=== PATIENT | female | born 1985 | race Caucasian/White ===

== ENCOUNTER 2023-06-23 21:59 | Outpatient (REF) | payer OTHER, SELFPAY ==
[2023-06-29 12:13] LABS: Age Gdln ACOG Testing Note (.); HPV Aptima Negative (Negative); IGP, Aptima HPV, rfx 16/18,45 Note (.)
== END 2023-06-23 22:00 | disposition home or self-care (01) ==
LOC: LAB 21:59
PROVIDERS: Visit Provider Physician Assistant
DX: Z01.419 Encounter for gynecological examination (general) (routine) without abnormal findings (principal)
CPT/HCPCS: 87624; G0145

== ENCOUNTER 2023-06-26 12:49 | Outpatient (OUT) | payer OTHER, SELFPAY ==
--- NOTE | 2023-06-26 12:55 | US_ITS ---
The [address] [address] Patient Name: BENNY PIERSON MRN: [id number] date: 1985 Sex: F Assigned Patient Location: Current Patient Location: Accession/Order Number: [id number] Exam Date: 06/26/2023 12:57 Report Date: 06/28/2023 08:47 At the request of: ARCELIA RIVERS Procedure: US pelvis transvaginal Ultrasound pelvis, non-obstetric CLINICAL: IUD placement Z97.5 TECHNIQUE: Transabdominal and transvaginal pelvic ultrasound was performed. FINDINGS: Comparison: None. The uterus is anteverted in position. It measures 7.5 x 5.2 x 3.4 cm. There is no discrete myometrial mass. The endometrial complex measures 5 mm in thickness. There is a linear echogenic shadowing structure in the uterine cavity compatible with intrauterine device. The stem is oriented longitudinally in the lower uterine segment and the origins of the IUD are at the fundus. The right ovary measures 3.1 x 1.9 x 1.8 cm. The left ovary measures 3.9 x 2.5 x 3.0 cm. There is normal vascular flow to both ovaries with resistive index of 0.6 on right and 0.6 on the left. Small physiologic sized follicles are identified in both ovaries. There is a dominant cyst in the left ovary measuring 2.5 x 2.2 x 2.1 cm with a small peripheral daughter cyst. There is no free pelvic fluid or mass seen on either side. US/US pelvis transvaginal IMPRESSION: 1. Intrauterine device in expected positioning. The arms of the IUD are at the fundus and stem oriented longitudinally into the lower uterine segment. 2. Normal ovaries bilaterally, with dominant 2.5 cm cyst in left ovary. Electronically authenticated by: SHERIE RODARTE Date: 06/28/2023 08:47
== END 2023-06-26 12:50 | disposition home or self-care (01) ==
LOC: US 12:50
PROVIDERS: Visit Provider Obstetrics & Gynecology
DX: N83.202 Unspecified ovarian cyst, left side (principal); Z97.5 Presence of (intrauterine) contraceptive device
CPT/HCPCS: 76830

== ENCOUNTER 2024-08-23 19:46 | Outpatient (REF) | payer OTHER, SELFPAY ==
--- OUTSIDE RECORDS SUMMARY | 2024-08-23 19:52 | XMS_ITS | CCD ---
Author Organization [facility] CliniSyal Care Team Providers Care Turnaround Planner Name Role Phone Unavailable Primary Care Provider UnavailNikky Stoner Unavailable Unavailable Primary Care Provider Unavailabl e FAWWALg, FRAGA H Admitting Unavailable FAWWALg, FRAGA H Attending Unavailable FAWWAD, FRAGA H Primary Care Unavailable ZhaoSamira mederos Consulting Unavailable FAAngélicaWALg FRAGA H Consulting Unavailable DR EMMANUEL TURNER Admitting Unavailable SILVESTRE, DR PANIAGUA Attending Unavailable FAWWALg, FRAGA H Primary Care Unavailable DR EMMANUEL TURNER Consulting Unavailable Michelle Ferrari Attending Unavailable Michelle Ferrari Admitting Unavailable NO FAMILY, PHYSICIAN Primary Care Unavailable Unavailable Primary Care Provider UnavailHALEY Rosales Referring Unavailjose De Paz APRN, Tara A Primary Care Provider Tara De Paz APRN A Primary Care Provider GILBERTO ARMAS, SACHI Referring Unavailable GERMAN MORALES Attending Unavailable ERNESTOPFER, TARA A Primary Care Unavailable GERMAN MORALES Attending Unavailable ERNESTOPFER, TARA A Primary Care Unavailable GILBERTO ARMAS, SACHI Referring Unavailable ERNESTOPFER, TARA Attending Unavailable MARILEE FISHER Attending Unavailable ERNESTOPFER, TARA Referring Unavailable ERNESTOPFER, TARA Attending Unavailable Kary Duran MD Primary Care Provider Tara De Paz NP Unavailable Effie Gutierrez DO Unavailable MARANDA RETANA Attending Unavailable KAMPFER, TARA A Primary Care Unavailable IRMA TA Attending Unavailable ERNESTOPREMI, TARA A Primary Care Unavailable IRMA TA Attending Unavailable KAMPFER, TARA A Primary Care Unavailable EL PAWEL, SACHI Referring Unavailable KAMPFER, TARA A Primary Care Unavailable EL PAWEL, SACHI Referring Unavailable KAMPFER, TARA A Primary Care [facility] Primary Care Unavailable EL PAWEL, SACHI Attending Unavailable KAMPFER, TARA A Primary Care Unavailable KAMPFER, TARA A Primary Care Unavailable EL PAWEL, SACHI Referring Unavailable KAMPFER, TARA A Primary Care Unavailable EL PAWEL, SACHI Attending Unavailable ROSA MARIA PURVIS Attending Unavailable KAMFER, TARA A Primary Care Unavailable EL PAWEL, SACHI Referring Unavailable KAMPFER, TARA A Primary Care Unavailable EL PAWEL, SACHI Referring Unavailable KAMPFER, TARA A Primary Care Unavailable ALEXANDRA CADET Attending Unavailable Dasha Weber Referring [facility], TARA A Primary Care Unavailable EL PAWEL, SACHI Referring Unavailable SUSY MONTEZ Attending Unavailable [facility], [place] A Primary Care Unavailable Allergies Allergy Classification Reported Allergen(s) Allergy Type Date of Onset Reaction(s) Facility (20 sources) Seasonal allergy; Translations: [SEASONAL ALLERGIES] Propensity to adverse reactions 2 Other: See Comments [facility] (2 sources) cefdinir Drug Allergy 3 [facility] Work Phone: (2 sources) Other Propensity to adverse reactions 2 [facility] Healthcare Medications Current Medications Medication Drug Class(es) Dates Sig (Normalized) Sig (Original) [id number] 200 actuat albuterol 0.09 mg/actuat metered dose inhaler (2 sources) beta2-Adrenergic Agonist Start: 05-24-2024 End: 05-24-2025 take 2 puff(s) by inhalation every four hours for wheezing albuterol HFA 90 mcg/act inhaler Indications: Mild intermittent asthma without complication (CMS/HCC) Inhale 2 puffs every 4 (four) hours if needed for wheezing 18 g 05/24/2024 05/24/2025 Active atorvastatin 20 mg oral tablet (20 sources) HMG-CoA Reductase Inhibitor Start: 05-31-2023 take 1 tablet by mouth in the morning atorvastatin (Lipitor) 20 MG tablet Indications: Dyslipidemia (CMS/HCC) Take 1 tablet (20 mg) by mouth in the morning. 90 tablet 1 05/31/2023 Active Start: 12-02-2021 take 0.5 tablet by m outh once daily atorvastatin (LIPITOR) 20 mg tablet Take 0.5 tablets by mouth once daily. 12/02/2021 Active Start: 08-12-2021 End: 12-02-2021 atorvastatin (LIPITOR) 20 mg tablet Comment on above: Take 0.5 tablets by mouth once daily. 24 hr buPROPion hydrochloride 300 mg extended release oral tablet (20 sources) Aminoketone Start: End: take 1 tablet by mouth once daily buPROPion XL (WELLBUTRIN XL) 300 mg 24 hr tablet Indications: Obesity, Class I, BMI 30-34.9 , PCOS (polycystic ovarian syndrome) , Insulin resistance Take 1 tablet by mouth once daily 90 tablet 1 06/30/2024 Active Start: 04-16-2021 buPROPion XL ( WELLBUTRIN XL) 150 mg 24 hr tablet bupropion HCl XL 150 mg 24 hr tablet, extended release 0 04/16/2021 Active take 1 tablet by car th every twenty-four hours in the morning buPROPion XL (Wellbutrin XL) 300 MG 24 hr tablet Take 300 mg by mouth in the morning. Do not crush, chew, or split.. Active Wellbutrin Activ e Comment on above: bupropion HCl XL 150 mg 24 hr tablet, extended release Take 1 tablet by car th once daily. busPIRone hydrochloride 15 mg oral tablet (20 sources) Start: take 1 tablet by mouth twice daily at bedtime busPIRone (Buspar) 15 MG tablet Indications: Depression with anxiety TAKE 1 TABLET BY MOUTH TWICE DAILY (MORNING AND BEFORE BEDTIME) 180 tablet 06/14/2024 Active Start: 11-09-2023 take 1 tablet by car th in the morning busPIRone (Buspar) 15 MG tablet Indications: Depression with anxiety Take 1 tablet (15 mg) by mouth in the morning and 1 tablet (15 mg) before bedtime. 180 tablet 1 11/09/2023 Active Start: 08-25-2021 take 1 tablet by car th three times daily busPIRone (BUSPAR) 15 mg tablet Take 15 mg by mouth three times daily. 08/25/2021 Active BuSpar Active Comment on above: Take 15 mg by mouth three times daily. cetirizine hydrochloride 10 mg oral tablet (20 sources) Histamine-1 Receptor Antagonist Start: take 1 tablet by mouth in the morning cetirizine (ZyrTEC) 10 MG tablet Indications: Seasonal allergies TAKE 1 TABLET BY MOUTH IN THE MORNING 90 tablet 05/26/2024 Active Start: 11-09-2023 take 1 tablet by car th in the morning cetirizine (EQ Allergy Relief, Cetirizine,) 10 MG tablet Indications: Seasonal allergies Take 1 tablet (10 mg) by mouth in the morning. 90 tablet 1 11/09/2023 Active Comment on above: Take 10 mg by mouth once daily. cholecalciferol 0.025 mg ora l capsule (20 sources) Vitamin D Cholecalciferol, Vitamin D3, 25 mcg (1,000 unit) cap Active take 1 tablet by mouth in the mo rning cholecalciferol (Vitamin D3) 25 MCG (1000 UT) tablet Take 1 tablet by mouth in the morning. Active Cholecalciferol, Vitamin D3, (VITAMIN D) 25 mcg (1,000 unit) cap DAILY MULTI-VITAMIN ORAL (20 sources) DAILY MULTI-IMER MIN ORAL Active DAILY MULTI-IMER MIN ORAL diphenhydrAMINE hydrochloride 25 mg oral capsule (20 sources) Histamine-1 Receptor Antagonist take 1 capsule by mouth every six hours as needed diphenhydrAMINE (BENADRYL) 25 mg capsule Take 25 mg by mouth every 6 hours as needed. Active Comment on above: Take 25 mg by mouth every 6 hours as needed. doxycycline hyclate 100 mg oral capsule (10 sources) Tetracycline-class Drug Start: End: doxycycline (Vibramycin) 100 MG capsule Take 100 mg by mouth if needed 12/17/2022 Active Comment on above: Take 100 mg by mouth . fexofenadine hydrochloride 180 mg oral tablet (20 sources) Histamine-1 Receptor Antagonist Start: End: take 1 tablet by mouth once daily fexofenadine (JOYA) 180 mg tablet Take 180 mg by mouth once daily. 0 07/24/2021 06/24/2023 Discontinued Comment on above: Take 180 mg by mouth once daily. fluconazole 150 mg oral tablet (2 sources) Azole Antifungal Start: 024 take 1 tablet by mouth once, then take 1 tablet by mouth every week fluconazole (Diflucan) 150 MG tablet TAKE 1 TABLET BY MOUTH ONCE THEN REPEAT ADDITIONAL 1 TAB ONE WEEK LATER ON SAME DAY OF THE WEEK 12/22/2023 Active Start: 09-03-2020 take 1 tablet by car th every twenty-four hours Diflucan 150 MG 1 tablet Orally Once a day for 1 days Aug, Not-Taking FLUoxetine 20 mg oral capsule (20 sources) Serotonin Reuptake Inhibitor Start: 05-24-2024 take 1 capsule by mouth once daily FLUoxetine (PROzac) 20 MG capsule Indications: Anxiety , Moderate episode of recurrent major depressive disorder (CMS/HCC) Take 1 capsule (20 mg) by mouth Daily 90 capsule 05/24/2024 Active Comment on above: Take 20 mg by mouth once daily. fluticasone propionate 0.05 mg/actuat metered dose nasal spray (20 sources) Corticosteroid Start: 02-19-2023 take 1 spray(s) nasal route in the morning fluticasone (Flonase) 50 MCG/ACT nasal spray Indications: Seasonal allergies Administer 1 spray into each nostril in the morning. 16 g 5 02/19/2023 Active fluticasone (FAUSTO NASE) 50 mcg/actuation nasal spray fluticasone propionate 50 mcg/actuation nasal spray,suspension Active fluticasone (FAUSTO NASE) 50 mcg/actuation nasal spray fluticasone propionate 50 mcg/actuation nasal spray,suspension 0 Active Comment on above: fluticasone propiona te 50 mcg/actuation nasal spray,suspension hydrOXYzine hydrochloride 25 mg oral tablet (2 sources) Antihistamine Start: 023 take 1 tablet by mouth three times daily as needed for anxiety hydrOXYzine HCl (Atarax) 25 MG tablet Take 25 mg by mouth 3 (three) times a day as needed for anxiety. 01/12/2023 Active ibuprofen 800 mg oral tablet (20 sources) Nonsteroidal Anti-inflammatory Drug Start: 017 ibuprofen (MOTRIN) 800 mg tablet ibuprofen 800 mg tablet 07/22/2017 Active Comment on above: ibuprofen 800 mg tab let ketoconazole 20 mg/ml medicated shampoo (20 sources) Azole Antifungal ketoconazole (NIZORAL) 2 % shampoo ketoconazole 2 % shampoo Active Comment on above: ketoconazole 2 % sha mpoo 24 hr metFORMIN hydrochloride 500 mg extended release oral tablet (20 sources) Biguanide Start: 024 take 1 tablet by mouth twice daily before mealtime metFORMIN ER (GLUCOPHAGE XR) 500 mg 24 hr tablet Indications: PCOS (polycystic ovarian syndrome) Take 1 tablet by mouth two times a day before meals. 180 tablet 3 06/22/2024 Active Start: 07-22-2017 End: 06-24-2023 take 1 tablet by mouth twice daily at mealtime metFORMIN (GLUCOPHAGE) 500 mg tablet Take 1 tablet by mouth twice daily with meals. 180 tablet 3 12/31/2021 06/24/2023 Discontinued metFORMIN HCl Ac tive Comment on above: Take 1 tablet by car th twice daily with meals. metformin 500 mg tab let Multiple Vitamin (MULTIVITAMIN ADULT PO) (2 sources) take 1 tablet by mouth in the morning Multiple Vitamin (MULTIVITAMIN ADULT PO) Take 1 tablet by mouth in the morning. Active omeprazole 40 mg delayed release oral capsule (20 sources) Proton Pump Inhibitor Start: 4 End: 4 take 1 capsule by mouth twice daily omeprazole (PRILOSEC) 40 mg capsule Indications: Gastroesophageal reflux disease without esophagitis Take 1 capsule by mouth two times a day. 180 capsule 05/24/2024 08/22/2024 Active Start: 06-14-2023 End: 09-28-2023 take 1 capsule by mouth twice daily omeprazole (PRILOSEC) 40 mg capsule TAKE 1 CAPSULE BY MOUTH TWICE DAILY 60 capsule 2 08/09/2023 Active Start: 10-25-2015 take 1 capsule by [facility] every twenty-four hours Omeprazole 20 mg 1 capsule Orally Once a day for 30 days Oct, Active Comment on above: omeprazole 40 mg cap brandon,delayed release Take 1 capsule by mo [facility] two times a day. TAKE 1 CAPSULE BY [facility] TWICE DAILY phentermine hydrochloride 37.5 mg oral tablet (20 sources) Sympathomimetic Amine Anorectic Start: 08-08-20 24 End: 11-07-19 25 take 0.5 tablet by mouth once daily Phentermine HCl 37.5 mg tablet Indications: Obesity, Class III, BMI 40-49.9 (morbid obesity) ([facility]) Take 0.5 tablets by mouth once daily for 90 days. BMI 41.91 15 tablet 2 08/08/2024 11/06/2024 Active Start: 05-21-2023 End: 08-19-2023 take 1 tablet by mouth once daily Phentermine HCl 37.5 mg tablet Indications: Class 1 obesity due to excess calories without serious comorbidity with body mass index (BMI) of 31.0 to 31.9 in adult , PCOS (polycystic ovarian syndrome) Take 1 tablet by mouth once daily for 90 days. BMI 31.78 30 tablet 2 05/21/2023 08/19/2023 Active Start: 12-15-2021 End: 03-05-2022 take 1 tablet by mouth once daily Phentermine HCl 37.5 mg tablet Indications: Obesity, Class III, BMI 40-49.9 (morbid obesity) (HCC) , PCOS (polycystic ovarian syndrome) , Dyslipidemia Take 1 tablet by mouth once daily for 28 days. BMI 46.37 28 tablet 0 01/13/2022 02/05/2022 Discontinued Comment on above: Take 1 tablet by car th once daily for 28 days. BMI 49.55 Take 1 tablet by car th once daily for 28 days. BMI 46.37 Take 1 tablet by car th once daily for 28 days. BMI 44.57 Take 1 tablet by car th once daily for 90 days. BMI 31.78 spironolactone 50 mg oral tablet (20 sources) Aldosterone Antagonist Start: 12-03-19 End: 12-03-19 take 1 tablet by mouth twice daily spironolactone (ALDACTONE) 50 mg tablet Take 1 tablet by mouth twice daily. 12/02/2021 Active Spironolactone A ctive Comment on above: Take 1 tablet by car th twice daily. spironolactone 50 mg tablet tirzepatide (MOUNJARO) 7.5 mg/0.5 mL pen injector (12 sources) Start: 023 End: 023 inject 7.5 mg by subcutaneous injection every week tirzepatide (MOUNJARO) 7.5 mg/0.5 mL pen injector Inject 7.5 mg subcutaneously one time a week. 6 mL 3 01/20/2023 06/24/2023 Discontinued Start: 01-20-2023 inject 7.5 mg by sub cutaneous injection every week tirzepatide (MOUNJARO) 7.5 mg/0.5 mL pen injector Inject 7.5 mg subcutaneously one time a week. 6 mL 3 01/20/2023 Active Start: 09-24-2022 inject 7.5 mg by sub cutaneous injection every week tirzepatide (MOUNJARO) 7.5 mg/0.5 mL pen injector Inject 7.5 mg subcutaneously one time a week. 6 mL 3 09/24/2022 Active Comment on above: Inject 7.5 mg subcut aneously one time a week. topiramate 25 mg oral tablet (20 sources) Start: take 1 tablet by mouth once daily at bedtime topiramate (TOPAMAX) 25 mg tablet Indications: Obesity, Class III, BMI 40-49.9 (morbid obesity) (HCC) Take 1 tablet by mouth daily at bedtime. 30 tablet 5 08/08/2024 Active Start: 06-24-2023 End: 06-24-2023 take 0.5 tablet by mouth once daily topiramate (TOPAMAX) 50 mg tablet Indications: PCOS (polycystic ovarian syndrome) , Dyslipidemia , Obesity, Class III, BMI 40-49.9 (morbid obesity) (HCC) Take 0.5 tablets by mouth once daily. 90 tablet 1 06/24/2023 Active Start: 12-15-2021 End: 06-24-2023 topiramate (TOPAMAX) 50 mg t ablet Indications: PCOS (polycystic ovarian syndrome) , Dyslipidemia , Obesity, Class III, BMI 40-49.9 (morbid obesity) (HCC) 25 mg daily for one week 90 tablet 3 06/24/2023 06/24/2023 Discontinued Comment on above: 25 mg daily for one week, then increase to 50 mg daily 25 mg daily for one week Take 0.5 tablets by mouth once daily. 25 mg daily for one week Take 0.5 tablets by mouth once daily. Completed/Discontinued Medications Medication Drug Class(es) Dates Sig (Normalized) Sig (Original) dexamethasone 1 mg oral tablet (1 source) Corticosteroid Start: 09-24-2021 End: 12-02-2021 dexAMETHasone (DECADRON) 1 mg tablet Indications: Abnormal weight gain Take one pill between 23:00 and 00:00 1 tablet 0 09/24/2021 12/02/2021 Discontinued Comment on above: Take one pill cayla n 23:00 and 00:00 Mupirocin (1 source) RNA Synthetase Inhibitor Antibacterial Start: 09-03-2020 Bactroban 2 % 1 application to affected area Externally Three times a day for 14 days Aug, Not-Taking naltrexone hydrochloride 50 mg oral tablet (6 sources) Opioid Antagonist Start: 11-24-2023 End: 12-07-2023 take 0.5 tablet by mouth twice daily naltrexone 50 mg tablet Indications: Obesity, Class I, BMI 30-34.9 , PCOS (polycystic ovarian syndrome) , Insulin resistance Take 0.5 tablets by mouth two times a day. 60 tablet 0 11/24/2023 12/07/2023 Discontinued (Course of therapy completed) Start: 09-07-2023 End: 11-23-2023 naltrexone (Depade) 50 MG ta blet Take 1/4 tablet every night for 7 days, then increase to 1/2 tablet every night for 3 weeks, then increase to 1/2 tablet twice daily. 09/07/2023 Active Comment on above: Take 0.5 tablets by mouth two times a day. Take 1/4 tablet ever y night for 7 days, then increase to 1/2 tablet every night for 3 weeks, then increase to 1/2 tablet twice daily. pantoprazole 40 mg delayed release oral tablet (12 sources) Proton Pump Inhibitor Start: 02-14-20 24 End: 04-26-20 24 take 1 tablet by mouth once daily pantoprazole DR (PROTONIX) 40 mg tablet Take 1 tablet by mouth once daily. 30 tablet 5 02/14/2024 04/26/2024 Discontinued 0.25 mg, 0.5 mg dose 1.5 ml semaglutide 1.34 mg/ml pen injector (2 sources) Start: 03-10-20 semaglutide (OZEMPIC) 0.25 mg or 0.5 mg(2 mg/1.5 mL) pen injector Indications: Obesity, Class III, BMI 40-49.9 (morbid obesity) (HCC) , PCOS (polycystic ovarian syndrome) , Dyslipidemia , Hydradenitis , Malaise and fatigue , Insulin resistance 0.25 mg weekly for the first two weeks and the increase to 0.5 mg weekly 3 Each 3 03/10/2022 Active Comment on above: 0.25 mg weekly for t he first two weeks and the increase to 0.5 mg weekly semaglutide, weight loss, (WEGOVY) 0.25 mg/0.5 mL pen injector (2 sources) Start: 12-03-19 End: 12-16-19 inject 0.5 mL by subcutaneous injection every week semaglutide, weight loss, (WEGOVY) 0.25 mg/0.5 mL pen injector Indications: Obesity, Class III, BMI 40-49.9 (morbid obesity) (HCC) , PCOS (polycystic ovarian syndrome) , Dyslipidemia , Insulin resistance Inject 0.5 mL subcutaneously one time a week. BMI 49.55 4 Each 0 12/02/2021 12/15/2021 Discontinued Start: 12-02-2021 inject 0.5 mL by sub cutaneous injection every week semaglutide, weight loss, (WEGOVY) 0.25 mg/0.5 mL pen injector Indications: Obesity, Class III, BMI 40-49.9 (morbid obesity) (HCC) , PCOS (polycystic ovarian syndrome) , Dyslipidemia , Insulin resistance Inject 0.5 mL subcutaneously one time a week. BMI 49.55 4 Each 0 12/02/2021 Active Comment on above: Inject 0.5 mL subcut aneously one time a week. BMI 49.55 sulfamethoxazole 800 mg / trimethoprim 160 mg oral tablet (1 source) Dihydrofolate Reductase Inhibitor Antibacterial, Sulfonamide Antimicrobial Start: 020 take 1 tablet by mouth every twelve hours Bactrim DS 800-160 MG 1 tablet Orally Twice a day for 10 day(s) Aug, Not-Taking tirzepatide (MOUNJARO) 2.5 mg/0.5 mL pen injector (6 sources) Start: 022 End: tirzepatide (MOUNJARO) 2.5 mg/0.5 mL pen injector Indications: Obesity, Class III, BMI 40-49.9 (morbid obesity) (HCC) , PCOS (polycystic ovarian syndrome) , Dyslipidemia 2.5 mg weekly for one month, then increase to 5 mg weekly 4 Each 0 04/15/2022 07/20/2022 Discontinued Start: 04-15-2022 tirzepatide (M OUNJARO) 2.5 mg/0.5 mL pen injector Indications: Obesity, Class III, BMI 40-49.9 (morbid obesity) (HCC) , PCOS (polycystic ovarian syndrome) , Dyslipidemia 2.5 mg weekly for one month, then increase to 5 mg weekly 4 Each 0 04/15/2022 Active Start: 04-10-2022 End: 04-15-2022 tirzepatide (MOUNJARO) 2.5 m g/0.5 mL pen injector Indications: Obesity, Class III, BMI 40-49.9 (morbid obesity) (HCC) , PCOS (polycystic ovarian syndrome) , Dyslipidemia 2.5 mg weekly for one month, then increase to 0.5 mg weekly 4 Each 0 04/10/2022 04/15/2022 Discontinued Comment on above: 2.5 mg weekly for on e month, then increase to 5 mg weekly 2.5 mg weekly for on e month, then increase to 0.5 mg weekly tirzepatide (MOUNJARO) 5 mg/0.5 mL pen injector (11 sources) Start: 07-20-20 End: 09-24-19 23 inject 5 mg by subcutaneous injection every week tirzepatide (MOUNJARO) 5 mg/0.5 mL pen injector Indications: Obesity, Class III, BMI 40-49.9 (morbid obesity) (HCC) , PCOS (polycystic ovarian syndrome) , Dyslipidemia , Insulin resistance Inject 5 mg subcutaneously one time a week. 4 Each 3 07/20/2022 09/24/2022 Discontinued Start: 07-20-2022 inject 5 mg by subcu taneous injection every week tirzepatide (MOUNJARO) 5 mg/0.5 mL pen injector Indications: Obesity, Class III, BMI 40-49.9 (morbid obesity) (HCC) , PCOS (polycystic ovarian syndrome) , Dyslipidemia , Insulin resistance Inject 5 mg subcutaneously one time a week. 4 Each 3 07/20/2022 Active Start: 04-15-2022 End: 07-18-2022 tirzepatide (MOUNJARO) 5 mg/ 0.5 mL pen injector Indications: Obesity, Class III, BMI 40-49.9 (morbid obesity) (HCC) , PCOS (polycystic ovarian syndrome) , Dyslipidemia 2.5 mg weekly for one month, then increase to 5 mg weekly 12 Each 0 04/15/2022 07/18/2022 Discontinued Start: 04-15-2022 tirzepatide (M OUNJARO) 5 mg/0.5 mL pen injector Indications: Obesity, Class III, BMI 40-49.9 (morbid obesity) (HCC) , PCOS (polycystic ovarian syndrome) , Dyslipidemia 2.5 mg weekly for one month, then increase to 5 mg weekly 12 Each 0 04/15/2022 Active Start: 04-10-2022 End: 04-15-2022 tirzepatide (MOUNJARO) 5 mg/ 0.5 mL pen injector Indications: Obesity, Class III, BMI 40-49.9 (morbid obesity) (HCC) , PCOS (polycystic ovarian syndrome) , Dyslipidemia 2.5 mg weekly for one month, then increase to 0.5 mg weekly 12 Each 0 04/10/2022 04/15/2022 Discontinued Comment on above: 2.5 mg weekly for on e month, then increase to 5 mg weekly 2.5 mg weekly for on e month, then increase to 0.5 mg weekly Inject 5 mg subcutan eously one time a week. tirzepatide (MOUNJARO) 5 mg/0.5 mL pen injector (4 sources) Start: 023 inject 5 mg by subcutaneous injection every week tirzepatide (MOUNJARO) 5 mg/0.5 mL pen injector Indications: Obesity, Class III, BMI 40-49.9 (morbid obesity) (HCC) , PCOS (polycystic ovarian syndrome) , Dyslipidemia , Insulin resistance Inject 5 mg subcutaneously one time a week. 2 mL 0 09/24/2022 Active Comment on above: Inject 5 mg subcutan eously one time a week. venlafaxine (1 source) Serotonin and Norepinephrine Reuptake Inhibitor Effexor Not-Taking Problems Active Problems Problem Classification Problem Date Documented Date Episodic/Chronic Anxiety disorders (2 sources) Mixed anxiety and depressive disorder; Translations: [Other specified anxiety disorders] Onset: 02-13-2023 02-13-2023 Chronic Asthma (1 source) Mild intermittent asthma; Translations: [Mild intermittent asthma, uncomplicated] 05-24-2024 Chronic Disorders of lipid metabolism (16 sources) Dyslipidemia; Translations: [Hyperlipidemia, unspecified] Onset: 02-13-2023 Chronic Esophageal disorders (10 sources) Gastroesophageal reflux disease; Translations: [Gastro-esophageal reflux disease without esophagitis] Chronic Gastroduodenal ulcer (except hemorrhage) (3 sources) Gastric ulcer without hemorrhage AND without perforation; Translations: [Gastric ulcer, unspecified as acute or chronic, without hemorrhage or perforation] Onset: 08-27-2023 07-06-2023 Chronic Malaise and fatigue (1 source) Malaise and fatigue; Translations: [Other malaise] Episodic Nutritional deficiencies (1 source) Vitamin D deficiency; Translations: [Vitamin D deficiency, unspecified] 01-27-2024 Chronic Other endocrine disorders (20 sources) Polycystic ovary syndrome; Translations: [Polycystic ovarian syndrome] Onset: 02-13-2023 Chronic Other endocrine disorders (4 sources) Reactive hypoglycemia; Translations: [Other hypoglycemia] 03-07-2024 Chronic Other endocrine disorders (2 sources) Other hypoglycemia; Translations: [Reactive hypoglycemia] Onset: 03-07-2024 Chronic Other endocrine disorders (1 source) Polycystic ovarian syndrome; Translations: [PCOS (polycystic ovarian syndrome)] Onset: 08-08-2024 Chronic Other inflammatory condition of skin (1 source) Arthropathic psoriasis, unspecified; Translations: [Psoriatic arthropathy] 08-08-2024 Chronic Other liver diseases (5 sources) Large liver; Translations: [Hepatomegaly, not elsewhere classified] Episodic Other liver diseases (1 source) Hepatomegaly, not elsewhere classified; Translations: [Hepatomegaly] Onset: 02-17-2023 Episodic Other nutritional; endocrine; and metabolic disorders (20 sources) Body mass index 40+ - severely obese; Translations: [Morbid (severe) obesity due to excess calories] Onset: 09-24-2021 Chronic Other nutritional; endocrine; and metabolic disorders (15 sources) Insulin resistance; Translations: [Metabolic syndrome] Chronic Other nutritional; endocrine; and metabolic disorders (1 source) Obesity caused by energy imbalance; Translations: [Other obesity due to excess calories] 05-21-2023 Chronic Other nutritional; endocrine; and metabolic disorders (1 source) Obesity; Translations: [Obesity, unspecified] 06-24-2023 Chronic Other nutritional; endocrine; and metabolic disorders (5 sources) Obese class I; Translations: [Obesity, unspecified] Onset: 02-13-2023 4 Chronic Other nutritional; endocrine; and metabolic disorders (5 sources) Obese class II; Translations: [Obesity, unspecified] 12-06-2023 Chronic Other nutritional; endocrine; and metabolic disorders (3 sources) Hypercalcemia; Translations: [Hypercalcemia] 01-27-2024 Chronic Other nutritional; endocrine; and metabolic disorders (1 source) Morbid (severe) obesity due to excess calories; Translations: [Obesity, Class III, BMI 40-49.9 (morbid obesity) (HCC)] Onset: 09-24-2021 Chronic Other nutritional; endocrine; and metabolic disorders (1 source) Obesity, unspecified; Translations: [Obesity, Class II, BMI 35-39.9] Onset: 05-31-2024 Chronic Other skin disorders (3 sources) Hidradenitis; Translations: [Hidradenitis suppurativa] Episodic Spondylosis; intervertebral disc disorders; other back problems (4 sources) Pain in thoracic spine; Translations: [PAIN IN THORACIC SPINE] Onset: 06-23-2022 Episodic Substance-related disorders (2 sources) Tobacco dependence caused by cigarettes; Translations: [Nicotine dependence, cigarettes, uncomplicated] Onset: 02-13-2023 02-13-2023 Chronic Thyroid disorders (10 sources) Graves' disease; Translations: [Thyrotoxicosis with diffuse goiter without thyrotoxic crisis or storm] Onset: 08-08-2024 Chronic Unclassified (2 sources) Insulin resistance; Translations: [Insulin resistance] Onset: 03-07-2024 Unclassified (2 sources) Patient on antidepressant monitoring plan Onset: 02-19-2023 02-19-2023 Past or Other Problems Problem Classification Problem Date Documented Date Episodic/Chronic Administrative/social admission (11 sources) Patient encounter status; Translations: [Dietary counseling and surveillance] Onset: 12-07-2023 06-24-2023 Episodic Immunizations and screening for infectious disease (1 source) Encounter for screening for human papillomavirus (HPV); Translations: [ENC SCREENING HUMAN PAPILLOMAVIRUS] Onset: 01-29-2022 Episodic Mood disorders (2 sources) Mood disorders Onset: 09-22-2023 Resolved: 06-05-2024 06-05-2024 Other aftercare (1 source) 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; Translations: [Medication management] Onset: 12-07-2023 Episodic Other screening for suspected conditions (not mental disorders or infectious disease) (4 sources) Encounter for screening for malignant neoplasm of cervix; Translations: [ENC SCREENING MALIG NEOPLASM CERV] Onset: 01-26-2022 Episodic Other skin disorders (4 sources) Hidradenitis suppurativa; Translations: [Hidradenitis suppurativa] Onset: 11-18-2021 02-15-2024 Episodic Unclassified (1 source) Contact with and (suspected) exposure to covid-19 Z20.822 Onset: 03-16-2022 Resolved: 03-16-2022 Results Test Name Value Interpretation Reference Range Facility 25(OH)D3 [facility] 2023 25-hydroxyvitamin D3 [Mass/Vol] 36.9 ng/mL Normal 31.0-80.0 [facility] Comment on above: Order Comment: Speci men Type: BLOOD SPECIMEN Ordering Facility: External Submitter Address: , , Result Comment: Clas sification of 25 OH Vitamin D status: Deficiency/Insufficiency: < or = 30 ng/ml. Sufficiency/Optimal Levels: 31-80 ng/mL Toxicity: > 100 ng/mL. Test performed by chemiluminescent immunoassay. Performed By: #### 2 4331-1 #### [facility] CLIA [id number] [address] [place] [address] [place] [facility] CLIA [id number] [address] [place] [address] #### 2986-8, 3024-7, 3016-3 #### [facility] CLIA [id number] [address] [place] [address] [place] [facility] COMP METAB 2000 PNL SERP Shahid 06-21-2024 Albumin [Mass/Vol] 4.4 g/dL 3.9 - 4.9 g/dL [facility] ALP [Catalytic activity/Vol] 57 U/L 34 - 123 U/L [facility] ALT [Catalytic activity/Vol] 12 U/L 7 - 38 U/L [facility] Anion gap [Moles/Vol] 11 mmol/L 8 - 15 mmol/L [facility] Calcium [Mass/Vol] 9.7 mg/dL 8.5 - 10.2 mg/dL [facility] AST SERPL-CCNC 13 U/L 13 - 35 U/L [facility] BILIRUB SERPL-MCNC 0.4 mg/dL 0.2 - 1.3 mg/dL [facility] PROT SERPL-MCNC 6.6 g/dL 6.3 - 8.0 g/dL [facility] Chloride [Moles/Vol] 102 mmol/L 98 - 107 mmol/L [facility] CO2 [Moles/Vol] 26 mmol/L 22 - 30 mmol/L [facility] Creatinine [Mass/Vol] 0.85 mg/dL 0.58 - 0.96 mg/dL [facility] GFR/1.73 sq M.predicted CKD-EPI (S/P/Bld) [Vol rate/Area] 91 - PINF [facility] Comment on above: Estimated Glomerular Filtration Rate (eGFR) is calculated using the 2020 CKD-EPI creatinine equation. This equation utilizes serum creatinine, sex, and age as parameters. The creatinine assay has traceable calibration to isotope dilution-mass spectrometry. Refer to KDIGO guidelines for clinical interpretation. In patients with unstable renal function, e.g. those with acute kidney injury, the eGFR may not accurately reflect actual GFR. Glucose [Mass/Vol] 97 mg/dL 74 - 99 mg/dL [facility] Comment on above: The [place] Diabete s Association (ADA) provides guidance for cutoff values for fasting glucose and random glucose. The ADA defines fasting as no caloric intake for at least 8 hours. Fasting plasma glucose results between 100 to 125 mg/dL indicate increased risk for diabetes (prediabetes). Fasting plasma glucose results greater than or equal to 126 mg/dL meet the criteria for diagnosis of diabetes. In the absence of unequivocal hyperglycemia, results should be confirmed by repeat testing. In a patient with classic symptoms of hyperglycemia or hyperglycemic crisis, random plasma glucose results greater than or equal to 200 mg/dL meet the criteria for diagnosis of diabetes. Reference: Standards of Medical Care in Diabetes 2016, [place] Diabetes Association. Diabetes Care. 2016.39(Suppl 1). Potassium [Moles/Vol] 4.2 mmol/L 3.7 - 5.1 mmol/L [facility] Sodium [Moles/Vol] 139 mmol/L 136 - 144 mmol/L [facility] Urea nitrogen [Mass/Vol] 14 mg/dL 7 - 21 mg/dL [facility] Specimen Type: BLOOD SPECIMEN Ordering Facility: External Submitter Address: , , Original Ordering Provider[facility] Calcium.ionized [Moles/Vol]o n 06-21-2024 Calcium.ionized (Bld) [Mass/Vol] 1.29 mmol/L Normal 1.08-1.30 [facility] Comment on above: Order Comment: Speci men Type: BLOOD SPECIMEN Ordering Facility: External Submitter Address: , , Performed By: #### 2 4331-1 #### [facility] CLIA [id number] [address] [place] [address] LAB CLIA [id number] [address] [place] [address] #### 2986-8, 3024-7, 3016-3 #### [facility] CLIA [id number] [address] [place] [address] Calcium.ionized adjusted to pH 7.4 (Bld) [Moles/Vol] 1.28 mmol/L Normal 1.08-1.30 [facility] Comment on above: Order Comment: Speci men Type: BLOOD SPECIMEN Ordering Facility: External Submitter Address: , , Performed By: #### 2 4331-1 #### [facility] CLIA [id number] [address] [place] [address] OF [facility] CLIA [id number] [address] [place] [address] #### 2986-8, 3024-7, 3016-3 #### [facility] CLIA [id number] [address] [place] [address] [place] Comprehensive metabolic 2000 panelon 06-21-2024 Albumin [Mass/Vol] 4.4 g/dL Normal 3.9-4.9 [facility] Comment on above: Order Comment: Speci men Type: BLOOD SPECIMEN Ordering Facility: External Submitter Address: , , Performed By: #### 2 4331-1 #### [facility] CLIA [id number] [address] [place] [address] OF [facility] CLIA [id number] [address] [place], [place] [address] #### 2986-8, 3024-7, 3016-3 #### [facility] CLIA [id number] [address] [place], [place] [address] [place] ALP [Catalytic activity/Vol] 57 U/L Normal 34-123 [facility] Comment on above: Order Comment: Speci men Type: BLOOD SPECIMEN Ordering Facility: External Submitter Address: , , Performed By: #### 2 4331-1 #### [facility] CLIA [id number] [address] [place] [address] [place] [facility] CLIA [id number] [address] [place], [place] [address] #### 2986-8, 3024-7, 3016-3 #### [facility] CLIA [id number] [address] [place] [address] [place] ALT [Catalytic activity/Vol] 12 U/L Normal 7-38 [facility] Comment on above: Order Comment: Speci men Type: BLOOD SPECIMEN Ordering Facility: External Submitter Address: , , Performed By: #### 2 4331-1 #### [facility] CLIA [id number] [address] [place], [place] [address] [facility] [place] [facility] CLIA [id number] [address] [place], [place] [address] #### 2986-8, 3024-7, 3016-3 #### [facility] CLIA [id number] [address] [place], [place] [address] [place] Anion gap [Moles/Vol] 11 mmol/L Normal 8-15 [facility] Comment on above: Order Comment: Speci men Type: BLOOD SPECIMEN Ordering Facility: External Submitter Address: , , Performed By: #### 2 4331-1 #### [facility] CLIA [id number] [address] [place] [address] [place] [facility] CLIA [id number] [address] [place] [address] #### 2986-8, 3024-7, 3016-3 #### [facility] CLIA [id number] [address] [place] [address] [place] AST [Catalytic activity/Vol] 13 U/L Normal 13-35 [facility] Comment on above: Order Comment: Speci men Type: BLOOD SPECIMEN Ordering Facility: External Submitter Address: , , Performed By: #### 2 4331-1 #### [facility] CLIA [id number] [address] [place] [address] [place] [facility] CLIA [id number] [address] [place] [address] #### 2986-8, 3024-7, 3016-3 #### [facility] CLIA [id number] [address] [place] [address] [place] Bilirubin [Mass/Vol] 0.4 mg/dL Normal 0.2-1.3 [facility] Comment on above: Order Comment: Speci men Type: BLOOD SPECIMEN Ordering Facility: External Submitter Address: , , Performed By: #### 2 4331-1 #### [facility] CLIA [id number] [address] [place] [address] [place] [facility] CLIA [id number] [address] [place] [address] #### 2986-8, 3024-7, 3016-3 #### [facility] CLIA [id number] [address] [place] [address] [place] Calcium [Mass/Vol] 9.7 mg/dL Normal 8.5-10.2 [facility] Comment on above: Order Comment: Speci men Type: BLOOD SPECIMEN Ordering Facility: External Submitter Address: , , Performed By: #### 2 4331-1 #### [facility] CLIA [id number] [address] [place] [id number] [facility] [place] [facility] CLIA [id number] [address] [place] [address] #### 2986-8, 3024-7, 3016-3 #### [facility] CLIA [id number] [address] [place] [address] [place] Chloride [Moles/Vol] 102 mmol/L Normal 98-107 [facility] Comment on above: Order Comment: Speci men Type: BLOOD SPECIMEN Ordering Facility: External Submitter Address: , , Performed By: #### 2 4331-1 #### [facility] CLIA [id number] [address] [place] [address] [place] [facility] CLIA [id number] [address] [place] [address] #### 2986-8, 3024-7, 3016-3 #### [facility] CLIA [id number] [address] [place] [id number] [place] CO2 [Moles/Vol] 26 mmol/L Normal 22-30 [facility] Comment on above: Order Comment: Speci men Type: BLOOD SPECIMEN Ordering Facility: External Submitter Address: , , Performed By: #### 2 4331-1 #### [facility] CLIA [id number] [address] [place], [place] [address] [place] [facility] CLIA [id number] [address] [place], [place] [address] #### 2986-8, 3024-7, 3016-3 #### [facility] CLIA [id number] [address] [place], [place] [address] [place] Creatinine [Mass/Vol] 0.85 mg/dL Normal 0.58-0.96 [facility] Comment on above: Order Comment: Speci men Type: BLOOD SPECIMEN Ordering Facility: External Submitter Address: , , Performed By: #### 2 4331-1 #### [facility] CLIA [id number] [address] [place] [address] LAB CLIA [id number] [address] [place] [address] #### 2986-8, 3024-7, 3016-3 #### [facility] CLIA [id number] [address] [place] [address] [place] Creatinine and Glomerular filtration rate.predicted panel (S/P/Bld) 91 mL/min/1.73m??? Normal >=60 [facility] Comment on above: Order Comment: Speci men Type: BLOOD SPECIMEN Ordering Facility: External Submitter Address: , , Result Comment: Batsheva mated Glomerular Filtration Rate (eGFR) is calculated using the 2020 CKD-EPI creatinine equation. This equation utilizes serum creatinine, sex, and age as parameters. The creatinine assay has traceable calibration to isotope dilution-mass spectrometry. Refer to KDIGO guidelines for clinical interpretation. In patients with unstable renal function, e.g. those with acute kidney injury, the eGFR may not accurately reflect actual GFR. Performed By: #### 2 4331-1 #### [facility] CLIA [id number] [address] [place], [place] [address] [facility] CLIA [id number] [address] [place], [place] [address] #### 2986-8, 3024-7, 3016-3 #### [facility] CLIA [id number] [address] [address] [place] Glucose [Mass/Vol] 97 mg/dL Normal 74-99 [facility] Comment on above: Order Comment: Italo garcia Type: BLOOD SPECIMEN Ordering Facility: External Submitter Address: , , Result Comment: The [place] Diabetes Association (ADA) provides guidance for cutoff values for fasting glucose and random glucose. The ADA defines fasting as no caloric intake for at least 8 hours. Fasting plasma glucose results between 100 to 125 mg/dL indicate increased risk for diabetes (prediabetes). Fasting plasma glucose results greater than or equal to 126 mg/dL meet the criteria for diagnosis of diabetes. In the absence of unequivocal hyperglycemia, results should be confirmed by repeat testing. In a patient with classic symptoms of hyperglycemia or hyperglycemic crisis, random plasma glucose results greater than or equal to 200 mg/dL meet the criteria for diagnosis of diabetes. Reference: Standards of Medical Care in Diabetes 2016, [place] Diabetes Association. Diabetes Care. 2016.39(Suppl 1). Performed By: #### 2 4331-1 #### [facility] CLIA [id number] [address] [place] [facility] CLIA [id number] [address] [place] [address] #### 2986-8, 3024-7, 3016-3 #### [facility] CLIA [id number] [address] [place] [id number] [place] Potassium [Moles/Vol] 4.2 mmol/L Normal 3.7-5.1 [facility] Comment on above: Order Comment: Italo garcia Type: BLOOD SPECIMEN Ordering Facility: External Submitter Address: , , Performed By: #### 2 4331-1 #### [facility] CLIA [id number] [address] [place] [id number] [place] [facility] CLIA [id number] [address] [place] [address] #### 2986-8, 3024-7, 3016-3 #### [facility] CLIA [id number] [address] [place] [address] [place] Protein [Mass/Vol] 6.6 g/dL Normal 6.3-8.0 [facility] Comment on above: Order Comment: Speci men Type: BLOOD SPECIMEN Ordering Facility: External Submitter Address: , , Performed By: #### 2 4331-1 #### [facility] CLIA [id number] [address] [place] [address] [place] [facility] CLIA [id number] [address] [place] [address] #### 2986-8, 3024-7, 3016-3 #### [facility] CLIA [id number] [address] [place] [address] [place] Sodium [Moles/Vol] 139 mmol/L Normal 136-144 [facility] Comment on above: Order Comment: Speci men Type: BLOOD SPECIMEN Ordering Facility: External Submitter Address: , , Performed By: #### 2 4331-1 #### [facility] CLIA [id number] [address] [place] [address] [place] [facility] CLIA [id number] [address] [place] [address] #### 2986-8, 3024-7, 3016-3 #### [facility] CLIA [id number] [address] [place], [place] [address] [place] Urea nitrogen [Mass/Vol] 14 mg/dL Normal 7-21 [facility] Comment on above: Order Comment: Speci men Type: BLOOD SPECIMEN Ordering Facility: External Submitter Address: , , Performed By: #### 2 4331-1 #### [facility] CLIA [id number] [address] [place] [id number] [place] [facility] CLIA [id number] [address] [place] [address] #### 2986-8, 3024-7, 3016-3 #### [facility] CLIA [id number] [address] [place], [place] [address] [place] DHEA-S BLDon 06-21-2024 DHEA-S [Mass/Vol] 75.6 ug/dL Normal 60.9-337.0 [facility] Comment on above: Order Comment: Speci men Type: BLOOD SPECIMEN Ordering Facility: External Submitter Address: , , Result Comment: Refe rence ranges are age and gender specific. For additional information, reference range tables can be found in the laboratory test directory. The normal values are based on the following source: Dehydroepiandrosterone sulfate (DHEA S) [package insert V 17.0 Turkmen]. [facility], [place], [place]: April 2013. Performed By: #### D YOLI, 2731-8 #### [facility] CLIA [id number] [address] [place] [address] [place] HbA1c (Bld)on 06-21-2024 Average glucose Estimated from glycated hemoglobin (Bld) [Mass/Vol] 85 mg/dL Normal [facility] Comment on above: Order Comment: Speci men Type: BLOOD SPECIMEN Ordering Facility: External Submitter Address: , , Result Comment: eAG: (Estimated average glucose) is a calculated value from HgbA1c and is sales representative business courses of the average blood glucose level in the last 2-3 month period. Performed By: #### 2 4331-1 #### [facility] CLIA [id number] [address] [place], [place] [address] [place] [facility] CLIA [id number] [address] [place] [address] #### 2986-8, 3024-7, 3016-3 #### [facility] CLIA [id number] [address] [place] [address] [place] HbA1c (Bld) [Mass fraction] 4.6 % Normal 4.3-5.6 [facility] Comment on above: Order Comment: Italo garcia Type: BLOOD SPECIMEN Ordering Facility: External Submitter Address: , , Result Comment: Amer [place] Diabetes Association guidelines indicate that patients with HgbA1c in the range 5.7-6.4% are at increased risk for development of diabetes, and intervention by lifestyle modification may be beneficial. HgbA1c greater or equal to 6.5% is considered diagnostic of diabetes. Performed By: #### 2 4331-1 #### [facility] CLIA [id number] [address] [place] [address] OF [facility] CLIA [id number] [address] [place] [address] #### 2986-8, 3024-7, 3016-3 #### [facility] CLIA [id number] [address] [place] [address] [place] Lipid 1996 panelon 4 Cholesterol [Mass/Vol] 190 mg/dL Normal <200 [facility] Comment on above: Order Comment: Italo garcia Type: BLOOD SPECIMEN Ordering Facility: External Submitter Address: , , Result Comment: <200 mg/dL, Desirable 200-239 mg/dL, Borderline high >239 mg/dL, High Performed By: #### 2 4331-1 #### [facility] CLIA [id number] [address] [place] [address] OF [facility] CLIA [id number] [address] [place], [place] [address] #### 2986-8, 3024-7, 3016-3 #### [facility] CLIA [id number] [address] [place] [address] [place] Cholesterol in HDL [Mass/Vol] 51 mg/dL Normal >39 [facility] Comment on above: Order Comment: Italo garcia Type: BLOOD SPECIMEN Ordering Facility: External Submitter Address: , , Result Comment: 40-5 9 mg/dL, Acceptable >59 mg/dL, High: Negative risk factor for coronary heart disease <40 mg/dL, Low: Positive risk factor for coronary heart disease Performed By: #### 2 4331-1 #### [facility] CLIA [id number] [address] [place] [address] OF [facility] CLIA [id number] [address] [place] [address] #### 2986-8, 3024-7, 3016-3 #### [facility] CLIA [id number] [address] [place] [address] [place] Cholesterol in LDL [Mass/Vol] 108 mg/dL High <100 [facility] Comment on above: Order Comment: Italo garcia Type: BLOOD SPECIMEN Ordering Facility: External Submitter Address: , , Result Comment: <100 mg/dL, Optimal 100-129 mg/dL, Near optimal/above optimal 130-159 mg/dL, Borderline high 160-189 mg/dL, High >189 mg/dL, Very high Secondary prevention optimal LDL Cholesterol levels are recommended to be < 70 mg/dL Performed By: #### 2 4331-1 #### [facility] CLIA [id number] [address] [place] [address] OF [facility] CLIA [id number] [address] [place] [address] #### 2986-8, 3024-7, 3016-3 #### [facility] CLIA [id number] [address] [place] [address] [place] Cholesterol in LDL/Cholesterol in HDL [Mass ratio] 2.12 {ratio} Normal <2.54 [facility] Comment on above: Order Comment: Italo garcia Type: BLOOD SPECIMEN Ordering Facility: External Submitter Address: , , Result Comment: Refromulo dyson: 1. National Cholesterol Education Program ATP III Guideline At-A-Glance Quick Desk Reference: National Heart, Lung, and Blood [place]. National Institutes of Health. 2001: NIH Publication No. 01-3305. 2. An International Atherosclerosis Society position paper: global recommendations for the management of dyslipidemia: executive summary, Atherosclerosis. 2014: 232(2):410-413. Performed By: #### 2 4331-1 #### [facility] CLIA [id number] [address] [place] [address] LAB CLIA [id number] [address] [place] [address] #### 2986-8, 3024-7, 3016-3 #### [facility] CLIA [id number] [address] [place] [address] [place] Cholesterol in VLDL [Mass/Vol] 31 mg/dL High <30 [facility] Comment on above: Order Comment: Italo garcia Type: BLOOD SPECIMEN Ordering Facility: External Submitter Address: , , Performed By: #### 2 4331-1 #### [facility] CLIA [id number] [address] [place] [address] LAB CLIA [id number] [address] [place] [address] #### 2986-8, 3024-7, 3016-3 #### [facility] CLIA [id number] [address] [place] [address] [place] Cholesterol non HDL [Mass/Vol] 139 mg/dL High <130 [facility] Comment on above: Order Comment: Italo garcia Type: BLOOD SPECIMEN Ordering Facility: External Submitter Address: , , Result Comment: <130 mg/dL, Optimal 130-159 mg/dL, Near optimal/above optimal 160-189 mg/dL, Borderline high 190-219 mg/dL, High >219 mg/dL, Very high Secondary prevention optimal non HDL Cholesterol levels are recommended to be <100 mg/dL Performed By: #### 2 4331-1 #### [facility] CLIA [id number] [address] OF [place] [facility] CLIA [id number] [address] [place], [place] [address] #### 2986-8, 3024-7, 3016-3 #### [facility] CLIA [id number] [address] [place] [address] [place] Cholesterol.total /Cholesterol in HDL [Mass ratio] 3.73 {ratio} Normal <5.10 [facility] Comment on above: Order Comment: Speci men Type: BLOOD SPECIMEN Ordering Facility: External Submitter Address: , , Performed By: #### 2 4331-1 #### [facility] CLIA [id number] [address] [place] [address] [place] [facility] CLIA [id number] [address] [place], [place] [address] #### 2986-8, 3024-7, 3016-3 #### [facility] CLIA [id number] [address] [place] [id number] [place] FASTING TIME 12 hrs Normal [facility] Comment on above: Order Comment: Speci men Type: BLOOD SPECIMEN Ordering Facility: External Submitter Address: , , Performed By: #### 2 4331-1 #### [facility] CLIA [id number] [address] [place] [id number] [place] [facility] CLIA [id number] [address] [place], [place] [address] #### 2986-8, 3024-7, 3016-3 #### [facility] CLIA [id number] [address] [place] [id number] [place] Triglyceride [Mass/Vol] 156 mg/dL High <150 [facility] Comment on above: Order Comment: Speci men Type: BLOOD SPECIMEN Ordering Facility: External Submitter Address: , , Result Comment: <150 mg/dL, Normal 150-199 mg/dL, Borderline high 200-499 mg/dL, High >499 mg/dL, Very high Performed By: #### 2 4331-1 #### [facility] CLIA [id number] [address] [place] [address] [place] [facility] CLIA [id number] [address] [place] [address] #### 2986-8, 3024-7, 3016-3 #### [facility] CLIA [id number] [address] [place] [address] [place] PTH-Intact SerPl-mCncon 10-1 Parathyrin.intact [Mass/Vol] 32 pg/mL Normal 15-65 [facility] Comment on above: Order Comment: Speci men Type: BLOOD SPECIMEN Ordering Facility: External Submitter Address: , , Performed By: #### D YOLI, 2731-8 #### [facility] CLIA [id number] [address] [place] [address] [place] T4 Free SerPl-mCncon -16-2 024 Free T4 [Mass/Vol] 1.1 ng/dL Normal 0.9-1.7 [facility] Comment on above: Order Comment: Speci men Type: BLOOD SPECIMEN Ordering Facility: External Submitter Address: , , Performed By: #### 2 4331-1 #### [facility] CLIA [id number] [address] [place] [address] [place] [facility] CLIA [id number] [address] [place], [place] [address] #### 2986-8, 3024-7, 3016-3 #### [facility] CLIA [id number] [address] [place] [address] [place] TSH SerPl-aCncon 06-21-2024 TSH Qn 2.020 m[IU]/L Normal 0.270-4.200 [facility] Comment on above: Order Comment: Italo garcia Type: BLOOD SPECIMEN Ordering Facility: External Submitter Address: , , Result Comment: If t he patient is , TSH reference range varies by gestational period: First Trimester (weeks 9-12): 0.180-2.990 mIU/L Second Trimester: 0.110-3.980 mIU/L Third Trimester: 0.480-4.710 mIU/L Neri Jasmine et al. A Practical Approach for the Verifications and Determination of Site- and Trimester-Specific Reference Intervals for Thyroid Function tests in . Thyroid, 2019:29:3:412-420. Lavon Logan, et al. 2017 Guidelines of the [place] Thyroid Association for the Diagnosis and Management of Thyroid Disease during and the . Thyroid, 2017:27:3:315-389. Performed By: #### 2 4331-1 #### [facility] CLIA [id number] [address] [place] [address] OF [facility] CLIA [id number] [address] [place] [address] #### 2986-8, 3024-7, 3016-3 #### [facility] CLIA [id number] [address] [place] [address] [place] Testost SerPl-mCncon 024 Testosterone [Mass/Vol] ng/dL Normal <40 [facility] Comment on above: Order Comment: Hardiki men Type: BLOOD SPECIMEN Ordering Facility: External Submitter Address: , , Performed By: #### 2 4331-1 #### [facility] CLIA [id number] [address] [place] [address] [place] [facility] CLIA [id number] [address] [place] [address] #### 2986-8, 3024-7, 3016-3 #### [facility] CLIA [id number] [address] [place] [address] [place] CNCOon 05-26-2024 CNCO Letter Text Normal [facility] Calcium SerPl-mCncon 024 Calcium [Mass/Vol] 10.1 mg/dL Normal 8.5-10.2 [facility] Comment on above: Order Comment: Speci men Type: BLOOD SPECIMEN Ordering Facility: External Submitter Address: , , Performed By: #### 2 4331-1 #### [facility] CLIA [id number] [address] [place] [address] [place] [facility] CLIA [id number] [address] [place] [address] #### 2986-8, 3024-7, 3016-3 #### [facility] CLIA [id number] [address] [place] [address] [place] Calcium.ionized [Moles/Vol]o n 04-14-2024 Calcium.ionized (Bld) [Mass/Vol] 1.29 mmol/L Normal 1.08-1.30 [facility] Comment on above: Order Comment: Speci men Type: BLOOD SPECIMEN Ordering Facility: External Submitter Address: , , Performed By: ###Rosa KENT 2730-8 #### [facility] CLIA [id number] [address] [place] [address] [place] Calcium.ionized adjusted to pH 7.4 (Bld) [Moles/Vol] 1.29 mmol/L Normal 1.08-1.30 [facility] Comment on above: Order Comment: Speci men Type: BLOOD SPECIMEN Ordering Facility: External Submitter Address: , , Performed By: ###Rosa KENT, 2730-8 #### [facility] CLIA [id number] [address] [place] [address] [place] PTH-Intact SerPl-mCncon 08-0 Parathyrin.intact [Mass/Vol] 33 pg/mL Normal 15-65 [facility] Comment on above: Order Comment: Speci men Type: BLOOD SPECIMEN Ordering Facility: External Submitter Address: , , Performed By: #### 2 4331-1 #### [facility] CLIA [id number] [address] OF [facility] CLIA [id number] [address] [place] [address] #### 2986-8, 3024-7, 3016-3 #### [facility] CLIA [id number] [address] [place] [address] [place] US THYROID/PARATHYROIDon US THYROID/PARATHYRO ID * * *Final Report* * * DATE OF EXAM: Apr 14 2024 1:08PM [facility] 1048 - US THYROID/PARATHYROID / PROCEDURE REASON: multiple diagnoses * * * * Physician Interpretation * * * * EXAMINATION: THYROID ULTRASOUND CLINICAL HISTORY: Reactive hypoglycemia Insulin resistance Hypothyroidism, unspecified type TECHNIQUE: Sonography and Doppler imaging of the thyroid was performed. Images were obtained and stored in a permanent archive. MQ: UST_1 COMPARISON: None. RESULT: Right Lobe: 4.4 x 1.9 x 1.9 cm; homogeneous echogenicity, expected vascular flow. Left Lobe: 3.9 x 1.7 x 1.4 cm; homogeneous echogenicity, expected vascular flow. Isthmus: 0.3 cm The most suspicious thyroid nodule(s) (up to four) as below: No nodules requiring follow-up or biopsy by TI-RADS criteria. IMPRESSION: Unremarkable thyroid ultrasound. ACR recommendations are strictly based on the size and imaging appearance at the time of the exam and do not consider stability or previous biopsy results. Loan Interviewer Mortgage: MELODIE Transcribe Date/Time: Apr 15 2024 4:58P Dictated by : CORA GARCIA MD This examination was interpreted and the report reviewed and electronically signed by: CORA GARCIA MD on Apr 15 2024 5:00PM EST [id number] [facility] CNPN Telephone (DMEDEO) -- BENNY GUERRERO ([id number]) 1985 F Date Time Provider Department 03/07/24 GERMAN MORALES DMEDEO During your visit today, we recorded the following information about you: German Morales RD 03/07/2024 1:[address] Gilberto Armas, Patient is interested in a referral to weight management fitness. Thanks, German Morales RDN [facility] Sachi Pedro MD 03/07/2024 3:25 PM Signed Order placed Sachi Armas MD Allergies As of Date: 03/07/2024 Noted Allergy Reaction SEASONAL ALLERGIES 09/24/2021 14 - Other: See Comments Date Reviewed: 03/07/2024 Reviewed by: Sachi Pedro MD - Fully Assessed Reason for Visit: Medical Nutrition Therapy [1698] Cmt: PCOS and Weight Management Primary Visit Diagnosis:Obesity, Class II, BMI 35-39.9 [E66.9] Order(s):CONSULT WEIGHT MANAGEMENT FITNESS PROGRAM [[id number]] Order #: [id number]: 1 FUTURE Prescriptions as of 03/07/2024 - pantoprazole DR (PROTONIX) 40 mg tablet Take 1 tablet by mouth once daily. - omeprazole (PRILOSEC) 40 mg capsule Take 1 capsule by mouth twice daily - buPROPion XL (WELLBUTRIN XL) 300 mg 24 hr tablet Take 1 tablet by mouth once daily. - FLUoxetine (PROZAC) 20 mg capsule Take 20 mg by mouth once daily. - cetirizine (ZYRTEC) 10 mg tablet Take 10 mg by mouth once daily. - atorvastatin (LIPITOR) 20 mg tablet Take 0.5 tablets by mouth once daily. - spironolactone (ALDACTONE) 50 mg tablet Take 1 tablet by mouth twice daily. - busPIRone (BUSPAR) 15 mg tablet Take 15 mg by mouth three times daily. - Cholecalciferol, Vitamin D3, 25 mcg (1,000 unit) cap - diphenhydrAMINE (BENADRYL) 25 mg capsule Take 25 mg by mouth every 6 hours as needed. - fluticasone (FLONASE) 50 mcg/actuation nasal spray fluticasone propionate 50 mcg/actuation nasal spray,suspension - ibuprofen (MOTRIN) 800 mg tablet ibuprofen 800 mg tablet - ketoconazole (NIZORAL) 2 % shampoo ketoconazole 2 % shampoo - DAILY MULTI-VITAMIN ORAL Problem List As Of Date 03/07/2024 Noted Resolved Obesity, Class III, BMI 40-49.9 (morbid obesity*09/24/2021 Encounter Status:Closed by SACHI PEDRO on 03/07/24 Normal [facility] 1,25-dihydroxyvitamin D3 [Ma ss/Vol]on 03-06-2024 VIT D1,25 DIHYDROXY 53.8 pg/mL Normal 19.9-79.3 [facility] Comment on above: Order Comment: Speci men Type: BLOOD SPECIMEN Ordering Facility: External Submitter Address: , , Performed By: #### 2 4331-1 #### [facility] CLIA [id number] [address] [place] [address] [place] [facility] CLIA [id number] [address] [place] [address] #### 2986-8, 3024-7, 3016-3 #### [facility] CLIA [id number] [address] [place] [address] [place] 25(OH)D3 Betty 2023 25-hydroxyvitamin D3 [Mass/Vol] 43.8 ng/mL Normal 31.0-80.0 [facility] Comment on above: Order Comment: Speci radha Type: BLOOD SPECIMEN Ordering Facility: External Submitter Address: , , Result Comment: Clas sification of 25 [place] Vitamin D status: Deficiency/Insufficiency: < or = 30 ng/ml. Sufficiency/Optimal Levels: 31-80 ng/mL Toxicity: > 100 ng/mL. Test performed by chemiluminescent immunoassay. Performed By: #### 2 4331-1 #### [facility] CLIA [id number] [address] [place] [address] LAB CLIA [id number] [address] [place] [address] #### 2986-8, 3024-7, 3016-3 #### [facility] CLIA [id number] [address] [place] [address] [place] Albumin SerPl-mCncon --2 024 Albumin [Mass/Vol] 4.6 g/dL Normal 3.9-4.9 [facility] Comment on above: Order Comment: Speci men Type: BLOOD SPECIMEN Ordering Facility: External Submitter Address: , , Performed By: #### 2 4331-1 #### [facility] CLIA [id number] [address] [place] [address] LAB CLIA [id number] [address] [place] [address] #### 2986-8, 3024-7, 3016-3 #### [facility] CLIA [id number] [address] [place] [address] [place] Calcium SerPl-mCncon 03-06-2 024 Calcium [Mass/Vol] 10.2 mg/dL Normal 8.5-10.2 [facility] Comment on above: Order Comment: Speci men Type: BLOOD SPECIMEN Ordering Facility: External Submitter Address: , , Performed By: #### 2 4331-1 #### [facility] CLIA [id number] [address] [place] [address] LAB CLIA [id number] [address] [place] [address] #### 2986-8, 3024-7, 3016-3 #### [facility] CLIA [id number] [address] [place] [address] [place] Calcium.ionized [Moles/Vol]o n 03-06-2024 Calcium.ionized (Bld) [Mass/Vol] 1.31 mmol/L High 1.08-1.30 [facility] Comment on above: Order Comment: Speci men Type: BLOOD SPECIMEN Ordering Facility: External Submitter Address: , , Performed By: #### 2 4331-1 #### [facility] CLIA [id number] [address] [place] [address] LAB CLIA [id number] [address] [place] [address] #### 2986-8, 3024-7, 3015-3 #### [facility] CLIA [id number] [address] [place] [address] [place] Calcium.ionized adjusted to pH 7.4 (Bld) [Moles/Vol] 1.29 mmol/L Normal 1.08-1.30 [facility] Comment on above: Order Comment: Speci men Type: BLOOD SPECIMEN Ordering Facility: External Submitter Address: , , Performed By: #### 2 4331-1 #### [facility] CLIA [id number] [address] [place] [address] OF [facility] CLIA [id number] [address] [place] [address] #### 2986-8, 3024-7, 3016-3 #### [facility] CLIA [id number] [address] [place] [address] [place] [facility] Parathyrin.intact [Mass/Vol] 32 pg/mL Normal 15-65 [facility] Comment on above: Order Comment: Speci men Type: BLOOD SPECIMEN Ordering Facility: External Submitter Address: , , Performed By: #### 2 4331-1 #### [facility] CLIA [id number] [address] [place] [address] [place] [facility] CLIA [id number] [address] [place], [place] [address] #### 2986-8, 3024-7, 3016-3 #### [facility] CLIA [id number] [address] [place] [address] [place] 25(OH)D3 [facility] 2023 25-hydroxyvitamin D3 [Mass/Vol] 43.3 ng/mL Normal 31.0-80.0 [facility] Comment on above: Order Comment: Speci men Type: BLOOD SPECIMEN Ordering Facility: External Submitter Address: , , Result Comment: Clas sification of 25 OH Vitamin D status: Deficiency/Insufficiency: < or = 30 ng/ml. Sufficiency/Optimal Levels: 31-80 ng/mL Toxicity: > 100 ng/mL. Test performed by chemiluminescent immunoassay. Performed By: #### 2 4331-1 #### [facility] CLIA [id number] [address] [place] [address] [place] [facility] CLIA [id number] [address] [place], [place] [address] #### 2986-8, 3024-7, 3016-3 #### [facility] CLIA [id number] [address] [place] [address] [place] Calcium.ionized [Moles/Vol]o n 02-01-2024 Calcium.ionized (Bld) [Mass/Vol] 1.32 mmol/L High 1.08-1.30 [facility] Comment on above: Order Comment: Speci men Type: BLOOD SPECIMEN Ordering Facility: External Submitter Address: , , Performed By: #### 2 4331-1 #### [facility] CLIA [id number] [address] [place] [address] [place] [facility] CLIA [id number] [address] [place], [place] [address] #### 2986-8, 3024-7, 3016-3 #### [facility] CLIA [id number] [address] [place] [address] [place] Calcium.ionized adjusted to pH 7.4 (Bld) [Moles/Vol] 1.31 mmol/L High 1.08-1.30 [facility] Comment on above: Order Comment: Speci men Type: BLOOD SPECIMEN Ordering Facility: External Submitter Address: , , Performed By: #### 2 4331-1 #### [facility] CLIA [id number] [address] [place] [address] [place] [facility] CLIA [id number] [address] [place] [address] #### 2986-8, 3024-7, 3016-3 #### [facility] CLIA [id number] [address] [place] [address] [place] PTH-Intact SerPl-ncon - Parathyrin.intact [Mass/Vol] 29 pg/mL Normal 15-65 [facility] Comment on above: Order Comment: Speci men Type: BLOOD SPECIMEN Ordering Facility: External Submitter Address: , , Performed By: #### Lg KENT, 2731-8 #### [facility] CLIA [id number] [address] [place] [address] [place] Basic metabolic 2000 panelon 01-26-2024 Anion gap [Moles/Vol] 13 mmol/L Normal 9-18 [facility] Comment on above: Order Comment: Speci men Type: BLOOD SPECIMEN Ordering Facility: External Submitter Address: , , Performed By: #### 2 4331-1 #### [facility] CLIA [id number] [address] [place] [address] [place] [facility] CLIA [id number] [address] [place] [address] #### 2986-8, 3024-7, 3016-3 #### [facility] CLIA [id number] [address] [place] [address] [place] Calcium [Mass/Vol] 10.6 mg/dL High 8.5-10.2 [facility] Comment on above: Order Comment: Speci men Type: BLOOD SPECIMEN Ordering Facility: External Submitter Address: , , Performed By: #### 2 4331-1 #### [facility] CLIA [id number] [address] [place] [address] [place] [facility] CLIA [id number] [address] [place] [address] #### 2986-8, 3024-7, 3016-3 #### [facility] CLIA [id number] [address] [place] [address] [place] Chloride [Moles/Vol] 97 mmol/L Normal 97-105 [facility] Comment on above: Order Comment: Speci men Type: BLOOD SPECIMEN Ordering Facility: External Submitter Address: , , Performed By: #### 2 4331-1 #### [facility] CLIA [id number] [address] [place], [place] [address] [place] [facility] CLIA [id number] [address] [place] [address] #### 2986-8, 3024-7, 3016-3 #### [facility] CLIA [id number] [address] [place], [place] [address] [place] CO2 [Moles/Vol] 28 mmol/L Normal 22-30 [facility] Comment on above: Order Comment: Speci men Type: BLOOD SPECIMEN Ordering Facility: External Submitter Address: , , Performed By: #### 2 4331-1 #### [facility] CLIA [id number] [address] [place] [address] OF [facility] CLIA [id number] [address] [place] [address] #### 2986-8, 3024-7, 3016-3 #### [facility] CLIA [id number] [address] [place] [address] [place] Creatinine [Mass/Vol] 0.92 mg/dL Normal 0.58-0.96 [facility] Comment on above: Order Comment: Speci men Type: BLOOD SPECIMEN Ordering Facility: External Submitter Address: , , Performed By: #### 2 4331-1 #### [facility] CLIA [id number] [address] [place] [address] OF [facility] CLIA [id number] [address] [place] [address] #### 2986-8, 3024-7, 3016-3 #### [facility] CLIA [id number] [address] [place] [address] [place] Creatinine and Glomerular filtration rate.predicted panel (S/P/Bld) 82 mL/min/1.73m??? Normal >=60 [facility] Comment on above: Order Comment: Speci radha Type: BLOOD SPECIMEN Ordering Facility: External Submitter Address: , , Result Comment: Batsheva mated Glomerular Filtration Rate (eGFR) is calculated using the 2020 CKD-EPI creatinine equation. This equation utilizes serum creatinine, sex, and age as parameters. The creatinine assay has traceable calibration to isotope dilution-mass spectrometry. Refer to KDIGO guidelines for clinical interpretation. In patients with unstable renal function, e.g. those with acute kidney injury, the eGFR may not accurately reflect actual GFR. Performed By: #### 2 4331-1 #### [facility] CLIA [id number] [address] [address] [place] [facility] CLIA [id number] [address] [place] [address] #### 2986-8, 3024-7, 3016-3 #### [facility] CLIA [id number] [address] [place], [place] [address] [place] Glucose [Mass/Vol] 69 mg/dL Low 74-99 [facility] Comment on above: Order Comment: Italo garcia Type: BLOOD SPECIMEN Ordering Facility: External Submitter Address: , , Result Comment: The [place] Diabetes Association (ADA) provides guidance for cutoff values for fasting glucose and random glucose. The ADA defines fasting as no caloric intake for at least 8 hours. Fasting plasma glucose results between 100 to 125 mg/dL indicate increased risk for diabetes (prediabetes). Fasting plasma glucose results greater than or equal to 126 mg/dL meet the criteria for diagnosis of diabetes. In the absence of unequivocal hyperglycemia, results should be confirmed by repeat testing. In a patient with classic symptoms of hyperglycemia or hyperglycemic crisis, random plasma glucose results greater than or equal to 200 mg/dL meet the criteria for diagnosis of diabetes. Reference: Standards of Medical Care in Diabetes 2016, [place] Diabetes Association. Diabetes Care. 2016.39(Suppl 1). Performed By: #### 2 4331-1 #### [facility] CLIA [id number] [address] [place], [place] [address] [place] [facility] CLIA [id number] [address] [place] [address] #### 2986-8, 3024-7, 3016-3 #### [facility] CLIA [id number] [address] [place], [place] [address] [place] Potassium [Moles/Vol] 4.7 mmol/L Normal 3.7-5.1 [facility] Comment on above: Order Comment: Italo garcia Type: BLOOD SPECIMEN Ordering Facility: External Submitter Address: , , Performed By: #### 2 4331-1 #### [facility] CLIA [id number] [address] OF [facility] CLIA [id number] [address] [place] [address] #### 2986-8, 3024-7, 3016-3 #### [facility] CLIA [id number] [address] [place] [address] [place] Sodium [Moles/Vol] 138 mmol/L Normal 136-144 [facility] Comment on above: Order Comment: Speci men Type: BLOOD SPECIMEN Ordering Facility: External Submitter Address: , , Performed By: #### 2 4331-1 #### [facility] CLIA [id number] [address] [place] [address] [place] [facility] CLIA [id number] [address] [place] [address] #### 2986-8, 3024-7, 3016-3 #### [facility] CLIA [id number] [address] [place] [address] [place] Urea nitrogen [Mass/Vol] 17 mg/dL Normal 7-21 [facility] Comment on above: Order Comment: Speci men Type: BLOOD SPECIMEN Ordering Facility: External Submitter Address: , , Performed By: #### 2 4331-1 #### [facility] CLIA [id number] [address] [place] [address] [place] [facility] CLIA [id number] [address] [place] [address] #### 2986-8, 3024-7, 3016-3 #### [facility] CLIA [id number] [address] [place], [place] [address] [place] HbA1c (Bld)on 01-26-2024 Average glucose Estimated from glycated hemoglobin (Bld) [Mass/Vol] 82 mg/dL Normal [facility] Comment on above: Order Comment: Italo garcia Type: BLOOD SPECIMEN Ordering Facility: External Submitter Address: , , Result Comment: eAG: (Estimated average glucose) is a calculated value from HgbA1c and is sales representative business courses of the average blood glucose level in the last 2-3 month period. Performed By: #### 2 4331-1 #### [facility] CLIA [id number] [address] [place] [address] STATES OF [facility] CLIA [id number] [address] [place], [place] [address] #### 2986-8, 3024-7, 3016-3 #### [facility] CLIA [id number] [address] [place] [address] [place] HbA1c (Bld) [Mass fraction] 4.5 % Normal 4.3-5.6 [facility] Comment on above: Order Comment: Italo garcia Type: BLOOD SPECIMEN Ordering Facility: External Submitter Address: , , Result Comment: [place] Diabetes Association guidelines indicate that patients with HgbA1c in the range 5.7-6.4% are at increased risk for development of diabetes, and intervention by lifestyle modification may be beneficial. HgbA1c greater or equal to 6.5% is considered diagnostic of diabetes. Performed By: #### 2 4331-1 #### [facility] CLIA [id number] [address] [place] [address] [place] [facility] CLIA [id number] [address] [place] [address] #### 2986-8, 3024-7, 3016-3 #### [facility] CLIA [id number] [address] [place], [place] [address] [place] Lipid 1996 panelon 4 Cholesterol [Mass/Vol] 169 mg/dL Normal <200 [facility] Comment on above: Order Comment: Speci men Type: BLOOD SPECIMEN Ordering Facility: External Submitter Address: , , Result Comment: <200 mg/dL, Desirable 200-239 mg/dL, Borderline high >239 mg/dL, High Performed By: #### 2 4331-1 #### [facility] CLIA [id number] [address] [place] [address] LAB CLIA [id number] [address] [place] [address] #### 2986-8, 3024-7, 3016-3 #### [facility] CLIA [id number] [address] [place] [address] [place] Cholesterol in HDL [Mass/Vol] 53 mg/dL Normal >39 [facility] Comment on above: Order Comment: Speci men Type: BLOOD SPECIMEN Ordering Facility: External Submitter Address: , , Result Comment: 40-5 9 mg/dL, Acceptable >59 mg/dL, High: Negative risk factor for coronary heart disease <40 mg/dL, Low: Positive risk factor for coronary heart disease Performed By: #### 2 4331-1 #### [facility] CLIA [id number] [address] [place] [address] OF [facility] CLIA [id number] [address] [place] [address] #### 2986-8, 3024-7, 3016-3 #### [facility] CLIA [id number] [address] [place], [place] [address] [place] Cholesterol in LDL [Mass/Vol] 97 mg/dL Normal <100 [facility] Comment on above: Order Comment: Speci men Type: BLOOD SPECIMEN Ordering Facility: External Submitter Address: , , Result Comment: <100 mg/dL, Optimal 100-129 mg/dL, Near optimal/above optimal 130-159 mg/dL, Borderline high 160-189 mg/dL, High >189 mg/dL, Very high Secondary prevention optimal LDL Cholesterol levels are recommended to be < 70 mg/dL Performed By: #### 2 4331-1 #### [facility] CLIA [id number] [address] OF [place] [facility] CLIA [id number] [address] [place], [place] [address] #### 2986-8, 3024-7, 3016-3 #### [facility] CLIA [id number] [address] [place] [address] [place] Cholesterol in LDL/Cholesterol in HDL [Mass ratio] 1.83 {ratio} Normal <2.54 [facility] Comment on above: Order Comment: Speci men Type: BLOOD SPECIMEN Ordering Facility: External Submitter Address: , , Result Comment: Refe rence: 1. National Cholesterol Education Program ATP III Guideline At-A-Glance Quick Desk Reference: National Heart, Lung, and Blood [place]. National Institutes of Health. 2001: NIH Publication No. 01-3305. 2. An International Atherosclerosis Society position paper: global recommendations for the management of dyslipidemia: executive summary, Atherosclerosis. 2014: 232(2):410-413. Performed By: #### 2 4331-1 #### [facility] CLIA [id number] [address] [place] [address] [place] OF [place] [facility] CLIA [id number] [address] [place], [place] [address] #### 2986-8, 3024-7, 3016-3 #### [facility] CLIA [id number] [address] [place], [place] [address] [place] Cholesterol in VLDL [Mass/Vol] 19 mg/dL Normal <30 [facility] Comment on above: Order Comment: Speci men Type: BLOOD SPECIMEN Ordering Facility: External Submitter Address: , , Performed By: #### 2 4331-1 #### [facility] CLIA [id number] [facility] [place] [id number] [place] [facility] CLIA [id number] [address] [place], [place] [address] #### 2986-8, 3024-7, 3016-3 #### [facility] CLIA [id number] [address] [place] [address] [place] Cholesterol non HDL [Mass/Vol] 116 mg/dL Normal <130 [facility] Comment on above: Order Comment: Speci men Type: BLOOD SPECIMEN Ordering Facility: External Submitter Address: , , Result Comment: <130 mg/dL, Optimal 130-159 mg/dL, Near optimal/above optimal 160-189 mg/dL, Borderline high 190-219 mg/dL, High >219 mg/dL, Very high Secondary prevention optimal non HDL Cholesterol levels are recommended to be <100 mg/dL Performed By: #### 2 4331-1 #### [facility] CLIA [id number] [address] [place] [address] OF [facility] CLIA [id number] [address] [place], [place] [address] #### 2986-8, 3024-7, 3016-3 #### [facility] CLIA [id number] [address] [place] [address] [place] Cholesterol.total /Cholesterol in HDL [Mass ratio] 3.19 {ratio} Normal <5.10 [facility] Comment on above: Order Comment: Speci men Type: BLOOD SPECIMEN Ordering Facility: External Submitter Address: , , Performed By: #### 2 4331-1 #### [facility] CLIA [id number] [address] [place] [address] OF [facility] CLIA [id number] [address] [place], [place] [address] #### 2986-8, 3024-7, 3016-3 #### [facility] CLIA [id number] [address] [place] [address] [place] FASTING TIME 12 hrs Normal [facility] Comment on above: Order Comment: Speci men Type: BLOOD SPECIMEN Ordering Facility: External Submitter Address: , , Performed By: #### 2 4331-1 #### [facility] CLIA [id number] [address] [place] [address] [place] [facility] CLIA [id number] [address] [place] [address] #### 2986-8, 3024-7, 3016-3 #### [facility] CLIA [id number] [address] [place] [address] [place] Triglyceride [Mass/Vol] 97 mg/dL Normal <150 [facility] Comment on above: Order Comment: Speci men Type: BLOOD SPECIMEN Ordering Facility: External Submitter Address: , , Result Comment: <150 mg/dL, Normal 150-199 mg/dL, Borderline high 200-499 mg/dL, High >499 mg/dL, Very high Performed By: #### 2 4331-1 #### [facility] CLIA [id number] [address] [place] [address] [place] [facility] CLIA [id number] [address] [place] [address] #### 2986-8, 3024-7, 3016-3 #### [facility] CLIA [id number] [address] [place] [address] [place] T4 Free SerPl-mCncon 01-25- 024 Free T4 [Mass/Vol] 1.2 ng/dL Normal 0.9-1.7 [facility] Comment on above: Order Comment: Speci men Type: BLOOD SPECIMEN Ordering Facility: External Submitter Address: , , Performed By: #### 2 4331-1 #### [facility] CLIA [id number] [address] [place] [address] [place] [facility] CLIA [id number] [address] [place], [place] [address] #### 2986-8, 3024-7, 3016-3 #### [facility] CLIA [id number] [address] [place] [address] [place] TSH SerPl-aCncon 01-26-2024 TSH Qn 2.670 m[IU]/L Normal 0.270-4.200 [facility] Comment on above: Order Comment: Speci men Type: BLOOD SPECIMEN Ordering Facility: External Submitter Address: , , Result Comment: If t he patient is , TSH reference range varies by gestational period: First Trimester (weeks 9-12): 0.180-2.990 mIU/L Second Trimester: 0.110-3.980 mIU/L Third Trimester: 0.480-4.710 mIU/L Neri Jasmine et al. A Practical Approach for the Verifications and Determination of Site- and Trimester-Specific Reference Intervals for Thyroid Function tests in . Thyroid, 2019:29:3:412-420. Lavon E, et al. 2017 Guidelines of the [place] Thyroid Association for the Diagnosis and Management of Thyroid Disease during and the . Thyroid, 2017:27:3:315-389. Performed By: #### 2 4331-1 #### [facility] CLIA [id number] [address] [place] [address] [place] [facility] CLIA [id number] [address] [place], [place] [address] #### 2986-8, 3024-7, 3016-3 #### [facility] CLIA [id number] [address] [place] [address] [place] CNOVon 11-09-2023 CNOV Office Visit ([facility] ) -- BENNY GUERRERO ([id number]) 1985 F Date Time Provider Department 11/09/23 11:20 AM SUSY MONTEZ During your visit today, we recorded the following information about you: Pulse Blood pressure Weight Height 92/minute 142/74 101.6 kg 1.638 m Susy Montez MD 11/09/2023 12:32 PM Signed Consultation requested by DIDIER Ta for an opinion regarding GERD. My final recommendations will be communicated back to the requesting physician by way of shared medical record or fax. REASON FOR VISIT: GERD HPI: Benny Guerrero is a 38 year old female who presents for GERD. She states for the past 10 months she has had feelings of heartburn and reflux. She underwent an EGD in June 2023 which revealed peptic ulcer disease. She was started on PPI twice daily. She underwent a repeat EGD in August which showed improvement was decreased to PPI once a day however she states her heartburn returned with a vengeance. She is now back on omeprazole twice a day with improvement. She still feels reflux and heartburn. She has significant anxiety and is undergoing a lot of stress in her life her boyfriend has an LVAD and is being worked up for heart transplant she is tearful discussing this. She has a lot of anxiety driving. She states overall her bowel movements are normal 1-2 bowel moods a daily of type II-IV stool. She denies any melena, hematochezia or rectal bleeding. She denies any family history of colon cancer. Past Clinical Work-Up: Last office visit 02/17/2023 w/ Dr. Charlene Dang: hepatomegaly EGD 08/27/2023 w/ Dr. Cadet: - Normal esophagus. - Z-line regular. - Normal stomach. - Normal examined duodenum. - No specimens collected. EGD 06/30/2023 w/ Dr. Weber: - 2 cm hiatal hernia. - Ectopic gastric mucosa in the upper third of the esophagus. - Erythematous mucosa in the antrum. Biopsied. - Non-bleeding gastric ulcers. Biopsied. - Congestive gastropathy. - Erythematous duodenopathy. Biopsied. - Biopsies were taken with a cold forceps for histology on the greater curvature of the gastric body, on the lesser curvature of the gastric body, on the greater curvature of the gastric antrum and on the lesser curvature of the gastric antrum. Path: A. Duodenum, erythema, biopsy: -Duodenal mucosa with preserved villous architecture. -No increase in intraepithelial lymphocytes. B, C and D. Antrum, erythema and ulcer biopsy: Minimal chronic inactive gastritis, reactive gastropathy and focal erosion in antral mucosa. Oxyntic mucosa with no diagnostic abnormality. Negative for intestinal metaplasia or dysplasia. H. pylori immunostain will be reported as an addendum. E. Stomach, body, biopsy: -Minimal chronic inactive gastritis and reactive change in oxyntic mucosa. -Negative for intestinal metaplasia or dysplasia. -No H. pylori on routine stain. US gallbladder 01/27/2023: IMPRESSION: Normal examination. Fibroscan 03/01/2023: Impression The reading was adequate. FS =5.8 kPA. The CAP score is 198 and corresponds to steatosis grade of S0. The fibrosis interpretation threshold for hepatomegaly diagnosis in Fibroscan is not well-established and the reading may serve as a reference point for follow up. This reading corresponds: A 94% chance of stage 0-2 fibrosis A 6% chance of stage 3-4 fibrosis (advanced fibrosis) A <1% chance of stage 4 fibrosis (cirrhosis). ALLERGIES Allergen Reactions Seasonal Allergies Other: See Comments PAST MEDICAL HISTORY Diagnosis Date Acquired hypothyroidism Asthma Hidradenitis PCOS (polycystic ovarian syndrome) PAST SURGICAL HISTORY Procedure Laterality Date SECTION HX DANDC, DIAG AND/OR THERAPEUTIC FAMILY HISTORY Problem Relation Age of Onset Hypothyroidism Mother Hypothyroidism Sister Hypothyroidism Sister Graves Disease Maternal Grandmother Graves Disease Maternal Uncle Social History Tobacco Use Smoking status: Former Packs/day: .5 Types: Cigarettes Smokeless tobacco: Never Tobacco comments: ciggarrets Vaping Use Vaping Use: current everyday user Substances: Nicotine Devices: Disposable Substance Use Topics Alcohol use: Yes Comment: rarely Drug use: Never Current Outpatient Medications Medication Sig naltrexone 50 mg tablet Take 1/4 tablet every night for 7 days, then increase to 1/2 tablet every night for 3 weeks, then increase to 1/2 tablet twice daily. buPROPion XL (WELLBUTRIN XL) 300 mg 24 hr tablet Take 1 tablet by mouth once daily. omeprazole (PRILOSEC) 40 mg capsule TAKE 1 CAPSULE BY MOUTH TWICE DAILY FLUoxetine (PROZAC) 20 mg capsule Take 20 mg by mouth once daily. topiramate (TOPAMAX) 50 mg tablet Take 0.5 tablets by mouth once daily. cetirizine (ZYRTEC) 10 mg tablet Take 10 mg by mouth once daily. atorvastatin (LIPITOR) 20 mg tablet Take 0.5 tablets by (more content not included)... Normal [facility] HISTORY PHYSICALon HISTORY PHYSICAL HNO ID: [id number] Author: SUSY MONTEZ MD Service: ? Author Type: Physician Type: H&P Filed: 11/09/2023 12:32 Note Text: Consultation requested by DIDIER Ta for an opinion regarding GERD. My final recommendations will be communicated back to the requesting physician by way of shared medical record or fax. REASON FOR VISIT: GERD HPI: Benny Guerrero is a 38 year old female who presents for GERD. She states for the past 10 months she has had feelings of heartburn and reflux. She underwent an EGD in June 2023 which revealed peptic ulcer disease. She was started on PPI twice daily. She underwent a repeat EGD in August which showed improvement was decreased to PPI once a day however she states her heartburn returned with a vengeance. She is now back on omeprazole twice a day with improvement. She still feels reflux and heartburn. She has significant anxiety and is undergoing a lot of stress in her life her boyfriend has an LVAD and is being worked up for heart transplant she is tearful discussing this. She has a lot of anxiety driving. She states overall her bowel movements are normal 1-2 bowel moods a daily of type II-IV stool. She denies any melena, hematochezia or rectal bleeding. She denies any family history of colon cancer. Past Clinical Work-Up: Last office visit 02/17/2023 w/ Dr. Charlene Dang: hepatomegaly EGD 08/27/2023 w/ Dr. Cadet: - Normal esophagus. - Z-line regular. - Normal stomach. - Normal examined duodenum. - No specimens collected. EGD 06/30/2023 w/ Dr. Weber: - 2 cm hiatal hernia. - Ectopic gastric mucosa in the upper third of the esophagus. - Erythematous mucosa in the antrum. Biopsied. - Non-bleeding gastric ulcers. Biopsied. - Congestive gastropathy. - Erythematous duodenopathy. Biopsied. - Biopsies were taken with a cold forceps for histology on the greater curvature of the gastric body, on the lesser curvature of the gastric body, on the greater curvature of the gastric antrum and on the lesser curvature of the gastric antrum. Path: A. Duodenum, erythema, biopsy: -Duodenal mucosa with preserved villous architecture. -No increase in intraepithelial lymphocytes. B, C and D. Antrum, erythema and ulcer biopsy: Minimal chronic inactive gastritis, reactive gastropathy and focal erosion in antral mucosa. Oxyntic mucosa with no diagnostic abnormality. Negative for intestinal metaplasia or dysplasia. H. pylori immunostain will be reported as an addendum. E. Stomach, body, biopsy: -Minimal chronic inactive gastritis and reactive change in oxyntic mucosa. -Negative for intestinal metaplasia or dysplasia. -No H. pylori on routine stain. US gallbladder 01/27/2023: IMPRESSION: Normal examination. Fibroscan 03/01/2023: Impression The reading was adequate. FS =5.8 kPA. The CAP score is 198 and corresponds to steatosis grade of S0. The fibrosis interpretation threshold for hepatomegaly diagnosis in Fibroscan is not well-established and the reading may serve as a reference point for follow up. This reading corresponds: A 94% chance of stage 0-2 fibrosis A 6% chance of stage 3-4 fibrosis (advanced fibrosis) A <1% chance of stage 4 fibrosis (cirrhosis). ALLERGIES Allergen Reactions Seasonal Allergies Other: See Comments PAST MEDICAL HISTORY Diagnosis Date Acquired hypothyroidism Asthma Hidradenitis PCOS (polycystic ovarian syndrome) PAST SURGICAL HISTORY Procedure Laterality Date SECTION HX DANDC, DIAG AND/OR THERAPEUTIC FAMILY HISTORY Problem Relation Age of Onset Hypothyroidism Mother Hypothyroidism Sister Hypothyroidism Sister Graves Disease Maternal Grandmother Graves Disease Maternal Uncle Social History Tobacco Use Smoking status: Former Packs/day: .5 Types: Cigarettes Smokeless tobacco: Never Tobacco comments: ciggarrets Vaping Use Vaping Use: current everyday user Substances: Nicotine Devices: Disposable Substance Use Topics Alcohol use: Yes Comment: rarely Drug use: Never Current Outpatient Medications Medication Sig naltrexone 50 mg tablet Take 1/4 tablet every night for 7 days, then increase to 1/2 tablet every night for 3 weeks, then increase to 1/2 tablet twice daily. buPROPion XL (WELLBUTRIN XL) 300 mg 24 hr tablet Take 1 tablet by mouth once daily. omeprazole (PRILOSEC) 40 mg capsule TAKE 1 CAPSULE BY MOUTH TWICE DAILY FLUoxetine (PROZAC) 20 mg capsule Take 20 mg by mouth once daily. topiramate (TOPAMAX) 50 mg tablet Take 0.5 tablets by mouth once daily. cetirizine (ZYRTEC) 10 mg tablet Take 10 mg by mouth once daily. atorvastatin (LIPITOR) 20 mg tablet Take 0.5 tablets by mouth once daily. spironolactone (ALDACTONE) 50 mg tablet Take 1 tablet by mouth twice daily. busPIRone (BUSPAR) 15 mg tablet Take 15 mg by mouth three times daily. Cholecalciferol, Vitamin D3, 25 mcg (1,000 unit) cap diphenhydrAMINE (BENADRYL) 25 mg capsule Take 25 mg (more content not included)... Normal [facility] HISTORY PHYSICALon HISTORY PHYSICAL HNO ID: [id number] Author: Margaret Muir MD Service: Gastroenterology Author Type: Fellow Type: HANDP Filed: 08/27/2023 1:32 PM Note Text: HISTORY AND PHYSICAL Benny Guerrero, 37 year old female Current history and physical on file: No Is a new History and Physical required for today's visit? Yes Indication for procedure: Other gastric ulcers PROCEDURE(S) SCHEDULED FOR: EGD (Esophagogastroduodenoscop y) with or without biopsies, removal of polyps or lesions, dilation ( any means), treatment of bleeding ( any means), Barrx treatment of Maldonado's Esophagus, image tube placement or cryo therapy treatment based on clinical findings. BASELINE BEHAVIOR: Calm BASELINE ORIENTATION: A AND O x3 All medications and allergies reviewed: Yes Skin Assessment: Warm dry mucus membranes pink Airway/Respiratory Assessment: Airway: visualization of the uvula- Yes Mouth: opening greater than 2 fingerbreadths- Yes Neck: full range of motion- Yes No increased WOB. Cardiac Assessment: Regular rate and rhythm Abdominal Assessment: Abdomen soft, non-tender, no masses or organomegaly. Sedation Plan: Moderate Additional Comments: none Margaret Muir MD Normal [facility] NURSING PROGon 08-27-2023 NURSING PROG HNO ID: [id number] Author: Kathy Kaplan RN Service: ? Author Type: Registered Nurse Type: Nursing Progress Note Filed: 08/27/2023 1:49 PM Note Text: AMBULATORY PATIENT EDUCATION NOTE TOPIC: GI PROCEDURES: Esophagogastroduodenoscopy (EGD) with or without biopies based on clinical findings, removal of polyps or lesions READINESS TO LEARN INSTRUCTION PROVIDED TO: Patient, readness to learn accessed prior to procedure and Family member COGNITIVE ABILITY: Alert and oriented PTED MOTIVATION TO LEARN: Interested FAMILY SUPPORT: High - Very involved in pt care IPATIENT LEARNS BEST BY: Individual Instruction Written Instruction - Hand-outs Verbal Instruction FACTORS AFFECTING LEARNING: None PHYSICAL LIMITATIONS AFFECTING LEARNING: None LEARNING RESPONSE METHOD OF INSTRUCTION: Individual instruction PATIENT / FAMILY RESPONSE: Verbalizes understanding of: WORSENING CONDITION-Signs and symptoms of a worsening condition that warrant a call to the physician FOLLOW-UP PLAN: Complete - No need for follow-up SUPPLEMENTAL MATERIAL: Procedure Discharge Instructions REFERRAL (RECOMMENDATION): None Electronically Signed By: Kathy Kaplan RN [facility] NURSING PROG HNO ID: [id number] Author: Theresa Mi RN Service: ? Author Type: Registered Nurse Type: Nursing Progress Note Filed: 08/27/2023 1:25 PM Note Text: PRE OP LEARNING ASSESSMENT PROCEDURE/SURGERY: GI PROCEDURES: EGD READINESS TO LEARN COGNITIVE ABILITY: Alert and oriented MOTIVATION TO LEARN: Eager Interested FAMILY SUPPORT: Unable to assess - Family not present PATIENT LEARNS BEST BY: Individual Instruction Verbal Instruction FACTORS AFFECTING LEARNING: None PHYSICAL LIMITATIONS AFFECTING LEARNING: None Electronically Signed By: Theresa Mi RN In Department: GASTROENTEROLOGY Normal [facility] Upper GI endoscopy 023 Upper GI endoscopy A31 Gastrointestinal Endoscopy Patient Name: Benny Guerrero Procedure Date: 08/27/2023 1:27 PM Date of : 1985 Admit Type: Outpatient Age: 37 Room: A3 [facility] 6 Gender: Female Note Status: Finalized Attending MD: Alexandra Cadet MD, [id number] Procedure: Upper GI endoscopy Indications: gastric ulcers Providers: Alexandra Cadet MD, Margaret Muir MD (Fellow) Patient Profile: This is a 37 year old female. Refer to note in patient chart for documentation of history and physical. Referring Physician: Dasha Weber MD (Referring MD) Medicines: Fentanyl 100 micrograms IV, Midazolam 5 mg IV Complications: No immediate complications. Requesting Provider: Procedure: Pre-Anesthesia Assessment: - Prior to the procedure, a History and Physical was performed, and patient medications and allergies were reviewed. The patient is competent. The risks and benefits of the procedure and the sedation options and risks were discussed with the patient. All questions were answered and informed consent was obtained. Patient identification and proposed procedure were verified by the physician in the pre-procedure area. Mental Status Examination: alert and oriented. Airway Examination: normal oropharyngeal airway and neck mobility. Respiratory Examination: clear to auscultation. CV Examination: normal. Prophylactic Antibiotics: The patient does not require prophylactic antibiotics. Prior Anticoagulants: The patient has taken no anticoagulant or antiplatelet agents. ASA Grade Assessment: I - A normal, healthy patient. After reviewing the risks and benefits, the patient was deemed in satisfactory condition to undergo the procedure. The anesthesia plan was to use moderate sedation / analgesia (conscious sedation). Immediately prior to administration of medications, the patient was re-assessed for adequacy to receive sedatives. The heart rate, respiratory rate, oxygen saturations, blood pressure, adequacy of pulmonary ventilation, and response to care were monitored throughout the procedure. The physical status of the patient was re-assessed after the procedure. After obtaining informed consent, the endoscope was passed under direct vision. Throughout the procedure, the patient's blood pressure, pulse, and oxygen saturations were monitored continuously. The Endoscope was introduced through the mouth, and advanced to the second part of duodenum. The upper GI endoscopy was accomplished without difficulty. The patient tolerated the procedure well. Moderate Sedation: The administration of moderate sedation was initiated at 13:37 PM. Moderate (conscious) sedation was administered by the nurse and supervised by the endoscopist. The following parameters were monitored: oxygen saturation, heart rate, blood pressure, and response to care. Findings: The examined esophagus was normal. The Z-line was regular. The entire examined stomach was normal. The cardia and gastric fundus were normal on retroflexion. The examined duodenum was normal. Impression: - Normal esophagus. - Z-line regular. - Normal stomach. - Normal examined duodenum. - No specimens collected. Estimated Blood Loss: Estimated blood loss: none. Recommendation: - Patient has a contact number available for emergencies. The signs and symptoms of potential delayed complications were discussed with the patient. Return to normal activities tomorrow. Written discharge instructions were provided to the patient. - Resume previous diet. - Return to referring physician as previously scheduled. - Decrease PPI therapy from BID-AC to once daily Attending Participation: I was present and participated during the entire procedure, including non-mathews portions, and during the administration and monitoring of Moderate Sedation. Scope In: 1:41:15 PM Scope Out: 1:45:44 PM MD Alexandra Francois MD 08/27/2023 1:47:52 PM This report has been signed electronically by Alexandra Cadet MD Number of Addenda: 0 Note Initiated On: 08/27/2023 1:27 PM Normal [facility] CNPNon 08-11-2023 CNPN Telephone (GASTMN) -- BENNY GUERRERO ([id number]) 1985 F Date Time Provider Department 08/11/23 [facility] During your visit today, we recorded the following information about you: Ifeoma Rizzo RN 08/11/2023 12:22 PM Signed Completed prior authorization for increase in omeprazole 40mg capsules medication [facility] mathews: [id number] Submitted for 72 hr review. Notified patient as well. VALENTINA Carlson Carol, MD 08/11/2023 12:36 PM Signed Thank you Ifeoma. Please advise patient to reach out to her primary GI doctor with her concerns so they are aware. Ok for Prilosec 40mg once daily otherwise and if unable to get as prescription, she can get it OTC. Allergies As of Date: 08/11/2023 Noted Allergy Reaction SEASONAL ALLERGIES 09/24/2021 14 - Other: See Comments Date Reviewed: 06/30/2023 Reviewed by: Ivette Wang LPN - Fully Assessed Reason for Visit: Prior Auth [Other] Prescriptions as of 08/12/2023 - omeprazole (PRILOSEC) 40 mg capsule TAKE 1 CAPSULE BY MOUTH TWICE DAILY - FLUoxetine (PROZAC) 20 mg capsule Take 20 mg by mouth once daily. - topiramate (TOPAMAX) 50 mg tablet Take 0.5 tablets by mouth once daily. - Phentermine HCl 37.5 mg tablet Take 1 tablet by mouth once daily for 90 days. BMI 31.78 - cetirizine (ZYRTEC) 10 mg tablet Take 10 mg by mouth once daily. - atorvastatin (LIPITOR) 20 mg tablet Take 0.5 tablets by mouth once daily. - spironolactone (ALDACTONE) 50 mg tablet Take 1 tablet by mouth twice daily. - buPROPion XL (WELLBUTRIN XL) 150 mg 24 hr tablet bupropion HCl XL 150 mg 24 hr tablet, extended release - busPIRone (BUSPAR) 15 mg tablet Take 15 mg by mouth three times daily. - Cholecalciferol, Vitamin D3, 25 mcg (1,000 unit) cap - diphenhydrAMINE (BENADRYL) 25 mg capsule Take 25 mg by mouth every 6 hours as needed. - fluticasone (FLONASE) 50 mcg/actuation nasal spray fluticasone propionate 50 mcg/actuation nasal spray,suspension - ibuprofen (MOTRIN) 800 mg tablet ibuprofen 800 mg tablet - ketoconazole (NIZORAL) 2 % shampoo ketoconazole 2 % shampoo - DAILY MULTI-VITAMIN ORAL Problem List As Of Date 08/11/2023 Noted Resolved Obesity, Class III, BMI 40-49.9 (morbid obesity*09/24/2021 Encounter Status:Closed by IFEOMA RIZZO on 08/11/23 Normal [facility] EGD DIAGNOSTICon 06-30-2023 [facility] VIBRATION CONTROLLED TRANSIE NT ELASTOGRAPHY (POC)on 03-01-2023 [facility] HBV surface Ab Ql (S)on 02-04 HBV surface Ab Qn (S) Low >=12.00 mIU/mL [facility] HBV surface Ab Qn (S) <8.00 Low >=12.00 [facility] Comment on above: Order Comment: Speci men Type: BLOOD SPECIMEN Ordering Facility: [facility] Address: [address] [address] Performed By: #### 2 2322-2 #### [facility] [place] [id number] [address] [place] [address] OF JUNE HBV surface Ab Ser Qlon 02-04 HBV surface Ab Ql (S) Negative Abnormal Positive [facility] Comment on above: Order Comment: Speci men Type: BLOOD SPECIMEN Ordering Facility: [facility] Address: [address] [place] [address] Result Comment: No e vidence of antibodies to Hepatitis B surface antigen. Performed By: #### 2 2322-2 #### [facility] [place] [id number] [address] [place] [address] OF JUNE HEP B SURF ABon 02-17-2023 HBV surface Ab Ql (S) Negative Abnormal Positive [facility] INSULIN ASSAY BLOODon 2022 Insulin Qn 12.3 u[IU]/mL 3.0 - 25.0 mU/L [facility] Insulin SerPl-aCncon 023 Insulin Qn 12.3 u[IU]/mL [facility] 3[facility]0-25.0 [facility] Comment on above: Order Comment: Speci men Type: BLOOD SPECIMEN Ordering Facility: [facility] Address: [address] [place] [address] Performed By: #### 2 0448-7 #### [facility] [place] [id number] [address] [place] [address] [place] XR TSPINE 3 VIEWSon 06-24-20 22 XR TSPINE 3 VIEWS EXAM: XR T-SPINE 3 V IEWS 06/23/2022. FINDINGS: AP, lateral, and swimmer's type views for three views obtained. HISTORY: Pain in thoracic spine. COMPARISON: None. IMPRESSION: 1. There are 12 rib bearing thoracic type vertebral segments with satisfactory alignment and curvature. The pedicles are intact. 2. No paravertebral soft tissue abnormality is noted. The heart size is normal. Visualized portions of the lungs are clear. Visualized portions of the shoulder girdles and ribs are intact. 3. No acute thoracic spinal fracture or subluxation suspected. Electronically authenticated by: SAMIRA ABDALLA Date: 2022-06-24 12:48 Normal [facility] SARS-CoV-2 (COVID-19) RNA NA A+probe Ql (Resp)on 03-16-2022 SARS-CoV-2 (COVID-19) RNA IKER+probe Ql (Unsp spec) Negative [employer] Other PAP ACOG PANEL 2: 30 to 65on 01-29-2022 . . Normal [facility] Comment on above: Result Comment: Perf ormed at: BA Performed By: #### 4 [id number] #### [facility] [address] [place] [address] Dr. Bradley Rodriguez Age Gdln ACOG Testing 30-65 Normal [facility] Comment on above: Performed By: #### 4 [id number] #### [facility] [address] [address] [address] Bradley Rodriguez DIAGNOSIS: Comment Normal [facility] Comment on above: Result Comment: NEGA TIVE FOR INTRAEPITHELIAL LESION OR MALIGNANCY. Performed at: BA Performed By: #### 4 [id number] #### [facility] [address] [address] [address] Bradley Rodriguez HPV Aptima Negative Normal Negative [facility] Comment on above: Result Comment: This nucleic acid amplification test detects fourteen high-risk HPV types (16,18,31,33,35,39,45,51,52,56,58,59,66,68) without differentiation. Performed at: =G Performed By: #### 4 [id number] #### [facility] [address] [address] [address] Bradley Rodriguez Methodology: Comment Normal [facility] Comment on above: Result Comment: This liquid based ThinPrep(R) pap test was screened with the use of an image guided system. Performed at: WB Performed By: #### 4 [id number] #### [facility] [address] [place] [address] Dr. Bradley Rodriguez Note: Comment Normal [facility] Comment on above: Result Comment: The Pap smear is a screening test designed to aid in the detection of premalignant and malignant conditions of the uterine cervix. It is not a diagnostic procedure and should not be used as the sole means of detecting cervical cancer. Both false-positive and false-negative reports do occur. . Performed at: WB Performed By: #### 4 [id number] #### [facility] [address] [place] [address] Dr. Bradley Rodriguez Performed by: Comment Normal [facility] Comment on above: Result Comment: Trevon Esquivel, Obiee Consultant Performed at: BA Performed By: #### 4 [id number] #### [facility] [address] [place] [address] Dr. Bradley Rodriguez Specimen adequacy: Comment [facility] Comment on above: Result Comment: Sati sfactory for evaluation. Endocervical and/or squamous metaplastic cells (endocervical component) are present. Performed at: BA Performed By: #### 4 [id number] #### [facility] [address] [place] [address] Dr. Bradley Rodriguez Superficial Wound Cultureon 11-18-2021 Superficial Wound Culture ORGANISM: Proteus mirabilis (O:PROMIR) Quantity of Growth Moderate Growth Aerobic SARAH Charge (NUC86) SUSCEPTIBILITY ORGANISM: O:PROMIR ANTIBIOTIC INTERPRETATION SARAH Amikacin S <16 Ampicillin S <8 Ampicillin/Sulbactam S <8/4 Aztreonam S <4 Cefazolin S <2 Cefepime S <2 Ceftazidime S <1 Ceftazidime/Avibactam S <8 Ceftriaxone S <1 Ciprofloxacin S <1 Ertapenem S <0.5 Gentamicin S <4 Levofloxacin S <2 Meropenem S <1 Piperacillin/Tazobactam S <16 Tetracycline R >8 Tobramycin S <4 Trimethoprim/Sulfamethoxaz ole S <2/38 S = SUSCEPTIBLE I = INTERMEDIATE R = RESISTANT BLANK = DATA NOT AVAILABLE, OR DRUG NOT ADVISABLE OR TESTED R* = RESISTANCE DUE TO EXTENDED SPECTRUM BETA-LACTAMASES ESBL = EXTENDED SPECTRUM BETA-LACTAMASE TFG = THYMIDINE-DEPENDENT STRAIN LIZ = BETA-LACTAMASE POSITIVE IB = INDUCIBLE BETA-LACTAMASE. APPEARS IN PLACE OF 'S' WITH SPECIES KNOWN TO POSSESS INDUCIBLE BETA-LACTAMASES. POTENTIALLY THEY MAY BECOME RESISTANT TO ALL B-LACTAM DRUGS. PERFORMED BY: [place] [address] PATHOLOGIST SAMPLE TAKER OPERATOR MARU BERGER M.D. Normal Comment on above: Performed By: #### C US #### [address] CBC (INCLUDES DIFF/PLT)on Basophils (Bld) [#/Vol] 0.092 10*3/uL Normal 0-200 [facility] Comment on above: Performed By: #### 1 0231, 0, 6399 #### [facility] [address] [address] Sorter/Assay Tech: Bernabe Velasquez MD Basophils/100 WBC (Bld) 0.9 % Normal [facility] Comment on above: Performed By: #### 1 0231, 7599, 6399 #### [facility] [address] [place] [address] Sorter/Assay Tech: Bernabe Velasquez MD Eosinophils (Bld) [#/Vol] 0.367 10*3/uL Normal 15-500 [facility] Comment on above: Performed By: #### 1 0231, 7599, 6399 #### [facility] [address] [place] [address] Sorter/Assay Tech: Bernabe Velasquez MD Eosinophils/100 WBC (Bld) 3.6 % Normal [facility] Comment on above: Performed By: #### 1 0231, 760, 6399 #### [facility] [address] [place] [address] Sorter/Assay Tech: Bernabe Velasquez MD Erythrocyte distribution width (RBC) [Ratio] 12.3 % Normal 11.0-15.0 [facility] Comment on above: Performed By: #### 1 0231, 7599, 6399 #### [facility] of [address] [address] Sorter/Assay Tech: Bernabe Velasquez MD Hematocrit (Bld) [Volume fraction] 43.0 % Normal 35.0-45.0 [facility] Comment on above: Performed By: #### 1 0231, 0, 6399 #### [facility] of [address] [address] Sorter/Assay Tech: Bernabe Velasquez MD Hemoglobin (Bld) [Mass/Vol] 15.2 g/dL Normal 11.7-15.5 [facility] Comment on above: Performed By: #### 1 023, 7599, 6399 #### [facility] of [address] [place] [address] Sorter/Assay Tech: Bernabe Velasquez MD Lymphocytes (Bld) [#/Vol] 1.714 10*3/uL Normal 850-3900 [facility] Comment on above: Performed By: #### 1 023, 7599, 6399 #### [facility] of [address] [place] [address] Sorter/Assay Tech: Bernabe Velasquez MD Lymphocytes/100 WBC (Bld) 16.8 % Normal [facility] Comment on above: Performed By: #### 1 023, 7599, 6399 #### [facility] of [address] [place] [address] Sorter/Assay Tech: Bernabe Velasquez MD MCH (RBC) [Entitic mass] 31.0 pg Normal 27.0-33.0 [facility] Comment on above: Performed By: #### 1 023, 7599, 6399 #### [facility] of [address] [address] Sorter/Assay Tech: Bernabe Velasquez MD MCHC (RBC) [Mass/Vol] 35.3 g/dL Normal 32.0-36.0 [facility] Comment on above: Performed By: #### 1 0231, 7600, 6399 #### [facility] of [address], [address] [place], [place] [id number] Sorter/Assay Tech: Bernabe Velasquez MD MCV (RBC) [Entitic vol] 87.6 fL Normal 80.0-100.0 [facility] Comment on above: Performed By: #### 1 0231, 0, 6399 #### [facility] of [address], [address] [place] [address] Sorter/Assay Tech: Bernabe Velasquez MD Monocytes (Bld) [#/Vol] 0.53 10*3/uL Normal 200-950 [facility] Comment on above: Performed By: #### 1 0231, 0, 6399 #### [facility] of [address], [address] [place] [address] Sorter/Assay Tech: Bernabe Velasquez MD Monocytes/100 WBC (Bld) 5.2 % Normal [facility] Comment on above: Performed By: #### 1 0231, 7599, 6399 #### [facility] of [address], [address] [place] [address] Sorter/Assay Tech: Bernabe Velasquez MD Neutrophils (Bld) [#/Vol] 7.497 10*3/uL Normal 3549-9495 [facility] Comment on above: Performed By: #### 1 0231, 7599, 6399 #### [facility] of [address] [address] Sorter/Assay Tech: Bernabe Velasquez MD Neutrophils/100 WBC (Bld) 73.5 % Normal [facility] Comment on above: Performed By: #### 1 0231, 0, 6399 #### [facility] of [address] [address] Sorter/Assay Tech: Bernabe Velasquez MD Platelet mean volume (Bld) [Entitic vol] 11.3 fL Normal 7.5-12.5 [facility] Comment on above: Performed By: #### 1 0231, 0, 6399 #### [facility] of [address] [place] [address] Sorter/Assay Tech: Bernabe Velasquez MD Platelets (Bld) [#/Vol] 220 10*3/uL Normal 140-400 [facility] Comment on above: Performed By: #### 1 0231, 7600, 6399 #### [facility] of [address], [address] [place] [address] Sorter/Assay Tech: Bernabe Velasquez MD RBC (Bld) [#/Vol] 4.91 10*6/uL Normal 3.80-5.10 [facility] Comment on above: Performed By: #### 1 0231, 7600, 6399 #### [facility] of [address], [address] [place] [address] Sorter/Assay Tech: Bernabe Velasquez MD WBC (Bld) [#/Vol] 10.2 10*3/uL Normal 3.8-10.8 [facility] Comment on above: Performed By: #### 1 0231, 0, 6399 #### [facility] of [address], [address] [place] [address] Sorter/Assay Tech: Bernabe Velasquez MD RUST METABOLIC [facility] 08-05-2021 Albumin [Mass/Vol] 4.5 g/dL Normal 3.6-5.1 [facility] Comment on above: Performed By: #### 1 0231, 7600, 6399 #### [facility] of [address] [place] [address] Sorter/Assay Tech: Bernabe Velasquez MD Albumin/Globulin [Mass ratio] 1.7 {ratio} Normal 1.0-2.5 [facility] Comment on above: Performed By: #### 1 0231, 7600, 6399 #### [facility] of [address] [place] [address] Sorter/Assay Tech: Bernabe Velasquez MD ALP [Catalytic activity/Vol] 61 U/L Normal 31-125 [facility] Comment on above: Performed By: #### 1 0231, 7600, 6399 #### [facility] of [address], [address] [place] [address] Sorter/Assay Tech: Bernabe Velasquez MD ALT [Catalytic activity/Vol] 15 U/L Normal 6-29 [facility] Comment on above: Performed By: #### 1 0231, 7599, 6399 #### [facility] of [address], [address] [place] [address] Sorter/Assay Tech: Bernabe Velasquez MD AST [Catalytic activity/Vol] 13 U/L Normal 10-30 [facility] Comment on above: Performed By: #### 1 0231, 7599, 6399 #### [facility] of [address], [address] [place] [address] Sorter/Assay Tech: Bernabe Velasquez MD Bilirubin [Mass/Vol] 0.5 mg/dL Normal 0.2-1.2 [facility] Comment on above: Performed By: #### 1 023, 7599, 6399 #### [facility] of [address] [place] [address] Sorter/Assay Tech: Bernabe Velasquez MD BUN/CREATININE RATIO NOT APPLICABLE Normal 6-22 [facility] Comment on above: Performed By: #### 1 0231, 7599, 6399 #### [facility] of [address] [place] [address] Sorter/Assay Tech: Bernabe Velasquez MD Calcium [Mass/Vol] 9.8 mg/dL Normal 8.6-10.2 [facility] Comment on above: Performed By: #### 1 0231, 7599, 6399 #### [facility] of [address] [place] [address] Sorter/Assay Tech: Bernabe Velasquez MD Chloride [Moles/Vol] 103 mmol/L Normal 98-110 [facility] Comment on above: Performed By: #### 1 0231, 760, 6399 #### [facility] of [address] [place] [address] Sorter/Assay Tech: Bernabe Velasquez MD CO2 [Moles/Vol] 28 mmol/L Normal 20-32 [facility] Comment on above: Performed By: #### 1 023, 7599, 6399 #### [facility] [address] [place] [address] Sorter/Assay Tech: Bernabe Velasquez MD Creatinine [Mass/Vol] 0.78 mg/dL Normal 0.50-1.10 [facility] Comment on above: Performed By: #### 1 023, 7599, 6399 #### [facility] [address] [place] [address] Sorter/Assay Tech: Bernabe Velasquez MD eGFR NON-AFR. VENEZUELAN 99 mL/min/1.73m2 Normal > OR = 60 [facility] Comment on above: Performed By: #### 1 023, 7599, 6399 #### [facility] of [address] [place] [address] Sorter/Assay Tech: Bernabe Velasquez MD GFR/1.73 sq M.predicted among blacks MDRD (S/P/Bld) [Vol rate/Area] 115 mL/min/{1.73_m2} Normal > OR = 60 [facility] Comment on above: Performed By: #### 1 023, 7599, 6399 #### [facility] [address] [place] [address] Sorter/Assay Tech: Bernabe Velasquez MD Globulin (S) [Mass/Vol] 2.7 g/dL Normal 1.9-3.7 [facility] Comment on above: Performed By: #### 1 023, 7599, 6399 #### [facility] [address] [place] [address] Sorter/Assay Tech: Bernabe Velasquez MD Glucose [Mass/Vol] 92 mg/dL Normal 65-99 [facility] Comment on above: Result Comment: Fasting reference interval Performed By: #### 1 0231, 7599, 6399 #### [facility] of [address] [place] [address] Sorter/Assay Tech: Bernabe Velasquez MD Potassium [Moles/Vol] 4.4 mmol/L Normal 3.5-5.3 [facility] Comment on above: Performed By: #### 1 0231, 0, 6399 #### [facility] of [address] [place] [address] Sorter/Assay Tech: Bernabe Velasquez MD Protein [Mass/Vol] 7.2 g/dL Normal 6.1-8.1 [facility] Comment on above: Performed By: #### 1 0231, 0, 6399 #### [facility] of [address], [address] [place] [address] Sorter/Assay Tech: Bernabe Velasquez MD Sodium [Moles/Vol] 139 mmol/L Normal 135-146 [facility] Comment on above: Performed By: #### 1 0231, 7599, 6399 #### [facility] of [address] [place] [address] Sorter/Assay Tech: Bernabe Velasquez MD Urea nitrogen [Mass/Vol] 15 mg/dL Normal 7-25 [facility] Comment on above: Performed By: #### 1 0231, 7599, 6399 #### [facility] of [address] [place] [address] Sorter/Assay Tech: Bernabe Velasquez MD LIPID PANEL, [facility] 11-3 Cholesterol [Mass/Vol] 223 mg/dL High <200 [facility] Comment on above: Performed By: #### 1 0231, 7599, 6399 #### [facility] of [place] [address] Sorter/Assay Tech: Bernabe Velasquez MD Cholesterol in HDL [Mass/Vol] 40 mg/dL Low > OR = 50 [facility] Comment on above: Performed By: #### 1 0231, 7600, 6399 #### [facility] [place] [address] Sorter/Assay Tech: Bernabe Velasquez MD Cholesterol in LDL [Mass/Vol] 138 mg/dL High [facility] Comment on above: Result Comment: Refe rence range: <100 Desirable range <100 mg/dL for primary prevention; <70 mg/dL for patients with CHD or diabetic patients with > or = 2 CHD risk factors. LDL-C is now calculated using the Lynsey calculation, which is a validated novel method providing better accuracy than the Friedewald equation in the estimation of LDL-C. Korey PAVON et al. NEPTALI. 2013;310(19): 3904-7671 (http://education.Morphy/faq/OAN071) Performed By: #### 1 230, 050, 8799 #### [facility] [address], [address] [place] [address] Sorter/Assay Tech: Bernabe Velasquez MD Cholesterol.total /Cholesterol in HDL [Mass ratio] 5.6 {ratio} High <5.0 [facility] Comment on above: Performed By: #### 1 230, 594, 2836 #### [facility] [address], [address] [place] [address] Sorter/Assay Tech: Bernabe Velasquez MD NON HDL CHOLESTEROL 183 mg/dL (calc) High <130 [facility] Comment on above: Result Comment: For patients with diabetes plus 1 major ASCVD risk factor, treating to a non-HDL-C goal of <100 mg/dL (LDL-C of <70 mg/dL) is considered a therapeutic option. Performed By: #### 1 230, 717, 4928 #### [facility] [address], [address] [place] [address] Sorter/Assay Tech: Bernabe Velasquez MD Triglyceride [Mass/Vol] 316 mg/dL High <150 [facility] Comment on above: Result Comment: If a non-fasting specimen was collected, consider repeat triglyceride testing on a fasting specimen if clinically indicated. Milagros et al. J. of Clin. Lipidol. 2015;9:129-169. Performed By: #### 1 023, 796, 7925 #### [facility] [address], [address] [place] [address] Sorter/Assay Tech: Bernabe Velasquez MD Vital Signs Date Time Vital Sign Value Performing Clinician Facility 05-23-2024 08:53-0400 Body height 163.[address] Work Phone: [facility] 05-23-2024 08:53-0400 Body mass index (BMI) [Ratio] 41.91 kg/m2 German Morales RD Work Phone: [facility] 05-23-2024 08:53-0400 Body weight 112.[address] Work Phone: [facility] Comment on above: stated weight 02-15-2024 07:35-0400 Body mass index (BMI) [Ratio] 38.7 kg/m2 Irma Ta MANUFACTURING INTERN.NURSING OFFICER Work Phone: [facility] 02-15-2024 07:35-0400 Body weight 103.87 kg Irma Ta MANUFACTURING INTERN.NURSING OFFICER Work Phone: [facility] 12-07-2023 08:03-0400 Body weight 105.69 kg Rosa Maria Purvis MANUFACTURING INTERN.NURSING OFFICER Work Phone: [facility] 12-07-2023 08:03-0400 Heart rate 87 /min Rosa Maria Hyun MANUFACTURING INTERN.NURSING OFFICER Work Phone: [facility] 06-30-2023 10:30-0400 Diastolic blood pressure 68 mm[Hg] Dasha Weber MD Work Phone: [facility] 06-30-2023 10:30-0400 Heart rate 79 /min Dasha Weber MD Work Phone: [facility] 06-30-2023 10:30-0400 Respiratory rate 16 /min Dasha Weber MD Work Phone: [facility] 06-30-2023 10:30-0400 SaO2% (BldA) [Mass fraction] 100 % Dasha Weber MD Work Phone: [facility] 06-30-2023 10:30-0400 Systolic blood pressure 115 mm[Hg] Dasha Weber MD Work Phone: [facility] 06-30-2023 08:50-0400 Body height 165.1 cm Dasha Weber MD Work Phone: [facility] 06-30-2023 08:50-0400 Body temperature 97.9 [degF] Dasha Weber MD Work Phone: [facility] 06-30-2023 08:50-0400 Body weight 87.54 kg Dasha Weber MD Work Phone: [facility] 06-24-2023 08:19-0400 Body weight 87.54 kg Irma Ta MANUFACTURING INTERN.NURSING OFFICER Work Phone: [facility] 06-24-2023 08:19-0400 Diastolic blood pressure 74 mm[Hg] Irma Ta MANUFACTURING INTERN.NURSING OFFICER Work Phone: [facility] 06-24-2023 08:19-0400 Heart rate 97 /min Irma Ta MANUFACTURING INTERN.NURSING OFFICER Work Phone: [facility] 06-24-2023 08:19-0400 Systolic blood pressure 122 mm[Hg] Irma Ta MANUFACTURING INTERN.NURSING OFFICER Work Phone: [facility] 05-21-2023 11:51-0400 Body height 165.1 cm Sachi Armas MD Work Phone: [facility] 05-21-2023 11:51-0400 Body weight 86.64 kg Sachi Armas MD Work Phone: [facility] 03-19-2023 13:00-0400 Body height 165.[address] Work Phone: [facility] 03-19-2023 13:00-0400 Body weight 82.[address] Work Phone: [facility] 02-17-2023 09:17-0400 Body height 165.1 cm Haley Dang MD Work Phone: [facility] 02-17-2023 09:17-0400 Body weight 83.46 kg Haley Dang MD Work Phone: [facility] 09-24-2022 13:20-0500 Body height 163.6 cm Sachi Armas MD Work Phone: [facility] 09-24-2022 13:20-0500 Body weight 102.51 kg Sachi Armas MD Work Phone: [facility] 06-11-2022 11:15-0400 Body height 163.6 cm Sachi Armas MD Work Phone: [facility] 06-11-2022 11:15-0400 Body weight 101.61 kg Sachi Armas MD Work Phone: [facility] 03-10-2022 10:08-0400 Body weight 114.72 kg Sachi Armas MD Work Phone: [facility] 03-10-2022 10:08-0400 Diastolic blood pressure 93 mm[Hg] Sachi Armas MD Work Phone: [facility] 03-10-2022 10:08-0400 Heart rate 100 /min Sachi Armas MD Work Phone: [facility] 03-10-2022 10:08-0400 Systolic blood pressure 140 mm[Hg] Sachi Armas MD Work Phone: [facility] 02-05-2022 11:47-0400 Body height 163.6 cm Sachi Armas MD Work Phone: [facility] 02-05-2022 11:47-0400 Body weight 119.3 kg Sachi Armas MD Work Phone: [facility] 01-13-2022 15:33-0400 Body height 163.6 cm Sachi Armas MD Work Phone: [facility] 01-13-2022 15:33-0400 Body weight 124.1 kg Sachi Armas MD Work Phone: [facility] 12-02-2021 08:56-0400 Body height 163.6 cm Sachi Armas MD Work Phone: [facility] 12-02-2021 08:56-0400 Body weight 132.63 kg Sachi Armas MD Work Phone: [facility] 12-02-2021 08:56-0400 Diastolic blood pressure 79 mm[Hg] Sachi Armas MD Work Phone: [facility] 12-02-2021 08:56-0400 Heart rate 95 /min Sachi Armas MD Work Phone: [facility] 12-02-2021 08:56-0400 Systolic blood pressure 127 mm[Hg] Sachi Armas MD Work Phone: [facility] Encounters Encounter Date Encounter Type Care Provider Facility Start: 08-08-2024 End: 08-08-2024 ambulatory Maranda Retana APRN.NURSING OFFICER Work Phone: Endocrinology Comment on above: Obesity, Class III, BMI 40-49.9 (morbid obesity) (HCC) (Primary Dx); PCOS (polycystic ovarian syndrome); Dyslipidemia; Hypothyroidism, unspecified type; Psoriatic arthritis of multiple joints (HCC) Start: 08-08-2024 End: 08-08-2024 Telemedicine consultation with patient Maranda Retana APRN.NURSING OFFICER Work Phone: Endocrinology Start: 07-12-2024 End: 07-13-2024 ambulatory Sachi Armas MD Work Phone: Endocrinology Comment on above: Metformin Start: 06-30-2024 End: 06-30-2024 Refill Irma Ta APRN.NURSING OFFICER Work Phone: Endocrinology [facility] Comment on above: Refill Request Start: 06-29-2024 End: 06-29-2024 ambulatory Rupa Roper Enlisted Advisor Work Phone: Endocrinology Comment on above: PCOS (polycystic ova maryana syndrome) (Primary Dx) Start: 06-29-2024 End: 06-29-2024 Telemedicine consultation with patient Rupa Roper Enlisted Advisor Work Phone: Endocrinology Start: 06-26-2024 End: 06-27-2024 ambulatory Irma Ta APRN.NURSING OFFICER Work Phone: Endocrinology [facility] Comment on above: Phentermine Start: 06-22-2024 End: 06-22-2024 ambulatory Sachi Armas MD Work Phone: Endocrinology Comment on above: PCOS (polycystic ova maryana syndrome) (Primary Dx); Insulin resistance; Reactive hypoglycemia; Hypercalcemia; Dyslipidemia Start: 06-22-2024 End: 06-22-2024 Telemedicine consultation with patient Sachi Armas MD Work Phone: Endocrinology Start: 06-21-2024 End: 06-21-2024 Clinisync Result Encounter Generic External Data Provider [facility] External Department Unsolicited Start: 06-21-2024 End: 06-21-2024 Clinisync Result Encounter Generic External Data Provider [facility] External Department Unsolicited Start: 06-21-2024 End: 06-21-2024 ambulatory TARA DE PAZ Facility:[facility] Start: 06-05-2024 End: 06-05-2024 ambulatory TARA DE PAZ Not Available Start: 05-31-2024 End: 05-31-2024 ambulatory Rupa Ropre Enlisted Advisor Work Phone: Endocrinology Start: 05-24-2024 End: 05-24-2024 Orders Only Tara De Paz BUSINESS MANAGER Work Phone: [facility] Comment on above: Mild intermittent as thma without complication (CMS/HCC) (Primary Dx) Start: 05-23-2024 End: 05-23-2024 Telemedicine consultation with patient German Morales RD Work Phone: [facility] Start: 05-23-2024 End: 05-24-[address] Work Phone: [facility] Comment on above: Obesity, Class III, BMI 40-49.9 (morbid obesity) (HCC) (Primary Dx); PCOS (polycystic ovarian syndrome) Refill Request (Omep razole refill/) Start: 05-19-2024 End: 05-26-2024 ambulatory Sachi Armas MD Work Phone: Endocrinology Comment on above: Bloodwork Start: 05-10-2024 End: 05-10-2024 ambulatory MARILEE H TIMMIS Not Available Start: 04-25-2024 End: 04-26-2024 Refill Susy Montez MD Work Phone: Gastroenterology Comment on above: Refill Request (Omep razole 40 mg/) Start: 04-14-2024 End: 04-14-2024 ambulatory Lillian Echeverria RT(R) Radiology Comment on above: Radiology US Start: 04-14-2024 Patient encounter procedure Lillian Bernabeys RT(R) Radiology Start: 04-14-2024 End: 04-14-2024 Subsequent hospital visit by physician Us [facility] Comment on above: Reactive hypoglycemi a [E16.1] Start: 03-22-2024 Refill Susy Castanon Work Phone: Gastroenterology Comment on above: Refill Request (Omep razole 40 mg/) Start: 03-18-2024 Refill Susy Castanon Work Phone: Gastroenterology Comment on above: Refill Request Start: 03-17-2024 Refill Susy Castanon Work Phone: Gastroenterology Comment on above: Refill Request Start: 03-07-2024 Telephone encounter German blankenship RD Work Phone: Diabetes Education Comment on above: Medical Nutrition Th sandrita (PCOS and Weight Management) Start: 03-07-2024 End: 03-07-2024 ambulatory Sachi Armas MD Work Phone: Endocrinology Comment on above: Reactive hypoglycemi a (Primary Dx); Insulin resistance; Hypothyroidism, unspecified type; Hypercalcemia Obesity, Class II, B [place] 35-39.9 (Primary Dx); Reactive hypoglycemia; Insulin resistance; PCOS (polycystic ovarian syndrome) Start: 03-07-2024 End: 03-07-2024 Telemedicine consultation with patient Sachi Armas MD Work Phone: Endocrinology Start: 03-06-2024 End: 03-06-2024 ambulatory TARA DE PAZ Facility:[facility] Start: 02-15-2024 End: 02-15-2024 ambulatory Irma Ta APRN.CNP Work Phone: [facility] Comment on above: Insulin resistance ( Primary Dx); Obesity, Class II, BMI 35-39.9; PCOS (polycystic ovarian syndrome); Dyslipidemia; Hypothyroidism, unspecified type; Hidradenitis suppurativa; Medication management; Dietary counseling; Exercise counseling Start: 02-15-2024 End: 02-15-2024 Telemedicine consultation with patient Irma Ta APRN.NURSING OFFICER Work Phone: [facility] Start: 02-14-2024 ambulatory Sachi Armas MD Work Phone: Endocrinology Comment on above: Test Request Start: 02-10-2024 ambulatory Susy Castanon Work Phone: Gastroenterology Comment on above: Ongoing issues worse omar Start: 02-04-2024 Refill Susy Castanon Work Phone: Gastroenterology Comment on above: Refill Request (Omep razole 40 mg/) Start: 02-01-2024 End: 02-01-2024 ambulatory SACHI ARMAS Facility:[facility] Start: 01-27-2024 Orders Only Sachi Armas MD Work Phone: Endocrinology Comment on above: Hypercalcemia (Prima ry Dx); Vitamin D deficiency Test results Start: 01-26-2024 End: 01-26-2024 ambulatory SACHI ARMAS Facility:[facility] Start: 12-29-2023 Refill Irma ARRIAGANURSING OFFICER Work Phone: [facility] Comment on above: Refill Request Start: 12-07-2023 End: 12-07-2023 ambulatory Rosa Maria Purvis APRN.NURSING OFFICER Work Phone: [facility] Comment on above: Obesity, Class II, B [place] 35-39.9 (Primary Dx); PCOS (polycystic ovarian syndrome); Insulin resistance; Dyslipidemia; Hypothyroidism, unspecified type; Medication management; Dietary counseling; Exercise counseling Start: 12-07-2023 End: 12-07-2023 Telemedicine consultation with patient Rosa Maria Purvis APRN.CNP Work Phone: [facility] Start: 11-28-2023 ambulatory Irma Alegria PRN.NURSING OFFICER Work Phone: Endocrinology [facility] Comment on above: Question Start: 11-23-2023 Refill Irma Alegria PRN.NURSING OFFICER Work Phone: Endocrinology [facility] Comment on above: Refill Request Start: 11-09-2023 End: 11-09-2023 ambulatory SUSY MONTEZ Facility:[facility] Start: 09-22-2023 End: 09-22-2023 ambulatory TARA DE PAZ Not Available Start: 09-07-2023 End: 09-07-2023 ambulatory IRMA TA Facility:[facility] Start: 08-27-2023 End: 08-27-2023 ambulatory ALEXANDRA ALICIA Facility:[facility] Start: 08-11-2023 Telephone encounter Dasha riggs MD Work Phone: Gastroenterology Comment on above: Prior Auth Start: 08-06-2023 ambulatory Haley meléndez MD Work Phone: Gastroenterology Comment on above: Insurance Start: 08-04-2023 Telephone encounter David Farrell Gastroenterology Comment on above: Appointment Start: 07-12-2023 Orders Only Haley meléndez MD Work Phone: Gastroenterology Comment on above: Gastric ulcer withou t hemorrhage or perforation, unspecified chronicity (Primary Dx) Start: 07-06-2023 Orders Only Dasha Weber MD Work Phone: Gastroenterology Comment on above: Gastric ulcer withou t hemorrhage or perforation, unspecified chronicity (Primary Dx) Start: 06-30-2023 End: 06-30-2023 Orders Only Dasha Weber MD Work Phone: Gastroenterology Comment on above: Hepatomegaly [R16.0] Start: 06-24-2023 Telephone encounter Irma aviles APRN.NURSING OFFICER Work Phone: Neurology Comment on above: Medication Problem Start: 06-24-2023 End: 06-24-2023 ambulatory Irma Ta APRN.NURSING OFFICER Work Phone: Endocrinology [facility] Comment on above: Class 1 obesity with serious comorbidity and body mass index (BMI) of 31.0 to 31.9 in adult, unspecified obesity type (Primary Dx); PCOS (polycystic ovarian syndrome); Insulin resistance; Dyslipidemia; Hypothyroidism, unspecified type; Hydradenitis; Medication management; Dietary counseling; Exercise counseling; Obesity, Class III, BMI 40-49.9 (morbid obesity) (HCC) Start: 06-24-2023 End: 06-24-2023 Telemedicine consultation with patient Irma Ta APRN.NURSING OFFICER Work Phone: [facility] Start: 06-23-2023 Telephone encounter Jenn Farrell Gastroenterology Comment on above: Education Of Patient /family; Appointment (Appointment confirmed for 06/30/2023.) Start: 05-24-2023 Orders Only Haley meléndez MD Work Phone: Gastroenterology Comment on above: Hepatomegaly (Primar y Dx); Gastroesophageal reflux disease, unspecified whether esophagitis present Start: 05-21-2023 End: 05-21-2023 ambulatory Sachi Armas MD Work Phone: Endocrinology Comment on above: Class 1 obesity due to excess calories without serious comorbidity with body mass index (BMI) of 31.0 to 31.9 in adult (Primary Dx); PCOS (polycystic ovarian syndrome); Hypothyroidism, unspecified type Start: 05-21-2023 End: 05-21-2023 Telemedicine consultation with patient Sachi Armas MD Work Phone: [facility] Start: 03-24-2023 ambulatory Sachi Armas MD Work Phone: Endocrinology Comment on above: Mounjaro Start: 03-19-2023 End: 03-19-[address] Work Phone: Nutrition Therapy Comment on above: Hepatomegaly Start: 03-19-2023 End: 03-19-2023 Telemedicine consultation with patient Lizbeth More RD Work Phone: [facility] Start: 03-01-2023 End: 03-01-2023 ambulatory Hepatology [place] Work Phone: Gastroenterology Comment on above: Scans Start: 03-01-2023 End: 03-01-2023 Patient encounter procedure Hepatology Procedures [place] Work Phone: [facility] Start: 02-17-2023 End: 02-18-2023 ambulatory HALEY DANG Facility:[facility] Start: 02-17-2023 End: 02-17-2023 Patient encounter procedure Haley Dang MD Work Phone: Gastroenterology Comment on above: Hepatomegaly (Primar y Dx); Gastroesophageal reflux disease, unspecified whether esophagitis present Start: 01-10-2023 ambulatory Sachi Armas MD Work Phone: Endocrinology Comment on above: Blood work Start: 12-09-2022 ambulatory Sachi Armas MD Work Phone: [facility] Start: 12-09-2022 Patient encounter procedure Sachi Armas MD Work Phone: Endocrinology Comment on above: No available appoint ments Start: 10-21-2022 ambulatory Sachi Armas MD Work Phone: [facility] Start: 10-21-2022 Patient encounter procedure Sachi Armas MD Work Phone: Endocrinology Comment on above: Appointment Start: 09-24-2022 End: 09-24-2022 ambulatory Sachi Armas MD Work Phone: Endocrinology Comment on above: Obesity, Class III, BMI 40-49.9 (morbid obesity) (HCC); PCOS (polycystic ovarian syndrome); Dyslipidemia; Insulin resistance Start: 09-24-2022 End: 09-24-2022 Telemedicine consultation with patient Sachi Armas MD Work Phone: [facility] Start: 09-02-2022 ambulatory Sachi Armas MD Work Phone: Endocrinology Comment on above: Prior Authorization Rejected Start: 08-25-2022 Telephone encounter Sachi Skaggs Work Phone: Endocrinology Comment on above: Insurance Authorizat ion (Mounjaro 5mg/0.5ml) Start: 08-22-2022 ambulatory Sachi Armas MD Work Phone: Endocrinology Comment on above: Mounjaro Shortages Start: 07-18-2022 Refill Sachi Armas MD Work Phone: Endocrinology Comment on above: Refill Request Start: 06-23-2022 End: 06-24-2022 ambulatory SHAIKH Janet ELDER Facility: Start: 06-11-2022 End: 06-11-2022 ambulatory Sachi Armas MD Work Phone: Endocrinology Comment on above: Obesity, Class III, BMI 40-49.9 (morbid obesity) (HCC) (Primary Dx); PCOS (polycystic ovarian syndrome); Insulin resistance; Graves' disease Start: 06-11-2022 End: 06-11-2022 Telemedicine consultation with patient Sachi Armas MD Work Phone: [facility] Start: 06-05-2022 ambulatory Sachi Armas MD Work Phone: Endocrinology Comment on above: Gallbladder issues p ossibly? Start: 05-12-2022 ambulatory Sachi Armas MD Work Phone: Endocrinology Comment on above: Mounjaro questions Start: 04-14-2022 Telephone encounter Sachi Skaggs Work Phone: Endocrinology Comment on above: Medication Problem Start: 03-16-2022 End: 03-16-2022 ambulatory Nikky Narayan Other [employer] Other Start: 03-16-2022 Office outpatient visit 5 minutes Nikky Narayan [facility] Start: 03-13-2022 Telephone encounter Sachi Skaggs Work Phone: Endocrinology Comment on above: Insurance Authorizat ion (Ozempic) Start: 03-10-2022 End: 03-10-2022 Patient encounter procedure Sachi Armas MD Work Phone: Endocrinology Comment on above: Obesity, Class III, BMI 40-49.9 (morbid obesity) (HCC) (Primary Dx); PCOS (polycystic ovarian syndrome); Dyslipidemia; Hydradenitis; Malaise and fatigue; Insulin resistance Start: 02-05-2022 End: 02-05-2022 ambulatory Sachi Armas MD Work Phone: Endocrinology Comment on above: Obesity, Class III, BMI 40-49.9 (morbid obesity) (HCC); PCOS (polycystic ovarian syndrome); Dyslipidemia Start: 02-05-2022 End: 02-05-2022 Telemedicine consultation with patient Sachi Armas MD Work Phone: [facility] Start: 01-26-2022 End: 01-26-[address] EMMANUEL TURNER Facility: Start: 01-13-2022 End: 01-13-2022 ambulatory Sachi Armas MD Work Phone: Endocrinology Comment on above: Obesity, Class III, BMI 40-49.9 (morbid obesity) (HCC); PCOS (polycystic ovarian syndrome); Dyslipidemia Start: 01-13-2022 End: 01-13-2022 Telemedicine consultation with patient Sachi Armas MD Work Phone: [facility] Start: 12-30-2021 Refill Sachi Armas MD Work Phone: Endocrinology Comment on above: Refill Request Start: 12-29-2021 ambulatory Sachi Armas MD Work Phone: Endocrinology Comment on above: Medication Interacti on Start: 12-18-2021 ambulatory Sachi Armas MD Work Phone: Endocrinology Comment on above: Topamax Start: 12-15-2021 End: 12-15-2021 ambulatory Sachi Armas MD Work Phone: Endocrinology Comment on above: Obesity, Class III, BMI 40-49.9 (morbid obesity) (HCC) (Primary Dx); PCOS (polycystic ovarian syndrome); Dyslipidemia; Graves' disease Start: 12-15-2021 End: 12-15-2021 Telemedicine consultation with patient Sachi Armas MD Work Phone: [facility] Start: 12-02-2021 End: 12-02-2021 Patient encounter procedure Sachi Armas MD Work Phone: Endocrinology Comment on above: PCOS (polycystic ova maryana syndrome) (Primary Dx); Obesity, Class III, BMI 40-49.9 (morbid obesity) (HCC); Dyslipidemia; Insulin resistance; Hydradenitis Start: 11-18-2021 End: 11-18-2021 ambulatory Vega Facility: Procedures Date Procedure Procedure Detail Performing Clinician Start: 06-21-2024 [facility] COMP METAB 1999 PNL SERPL Generic Ex ternal Data Provider Start: 06-30-2023 Esophagogastroduodenoscopy transoral diagnostic Haley Dang MD Work Phone: Start: 03-01-2023 Liver elastography w/o imag w/i&r Swathi Dre asser PA-C Work Phone: Start: 03-01-2023 Liver elastography w/o imag w/i&r Haley Dang MD Work Phone: Plan of Treatment Date Care Activity Detail Author Start: 09-25-2026 Urine microalbumin profile DTaP,Tdap,Td Vaccine (7 - Td or Tdap) [facility] Start: 11-20-2024 End: 02-19-2025 25-hydroxyvitamin D3 [Mass/volume] in Serum or Plasma VITAMIN D 25 HYDROXY Lab Routine PCOS (polycystic ovarian syndrome) Insulin resistance Reactive hypoglycemia Hypercalcemia Dyslipidemia Expected: 11/20/2024, Expires: 02/19/2025 [facility] Comment on above: Expected: 11/20/2024, Expires: Start: 11-20-2024 End: 02-19-2025 Basic metabolic 2000 panel - Serum or Plasma BASIC METABOLIC PANEL Lab Routine PCOS (polycystic ovarian syndrome) Insulin resistance Reactive hypoglycemia Hypercalcemia Dyslipidemia Expected: 11/20/2024, Expires: 02/19/2025 [facility] Comment on above: Expected: 11/20/2024, Expires: Start: 11-20-2024 End: 02-19-2025 DHEA-S BLD DHEA-S BLD Lab Routine PCOS (polycystic ovarian syndrome) Insulin resistance Reactive hypoglycemia Hypercalcemia Dyslipidemia Expected: 11/20/2024, Expires: 02/19/2025 [facility] Work Phone: Comment on above: Expected: 11/20/2024, Expires: Start: 11-20-2024 End: 02-19-2025 Hemoglobin A1c in Blood HEMOGLOBIN A1C Lab Routine PCOS (polycystic ovarian syndrome) Insulin resistance Reactive hypoglycemia Hypercalcemia Dyslipidemia Expected: 11/20/2024, Expires: 02/19/2025 [facility] Comment on above: Expected: 11/20/2024, Expires: Start: 11-20-2024 End: 02-19-2025 Lipid 1996 panel - Serum or Plasma LIPID PANEL BASIC Lab Routine PCOS (polycystic ovarian syndrome) Insulin resistance Reactive hypoglycemia Hypercalcemia Dyslipidemia Expected: 11/20/2024, Expires: 02/19/2025 [facility] Comment on above: Expected: 11/20/2024, Expires: Start: 11-20-2024 End: 02-19-2025 Parathyrin.intact [Mass/volume] in Serum or Plasma PTH INTACT Lab Routine PCOS (polycystic ovarian syndrome) Insulin resistance Reactive hypoglycemia Hypercalcemia Dyslipidemia Expected: 11/20/2024, Expires: 02/19/2025 [facility] Comment on above: Expected: 11/20/2024, Expires: Start: 11-20-2024 End: 02-19-2025 Testosterone [Mass/volume] in Serum or Plasma TESTOSTERONE, TOTAL Lab Routine PCOS (polycystic ovarian syndrome) Insulin resistance Reactive hypoglycemia Hypercalcemia Dyslipidemia Expected: 11/20/2024, Expires: 02/19/2025 [facility] Comment on above: Expected: 11/20/2024, Expires: Start: 08-24-2024 End: 08-24-2024 Follow-up encounter 08/24/2024 7:40 AM [facility] Endocrinology [address] [place] [address] Rupa Roper, Enlisted Advisor [id number] [place] [id number] EX RX Follow-up 2 of 3 Endocrinology Comment on above: EX RX Follow-up 2 of 3 Start: 08-18-2024 End: 08-18-2024 Follow-up encounter 08/18/2024 8:00 AM EST [facility] [place] [facility] [address] [facility] [address] [place] [address] [place] [address] [place] [address] Follow up [facility] Comment on above: Follow up Start: 08-09-2024 End: 08-09-2024 Patient encounter procedure 08/09/2024 11:10 AM EST Office Visit [facility] [address] [facility] [address] [place] [id number] Marilee Fisher MD [address] [facility] [address] [place] [address] [facility] Start: 08-08-2024 End: 08-08-2024 Follow-up encounter 08/08/2024 8:15 AM EST [facility] Endocrinology [address] [place] [address] Maranda Retana, JOSE.NURSING OFFICER [address] [place], [place] [id number] [facility] follow up Endocrinology Comment on above: WM follow up Start: 07-31-2024 Influenza vaccination Influenza Vaccine (#1) [facility] Comment on above: Postponed from 05/07/2024 (Patient Refus ed) Start: 06-29-2024 End: 06-29-2024 ambulatory 06/29/2024 8:00 AM EDT [facility] Endocrinology [address] [place] [address] Rupa Roper, Enlisted Advisor [address] [place] [address] [facility] Endocrinology Comment on above: Virtual Exercise Prescription Start: 06-28-2024 End: 09-27-2024 Basic metabolic 2000 panel - Serum or Plasma BASIC METABOLIC PANEL Lab Routine Hypercalcemia Vitamin D deficiency Expected: 06/28/2024, Expires: 09/27/2024 [facility] Work Phone: Comment on above: Expected: 06/28/2024, Expires: Start: 06-28-2024 End: 06-28-2024 Patient encounter procedure 06/28/2024 11:00 AM EDT Office Visit [facility] [address] [place] [address] Emmanuel Turner DO [address] [facility] [address] [place] [address] [facility] Start: 05-31-2024 End: 05-31-2024 ambulatory 05/31/2024 9:00 AM EDT [facility] Patient Outreach Endocrinology [address] [place] [address] Rupa Roper, Enlisted Advisor [address] [place] [address] Weight loss Endocrinology Comment on above: Weight loss Start: 05-26-2024 End: 05-26-2024 Follow-up encounter 05/26/2024 10:00 AM EDT [facility] Endocrinology [address] [place] [address] Sachi Pedro MD [address] [place] [address] Followup Endocrinology Comment on above: Followup Start: 05-23-2024 End: 05-23-2024 Follow-up encounter 05/23/2024 8:00 AM EDT [facility] [place] [facility] [address] [facility] [address] [place] [address] [place] [address] [place] [address] Follow up [facility] [facility] Comment on above: Follow up Start: 05-08-2024 End: 08-07-2024 Calcium [Mass/volume] in Serum or Plasma CALCIUM, TOTAL Lab Routine Reactive hypoglycemia Insulin resistance Hypothyroidism, unspecified type Hypercalcemia Expected: 05/08/2024, Expires: 08/07/2024 [facility] Comment on above: Expected: 05/08/2024, Expires: 4 Start: 05-08-2024 End: 08-07-2024 Calcium.ionized [Moles/volume] in Blood CALCIUM, IONIZED Lab Routine Reactive hypoglycemia Insulin resistance Hypothyroidism, unspecified type Hypercalcemia Expected: 05/08/2024, Expires: 08/07/2024 [facility] Comment on above: Expected: 05/08/2024, Expires: 4 Start: 05-08-2024 End: 08-07-2024 Parathyrin.intact [Mass/volume] in Serum or Plasma PTH INTACT Lab Routine Reactive hypoglycemia Insulin resistance Hypothyroidism, unspecified type Hypercalcemia Expected: 05/08/2024, Expires: 08/07/2024 [facility] Comment on above: Expected: 05/08/2024, Expires: 4 Start: 05-07-2024 Covid-19 Vaccine ( season) Covid-19 Vaccine ( season) [facility] Start: 05-07-2024 Covid-19 Vaccine ( season) Covid-19 Vaccine ( season) [facility] Start: 05-07-2024 Influenza vaccination Influenza Vaccine (#1) [place] [facility] Start: 04-28-2024 End: 04-28-2024 ambulatory 04/28/2024 10:20 AM EDT [facility] [address] [place] [address] Sachi Pedro MD [address] [place] [address] Thyroid/bloodwork Endocrinology Comment on above: Thyroid/bloodwork Start: 04-14-2024 End: 04-14-2024 Patient encounter procedure 04/14/2024 1:00 PM EDT Appointment Radiology [address], [place] [id number] US THYROID/PARATHYROID [11220 (CPT )] Radiology Comment on above: US THYROID/PARATHYROID [15882 (CPT )] Start: 03-16-2024 End: 03-16-2024 ambulatory 03/16/2024 2:00 PM EDT [facility] [address] [place] [address] Sacih Pedro MD [address] [place] [address] Thyroid/bloodwork Endocrinology Comment on above: Thyroid/bloodwork Start: 02-15-2024 End: 02-15-2024 [facility] 02/15/2024 7:30 AM EDT [facility] [address] [place] [address] Irma Ta APRN.NURSING OFFICER [address] [place] [address] VV for refills Endocrinology [facility] Comment on above: VV for refills Start: 02-01-2024 End: 02-01-2024 ambulatory 02/01/2024 10:45 AM EDT Results Only [facility] [address] [address] [facility] Start: 01-27-2024 End: 04-27-2024 25-hydroxyvitamin D3 [Mass/volume] in Serum or Plasma VITAMIN D 25 HYDROXY Lab Routine Hypercalcemia Vitamin D deficiency Expected: 01/27/2024, Expires: 04/27/2024 [facility] Comment on above: Expected: 01/27/2024, Expires: Start: 01-27-2024 End: 04-27-2024 Calcium.ionized [Moles/volume] in Blood CALCIUM, IONIZED Lab Routine Hypercalcemia Vitamin D deficiency Expected: 01/27/2024, Expires: 04/27/2024 [facility] Comment on above: Expected: 01/27/2024, Expires: Start: 01-27-2024 End: 04-27-2024 Parathyrin.intact [Mass/volume] in Serum or Plasma PTH INTACT Lab Routine Hypercalcemia Vitamin D deficiency Expected: 01/27/2024, Expires: 04/27/2024 [facility] Comment on above: Expected: 01/27/2024, Expires: 4 Start: 01-05-2024 End: 03-06-2024 Basic metabolic 2000 panel - Serum or Plasma BASIC METABOLIC PNL Lab Routine Class 1 obesity due to excess calories without serious comorbidity with body mass index (BMI) of 31.0 to 31.9 in adult PCOS (polycystic ovarian syndrome) Expected: 01/05/2024, Expires: 03/06/2024 [facility] Work Phone: Comment on above: Expected: 01/05/2024, Expires: 4 Start: 01-05-2024 End: 03-06-2024 Hemoglobin A1c in Blood HGB A1C Lab Routine Class 1 obesity due to excess calories without serious comorbidity with body mass index (BMI) of 31.0 to 31.9 in adult PCOS (polycystic ovarian syndrome) Expected: 01/05/2024, Expires: 03/06/2024 [facility] Work Phone: Comment on above: Expected: 01/05/2024, Expires: Start: 01-05-2024 End: 03-06-2024 Lipid 1996 panel - Serum or Plasma LIPID PANEL BASIC Lab Routine Class 1 obesity due to excess calories without serious comorbidity with body mass index (BMI) of 31.0 to 31.9 in adult PCOS (polycystic ovarian syndrome) Expected: 01/05/2024, Expires: 03/06/2024 [facility] Work Phone: Comment on above: Expected: 01/05/2024, Expires: Start: 01-05-2024 End: 03-06-2024 Thyrotropin [Units/volume] in Serum or Plasma TSH BLD Lab Routine Class 1 obesity due to excess calories without serious comorbidity with body mass index (BMI) of 31.0 to 31.9 in adult PCOS (polycystic ovarian syndrome) Expected: 01/05/2024, Expires: 03/06/2024 [facility] Work Phone: Comment on above: Expected: 01/05/2024, Expires: Start: 01-05-2024 End: 03-06-2024 Thyroxine (T4) free [Mass/volume] in Serum or Plasma T4 FREE/FREE THYROX Lab Routine Class 1 obesity due to excess calories without serious comorbidity with body mass index (BMI) of 31.0 to 31.9 in adult PCOS (polycystic ovarian syndrome) Expected: 01/05/2024, Expires: 03/06/2024 [facility] Work Phone: Comment on above: Expected: 01/05/2024, Expires: 4 Start: 09-06-2023 Behavioral Health Screening Behavioral Health Screening [facility] Start: 09-06-2023 Depression Assessment Depression Assessment [facility] Start: 08-11-2023 End: 07-12-2024 EGD DIAGNOSTIC EGD DIAGNOSTIC Endoscopy Routine Gastric ulcer without hemorrhage or perforation, unspecified chronicity Expected: 08/11/2023, Expires: 07/12/2024 [facility] Work Phone: Comment on above: Expected: 08/11/2023, Expires: 4 Start: 05-07-2023 Covid-19 Vaccine ( season) Covid-19 Vaccine () [facility] Start: 05-07-2023 Influenza vaccination [facility] Start: 12-10-2022 End: 02-09-2023 Hemoglobin A1c in Blood HGB A1C Lab Routine Obesity, Class III, BMI 40-49.9 (morbid obesity) (HCC) PCOS (polycystic ovarian syndrome) Insulin resistance Graves' disease Expected: 12/10/2022, Expires: 02/09/2023 [facility] Work Phone: Comment on above: Expected: 12/10/2022, Expires: 3 Start: 12-10-2022 End: 02-09-2023 Thyrotropin [Units/volume] in Serum or Plasma TSH BLD Lab Routine Obesity, Class III, BMI 40-49.9 (morbid obesity) (HCC) PCOS (polycystic ovarian syndrome) Insulin resistance Graves' disease Expected: 12/10/2022, Expires: 02/09/2023 [facility] Work Phone: Comment on above: Expected: 12/10/2022, Expires: 3 Start: 12-10-2022 End: 02-09-2023 Thyroxine (T4) free [Mass/volume] in Serum or Plasma T4 FREE/FREE THYROX Lab Routine Obesity, Class III, BMI 40-49.9 (morbid obesity) (HCC) PCOS (polycystic ovarian syndrome) Insulin resistance Graves' disease Expected: 12/10/2022, Expires: 02/09/2023 [facility] Work Phone: Comment on above: Expected: 12/10/2022, Expires: 3 Start: 09-06-2022 DEPRESSION ASSESSMENT DEPRESSION ASSESSMENT [facility] Start: 08-11-2022 End: 10-11-2022 Basic metabolic 2000 panel - Serum or Plasma BASIC METABOLIC PNL Lab Routine Obesity, Class III, BMI 40-49.9 (morbid obesity) (HCC) PCOS (polycystic ovarian syndrome) Insulin resistance Graves' disease Expected: 08/11/2022, Expires: 10/11/2022 [facility] Work Phone: Comment on above: Expected: 08/11/2022, Expires: 3 Start: 08-11-2022 End: 10-11-2022 Hemoglobin A1c in Blood HGB A1C Lab Routine Obesity, Class III, BMI 40-49.9 (morbid obesity) (HCC) PCOS (polycystic ovarian syndrome) Insulin resistance Graves' disease Expected: 08/11/2022, Expires: 10/11/2022 [facility] Work Phone: Comment on above: Expected: 08/11/2022, Expires: 3 Start: 08-11-2022 End: 10-11-2022 Thyrotropin [Units/volume] in Serum or Plasma TSH BLD Lab Routine Obesity, Class III, BMI 40-49.9 (morbid obesity) (HCC) PCOS (polycystic ovarian syndrome) Insulin resistance Graves' disease Expected: 08/11/2022, Expires: 10/11/2022 [facility] Work Phone: Comment on above: Expected: 08/11/2022, Expires: 3 Start: 08-11-2022 End: 10-11-2022 Thyroxine (T4) free [Mass/volume] in Serum or Plasma T4 FREE/FREE THYROX Lab Routine Obesity, Class III, BMI 40-49.9 (morbid obesity) (HCC) PCOS (polycystic ovarian syndrome) Insulin resistance Graves' disease Expected: 08/11/2022, Expires: 10/11/2022 [facility] Work Phone: Comment on above: Expected: 08/11/2022, Expires: 3 Start: 05-17-2022 End: 07-17-2022 Basic metabolic 2000 panel - Serum or Plasma BASIC METABOLIC PNL Lab Routine Obesity, Class III, BMI 40-49.9 (morbid obesity) (HCC) PCOS (polycystic ovarian syndrome) Dyslipidemia Expected: 05/17/2022, Expires: 07/17/2022 [facility] Work Phone: Comment on above: Expected: 05/17/2022, Expires: 2 Start: 05-17-2022 End: 07-17-2022 LIPID PANEL BASIC LIPID PANEL BASIC Lab Routine Obesity, Class III, BMI 40-49.9 (morbid obesity) (HCC) PCOS (polycystic ovarian syndrome) Dyslipidemia Expected: 05/17/2022, Expires: 07/17/2022 [facility] Work Phone: Comment on above: Expected: 05/17/2022, Expires: 2 Start: 05-17-2022 End: 07-17-2022 T4 FREE/FREE THYROX T4 FREE/FREE THYROX Lab Routine Obesity, Class III, BMI 40-49.9 (morbid obesity) (HCC) PCOS (polycystic ovarian syndrome) Dyslipidemia Expected: 05/17/2022, Expires: 07/17/2022 [facility] Work Phone: Comment on above: Expected: 05/17/2022, Expires: 2 Start: 05-17-2022 End: 07-17-2022 Thyrotropin [Units/volume] in Serum or Plasma TSH BLD Lab Routine Obesity, Class III, BMI 40-49.9 (morbid obesity) (HCC) PCOS (polycystic ovarian syndrome) Dyslipidemia Expected: 05/17/2022, Expires: 07/17/2022 [facility] Work Phone: Comment on above: Expected: 05/17/2022, Expires: 2 Start: 05-07-2022 Influenza vaccination INFLUENZA (#1) [facility] Start: 04-07-2022 End: 06-07-2022 Hemoglobin A1c/Hemoglobin.total in Blood HGB A1C Lab Routine Obesity, Class III, BMI 40-49.9 (morbid obesity) (HCC) PCOS (polycystic ovarian syndrome) Dyslipidemia Expected: 04/07/2022, Expires: 06/07/2022 [facility] Work Phone: Comment on above: Expected: 04/07/2022, Expires: 2 Start: 02-05-2022 End: 04-07-2022 T4 FREE/FREE THYROX T4 FREE/FREE THYROX Lab Routine Obesity, Class III, BMI 40-49.9 (morbid obesity) (HCC) PCOS (polycystic ovarian syndrome) Dyslipidemia Expected: 02/05/2022, Expires: 04/07/2022 [facility] Work Phone: Comment on above: Expected: 02/05/2022, Expires: 2 Start: 02-05-2022 End: 04-07-2022 Thyrotropin [Units/volume] in Serum or Plasma TSH BLD Lab Routine Obesity, Class III, BMI 40-49.9 (morbid obesity) (HCC) PCOS (polycystic ovarian syndrome) Dyslipidemia Expected: 02/05/2022, Expires: 04/07/2022 [facility] Work Phone: Comment on above: Expected: 02/05/2022, Expires: 2 Start: 02-01-2022 End: 04-03-2022 Hemoglobin A1c/Hemoglobin.total in Blood HGB A1C Lab Routine Obesity, Class III, BMI 40-49.9 (morbid obesity) (HCC) PCOS (polycystic ovarian syndrome) Dyslipidemia Insulin resistance Expected: 02/01/2022, Expires: 04/03/2022 [facility] Work Phone: Comment on above: Expected: 02/01/2022, Expires: 2 Start: 12-02-2021 End: 02-01-2022 Androstenedione [Mass/volume] in Serum or Plasma [facility] Work Phone: Comment on above: Expected: 12/02/2021, Expires: 2 Start: 12-02-2021 End: 02-01-2022 BIOAVAIL TESTO/SHBG, FEM & CHILD [facility] Work Phone: Comment on above: Expected: 12/02/2021, Expires: 2 Start: 12-02-2021 End: 02-01-2022 Comprehensive metabolic 2000 panel - Serum or Plasma [facility] Work Phone: Comment on above: Expected: 12/02/2021, Expires: 2 Start: 12-02-2021 End: 02-01-2022 DHEA-S BLD [facility] Work Phone: Comment on above: Expected: 12/02/2021, Expires: 2 Start: 12-02-2021 End: 02-01-2022 LIPID PANEL BASIC [facility] Work Phone: Comment on above: Expected: 12/02/2021, Expires: 2 Start: 12-02-2021 End: 02-01-2022 Testosterone [Mass/volume] in Serum or Plasma [facility] Work Phone: Comment on above: Expected: 12/02/2021, Expires: 2 Start: 12-02-2021 End: 02-01-2022 TSH RECEPTOR AB [facility] Work Phone: Comment on above: Expected: 12/02/2021, Expires: 2 Start: 09-06-2021 DEPRESSION ASSESSMENT DEPRESSION ASSESSMENT [facility] Start: 09-02-2021 COVID-19 VACCINE (4 - Booster for Pfizer series) COVID-19 VACCINE (4 - Booster for Pfizer series) [facility] Start: 09-02-2021 COVID-19 VACCINE (4 - Pfizer series) COVID-19 VACCINE (4 - Pfizer series) [facility] Start: 2016 HPV TESTING HPV TESTING [facility] Start: 2016 Screening for malignant neoplasm of cervix [facility] Start: 2007 PAP TESTING PAP TESTING [facility] Start: 2007 Screening for malignant neoplasm of cervix [facility] Start: 2005 Urine microalbumin profile [facility] Start: 2004 Annual PCP Team Chronic Disease Visit Annual PCP Team Chronic Disease Visit [facility] Start: 2004 Anxiety Screening Anxiety Screening [facility] Start: 2004 Depression Screening Depression Screening [facility] Start: 2004 HEPATITIS C SCREENING HEPATITIS C SCREENING [facility] Start: 2004 Hepatitis C screening Hepatitis C Screening [facility] Start: 2004 HIV SCREENING HIV SCREENING [facility] Start: 2004 HIV screening HIV Screening [facility] Start: 05-06-1999 Hepatitis B Vaccine (2 of 3 - 3-dose series) Hepatitis B Vaccine (2 of 3 - 3-dose series) [facility] Start: 1998 Adult depression screening assessment DEPRESSION SCREENING [facility] Start: 1992 PNEUMOCOCCAL (1 - PCV) PNEUMOCOCCAL (1 - PCV) [facility] Start: 1992 Pneumococcal vaccination Pneumococcal Vaccine (1 - PCV) [facility] Start: 1986 HEPATITIS B (1 of 3 - 3-dose series) HEPATITIS B (1 of 3 - 3-dose series) [facility] Start: 1986 Hepatitis B Vaccine (1 of 3 - 3-dose series) Hepatitis B Vaccine (1 of 3 - 3-dose series) [facility] DDI VIBRATION CONTRO LLED TRANSIENT ELASTOGRAPHY (VCTE) DDI VIBRATION CONTROLLED TRANSIENT ELASTOGRAPHY (VCTE) Endoscopy Routine Hepatomegaly Ordered: 02/17/2023 [facility] Work Phone: Comment on above: Ordered: 02/17/2023 End: 02-18-2024 EGD DIAGNOSTIC EGD DIAGNOSTIC Endoscopy Routine Hepatomegaly Gastroesophageal reflux disease, unspecified whether esophagitis present 1 Occurrences starting 02/17/2023 until 02/18/2024 [facility] Work Phone: Comment on above: 1 Occurrences starting 02/17/2023 until 02/18/2024 End: 05-24-2024 EGD DIAGNOSTIC EGD DIAGNOSTIC Endoscopy Routine Hepatomegaly Gastroesophageal reflux disease, unspecified whether esophagitis present 1 Occurrences starting 05/24/2023 until 05/24/2024 [facility] Work Phone: Comment on above: 1 Occurrences starting 05/24/2023 until 05/24/2024 End: 07-06-2024 EGD DIAGNOSTIC EGD DIAGNOSTIC Endoscopy Routine Gastric ulcer without hemorrhage or perforation, unspecified chronicity 1 Occurrences starting 07/06/2023 until 07/06/2024 [facility] Work Phone: Comment on above: 1 Occurrences starting 07/06/2023 until 07/06/2024 Hemoglobin A1c/Hemoglobin.total in Blood HGB A1C Lab Routine Obesity, Class III, BMI 40-49.9 (morbid obesity) (HCC) PCOS (polycystic ovarian syndrome) Dyslipidemia Insulin resistance 12/02/2021 10:26 AM EDT [facility] Work Phone: SURGICAL PATHOLOGY [facility] Work Phone: Comment on above: Release Upon Ordering for 1 Occurrences starting 06/30/2023, 1 completed End: 04-06-2025 US Thyroid gland US THYROID/PARATHYROID Radiology Routine Reactive hypoglycemia Insulin resistance Hypothyroidism, unspecified type 1 Occurrences starting 03/07/2024 until 04/06/2025 [facility] Work Phone: Comment on above: 1 Occurrences starting 03/07/2024 until 04/06/2025 US Thyroid gland US THYROID/PARA THYROID Radiology Routine Reactive hypoglycemia Insulin resistance Hypothyroidism, unspecified type 04/14/2024 1:08 PM EDT [facility] Work Phone: [facility] Immunizations Immunization Date Immunization Notes Care Provider Fa [facility] 07-25-2023 influenza, injectabl e, quadrivalent, preservative free Tara De Paz NP Work Phone: [facility] 07-25-2023 influenza virus vacc ine, unspecified formulation Sachi Armas MD Work Phone: [facility] 07-01-2021 influenza, injectabl e, quadrivalent, contains preservative Tara Kampfer BUSINESS MANAGER Work Phone: [facility] 07-01-2021 influenza virus vacc ine, unspecified formulation Sachi Armas MD Work Phone: [facility] 07-09-2020 influenza, injectabl e, quadrivalent, preservative free Tara Kampfer BUSINESS MANAGER Work Phone: [facility] 07-20-2019 Influenza, injectabl e, Madin Von [place]rmy Canine Kidney, preservative free, quadrivalent Tara Kampfer BUSINESS MANAGER Work Phone: [facility] 07-06-2018 Influenza, injectabl e, Madin Lou Canine Kidney, preservative free, quadrivalent Tara Kampfer BUSINESS MANAGER Work Phone: [facility] 06-22-2017 influenza virus vacc ine, unspecified formulation Tara Kampfer BUSINESS MANAGER Work Phone: [facility] 09-25-2016 tetanus toxoid, redu ian diphtheria toxoid, and acellular pertussis vaccine, adsorbed Tara Kampfer BUSINESS MANAGER Work Phone: [facility] 09-07-2016 tetanus toxoid, redu ian diphtheria toxoid, and acellular pertussis vaccine, adsorbed Tara Kampfer BUSINESS MANAGER Work Phone: [facility] 06-25-2016 influenza virus vacc ine, unspecified formulation Tara Kampfer BUSINESS MANAGER Work Phone: [facility] 04-01-2011 tetanus and diphther ia toxoids, adsorbed, preservative free, for adult use (5 Lf of tetanus toxoid and 2 Lf of diphtheria toxoid) Tara Kampfer BUSINESS MANAGER Work Phone: [facility] 04-08-1999 hepatitis B vaccine, pediatric or pediatric/adolescent dosage Tara Ernestopfer BUSINESS MANAGER Work Phone: [facility] 04-08-1999 measles, mumps and rubella virus vaccine Tara De Paz BUSINESS MANAGER Work Phone: [facility] 04-08-1999 trivalent poliovirus vaccine, live, oral Tara De Paz BUSINESS MANAGER Work Phone: [facility] 05-22-1991 haemophilus influenz ae type b vaccine, conjugate unspecified formulation Tara De Paz BUSINESS MANAGER Work Phone: [facility] 08-25-1989 diphtheria, tetanus toxoids and pertussis vaccine Tara Escalantefer BUSINESS MANAGER Work Phone: [facility] 08-25-1989 trivalent poliovirus vaccine, live, oral Tara De Paz BUSINESS MANAGER Work Phone: [facility] 12-13-1987 measles, mumps and rubella virus vaccine Tara Orozcopfer BUSINESS MANAGER Work Phone: [facility] 06-04-1987 diphtheria, tetanus toxoids and pertussis vaccine Tara De Paz BUSINESS MANAGER Work Phone: [facility] 01-31-1987 diphtheria, tetanus toxoids and pertussis vaccine Tara De Paz BUSINESS MANAGER Work Phone: [facility] 01-31-1987 trivalent poliovirus vaccine, live, oral Tara De Paz BUSINESS MANAGER Work Phone: [facility] 1986 diphtheria, tetanus toxoids and pertussis vaccine Tara De Paz BUSINESS MANAGER Work Phone: [facility] 1986 trivalent poliovirus vaccine, live, oral Tara De Paz BUSINESS MANAGER Work Phone: [facility] Payers Date Payer Category Payer Self-pay 2021 Private Health Insurance [employer] [id number] 2021-Present [phone] [place] [id number] [place] [id number] Open Access [id number] 2017 Private Health Insurance [id number] 1986 Unknown [id number] 1986 Unknown [id number] 1986 Unknown [id number] 1986 Unknown [id number] 1986 Unknown [id number] 1959 Private Health Insurance [id number] Unknown [id number] Social History Date Type Detail Facility Start: 09-24-2021 End: 02-17-2023 Tobacco smoking status ILIS Smokes tobacco daily [facility] Start: 09-24-2021 End: 09-22-2023 Cigarettes smoked current (pack per day) - Reported 0.5 [facility] Start: 09-24-2021 End: 05-10-2024 Tobacco use and exposure Smokeless tobacco non-user [facility] Start: 09-24-2021 End: 02-17-2023 Tobacco Comment ciggarrets [facility] Start: 1985 Sex Assigned At Female [facility] Start: 11-22-2021 End: 03-10-2022 Exposure to SARS-CoV-2 (event) Not sure [facility] Start: 11-24-2021 End: 12-15-2021 Exposure to SARS-CoV-2 (event) Unable to assess [facility] Start: 02-17-2023 End: 09-22-2023 Sex Assigned At [facility] End: 01-04-2023 History of tobacco use Cigarette Smoker [facility] National Score (1-10 0), lower number is lower risk 92 [facility] Start: 09-21-2021 Gender identity Identifies as female gender (finding) [facility] Start: 09-21-2021 Sexual orientation Heterosexual (justin johnson) [facility] Start: 06-30-2023 [facility] intake Not [facility] Start: 06-30-2023 Alcohol [facility] Start: 08-27-2023 End: 05-10-2024 Tobacco smoking status NHIS Ex-smoker [facility] End: 01-04-2023 History of tobacco use Current smoker [facility] Start: 11-09-2023 End: 06-22-2024 Alcohol intake Current drinker of alcohol (finding) [facility] Within the last year , have you been afraid of your partner or ex-partner? No [facility] Do you belong to any clubs or organizations such as yarsanism groups, [employer], [employer] or athletic groups, or school groups? Yes [facility] Are you now , , , , never or living with a partner? Living with partner [facility] How often to you hav e a drink containing alcohol? Monthly or less [facility] How many standard dr inks containing alcohol do you have on a typical day? 1 or 2 [facility] How often do you hav e 6 or more drinks on 1 occasion? Never [facility] How hard is it for y ou to pay for the very basics like food, housing, medical care, and heating Hard [facility] Do you feel stress - tense, restless, nervous, or anxious, or unable to sleep at night because your mind is troubled all the time - these days [OSQ] Only a little [facility] (I/We) worried whefarzad er (my/our) food would run out before (I/we) got money to buy more. Never true [facility] Start: 06-05-2024 Tobacco Comment Vaping daily [facility] Start: 06-21-2023 Alcohol Comment Caffeine intak e: 2-3 cups per day coffee [facility] Start: 05-10-2024 Alcoholic beverage intake Ex-drinker (finding) [facility] Start: 02-19-2023 Tobacco Comment Vaping [facility] Goals Date Patient Goal Desired Activity /State Personal health goal Clinical Notes 12-02-2021 to 08-08-2024 Patient InstructionsMaranda Retana, JOSE.NURSING OFFICER - 08/08/2024 8:15 AM ESTTelephone Encounter - Irma Ta APRN.[facility] - 06/30/2024 8:02 AM EDTPatient InstructionsPatient Instructions Note Date & Type Note Facility 08-08-2024 Instructions Maranda Retana APRN.[facility] - 08/08/2024 8:51 AM EST - Plan to start topiramate. Will help reduce late night cravings, impulsive eating, binge eating, and increase sensation of fullness. Discussed possible side effects of drowsiness, paresthesias, brain fog, dizziness, nausea, suicidal ideation, mood changes, kidney stones, and dysgeusia. Advised to use barrier contraception as use of medication can reduce efficacy of hormonal control & can cause defects. Denies hx of kidney stones and glaucoma - INCREASE WATER INTAKE! Phentermine Protocol: - Body weight loss requirement of 5% for chronic use of phentermine and must maintain 5% weight loss to continue use chronically. - Patient must be seen once every 3 months for chronic use of phentermine. - Blood pressure and heart rate will have to be checked at home twice a week. Notify the office if it goes over 140/90 or if heart rate is over 100. - Blood pressure, heart rate, and recorded weight must be obtained prior to next appointment (if virtual). - If appointment is virtual and there is a failure to record blood pressure, heart rate, and weight the prescription for phentermine will not be renewed. Increase water intake throughout your day: start with - 1 bottle of water 1st thing in the morning, another bottle or 2 at work and 1 bottle after work or more focus on building lean mass- add resistance training 2/ week ( upper body and lower body ) + cardio - see ex physiology to get into a more structured ex routine, pt willing Target lean protein intake at 90-100 gm / day- divided into 30 gm with each meal/ snack - always paired with a fibre ( fruit or vegetable or whole grains) - the proteins should be lean- so egg white, white meat chicken or turkey , or vegan proteins like beans/ lentils/ legumes/ tofu / chick peas- Breakfast protein options: cottage cheese , citizen of [place] yogurt, eggs or egg whites , organic crunchy peanut butter( max of 2 tablespoons) - limit protein servings to 30 to 35 gms with each meal Lunch and Dinner protein options : 4 oz fish/ chicken/ turkey , vegan protein: hummus, beans, chick peas, tofu Protein Supplement: - Whey protein isolate (powder for mixing with milk, milk substitutes, or water) - best taken after exercise - Pre made ready to drink protein shakes: Examples: Evolve (plant based protein shake), OWYN (plant based protein shake), Orgain Clean Protein, [employer] Core Power Probiotic: - If taking probiotic, ensure probiotic strains are specifically listed and are guaranteed through end of shelf life. - Examples of probiotics include: Ora Seed --you want to keep them in a COOL DARK place to improve shelf life Recommend 10+ Billion CFU/Dose - can be taken upto 3x daily especially if you are symptomatic with meals (bloating, gassy, belly upset) Ingredients should have at least 3-5 different good bacteria listed Also recommend Digestive enzymes if you are having stomach upset, bloating, gas, constipation or diarrhea - daily to as needed with meals: Ex - (amylase, lipase, protease, pepsin, bromelain, papain, sumit root, fennel seed, fenugreek, dandelion root, parsley) LOVE - Bye Bye Bloat Naturelo - Raw Greens Mediterranean Diet: (more than a diet - a lifestyle) Has been shown to reduce arthrosclerotic cardiovascular disease risk and aid weight loss. A Mediterranean diet has been shown to improve glycemic control when compared with control diets (low fat, nonrestricted calorie, low carbohydrate, high carbohydrate, usual diet). Focus on: - olive oil as main source of fat - vegetables, fruits, legumes, whole grains, nuts, and seeds - moderate consumption of seafood, fermented dairy products (less sugar citizen of [place] yogurt and cheese), poultry, and eggs - moderate intake of red wine Limit / Avoid: - High amounts of red meat, meat products - Ultra processed carbohydrates - Saturated fats - butter, lard - Trans fats PRACTICAL SUGGESTIONS TO INCORPORATE MEDITERRANEAN DIET CATEGORY CONSUME AVOID Fruits and vegetables Wide variety of whole fruits and vegetables; try for at least 7-10 servings per day Vegetables prepared in butter or cream sauce High-fiber breads, cereals, and pasta Whole grain bread and cereal, bran, brown rice Sweets, white bread, biscuits, breadsticks, and other refined carbohydrates Protein that is low in saturated fat Lean cuts of meat (fat trimmed) or poultry (no skin); low-fat dairy foods (skim mild, yogurt) Ralph, sausage, other processed or high-fat meat, milk or cheese that is not low-fat, ice cream Fish or other source of omega-3 fatty acids, at least 1 or 2 times per week [place], trout, palomo, water-packed tuna, mackerel (or fish oil supplement); flaxseed, spinach, walnuts Fried fish ( except when martinez fried in olive oil) Healthy oils for cooking, salad dressing, and other uses Extra-virgin olive oil, canola oil, flaxseed oil ( high-oleic sunflower or safflower oil may also be an option) [place]-6 oils, (corn, sunflower, safflower, soybean, peanut) Peas, beans, legumes, and nuts Soybeans, lentils, or any kind of peas, beans, or legumes; tree nuts (eg. Almonds,pecans, walnuts, [place] nuts) Heavily salted or honey-roasted nuts; stale or rancid nuts Alcohol One 5-oz glass of wine, a 12-oz beer, or a 1.5oz drink containing distilled spirits with the evening meal Limit to no more than 1 drink daily for women, 2 drinks daily for men Fat Emphasize whole, natural foods as above; look for 'trans-fatty acid -free margarine and snack foods Fast food, fried food, margarine, chips, crackers, baked goods, doughnuts, any processed food made with partially hydrogenated oil Stressed need for increase in activity Discussed diet choices and trying new recommended foods at length Avoid processed/fast foods/frozen meals Try shopping after eating lunch and going to only outside of the grocery store Look up healthy options of foods you enjoy and make that version of the recipes Avoid white sugar and white flour Use honey , maple syrup and brown granulated sugar for sweetener Get rid of sugar alternatives - including Diet sodas, keto breads, etc 30 g of protein 3-4 times daily paired with fiber routinely during the day to maintain adequate nutrition and remain satiated Increase water to at least 48 oz daily - goal of 64 oz daily documented in this encounter [facility] 08-08-2024 History of Presen t illness Narrative Endocrinology Follow Up Benny Guerrero, virtual visit for follow up regarding: PCOS, Marianne's I have communicated my name and active licensure. The patient's identity and physical location were verified at the time of this visit. 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 Last visit: 06/22/2024 History of Present Illness Benny Guerrero is a 38 year old female with PMH of PCOS, Hydradenitis suppurative, DLP, Obesity and Hx of hypothyroidism, visit for follow up of weight management Gained weight Otherwise doing well Protein powder shakes in AM Also drinks flavored water Not on Mounjaro Having heart palpitations and syncope Apple watch would catch the palpitations Then developed anxiety - had trouble driving Gets light headed Started on Prozac but still has anxiety Issues with the muscles in her back and hand Has muscle issues Back and arms go numb Joint pain Wellbutrin 300 mg daily started 2 years ago Stopped motrin once she found out she had ulcers Was taking it as needed - around 2 times per week to a few time a month On omeprazole Spironolactone 150 mg daily Symptoms occur during the day Never occur overnight 1st meal :10 AM: yoghurt, mini muffins, granula bar Drinks drinks black coffee, regular water 12-12:30 PM: lunchable or sandwich, chips, drinks: sparkling seltzer Dinner: 6-6:30 PM: meat and vegetable Drinks unsweetened iced tea and monk fruit or seltzer Snack: mini ice cream cone Feels like there is something stuck in her throat Doing well Current weight 183 lbs On Mounjaro 7.5 mg weekly Prefers to stay on this dose Has not been able to get the refill but did start Mounjaro prior to the indication change in 06/2022 Current weight: 223-226 lbs (was down to 201 lbs) On topamax 25 mg daily Ran out of the [facility] around [place] time Was doing well with the mounjaro [place] ramey when she first came off the Mojaro Lost 15 lbs since starting the Mounajro Starting the 5 mg weekly soon Will be seeing her PCP for the back pain On Topamax 25 mg daily (cannot tolerate 50 mg dose) Not on metformin Taking spironolactone Prior weight 224 lbs On Topamax 25 mg daily, phentermine 37.5 mg EOD (since 03/07) Stopped the metformin - GI issues resolved (bloating) Was on regular metformin 1000 mg daily Has an IUD Was down to 248 lbs Lost 38 lbs since 09/2021 No hx of fractures or kidney stones No FHx of hip fracture MGM had osteoporosis Wegovy not covered Maternal aunt and PGM have Graves' disease TSI positive TSH and FT4 in 02/2022 and 09/2021 WNL Weight in teenage years around 160-180 lbs Has two children (1 still born and 1 living child) 2016 and 2017 Son almost 5 years old now Had pre-ecclampsia 1st son had polyhydramnios No GDM breastfed with no issues No FHx of DM Was on metfomrin during her for PCOS No issues getting Was on OCP - stopped it and got the next month Aldactone recently started for hydradenitis She has an IUD Hydradenitis more controlled when she was on OCP Started on OCP at age 15 No current plans for pregnancies Menarche at age 13 Cycles were regular in the past - started on OCP for heavy cycles Acne and mild hirsutism Spironolactone helped make the 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 card and finer Acne better controlled now Dx with PCOS by her OBGYN around 2014 Weight gain and acanthosis Maternal uncle had thyroidectomy for Graves' disease with ophthalmology Mother and 2 of her sister have hypothyroidism MGM had goiter and Graves' disease She was on LT4 therapy as a teenager Has tried Adipex in the past - did well with the first round (lost 40 lb) Second round not as well Was able to maintain her weight for 6 months after that Boyfriend waiting for a heart transplant Has also tried weight watchers at age 23 - 24 (lost 30-40 lbs) Tried it again and it did not work Breakfast: bagel with cream cheese (whatever she can grab and go). Drinks diet pop, black coffee, water with crystal light Lunch: leftover dinner or sandwich . Drinks water or diet pop Dinner: low sodium diet. Fresh meats and vegetables. Diet pop Snack: chocolate (2 times a week) Trying to exercise Recent HPI: New diagnosis of Psoriatic arthritis Hidrandenitis Hunger is not controlled Has seen nutrition and exercise in the past - getting back to it Seeing Dr Gilberto Armas for hypothyroid, PCOS and HS, hypercalcemia, reactive hypoglycemia Did really well on Mounjaro Helped with joints and inflammation in body Being off of medication - realizing how much it helped Interested in [employer] Tirzepatide if insurance will not cover GLP in the new year 2024 Would like to try to kick start with a medication Requesting a 3 mo course of phentermine and topamax Past History, Medications, Allergies PAST MEDICAL HISTORY Diagnosis Date Acquired hypothyroidism Asthma Hidradenitis PCOS (polycystic ovarian syndrome) PAST SURGICAL HISTORY Procedure Laterality Date SECTION HX D&C, DIAG AND/OR THERAPEUTIC EGD DIAGNOSTIC 08/27/2023 EGD DIAGNOSTIC 06/30/2023 EGD DIAGNOSTIC 2017 Current Outpatient Medications Medication Sig Dispense Refill buPROPion XL (WELLBUTRIN XL) 300 mg 24 hr tablet Take 1 tablet by mouth once daily 90 tablet 1 metFORMIN ER (GLUCOPHAGE XR) 500 mg 24 hr tablet Take 1 tablet by mouth two times a day before meals. 180 tablet 3 omeprazole (PRILOSEC) 40 mg capsule Take 1 capsule by mouth two times a day. 180 capsule 0 FLUoxetine (PROZAC) 20 mg capsule Take 20 mg by mouth once daily. cetirizine (ZYRTEC) 10 mg tablet Take 10 mg by mouth once daily. atorvastatin (LIPITOR) 20 mg tablet Take 0.5 tablets by mouth once daily. spironolactone (ALDACTONE) 50 mg tablet Take 1 tablet by mouth twice daily. busPIRone (BUSPAR) 15 mg tablet Take 15 mg by mouth three times daily. Cholecalciferol, Vitamin D3, 25 mcg (1,000 unit) cap diphenhydrAMINE (BENADRYL) 25 mg capsule Take 25 mg by mouth every 6 hours as needed. fluticasone (FLONASE) 50 mcg/actuation nasal spray fluticasone propionate 50 mcg/actuation nasal spray,suspension ibuprofen (MOTRIN) 800 mg tablet ibuprofen 800 mg tablet ketoconazole (NIZORAL) 2 % shampoo ketoconazole 2 % shampoo DAILY MULTI-VITAMIN ORAL No current facility-administered medications for this visit. ALLERGIES Allergen Reactions Seasonal Allergies Other: See Comments FAMILY HISTORY Problem Relation Age of Onset Hypothyroidism Mother Hypothyroidism Sister Hypothyroidism Sister Graves Disease Maternal Grandmother Graves Disease Maternal Uncle Colon Cancer No Family History Social History Tobacco Use Smoking status: Former Current packs/day: 0.50 Types: Cigarettes Smokeless tobacco: Never Tobacco comments: ciggarrets Vaping Use Vaping status: current everyday user Substances: Nicotine Devices: Disposable Substance Use Topics Alcohol use: Yes Comment: rarely Drug use: Never Review of Systems Answers submitted by the patient for this visit: Core Review of Systems (Submitted on 06/22/2024) Fever : No Night sweats: No Recent unintentional weight change: Yes Nasal Congestion: Yes Hearing Loss: No Vision Disturbance: No A cough: No Difficulty Breathing?: No Chest pain: No Irregular heartbeat: No Leg Swelling: No Nausea: No Diarrhea: No Black tarry stools: No Difficulty Urinating?: No Awaken at Night More Than Once to Urinate?: No Joint pain or stiffness: Yes Muscle aches: Yes Leg or Foot Discomfort at Night?: No A rash: No Dizziness: No Headaches: No Memory Loss: No Seizures: No Physical examination Physical Exam Constitutional: Appearance: Normal appearance. HENT: Nose: Nose normal. Eyes: Conjunctiva/sclera: Conjunctivae normal. Pulmonary: Effort: Pulmonary effort is normal. Musculoskeletal: Cervical back: Normal range of motion. Neurological: General: No focal deficit present. Mental Status: She is alert and oriented to person, place, and time. Previous Laboratory Results Component Latest Ref Rng & Units 01/11/2023 Hemoglobin A1C 4.3 - 5.6 % 4.5 TSH 0.270 - 4.200 mIU/L 2.790 Free T4 0.9 - 1.7 ng/dL 1.4 Free T3 2.3 - 4.1 pg/mL 3.0 Component Latest Ref Rng & Units 09/25/2021 12/02/2021 01/11/2023 02/17/2023 Protein, Total 6.3 - 8.0 g/dL 7.2 Albumin 3.9 - 4.9 g/dL 4.6 Calcium 8.5 - 10.2 mg/dL 10.1 Bilirubin, Total 0.2 - 1.3 mg/dL 0.3 Alkaline Phosphatase 34 - 123 U/L 65 AST 13 - 35 U/L 20 ALT 7 - 38 U/L 17 Glucose 74 - 99 mg/dL 88 BUN 7 - 21 mg/dL 12 Creatinine 0.58 - 0.96 mg/dL 0.89 Sodium 136 - 144 mmol/L 138 Potassium 3.7 - 5.1 mmol/L 4.7 Chloride 97 - 105 mmol/L 101 CO2 22 - 30 mmol/L 26 Anion Gap 9 - 18 mmol/L 11 eGFR >=60 mL/min/1.73m 87 Cholesterol, Total <200 mg/dL 168 Triglyceride <150 mg/dL 222 (H) HDL Cholesterol >39 mg/dL 34 (L) Non HDL Cholesterol <130 mg/dL 134 (H) Fasting Time hrs 12 VLDL Cholesterol <30 mg/dL 44 (H) TC:HDL Ratio <5.10 4.94 LDL Cholesterol <100 mg/dL 90 LDL:HDL Ratio <2.54 2.65 (H) Sex Hormone Bind GLB 25 - 122 nmol/L 18 (L) Testosterone Total 9 - 55 ng/dL 16 Testosterone Free 1.3 - 9.2 pg/mL 3.5 Testo Bioavailable 4.1 - 25.5 ng/dL 9.8 Hemoglobin A1C 4.3 - 5.6 % 5.2 4.5 Estimated Average Glucose mg/dL 103 82 TSH 0.270 - 4.200 mIU/L 1.220 2.790 Free T4 0.9 - 1.7 ng/dL 1.1 1.4 Cortisol,ON DEX,Post <1.8 ug/dL 0.7 ACTH 7.2 - 63.3 pg/mL 2.2 (L) Dexamethasone ng/dL 271.2 Microsomal Antibody <5.6 IU/mL <1.0 Testostrone <40 ng/dL 15 DHEA-S 60.9 - 337.0 ug/dL 96.0 Androstenedione 0.3 - 3.3 ng/mL 0.9 Free T3 2.3 - 4.1 pg/mL 3.0 Insulin 3.0 - 25.0 mU/L 12.3 Latest Ref Rng 12/02/2021 01/11/2023 02/17/2023 01/26/2024 02/01/2024 03/06/2024 Protein, Total 6.3 - 8.0 g/dL 7.2 Albumin 3.9 - 4.9 g/dL 4.6 4.6 Calcium 8.5 - 10.2 mg/dL 10.1 10.6 (H) 10.2 Bilirubin, Total 0.2 - 1.3 mg/dL 0.3 Alkaline Phosphatase 34 - 123 U/L 65 AST 13 - 35 U/L 20 ALT 7 - 38 U/L 17 Glucose 74 - 99 mg/dL 88 69 (L) BUN 7 - 21 mg/dL 12 17 Creatinine 0.58 - 0.96 mg/dL 0.89 0.92 Sodium 136 - 144 mmol/L 138 138 Potassium 3.7 - 5.1 mmol/L 4.7 4.7 Chloride 97 - 105 mmol/L 101 97 CO2 22 - 30 mmol/L 26 28 Anion Gap 9 - 18 mmol/L 11 13 eGFR >=60 mL/min/1.73m 87 82 Cholesterol, Total <200 mg/dL 169 Triglyceride <150 mg/dL 97 HDL Cholesterol >39 mg/dL 53 Non HDL Cholesterol <130 mg/dL 116 Fasting Time hrs 12 VLDL Cholesterol <30 mg/dL 19 TC:HDL Ratio <5.10 3.19 LDL Cholesterol <100 mg/dL 97 LDL:HDL Ratio <2.54 1.83 Hemoglobin A1C 4.3 - 5.6 % 4.5 4.5 Estimated Average Glucose mg/dL 82 82 Normalized Calcium 1.08 - 1.30 mmol/L 1.31 (H) 1.29 Ionized Calcium 1.08 - 1.30 mmol/L 1.32 (H) 1.31 (H) TSH 0.270 - 4.200 mIU/L 2.790 2.670 Free T4 0.9 - 1.7 ng/dL 1.4 1.2 Free T3 2.3 - 4.1 pg/mL 3.0 Insulin 3.0 - 25.0 mU/L 12.3 PTH, Intact 15 - 65 pg/mL 29 32 Vitamin D 25 Hydroxy 31.0 - 80.0 ng/mL 43.3 43.8 Vit D1,25 Dihydroxy 19.9 - 79.3 pg/mL 53.8 Latest Ref Rng 01/26/2024 02/01/2024 03/06/2024 04/14/2024 06/21/2024 Protein, Total 6.3 - 8.0 g/dL 6.6 Albumin 3.9 - 4.9 g/dL 4.6 4.4 Calcium 8.5 - 10.2 mg/dL 10.6 (H) 10.2 10.1 9.7 Bilirubin, Total 0.2 - 1.3 mg/dL 0.4 Alkaline Phosphatase 34 - 123 U/L 57 AST 13 - 35 U/L 13 ALT 7 - 38 U/L 12 Glucose 74 - 99 mg/dL 69 (L) 97 BUN 7 - 21 mg/dL 17 14 Creatinine 0.58 - 0.96 mg/dL 0.92 0.85 Sodium 136 - 144 mmol/L 138 139 Potassium 3.7 - 5.1 mmol/L 4.7 4.2 Chloride 98 - 107 mmol/L 97 102 CO2 22 - 30 mmol/L 28 26 Anion Gap 8 - 15 mmol/L 13 11 eGFR >=60 mL/min/1.73m 82 91 Cholesterol, Total <200 mg/dL 190 Triglyceride <150 mg/dL 156 (H) HDL Cholesterol >39 mg/dL 51 Non HDL Cholesterol <130 mg/dL 139 (H) Fasting Time hrs 12 VLDL Cholesterol <30 mg/dL 31 (H) TC:HDL Ratio <5.10 3.73 LDL Cholesterol <100 mg/dL 108 (H) LDL:HDL Ratio <2.54 2.12 Hemoglobin A1C 4.3 - 5.6 % 4.5 4.6 Estimated Average Glucose mg/dL 82 85 Normalized Calcium 1.08 - 1.30 mmol/L 1.31 (H) 1.29 1.29 1.28 Ionized Calcium 1.08 - 1.30 mmol/L 1.32 (H) 1.31 (H) 1.29 1.29 TSH 0.270 - 4.200 mIU/L 2.670 2.020 Free T4 0.9 - 1.7 ng/dL 1.2 1.1 PTH, Intact 15 - 65 pg/mL 29 32 33 32 Vitamin D 25 Hydroxy 31.0 - 80.0 ng/mL 43.3 43.8 36.9 Vit D1,25 Dihydroxy 19.9 - 79.3 pg/mL 53.8 Testosterone <40 ng/dL <12 DHEA-S 60.9 - 337.0 ug/dL 75.6 Impression/Recommendations Benny Guerrero is a 38 year old female with PMH of PCOS, Hydradenitis suppurative, DLP, Psoriatic Arthritis, Class 3 Obesity and Hx of hypothyroidism, visit for follow up of weight management Obesity BMI 41.91: --.restart phentermine 37.5 mg - 1/2 tab daily and topamax 25 mg at bedtime Phentermine Protocol: - Body weight loss requirement of 5% for chronic use of phentermine and must maintain 5% weight loss to continue use chronically. - Patient must be seen once every 3 months for chronic use of phentermine. - Blood pressure and heart rate will have to be checked at home twice a week. Notify the office if it goes over 140/90 or if heart rate is over 100. - Blood pressure, heart rate, and recorded weight must be obtained prior to next appointment (if virtual). - If appointment is virtual and there is a failure to record blood pressure, heart rate, and weight the prescription for phentermine will not be renewed. I spent a total of 40 minutes on the date of the service which included preparing to see the patient, [id number] patient care, completing clinical documentation, obtaining and/or reviewing separately obtained history, performing a medically appropriate examination, counseling and educating the patient/family/caregiver, and ordering medications, tests, or procedures. F/U in 3 months Maranda Retana, MSN, NURSING OFFICER [facility] Endocrinology Specialties Department [address], [place] [address] Answers submitted by the patient for this visit: Endocrine Review of Systems (Submitted on 08/08/2024) Fatigue: Yes Night sweats: No Recent unintentional weight change: Yes Skin Color Changes: No Post-Nasal Drip: Yes Thyroid Pain (lower neck): No Trouble Swallowing: No Vision Disturbance: No Chest pain: No Leg Swelling: No Blood Clots?: No Leg Pain while walking?: No Difficulty Breathing?: No Heartburn: No Nausea: No Vomiting: No Diarrhea: No Constipation: No Abdominal pain: No Bone Pain?: No Muscle aches: Yes Muscle weakness: Yes Joint pain or stiffness: Yes Headaches: No Dizziness: No Numbness?: No Urgency to Urinate?: No Increased Urination: No Slow or Small Urine Stream?: No Are your menstrual cycles regular?: Yes Are your menstrual cycles irregular?: Yes Have your menstrual cycles stopped?: Yes Flushing: No Hot Flashes?: Yes Increased Thirst: Yes Change in Body Hair?: No Cold Intolerance: No Heat Intolerance: No documented in this encounter [facility] 08-08-2024 Note HNO ID: [id number] Author: MARANDA RETANA APRN.PATRIC Service: ? Author Type: Nurse Practitioner Type: Progress Notes Filed: 08/08/2024 10:14 Note Text: Endocrinology Follow Up Benny Guerrero, virtual visit for follow up regarding: PCOS, Marianne's I have communicated my name and active licensure. The patient's identity and physical location were verified at the time of this visit. 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 Last visit: 06/22/2024 History of Present Illness Benny Guerrero is a 38 year old female with PMH of PCOS, Hydradenitis suppurative, DLP, Obesity and Hx of hypothyroidism, visit for follow up of weight management Gained weight Otherwise doing well Protein powder shakes in AM Also drinks flavored water Not on Mounjaro Having heart palpitations and syncope Apple watch would catch the palpitations Then developed anxiety - had trouble driving Gets light headed Started on Prozac but still has anxiety Issues with the muscles in her back and hand Has muscle issues Back and arms go numb Joint pain Wellbutrin 300 mg daily started 2 years ago Stopped motrin once she found out she had ulcers Was taking it as needed - around 2 times per week to a few time a month On omeprazole Spironolactone 150 mg daily Symptoms occur during the day Never occur overnight 1st meal :10 AM: yoghurt, mini muffins, granula bar Drinks drinks black coffee, regular water 12-12:30 PM: lunchable or sandwich, chips, drinks: sparkling seltzer Dinner: 6-6:30 PM: meat and vegetable Drinks unsweetened iced tea and monk fruit or seltzer Snack: mini ice cream cone Feels like there is something stuck in her throat Doing well Current weight 183 lbs On Mounjaro 7.5 mg weekly Prefers to stay on this dose Has not been able to get the refill but did start Mounjaro prior to the indication change in 06/2022 Current weight: 223-226 lbs (was down to 201 lbs) On topamax 25 mg daily Ran out of the Mounjaro around [place] time Was doing well with the mounjaro [place] ramey when she first came off the Mounjaro Lost 15 lbs since starting the Mounajro Starting the 5 mg weekly soon Will be seeing her PCP for the back pain On Topamax 25 mg daily (cannot tolerate 50 mg dose) Not on metformin Taking spironolactone Prior weight 224 lbs On Topamax 25 mg daily, phentermine 37.5 mg EOD (since 03/07) Stopped the metformin - GI issues resolved (bloating) Was on regular metformin 1000 mg daily Has an IUD Was down to 248 lbs Lost 38 lbs since 09/2021 No hx of fractures or kidney stones No FHx of hip fracture MGM had osteoporosis Wegovy not covered Maternal aunt and PGM have Graves' disease TSI positive TSH and FT4 in 02/2022 and 09/2021 WNL Weight in teenage years around 160-180 lbs Has two children (1 still born and 1 living child) 2016 and 2017 Son almost 5 years old now Had pre-ecclampsia 1st son had polyhydramnios No GDM breastfed with no issues No FHx of DM Was on metfomrin during her for PCOS No issues getting Was on OCP - stopped it and got the next month Aldactone recently started for hydradenitis She has an IUD Hydradenitis more controlled when she was on OCP Started on OCP at age 15 No current plans for pregnancies Menarche at age 13 Cycles were regular in the past - started on OCP for heavy cycles Acne and mild hirsutism Spironolactone helped make the 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 card and finer Acne better controlled now Dx with PCOS by her OBGYN around 2014 Weight gain and acanthosis Maternal uncle had thyroidectomy for Graves' disease with ophthalmology Mother and 2 of her sister have hypothyroidism MGM had goiter and Graves' disease She was on LT4 therapy as a teenager Has tried Adipex in the past - did well with the first round (lost 40 lb) Second round not as well Was able to maintain her weight for 6 months after that Boyfriend waiting for a heart transplant Has also tried weight watchers at age 23 - 24 (lost 30-40 lbs) Tried it again and it did not work Breakfast: bagel with cream cheese (whatever she can grab and go). Drinks diet pop, black coffee, water with crystal light Lunch: leftover dinner or sandwich . Drinks water or diet pop Dinner: low sodium diet. Fresh meats and vegetables. Diet pop Snack: chocolate (2 times a week) Trying to exercise Recent HPI: New diagnosis of Psoriatic arthritis Hidrandenitis Hunger is not controlled Has seen nutrition and exercise in the past - getting back to it Seeing Dr Gilberto Armas for hypothyroid, PCOS and HS, hypercalcemia, reactive hypoglycemia Did really well on Mounjaro Helped with joints and inflammation in body Being off of medication - realizing how much it helped (more content not included)... [facility] 06-30-2024 Telephone encounter Note The following approved medication requests have been transmitted electronically. Requested Prescriptions Signed Prescriptions Disp Refills buPROPion XL (WELLBUTRIN XL) 300 mg 24 hr tablet 90 tablet 1 Sig: Take 1 tablet by mouth once daily Authorizing Provider: IRMA TA APRN.CNP [facility] 06-30-2024 Miscellaneous Notes The following approved medication requests have been transmitted electronically. Requested Prescriptions Signed Prescriptions Disp Refills buPROPion XL (WELLBUTRIN XL) 300 mg 24 hr tablet 90 tablet 1 Sig: Take 1 tablet by mouth once daily Authorizing Provider: IRMA TA APRN.CNP Requester: Pharmacy Last Visit in Endocrinology: Provider name: Irma Ta CNP , Date Visit date not found LDH: 02/15/2024 Next Scheduled Appt in Endo: Visit date not found Last Refill: 12/30/23 Number of Refills given: 1 . Requested Prescriptions Pending Prescriptions Disp Refills buPROPion XL (WELLBUTRIN XL) 300 mg 24 hr tablet [Pharmacy Med Name: buPROPion HCl ER (XL) 300 MG Oral Tablet Extended Release 24 Hour] 90 tablet 0 Sig: Take 1 tablet by mouth once daily Please review and advise. MAVERICK Sierra documented in this encounter [facility] 06-30-2024 Telephone encounter Note Requester: Pharmacy Last Visit in Endocrinology: Provider name: Irma Ta CNP , Date Visit date not found LDH: 02/15/2024 Next Scheduled Appt in Endo: Visit date not found Last Refill: 12/30/23 Number of Refills given: 1 . Requested Prescriptions Pending Prescriptions Disp Refills buPROPion XL (WELLBUTRIN XL) 300 mg 24 hr tablet [Pharmacy Med Name: buPROPion HCl ER (XL) 300 MG Oral Tablet Extended Release 24 Hour] 90 tablet 0 Sig: Take 1 tablet by mouth once daily Please review and advise. MAVERICK Sierra [facility] 06-29-2024 Instructions Rupa Roper, Enlisted Advisor - 06/29/2024 1:37 PM EDT Initial Exercise Prescription: F - Frequency I - Intensity T - Time T - Type F - 3 days per week of planned exercise, any additional physical activity is a BONUS!!! I - Listen to your body and progress as tolerated. T - Varied by day and activity, strive for quality exercise minutes. T - Aqua class and cardio for warm-up/strength training at gym. Strength training tips: - Listen to your body. - Start out with a manager card weight to help reduce injury. - Exhale through the exertion. - Be mindful of appropriate posture based on the activity. - Don't do on consecutive days (for our current plan, to let the muscles repair and rebuild). - Drink plenty of water. Combo Circuit: Can add in some core too. Lat Pull-down Bicep Curl - machine or free weights Chest Press Triceps Seated Row Leg Press Leg Extension Abduction/Adduction or other leg machine. (Just do them in the order that makes sense at your gym) 2 sets of 15, listen to your body!! Standing Core: [email or web address] Please do not hesitate to reach out to me with any questions. First follow-up appt. will be on 08/24/24 at 7:40 am. documented in this encounter [facility] 06-29-2024 Note HNO ID: [id number] Author: RUPA ROPER Enlisted Advisor Service: ? Author Type: Enlisted Advisor Type: Progress Notes Filed: 06/29/2024 13:43 Note Text: Virtual Visit (Audio/Visual) I have discussed the nature of this visit with the patient which will occur via [facility] (Phone, Virtual Visit) and she agrees to proceed with this interaction . Stay hydrated and motivated! Please do not hesitate to reach out to me with any questions. First follow-up appt. will be on 08/24/24 at 7:40 am. [facility] 06-29-2024 History of Presen t illness Narrative Virtual Visit (Audio/Visual) I have discussed the nature of this visit with the patient which will occur via [facility] [employer] (Phone, Virtual Visit) and she agrees to proceed with this interaction . Stay hydrated and motivated! Please do not hesitate to reach out to me with any questions. First follow-up appt. will be on 08/24/24 at 7:40 am. documented in this encounter [facility] 06-27-2024 Telephone encounter Note Last office visit was on 02/15/24 with Irma Ta CNP. Patient will need an appointment to discuss. Ml Allen LPN [facility] 06-27-2024 Miscellaneous Notes Last office visit was on 02/15/24 with Irma Ta CNP. Patient will need an appointment to discuss. Ml Allen LPN documented in this encounter [facility] 06-22-2024 Note HNO ID: [id number] Author: SACHI PEDRO MD Service: ? Author Type: Physician Type: Progress Notes Filed: 06/22/2024 15:43 Note Text: Endocrinology Follow Up Benny Guerrero, virtual visit for follow up regarding: PCOS, Marianne's I have communicated my name and active licensure. The patient's identity and physical location were verified at the time of this visit. 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 Last visit: 01/2023 History of Present Illness Benny Guerrero is a 38 year old female with PMH of PCOS, Hydradenitis suppurative, DLP, Obesity and Hx of hypothyroidism, visit for follow up of weight management Gained weight Otherwise doing well Protein powder shakes in AM Also drinks flavored water Not on Mounjaro Having heart palpitations and syncope Apple watch would catch the palpitations Then developed anxiety - had trouble driving Gets light headed Started on Prozac but still has anxiety Issues with the muscles in her back and hand Has muscle issues Back and arms go numb Joint pain Wellbutrin 300 mg daily started 2 years ago Stopped motrin once she found out she had ulcers Was taking it as needed - around 2 times per week to a few time a month On omeprazole Spironolactone 150 mg daily Symptoms occur during the day Never occur overnight 1st meal :10 AM: yoghurt, mini muffins, granula bar Drinks drinks black coffee, regular water 12-12:30 PM: lunchable or sandwich, chips, drinks: sparkling seltzer Dinner: 6-6:30 PM: meat and vegetable Drinks unsweetened iced tea and monk fruit or seltzer Snack: mini ice cream cone Feels like there is something stuck in her throat Doing well Current weight 183 lbs On Mounjaro 7.5 mg weekly Prefers to stay on this dose Has not been able to get the refill but did start Mounjaro prior to the indication change in 06/2022 Current weight: 223-226 lbs (was down to 201 lbs) On topamax 25 mg daily Ran out of the Mounjaro around [place] time Was doing well with the mounjaro [place] r[place]y when she first came off the Mounjaro Lost 15 lbs since starting the Mounajro Starting the 5 mg weekly soon Will be seeing her PCP for the back pain On Topamax 25 mg daily (cannot tolerate 50 mg dose) Not on metformin Taking spironolactone Prior weight 224 lbs On Topamax 25 mg daily, phentermine 37.5 mg EOD (since 03/07) Stopped the metformin - GI issues resolved (bloating) Was on regular metformin 1000 mg daily Has an IUD Was down to 248 lbs Lost 38 lbs since 09/2021 No hx of fractures or kidney stones No FHx of hip fracture MGM had osteoporosis Wegovy not covered Maternal aunt and PGM have Graves' disease TSI positive TSH and FT4 in 02/2022 and 09/2021 WNL Weight in teenage years around 160-180 lbs Has two children (1 still born and 1 living child) 2016 and 2017 Son almost 5 years old now Had pre-ecclampsia 1st son had polyhydramnios No GDM breastfed with no issues No FHx of DM Was on metfomrin during her for PCOS No issues getting Was on OCP - stopped it and got the next month Aldactone recently started for hydradenitis She has an IUD Hydradenitis more controlled when she was on OCP Started on OCP at age 15 No current plans for pregnancies Menarche at age 13 Cycles were regular in the past - started on OCP for heavy cycles Acne and mild hirsutism Spironolactone helped make the 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 card and finer Acne better controlled now Dx with PCOS by her OBGYN around 2014 Weight gain and acanthosis Maternal uncle had thyroidectomy for Graves' disease with ophthalmology Mother and 2 of her sister have hypothyroidism MGM had goiter and Graves' disease She was on LT4 therapy as a teenager Has tried Adipex in the past - did well with the first round (lost 40 lb) Second round not as well Was able to maintain her weight for 6 months after that Boyfriend waiting for a heart transplant Has also tried weight watchers at age 23 - 24 (lost 30-40 lbs) Tried it again and it did not work Breakfast: bagel with cream cheese (whatever she can grab and go). Drinks diet pop, black coffee, water with crystal light Lunch: leftover dinner or sandwich . Drinks water or diet pop Dinner: low sodium diet. Fresh meats and vegetables. Diet pop Snack: chocolate (2 times a week) Trying to exercise Past History, Medications, Allergies PAST MEDICAL HISTORY Diagnosis Date Acquired hypothyroidism Asthma Hidradenitis PCOS (polycystic ovarian syndrome) PAST SURGICAL HISTORY Procedure Laterality Date SECTION HX DANDC, DIAG AND/OR THERAPEUTIC EGD DIAGNOSTIC 08/27/2023 EGD DIAGNOSTIC 06/30/2023 EGD DIAGNOSTIC 2016 Current Outpatient Medications Medication Sig Dispens (more content not included)... [facility] 06-22-2024 History of Presen t illness Narrative Endocrinology Follow Up Benny Cesar, virtual visit for follow up regarding: PCOS, Marianne's I have communicated my name and active licensure. The patient's identity and physical location were verified at the time of this visit. 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 Last visit: 01/2023 History of Present Illness Benny Guerrero is a 38 year old female with PMH of PCOS, Hydradenitis suppurative, DLP, Obesity and Hx of hypothyroidism, visit for follow up of weight management Gained weight Otherwise doing well Protein powder shakes in AM Also drinks flavored water Not on Mounjaro Having heart palpitations and syncope Apple watch would catch the palpitations Then developed anxiety - had trouble driving Gets light headed Started on Prozac but still has anxiety Issues with the muscles in her back and hand Has muscle issues Back and arms go numb Joint pain Wellbutrin 300 mg daily started 2 years ago Stopped motrin once she found out she had ulcers Was taking it as needed - around 2 times per week to a few time a month On omeprazole Spironolactone 150 mg daily Symptoms occur during the day Never occur overnight 1st meal :10 AM: yoghurt, mini muffins, granula bar Drinks drinks black coffee, regular water 12-12:30 PM: lunchable or sandwich, chips, drinks: sparkling seltzer Dinner: 6-6:30 PM: meat and vegetable Drinks unsweetened iced tea and monk fruit or seltzer Snack: mini ice cream cone Feels like there is something stuck in her throat Doing well Current weight 183 lbs On Mounjaro 7.5 mg weekly Prefers to stay on this dose Has not been able to get the refill but did start Mounjaro prior to the indication change in 06/2022 Current weight: 223-226 lbs (was down to 201 lbs) On topamax 25 mg daily Ran out of the Mounjaro around [place] time Was doing well with the mounjaro [place] ramey when she first came off the Mounjaro Lost 15 lbs since starting the Mounajro Starting the 5 mg weekly soon Will be seeing her PCP for the back pain On Topamax 25 mg daily (cannot tolerate 50 mg dose) Not on metformin Taking spironolactone Prior weight 224 lbs On Topamax 25 mg daily, phentermine 37.5 mg EOD (since 03/07) Stopped the metformin - GI issues resolved (bloating) Was on regular metformin 1000 mg daily Has an IUD Was down to 248 lbs Lost 38 lbs since 09/2021 No hx of fractures or kidney stones No FHx of hip fracture MGM had osteoporosis Wegovy not covered Maternal aunt and PGM have Graves' disease TSI positive TSH and FT4 in 02/2022 and 09/2021 WNL Weight in teenage years around 160-180 lbs Has two children (1 still born and 1 living child) 2016 and 2017 Son almost 5 years old now Had pre-ecclampsia 1st son had polyhydramnios No GDM breastfed with no issues No FHx of DM Was on metfomrin during her for PCOS No issues getting Was on OCP - stopped it and got the next month Aldactone recently started for hydradenitis She has an IUD Hydradenitis more controlled when she was on OCP Started on OCP at age 15 No current plans for pregnancies Menarche at age 13 Cycles were regular in the past - started on OCP for heavy cycles Acne and mild hirsutism Spironolactone helped make the 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 card and finer Acne better controlled now Dx with PCOS by her OBGYN around 2015 Weight gain and acanthosis Maternal uncle had thyroidectomy for Graves' disease with ophthalmology Mother and 2 of her sister have hypothyroidism MGM had goiter and Graves' disease She was on LT4 therapy as a teenager Has tried Adipex in the past - did well with the first round (lost 40 lb) Second round not as well Was able to maintain her weight for 6 months after that Boyfriend waiting for a heart transplant Has also tried weight watchers at age 23 - 24 (lost 30-40 lbs) Tried it again and it did not work Breakfast: bagel with cream cheese (whatever she can grab and go). Drinks diet pop, black coffee, water with crystal light Lunch: leftover dinner or sandwich . Drinks water or diet pop Dinner: low sodium diet. Fresh meats and vegetables. Diet pop Snack: chocolate (2 times a week) Trying to exercise Past History, Medications, Allergies PAST MEDICAL HISTORY Diagnosis Date Acquired hypothyroidism Asthma Hidradenitis PCOS (polycystic ovarian syndrome) PAST SURGICAL HISTORY Procedure Laterality Date SECTION HX D&C, DIAG AND/OR THERAPEUTIC EGD DIAGNOSTIC 08/27/2023 EGD DIAGNOSTIC 06/30/2023 EGD DIAGNOSTIC 2017 Current Outpatient Medications Medication Sig Dispense Refill omeprazole (PRILOSEC) 40 mg capsule Take 1 capsule by mouth two times a day. 180 capsule 0 buPROPion XL (WELLBUTRIN XL) 300 mg 24 hr tablet Take 1 tablet by mouth once daily. 90 tablet 1 FLUoxetine (PROZAC) 20 mg capsule Take 20 mg by mouth once daily. cetirizine (ZYRTEC) 10 mg tablet Take 10 mg by mouth once daily. atorvastatin (LIPITOR) 20 mg tablet Take 0.5 tablets by mouth once daily. spironolactone (ALDACTONE) 50 mg tablet Take 1 tablet by mouth twice daily. busPIRone (BUSPAR) 15 mg tablet Take 15 mg by mouth three times daily. Cholecalciferol, Vitamin D3, 25 mcg (1,000 unit) cap diphenhydrAMINE (BENADRYL) 25 mg capsule Take 25 mg by mouth every 6 hours as needed. fluticasone (FLONASE) 50 mcg/actuation nasal spray fluticasone propionate 50 mcg/actuation nasal spray,suspension ibuprofen (MOTRIN) 800 mg tablet ibuprofen 800 mg tablet ketoconazole (NIZORAL) 2 % shampoo ketoconazole 2 % shampoo DAILY MULTI-VITAMIN ORAL No current facility-administered medications for this visit. ALLERGIES Allergen Reactions Seasonal Allergies Other: See Comments FAMILY HISTORY Problem Relation Age of Onset Hypothyroidism Mother Hypothyroidism Sister Hypothyroidism Sister Graves Disease Maternal Grandmother Graves Disease Maternal Uncle Colon Cancer No Family History Social History Tobacco Use Smoking status: Former Current packs/day: 0.50 Types: Cigarettes Smokeless tobacco: Never Tobacco comments: ciggarrets Vaping Use Vaping status: current everyday user Substances: Nicotine Devices: Disposable Substance Use Topics Alcohol use: Yes Comment: rarely Drug use: Never Review of Systems Answers submitted by the patient for this visit: Core Review of Systems (Submitted on 06/22/2024) Fever : No Night sweats: No Recent unintentional weight change: Yes Nasal Congestion: Yes Hearing Loss: No Vision Disturbance: No A cough: No Difficulty Breathing?: No Chest pain: No Irregular heartbeat: No Leg Swelling: No Nausea: No Diarrhea: No Black tarry stools: No Difficulty Urinating?: No Awaken at Night More Than Once to Urinate?: No Joint pain or stiffness: Yes Muscle aches: Yes Leg or Foot Discomfort at Night?: No A rash: No Dizziness: No Headaches: No Memory Loss: No Seizures: No Physical examination GENERAL: Well nourished, well hydrated, in no distress and oriented x 3 COMMUNICATION: Hearing: normal; VOICE: normal EYES: no thyroid eye signs, Fundi normal, cornea normal and EOMI NECK: no visible nodules or goiter LUNGS: no audible wheezing or respiratory distress NEURO: normal strength and no tremor SKIN: No rash or visible wound. ENDOCRINE: No cushingoid or acromegalic features Previous Laboratory Results Component Latest Ref Rng & Units 09/25/2021 TSH 0.270 - 4.200 uU/mL 1.220 Free T4 0.9 - 1.7 ng/dL 1.1 Cortisol,ON DEX,Post <1.8 ug/dL 0.7 ACTH 7.2 - 63.3 pg/mL 2.2 (L) Dexamethasone ng/dL 271.2 Microsomal Antibody <5.6 IU/mL <1.0 Component Latest Ref Rng & Units 12/02/2021 Protein, Total 6.3 - 8.0 g/dL 7.2 Albumin 3.9 - 4.9 g/dL 4.6 Calcium 8.5 - 10.2 mg/dL 10.1 Bilirubin, Total 0.2 - 1.3 mg/dL 0.3 Alkaline Phosphatase 34 - 123 U/L 65 AST 13 - 35 U/L 20 ALT 7 - 38 U/L 17 Glucose 74 - 99 mg/dL 88 BUN 7 - 21 mg/dL 12 Creatinine 0.58 - 0.96 mg/dL 0.89 Sodium 136 - 144 mmol/L 138 Potassium 3.7 - 5.1 mmol/L 4.7 Chloride 97 - 105 mmol/L 101 CO2 22 - 30 mmol/L 26 Anion Gap 9 - 18 mmol/L 11 eGFR >=60 mL/min/1.73m 87 Cholesterol, Total <200 mg/dL 168 Triglyceride <150 mg/dL 222 (H) HDL Cholesterol >39 mg/dL 34 (L) Non HDL Cholesterol <130 mg/dL 134 (H) Fasting Time hrs 12 LDL Cholesterol <100 mg/dL 90 Sex Hormone Bind GLB 25 - 122 nmol/L 18 (L) Testosterone Total 9 - 55 ng/dL 16 Testosterone Free 1.3 - 9.2 pg/mL 3.5 Testo Bioavailable 4.1 - 25.5 ng/dL 9.8 TSI Qualitative Negative Negative TSI <0.55 IU/L 0.26 TSH Receptor AutoAntibody, Qualitative Negative Positive (A) TBI <=1.00 IU/L 1.59 (H) Hemoglobin A1C 4.3 - 5.6 % 5.2 Testosterone <40 ng/dL 15 DHEA-S 60.9 - 337.0 ug/dL 96.0 Androstenedione 0.3 - 3.3 ng/mL 0.9 07/2021: H.2 HCT: 43 % CMP WNL Chol: 223 LDL: 138 HDL: 40 T Non-HDL: 183 04/2021: HbA1c: 5.5 % Chol: 230 LDL: 143 HDL: 35 T TSH: 1.9 02/2022: TSH: 1.85 FT4: 0.98 Component Latest Ref Rng & Units 01/11/2023 Hemoglobin A1C 4.3 - 5.6 % 4.5 TSH 0.270 - 4.200 mIU/L 2.790 Free T4 0.9 - 1.7 ng/dL 1.4 Free T3 2.3 - 4.1 pg/mL 3.0 Component Latest Ref Rng & Units 09/25/2021 12/02/2021 01/11/2023 02/17/2023 Protein, Total 6.3 - 8.0 g/dL 7.2 Albumin 3.9 - 4.9 g/dL 4.6 Calcium 8.5 - 10.2 mg/dL 10.1 Bilirubin, Total 0.2 - 1.3 mg/dL 0.3 Alkaline Phosphatase 34 - 123 U/L 65 AST 13 - 35 U/L 20 ALT 7 - 38 U/L 17 Glucose 74 - 99 mg/dL 88 BUN 7 - 21 mg/dL 12 Creatinine 0.58 - 0.96 mg/dL 0.89 Sodium 136 - 144 mmol/L 138 Potassium 3.7 - 5.1 mmol/L 4.7 Chloride 97 - 105 mmol/L 101 CO2 22 - 30 mmol/L 26 Anion Gap 9 - 18 mmol/L 11 eGFR >=60 mL/min/1.73m 87 Cholesterol, Total <200 mg/dL 168 Triglyceride <150 mg/dL 222 (H) HDL Cholesterol >39 mg/dL 34 (L) Non HDL Cholesterol <130 mg/dL 134 (H) Fasting Time hrs 12 VLDL Cholesterol <30 mg/dL 44 (H) TC:HDL Ratio <5.10 4.94 LDL Cholesterol <100 mg/dL 90 LDL:HDL Ratio <2.54 2.65 (H) Sex Hormone Bind GLB 25 - 122 nmol/L 18 (L) Testosterone Total 9 - 55 ng/dL 16 Testosterone Free 1.3 - 9.2 pg/mL 3.5 Testo Bioavailable 4.1 - 25.5 ng/dL 9.8 Hemoglobin A1C 4.3 - 5.6 % 5.2 4.5 Estimated Average Glucose mg/dL 103 82 TSH 0.270 - 4.200 mIU/L 1.220 2.790 Free T4 0.9 - 1.7 ng/dL 1.1 1.4 Cortisol,ON DEX,Post <1.8 ug/dL 0.7 ACTH 7.2 - 63.3 pg/mL 2.2 (L) Dexamethasone ng/dL 271.2 Microsomal Antibody <5.6 IU/mL <1.0 Testosterone <40 ng/dL 15 DHEA-S 60.9 - 337.0 ug/dL 96.0 Androstenedione 0.3 - 3.3 ng/mL 0.9 Free T3 2.3 - 4.1 pg/mL 3.0 Insulin 3.0 - 25.0 mU/L 12.3 Latest Ref Rng 12/02/2021 01/11/2023 02/17/2023 01/26/2024 02/01/2024 03/06/2024 Protein, Total 6.3 - 8.0 g/dL 7.2 Albumin 3.9 - 4.9 g/dL 4.6 4.6 Calcium 8.5 - 10.2 mg/dL 10.1 10.6 (H) 10.2 Bilirubin, Total 0.2 - 1.3 mg/dL 0.3 Alkaline Phosphatase 34 - 123 U/L 65 AST 13 - 35 U/L 20 ALT 7 - 38 U/L 17 Glucose 74 - 99 mg/dL 88 69 (L) BUN 7 - 21 mg/dL 12 17 Creatinine 0.58 - 0.96 mg/dL 0.89 0.92 Sodium 136 - 144 mmol/L 138 138 Potassium 3.7 - 5.1 mmol/L 4.7 4.7 Chloride 97 - 105 mmol/L 101 97 CO2 22 - 30 mmol/L 26 28 Anion Gap 9 - 18 mmol/L 11 13 eGFR >=60 mL/min/1.73m 87 82 Cholesterol, Total <200 mg/dL 169 Triglyceride <150 mg/dL 97 HDL Cholesterol >39 mg/dL 53 Non HDL Cholesterol <130 mg/dL 116 Fasting Time hrs 12 VLDL Cholesterol <30 mg/dL 19 TC:HDL Ratio <5.10 3.19 LDL Cholesterol <100 mg/dL 97 LDL:HDL Ratio <2.54 1.83 Hemoglobin A1C 4.3 - 5.6 % 4.5 4.5 Estimated Average Glucose mg/dL 82 82 Normalized Calcium 1.08 - 1.30 mmol/L 1.31 (H) 1.29 Ionized Calcium 1.08 - 1.30 mmol/L 1.32 (H) 1.31 (H) TSH 0.270 - 4.200 mIU/L 2.790 2.670 Free T4 0.9 - 1.7 ng/dL 1.4 1.2 Free T3 2.3 - 4.1 pg/mL 3.0 Insulin 3.0 - 25.0 mU/L 12.3 PTH, Intact 15 - 65 pg/mL 29 32 Vitamin D 25 Hydroxy 31.0 - 80.0 ng/mL 43.3 43.8 Vit D1,25 Dihydroxy 19.9 - 79.3 pg/mL 53.8 Latest Ref Rng 01/26/2024 02/01/2024 03/06/2024 04/14/2024 06/21/2024 Protein, Total 6.3 - 8.0 g/dL 6.6 Albumin 3.9 - 4.9 g/dL 4.6 4.4 Calcium 8.5 - 10.2 mg/dL 10.6 (H) 10.2 10.1 9.7 Bilirubin, Total 0.2 - 1.3 mg/dL 0.4 Alkaline Phosphatase 34 - 123 U/L 57 AST 13 - 35 U/L 13 ALT 7 - 38 U/L 12 Glucose 74 - 99 mg/dL 69 (L) 97 BUN 7 - 21 mg/dL 17 14 Creatinine 0.58 - 0.96 mg/dL 0.92 0.85 Sodium 136 - 144 mmol/L 138 139 Potassium 3.7 - 5.1 mmol/L 4.7 4.2 Chloride 98 - 107 mmol/L 97 102 CO2 22 - 30 mmol/L 28 26 Anion Gap 8 - 15 mmol/L 13 11 eGFR >=60 mL/min/1.73m 82 91 Cholesterol, Total <200 mg/dL 190 Triglyceride <150 mg/dL 156 (H) HDL Cholesterol >39 mg/dL 51 Non HDL Cholesterol <130 mg/dL 139 (H) Fasting Time hrs 12 VLDL Cholesterol <30 mg/dL 31 (H) TC:HDL Ratio <5.10 3.73 LDL Cholesterol <100 mg/dL 108 (H) LDL:HDL Ratio <2.54 2.12 Hemoglobin A1C 4.3 - 5.6 % 4.5 4.6 Estimated Average Glucose mg/dL 82 85 Normalized Calcium 1.08 - 1.30 mmol/L 1.31 (H) 1.29 1.29 1.28 Ionized Calcium 1.08 - 1.30 mmol/L 1.32 (H) 1.31 (H) 1.29 1.29 TSH 0.270 - 4.200 mIU/L 2.670 2.020 Free T4 0.9 - 1.7 ng/dL 1.2 1.1 PTH, Intact 15 - 65 pg/mL 29 32 33 32 Vitamin D 25 Hydroxy 31.0 - 80.0 ng/mL 43.3 43.8 36.9 Vit D1,25 Dihydroxy 19.9 - 79.3 pg/mL 53.8 Testosterone <40 ng/dL <12 DHEA-S 60.9 - 337.0 ug/dL 75.6 Impression/Recommendations Benny Guerrero is a 38 year old female with PMH of PCOS, Hydradenitis suppurative, DLP, Obesity and Hx of hypothyroidism, visit for follow up of weight management Obesity BMI 34.91: -- Following at weight management clinic Reactive hypoglycemia: -- Dietary changes reviewed -- Referral to the guide winder Dyslipidemia: -- Started in Lipitor 20 mg daily in 07/2021 -- Has muscle aches and pain despite decrease to 10 mg dose -- Advised to try OTC co-enzyme Q10 supplements -- Dietary changes reviewed Hypercalcemia: -- Repeat WNL -- Resolved -- Will monitor with blood work PCOS and HS: -- She is on spironolactone therapy (150 mg daily) -- Off metfomrin since 02/2022 due to bloating (was on regular metformin 500 mg BID) -- Has the Mirena IUD -- Acne and hirstusim improved with spironolactone -- HS not as well controlled as when she was on OCP -- She may consider OCP in the future if weight loss does not help -- she is open to try Metformin XR Hx of Hypothyroidism: -- Was on LT4 therapy in her teenage years -- Off LT4 for several years now -- Last TSH and FT4 in 02/2022, 10/2021 and 04/2021 WNL -- TPO negative -- FHx of Graves' disease in her PGM and maternal aunt -- Mother and 2 sisters have hypothyroidism -- TSI mildly elevated -- Discussed Graves' disease and indications for therapy -- Repeat levels in 01/2024, 01/2023, 01/2022 and 08/2022 WNL -- TSH and FT4 in 06/2024 WNL -- Thyroid US in 04/2024 WNL The patient will follow up in 6 months Sachi Armas MD documented in this encounter [facility] 05-31-2024 Note HNO ID: [id number] Author: RUPA ROPER Enlisted Advisor Service: ? Author Type: Enlisted Advisor Type: Progress Notes Filed: 05/31/2024 10:10 Note Text: Virtual Visit (Audio/Visual) I have discussed the nature of this visit with the patient which will occur via [facility] (Phone, Virtual Visit) and she agrees to proceed with this interaction . 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 Her knees bother her at times. Does not like cardio. We will meet for a Virtual EX RX on 06/29/24 at 8:00 am. Based on the ACSM's Guidelines for Exercise Testing AND Prescription, the patient will not require a stress test prior to receiving an exercise prescription. [facility] 05-31-2024 History of Presen t illness Narrative Virtual Visit (Audio/Visual) I have discussed the nature of this visit with the patient which will occur via [facility] (Phone, Virtual Visit) and she agrees to proceed with this interaction . 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 Her knees bother her at times. Does not like cardio. We will meet for a Virtual EX RX on 06/29/24 at 8:00 am. Based on the ACSM's Guidelines for Exercise Testing & Prescription, the patient will not require a stress test prior to receiving an exercise prescription. documented in this encounter [facility] 05-26-2024 Telephone encounter Note Pt has appt today with Dr. Gilberto Armas. [facility] 05-26-2024 Miscellaneous Notes Pt has appt today with Dr. Gilberto Armas. Dr. Gilberto Armas, is it time for pt to have labs drawn? If yes, I will send to her. documented in this encounter [facility] 05-24-[address] Montez please sign if you agree to refill Last OV 11/09/2023 Next OV- N/A Requested Prescriptions Pending Prescriptions Disp Refills omeprazole (PRILOSEC) 40 mg capsule 180 capsule 0 Sig: Take 1 capsule by mouth two times a day. [facility] 05-24-[address] Montez please sign if you agree to refill Last OV 11/09/2023 Next OV- N/A Requested Prescriptions Pending Prescriptions Disp Refills omeprazole (PRILOSEC) 40 mg capsule 180 capsule 0 Sig: Take 1 capsule by mouth two times a day. documented in this encounter [facility] 05-23-2024 History of Presen t illness Narrative [facility] Nutritional Assessment Individual I have communicated my name and active licensure. The patient's identity and physical location were verified at the time of this visit. 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 Patient states reason for visit: PCOS and Weight Management:Follow Up Lab Results Component Value Date HBA1C 4.5 01/26/2024 HBA1C 4.5 01/11/2023 HBA1C 5.2 12/02/2021 DEMOGRAPHICS: NUTRITION THERAPY Co-Morbidities: PAST MEDICAL HISTORY Diagnosis Date Acquired hypothyroidism Asthma Hidradenitis PCOS (polycystic ovarian syndrome) Current Weight Management Program: recommended mediterranean style of eating Activity: Do you do a regular exercise? Joined the [facility], however has not been going to the gym as she has had a cold for 2 weeks. Diet History: Food log/recall reviewed today Breakfast: Egg X2 or Cottage cheese and fruit or citizen of [place] yogurt, coffee Lunch:soup, protein Snack: string cheese Dinner: egg roll bowl Snack: dessert Fluids/Drinks: seltzer, coffee and water Medications: Current Outpatient Medications Medication Sig omeprazole (PRILOSEC) 40 mg capsule Take 1 capsule by mouth two times a day. buPROPion XL (WELLBUTRIN XL) 300 mg 24 hr tablet Take 1 tablet by mouth once daily. FLUoxetine (PROZAC) 20 mg capsule Take 20 mg by mouth once daily. cetirizine (ZYRTEC) 10 mg tablet Take 10 mg by mouth once daily. atorvastatin (LIPITOR) 20 mg tablet Take 0.5 tablets by mouth once daily. spironolactone (ALDACTONE) 50 mg tablet Take 1 tablet by mouth twice daily. busPIRone (BUSPAR) 15 mg tablet Take 15 mg by mouth three times daily. Cholecalciferol, Vitamin D3, 25 mcg (1,000 unit) cap diphenhydrAMINE (BENADRYL) 25 mg capsule Take 25 mg by mouth every 6 hours as needed. fluticasone (FLONASE) 50 mcg/actuation nasal spray fluticasone propionate 50 mcg/actuation nasal spray,suspension ibuprofen (MOTRIN) 800 mg tablet ibuprofen 800 mg tablet ketoconazole (NIZORAL) 2 % shampoo ketoconazole 2 % shampoo DAILY MULTI-VITAMIN ORAL No current facility-administered medications for this visit. ANTHROPOMETRICS Height: Last 1 Encounter Ht Readings: Date: Ht: 11/09/2023 163.8 cm (5' 4.5 ) Current weight: Last 1 Encounter Wt Readings: Date: Wt 05/23/2024 stated weight 112.7 kg (248 lbs) 02/15/2024 103.9 kg (229 lb) 12/07/2023 105.7 kg (233 lb) 11/09/2023 101.6 kg (224 lb) 5% -10% Weight loss: Last Wt 02/15/24 : 103.9 kg (229 lb) 5% weight loss = 218 lbs, 10% weight loss = 206 lbs NUTRITION ASSESSMENT: Nutrition Diagnosis: Has not changed since previous diagnosis Nutrition Prescription: Calories Needed for Current Weight: Resting Metabolic Rate: 1718 Nutrition Intervention: -grocery options, vegetables, quality carbs, healthy fats and proteins -benefits of exercise and barriers to exercise -tracking meals for one week may be helpful -discuss food noise with provider -consider making a few small changes, she will see a change as she works on making consistent changes Nutrition Monitoring & Evaluation: Dietitian Goals: Weight Reduction of 5-10% within 6 months Criteria: Weight Patient Centered Goals: Patient Stated Goals at last Visit (Met/Not Met/Partially Met): -increase protein intake/partially met -plan some lunches/partially met Patient Stated Goals at today's visit: -eat more vegetables -try to get back to the [facility] Comments: -reports weight regain since she stopped Mounjaro, reports food noise has returned -frustrated with weight regain -she has tracked her breakfast and lunch meals, she finds it difficult to track dinner and she did not mention tracking snacks -she has not looked at the mediterranean book which was e-mailed to her, plan to send a hard copy Need for Follow up: 3 months Consult Billing Type: Re-assess/15 minutes, 2 increment(s), 30 minutes My final report will be communicated back to the requesting physician by way of shared medical record. Signed by: German Morales RD documented in this encounter [facility] 05-23-2024 Note HNO ID: [id number] Author: GERMAN MORALES RD Service: ? Author Type: Registered Dietitian Type: Progress Notes Filed: 05/23/2024 08:59 Note Text: [facility] Nutritional Assessment Individual I have communicated my name and active licensure. The patient's identity and physical location were verified at the time of this visit. 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 Patient states reason for visit: PCOS and Weight Management:Follow Up Lab Results Component Value Date HBA1C 4.5 01/26/2024 HBA1C 4.5 01/11/2023 HBA1C 5.2 12/02/2021 DEMOGRAPHICS: NUTRITION THERAPY Co-Morbidities: PAST MEDICAL HISTORY Diagnosis Date Acquired hypothyroidism Asthma Hidradenitis PCOS (polycystic ovarian syndrome) Current Weight Management Program: recommended mediterranean style of eating Activity: Do you do a regular exercise? Joined the [employer] [facility] [employer], however has not been going to the gym as she has had a cold for 2 weeks. Diet History: Food log/recall reviewed today Breakfast: Egg X2 or Cottage cheese and fruit or citizen of [place] yogurt, coffee Lunch:soup, protein Snack: string cheese Dinner: egg roll bowl Snack: dessert Fluids/Drinks: seltzer, coffee and water Medications: Current Outpatient Medications Medication Sig omeprazole (PRILOSEC) 40 mg capsule Take 1 capsule by mouth two times a day. buPROPion XL (WELLBUTRIN XL) 300 mg 24 hr tablet Take 1 tablet by mouth once daily. FLUoxetine (PROZAC) 20 mg capsule Take 20 mg by mouth once daily. cetirizine (ZYRTEC) 10 mg tablet Take 10 mg by mouth once daily. atorvastatin (LIPITOR) 20 mg tablet Take 0.5 tablets by mouth once daily. spironolactone (ALDACTONE) 50 mg tablet Take 1 tablet by mouth twice daily. busPIRone (BUSPAR) 15 mg tablet Take 15 mg by mouth three times daily. Cholecalciferol, Vitamin D3, 25 mcg (1,000 unit) cap diphenhydrAMINE (BENADRYL) 25 mg capsule Take 25 mg by mouth every 6 hours as needed. fluticasone (FLONASE) 50 mcg/actuation nasal spray fluticasone propionate 50 mcg/actuation nasal spray,suspension ibuprofen (MOTRIN) 800 mg tablet ibuprofen 800 mg tablet ketoconazole (NIZORAL) 2 % shampoo ketoconazole 2 % shampoo DAILY MULTI-VITAMIN ORAL No current facility-administered medications for this visit. ANTHROPOMETRICS Height: Last 1 Encounter Ht Readings: Date: Ht: 11/09/2023 163.8 cm (5' 4.5 ) Current weight: Last 1 Encounter Wt Readings: Date: Wt 05/23/2024 stated weight 112.7 kg (248 lbs) 02/15/2024 103.9 kg (229 lb) 12/07/2023 105.7 kg (233 lb) 11/09/2023 101.6 kg (224 lb) 5% -10% Weight loss: Last Wt 02/15/24 : 103.9 kg (229 lb) 5% weight loss = 218 lbs, 10% weight loss = 206 lbs NUTRITION ASSESSMENT: Nutrition Diagnosis: Has not changed since previous diagnosis Nutrition Prescription: Calories Needed for Current Weight: Resting Metabolic Rate: 1718 Nutrition Intervention: -grocery options, vegetables, quality carbs, healthy fats and proteins -benefits of exercise and barriers to exercise -tracking meals for one week may be helpful -discuss food noise with provider -consider making a few small changes, she will see a change as she works on making consistent changes Nutrition Monitoring AND Evaluation: Dietitian Goals: Weight Reduction of 5-10% within 6 months Criteria: Weight Patient Centered Goals: Patient Stated Goals at last Visit (Met/Not Met/Partially Met): -increase protein intake/partially met -plan some lunches/partially met Patient Stated Goals at today's visit: -eat more vegetables -try to get back to the [employer] Comments: -reports weight regain since she stopped Mounjaro, reports food noise has returned -frustrated with weight regain -she has tracked her breakfast and lunch meals, she finds it difficult to track dinner and she did not mention tracking snacks -she has not looked at the mediterranean book which was e-mailed to her, plan to send a hard copy Need for Follow up: 3 months Consult Billing Type: Re-assess/15 minutes, 2 increment(s), 30 minutes My final report will be communicated back to the requesting physician by way of shared medical record. Signed by: German Morales RD [facility] 05-22-[address] Gilberto Armas, is it time for pt to have labs drawn? If yes, I will send to her. [facility] 04-26-2024 Telephone encounter Note Pharmacy calls in requesting the following refill(s): Requested Prescriptions Pending Prescriptions Disp Refills omeprazole (PRILOSEC) 40 mg capsule 60 capsule 0 Sig: Take 1 capsule by mouth two times a day. [facility] 04-26-2024 Miscellaneous Notes Pharmacy calls in requesting the following refill(s): Requested Prescriptions Pending Prescriptions Disp Refills omeprazole (PRILOSEC) 40 mg capsule 60 capsule 0 Sig: Take 1 capsule by mouth two times a day. documented in this encounter [facility] 04-14-2024 Note HNO ID: [id number] Author: LILLIAN ECHEVERRIA RT(R) Service: ? Author Type: Technologist Type: Progress Notes Filed: 04/14/2024 13:02 Note Text: Radiology Service Progress Note PATIENT NAME: Benny Guerrero DATE OF SERVICE: April 14, 2024 TIME: 1:01 PM PATIENT IDENTITY VERIFICATION COMPLETED USING TWO (2) IDENTIFIERS: Name and Date of confirmed by patient verbally. FALL SCREENING: Has the patient had 2 falls in the last year or 1 fall with injury or currently using an Ambulatory Assistive Device (Walker, Cane, Wheelchair, Crutches, etc.)? No PATIENT GENDER DATA: Female. status: : No status: NO. PATIENT RELEVANT IMPLANT DATA REVIEWED: Not Applicable PATIENT PRESENTS WITH AN IMPLANTABLE OR ATTACHED COMMUNITY DIETITIAN: No RADIOLOGY DEPARTMENT: Ultrasound PERIPHERAL IV DATA: Not applicable SIGNED BY: Lillian Echeverria, AMANUEL, RVT April 14, 2024 1:01 PM [facility] 04-14-2024 History of Presen t illness Narrative Radiology Service Progress Note PATIENT NAME: Benny Guerrero DATE OF SERVICE: April 14, 2024 TIME: 1:01 PM PATIENT IDENTITY VERIFICATION COMPLETED USING TWO (2) IDENTIFIERS: Name and Date of confirmed by patient verbally. FALL SCREENING: Has the patient had 2 falls in the last year or 1 fall with injury or currently using an Ambulatory Assistive Device (Walker, Cane, Wheelchair, Crutches, etc.)? No PATIENT GENDER DATA: Female. status: : No status: NO. PATIENT RELEVANT IMPLANT DATA REVIEWED: Not Applicable PATIENT PRESENTS WITH AN IMPLANTABLE OR ATTACHED COMMUNITY DIETITIAN: No RADIOLOGY DEPARTMENT: Ultrasound PERIPHERAL IV DATA: Not applicable SIGNED BY: Lillian Echeverria RDMS, KAYLI April 14, 2024 1:01 PM documented in this encounter [facility] 03-22-2024 Telephone encounter Note Patient phones requesting refills as follows: Requested Prescriptions Pending Prescriptions Disp Refills omeprazole (PRILOSEC) 40 mg capsule 60 capsule 0 Sig: Take 1 capsule by mouth two times a day. Please review and advise. Ada Gutierrez MA Patient comment: The other medicine prescribed did not work. Made it worse. Waiting on more testing for high calcium levels before I do any futher gastro testing. [facility] 03-22-2024 Miscellaneous Notes Patient phones requesting refills as follows: Requested Prescriptions Pending Prescriptions Disp Refills omeprazole (PRILOSEC) 40 mg capsule 60 capsule 0 Sig: Take 1 capsule by mouth two times a day. Please review and advise. Ada Gutierrez MA Patient comment: The other medicine prescribed did not work. Made it worse. Waiting on more testing for high calcium levels before I do any futher gastro testing. documented in this encounter [facility] 03-18-2024 Telephone encounter Note Patient has been identified by name and date of : Yes Last office visit in this department: 11/09/2023 Patient phones requesting refills as follows: Requested Prescriptions Pending Prescriptions Disp Refills omeprazole (PRILOSEC) 40 mg capsule [Pharmacy Med Name: Omeprazole 40 MG Oral Capsule Delayed Release] 60 capsule 0 Sig: Take 1 capsule by mouth twice daily Please review and advise. Nikky Naidu MA [facility] 03-18-2024 Miscellaneous Notes Patient has been identified by name and date of : Yes Last office visit in this department: 11/09/2023 Patient phones requesting refills as follows: Requested Prescriptions Pending Prescriptions Disp Refills omeprazole (PRILOSEC) 40 mg capsule [Pharmacy Med Name: Omeprazole 40 MG Oral Capsule Delayed Release] 60 capsule 0 Sig: Take 1 capsule by mouth twice daily Please review and advise. Nikky Naidu MA documented in this encounter [facility] 03-07-2024 Telephone encounter Note Order placed Sachi Armas MD [facility] 03-07-2024 Miscellaneous Notes Order placed Sachi Armas MD Dr. Gilberto Armas, Patient is interested in a referral to weight management fitness. Thanks, German VEGA documented in this encounter [facility] 03-07-[address] Gilberto Armas, Patient is interested in a referral to weight management fitness. Thanks, German VEGA [facility] Work Phone: 03-07-2024 History of Presen t illness Narrative [facility] Medical Nutrition Therapy Visit Type: I have communicated my name and active licensure. The patient's identity and physical location were verified at the time of this visit. 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 Patient states reason for visit: PCOS and Weight Management Initial DEMOGRAPHICS: Co-Morbidities: PAST MEDICAL HISTORY Diagnosis Date Acquired hypothyroidism Asthma Hidradenitis PCOS (polycystic ovarian syndrome) Activity: Do you do a regular exercise? No, reports she does not feel well most of the time, no energy Symptoms: Patient's symptoms are as follows: Weight Concerns: failure to lose weight How many hours of sleep on average? Did not report Diet History: Breakfast: fruit or oikos triple zero yogurt (may or may not be citizen of [place]) or granola bar Lunch: lunchables or leftovers Dinner: protein, starch, vegetable Snack: oreos or chocolate or ice cream cone Fluids coffee, diet pop ETOH social but not often Dining/eating out? Once a week Patient / Provider Comments: -reports she lost weight with mounjaro, could no longer afford, regained about 40 lbs, tried compounded semaglutide and it was not helpful so she stopped a couple of months ago -reports she had to use Miralax for constipation while on mounjaro and compounded semaglutide, continues to use as needed Medications: Current Outpatient Medications Medication Sig pantoprazole DR (PROTONIX) 40 mg tablet Take 1 tablet by mouth once daily. omeprazole (PRILOSEC) 40 mg capsule Take 1 capsule by mouth twice daily buPROPion XL (WELLBUTRIN XL) 300 mg 24 hr tablet Take 1 tablet by mouth once daily. FLUoxetine (PROZAC) 20 mg capsule Take 20 mg by mouth once daily. cetirizine (ZYRTEC) 10 mg tablet Take 10 mg by mouth once daily. atorvastatin (LIPITOR) 20 mg tablet Take 0.5 tablets by mouth once daily. spironolactone (ALDACTONE) 50 mg tablet Take 1 tablet by mouth twice daily. busPIRone (BUSPAR) 15 mg tablet Take 15 mg by mouth three times daily. Cholecalciferol, Vitamin D3, 25 mcg (1,000 unit) cap diphenhydrAMINE (BENADRYL) 25 mg capsule Take 25 mg by mouth every 6 hours as needed. fluticasone (FLONASE) 50 mcg/actuation nasal spray fluticasone propionate 50 mcg/actuation nasal spray,suspension ibuprofen (MOTRIN) 800 mg tablet ibuprofen 800 mg tablet ketoconazole (NIZORAL) 2 % shampoo ketoconazole 2 % shampoo DAILY MULTI-VITAMIN ORAL No current facility-administered medications for this visit. Labs: Glucose (mg/dL) Date Value 01/26/2024 69 Potassium (mmol/L) Date Value 01/26/2024 4.7 Sodium (mmol/L) Date Value 01/26/2024 138 Chloride (mmol/L) Date Value 01/26/2024 97 CO2 (mmol/L) Date Value 01/26/2024 28 Creatinine (mg/dL) Date Value 01/26/2024 0.92 BUN (mg/dL) Date Value 01/26/2024 17 Anion Gap (mmol/L) Date Value 01/26/2024 13 Calcium, Total (mg/dL) Date Value 03/06/2024 10.2 Lab Results Component Value Date HBA1C 4.5 01/26/2024 HBA1C 4.5 01/11/2023 HBA1C 5.2 12/02/2021 Cholesterol, Total Date Value Ref Range Status 01/26/2024 169 <200 mg/dL Final Comment: <200 mg/dL, Desirable 200-239 mg/dL, Borderline high >239 mg/dL, High HDL Cholesterol Date Value Ref Range Status 01/26/2024 53 >39 mg/dL Final Comment: 40-59 mg/dL, Acceptable >59 mg/dL, High: Negative risk factor for coronary heart disease <40 mg/dL, Low: Positive risk factor for coronary heart disease LDL Cholesterol Date Value Ref Range Status 01/26/2024 97 <100 mg/dL Final Comment: <100 mg/dL, Optimal 100-129 mg/dL, Near optimal/above optimal 130-159 mg/dL, Borderline high 160-189 mg/dL, High >189 mg/dL, Very high Secondary prevention optimal LDL Cholesterol levels are recommended to be < 70 mg/dL Triglyceride Date Value Ref Range Status 01/26/2024 97 <150 mg/dL Final Comment: <150 mg/dL, Normal 150-199 mg/dL, Borderline high 200-499 mg/dL, High >499 mg/dL, Very high ANTHROPOMETRICS Height: Last 1 Encounter Ht Readings: Date: Ht: 11/09/2023 163.8 cm (5' 4.5 ) Current weight: Last 3 Encounter Wt Readings: Date: Wt: 02/15/2024 103.9 kg (229 lb) 12/07/2023 105.7 kg (233 lb) 11/09/2023 101.6 kg (224 lb) BMI: 38.70 kg/m2 5% -10% Weight loss: Last Wt 02/15/24 : 103.9 kg (229 lb) 5% weight loss = 218 lbs, 10% weight loss = 206 lbs READINESS TO LEARN Cognitive ability: Alert and oriented Motivation to learn: Interested Family support: Unable to assess - Family not present Instruction provided to: Patient Patient learns best by: Multiple Methods Factors affecting learning: None Physical limitations affecting learning: None Stage of Change: Preparation Nutrition Diagnosis: Food and nutrition related knowledge deficit, related to; lack of prior exposure to information , as evidenced by client has no prior knowledge of need for food and nutrition - related information Calories Needed for Current Weight: Resting Metabolic Rate: 1718 Calories for Weight Loss: 1600, 40% carbs, 25% protein, 35% fat Nutrition Intervention: --emphasized choosing plant foods often (vegetables, nuts/seeds, olives/extra virgin olive oil, fruit, whole/ancient grains) --including adequate amounts of protein at each meal (fish or lean meats, beans/lentils/nuts/seeds/citizen of [place] yogurt) --what constitutes a complete protein --choose fried food/ultra processed food less often --how to read a food label --plate method for portioning meals/food groups without tracking calories/fat/carbs/pro --using meal replacements or pre-made balanced snacks as needed to avoid skipping meals --how to put together balanced quick meals without cooking if needed --food journaling or tracking for accountability as an option Food Acceptance Skills/Food Variety: --Encouraged patient to try new foods as able --Offered recipes for increasing food variety, minimizing meal plan boredom --Endorsed pts' own food traditions and preferences --Helped identify the nutritional value of pts' preferred food Awareness of Internal Regulation of Hunger: --Stressed capabilities with internal regulation of food intake to support energy balance --Eating regular meals/snacks every 3-5 hours for internal regulation and avoiding the dieting 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 behavior change --Discussed tactics for getting enough to eat --Reviewed hunger/fullness scale Exercise: --strength training all major muscle groups at least 2 days a week in addition to cardiovascular exercises --exercise is a necessary part of the treatment plan for weight loss Dietitian Goals: Weight Reduction of 5-10% within 6 months Criteria: Weight Patient Stated Goals at today's visit: -increase protein intake -plan some lunches Adherence Potential to Goals: Good Need for Follow up: 8-12 weeks Referred by: Sachi Pedro MD Carolyn Garvey, RD Consult Billing Type/Increments: Initial Assessment/15 minutes, 3 increment(s), 45 minutes Start time: 13:00 End time: 13:45 My final report will be communicated back to the requesting physician by way of shared medical record. Signed by: German Morales RD documented in this encounter [facility] 03-07-2024 Note HNO ID: [id number] Author: GERMAN MORALES RD Service: ? Author Type: Registered Dietitian Type: Progress Notes Filed: 03/07/2024 13:56 Note Text: [facility] Medical Nutrition Therapy Visit Type: I have communicated my name and active licensure. The patient's identity and physical location were verified at the time of this visit. 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 Patient states reason for visit: PCOS and Weight Management Initial DEMOGRAPHICS: Co-Morbidities: PAST MEDICAL HISTORY Diagnosis Date Acquired hypothyroidism Asthma Hidradenitis PCOS (polycystic ovarian syndrome) Activity: Do you do a regular exercise? No, reports she does not feel well most of the time, no energy Symptoms: Patient's symptoms are as follows: Weight Concerns: failure to lose weight How many hours of sleep on average? Did not report Diet History: Breakfast: fruit or oikos triple zero yogurt (may or may not be citizen of [place]) or granola bar Lunch: lunchables or leftovers Dinner: protein, starch, vegetable Snack: oreos or chocolate or ice cream cone Fluids coffee, diet pop ETOH social but not often Dining/eating out? Once a week Patient / Provider Comments: -reports she lost weight with mounjaro, could no longer afford, regained about 40 lbs, tried compounded semaglutide and it was not helpful so she stopped a couple of months ago -reports she had to use Miralax for constipation while on mounjaro and compounded semaglutide, continues to use as needed Medications: Current Outpatient Medications Medication Sig pantoprazole DR (PROTONIX) 40 mg tablet Take 1 tablet by mouth once daily. omeprazole (PRILOSEC) 40 mg capsule Take 1 capsule by mouth twice daily buPROPion XL (WELLBUTRIN XL) 300 mg 24 hr tablet Take 1 tablet by mouth once daily. FLUoxetine (PROZAC) 20 mg capsule Take 20 mg by mouth once daily. cetirizine (ZYRTEC) 10 mg tablet Take 10 mg by mouth once daily. atorvastatin (LIPITOR) 20 mg tablet Take 0.5 tablets by mouth once daily. spironolactone (ALDACTONE) 50 mg tablet Take 1 tablet by mouth twice daily. busPIRone (BUSPAR) 15 mg tablet Take 15 mg by mouth three times daily. Cholecalciferol, Vitamin D3, 25 mcg (1,000 unit) cap diphenhydrAMINE (BENADRYL) 25 mg capsule Take 25 mg by mouth every 6 hours as needed. fluticasone (FLONASE) 50 mcg/actuation nasal spray fluticasone propionate 50 mcg/actuation nasal spray,suspension ibuprofen (MOTRIN) 800 mg tablet ibuprofen 800 mg tablet ketoconazole (NIZORAL) 2 % shampoo ketoconazole 2 % shampoo DAILY MULTI-VITAMIN ORAL No current facility-administered medications for this visit. Labs: Glucose (mg/dL) Date Value 01/26/2024 69 Potassium (mmol/L) Date Value 01/26/2024 4.7 Sodium (mmol/L) Date Value 01/26/2024 138 Chloride (mmol/L) Date Value 01/26/2024 97 CO2 (mmol/L) Date Value 01/26/2024 28 Creatinine (mg/dL) Date Value 01/26/2024 0.92 BUN (mg/dL) Date Value 01/26/2024 17 Anion Gap (mmol/L) Date Value 01/26/2024 13 Calcium, Total (mg/dL) Date Value 03/06/2024 10.2 Lab Results Component Value Date HBA1C 4.5 01/26/2024 HBA1C 4.5 01/11/2023 HBA1C 5.2 12/02/2021 Cholesterol, Total Date Value Ref Range Status 01/26/2024 169 <200 mg/dL Final Comment: <200 mg/dL, Desirable 200-239 mg/dL, Borderline high >239 mg/dL, High HDL Cholesterol Date Value Ref Range Status 01/26/2024 53 >39 mg/dL Final Comment: 40-59 mg/dL, Acceptable >59 mg/dL, High: Negative risk factor for coronary heart disease <40 mg/dL, Low: Positive risk factor for coronary heart disease LDL Cholesterol Date Value Ref Range Status 01/26/2024 97 <100 mg/dL Final Comment: <100 mg/dL, Optimal 100-129 mg/dL, Near optimal/above optimal 130-159 mg/dL, Borderline high 160-189 mg/dL, High >189 mg/dL, Very high Secondary prevention optimal LDL Cholesterol levels are recommended to be < 70 mg/dL Triglyceride Date Value Ref Range Status 01/26/2024 97 <150 mg/dL Final Comment: <150 mg/dL, Normal 150-199 mg/dL, Borderline high 200-499 mg/dL, High >499 mg/dL, Very high ANTHROPOMETRICS Height: Last 1 Encounter Ht Readings: Date: Ht: 11/09/2023 163.8 cm (5' 4.5 ) Current weight: Last 3 Encounter Wt Readings: Date: Wt: 02/15/2024 103.9 kg (229 lb) 12/07/2023 105.7 kg (233 lb) 11/09/2023 101.6 kg (224 lb) BMI: 38.70 kg/m2 5% -10% Weight loss: Last Wt 02/15/24 : 103.9 kg (229 lb) 5% weight loss = 218 lbs, 10% weight loss = 206 lbs READINESS TO LEARN Cognitive ability: Alert and oriented Motivation to learn: Interested Family support: Unable to assess - Family not present Instruction provided to: Patient Patient learns best by: Multiple Methods Factors affecting (more content not included)... [facility] 03-07-2024 Note HNO ID: [id number] Author: SACHI PEDRO MD Service: ? Author Type: Physician Type: Progress Notes Filed: 03/07/2024 10:21 Note Text: Endocrinology Follow Up Benny Guerrero, virtual visit for follow up regarding: PCOS, Marianne's I have communicated my name and active licensure. The patient's identity and physical location were verified at the time of this visit. 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 Last visit: 01/2023 History of Present Illness Benny Guerrero is a 38 year old female with PMH of PCOS, Hydradenitis suppurative, DLP, Obesity and Hx of hypothyroidism, visit for follow up of weight management Not on Mounjaro Having heart palpitations and syncope Apple watch would catch the palpitations Then developed anxiety - had trouble driving Gets light headed Started on Prozac but still has anxiety Issues with the muscles in her back and hand Has muscle issues Back and arms go numb Joint pain Wellbutrin 300 mg daily started 2 years ago Stopped motrin once she found out she had ulcers Was taking it as needed - around 2 times per week to a few time a month On omeprazole Spironolactone 150 mg daily Symptoms occur during the day Never occur overnight 1st meal :10 AM: yoghurt, mini muffins, granula bar Drinks drinks black coffee, regular water 12-12:30 PM: lunchable or sandwich, chips, drinks: sparkling seltzer Dinner: 6-6:30 PM: meat and vegetable Drinks unsweetened iced tea and monk fruit or seltzer Snack: mini ice cream cone Feels like there is something stuck in her throat Doing well Current weight 183 lbs On Mounjaro 7.5 mg weekly Prefers to stay on this dose Has not been able to get the refill but did start Mounjaro prior to the indication change in 06/2022 Current weight: 223-226 lbs (was down to 201 lbs) On topamax 25 mg daily [facility] [place] time Was doing well with the mounjaro [place] when she first came off the Mounro Lost 15 lbs since starting the Mounajro Starting the 5 mg weekly soon Will be seeing her PCP for the back pain On Topamax 25 mg daily (cannot tolerate 50 mg dose) Not on metformin Taking spironolactone Prior weight 224 lbs On Topamax 25 mg daily, phentermine 37.5 mg EOD (since 03/07) Stopped the metformin - GI issues resolved (bloating) Was on regular metformin 1000 mg daily Has an IUD Was down to 248 lbs Lost 38 lbs since 09/2021 No hx of fractures or kidney stones No FHx of hip fracture MGM had osteoporosis Wegovy not covered Maternal aunt and PGM have Graves' disease TSI positive TSH and FT4 in 02/2022 and 09/2021 WNL Weight in teenage years around 160-180 lbs Has two children (1 still born and 1 living child) 2016 and 2017 Son almost 5 years old now Had pre-ecclampsia 1st son had polyhydramnios No GDM breastfed with no issues No FHx of DM Was on metfomrin during her for PCOS No issues getting Was on OCP - stopped it and got the next month Aldactone recently started for hydradenitis She has an IUD Hydradenitis more controlled when she was on OCP Started on OCP at age 15 No current plans for pregnancies Menarche at age 13 Cycles were regular in the past - started on OCP for heavy cycles Acne and mild hirsutism Spironolactone helped make the 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 card and finer Acne better controlled now Dx with PCOS by her OBGYN around 2014 Weight gain and acanthosis Maternal uncle had thyroidectomy for Graves' disease with ophthalmology Mother and 2 of her sister have hypothyroidism MGM had goiter and Graves' disease She was on LT4 therapy as a teenager Has tried Adipex in the past - did well with the first round (lost 40 lb) Second round not as well Was able to maintain her weight for 6 months after that Boyfriend waiting for a heart transplant Has also tried weight watchers at age 23 - 24 (lost 30-40 lbs) Tried it again and it did not work Breakfast: bagel with cream cheese (whatever she can grab and go). Drinks diet pop, black coffee, water with crystal light Lunch: leftover dinner or sandwich . Drinks water or diet pop Dinner: low sodium diet. Fresh meats and vegetables. Diet pop Snack: chocolate (2 times a week) Trying to exercise Past History, Medications, Allergies PAST MEDICAL HISTORY Diagnosis Date Acquired hypothyroidism Asthma Hidradenitis PCOS (polycystic ovarian syndrome) PAST SURGICAL HISTORY Procedure Laterality Date SECTION HX DANDC, DIAG AND/OR THERAPEUTIC EGD DIAGNOSTIC 08/27/2023 EGD DIAGNOSTIC 06/30/2023 EGD DIAGNOSTIC 2016 Current Outpatient Medications Medication Sig Dispense Refill pantoprazole DR (PROTONIX) 40 mg tablet Take 1 tablet by mouth once daily. 30 tablet (more content not included)... [facility] 03-07-2024 History of Presen t illness Narrative Endocrinology Follow Up Benny Guerrero, virtual visit for follow up regarding: PCOS, Marianne's I have communicated my name and active licensure. The patient's identity and physical location were verified at the time of this visit. 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 Last visit: 01/2023 History of Present Illness Benny Guerrero is a 38 year old female with PMH of PCOS, Hydradenitis suppurative, DLP, Obesity and Hx of hypothyroidism, visit for follow up of weight management Not on Mounjaro Having heart palpitations and syncope Apple watch would catch the palpitations Then developed anxiety - had trouble driving Gets light headed Started on Prozac but still has anxiety Issues with the muscles in her back and hand Has muscle issues Back and arms go numb Joint pain Wellbutrin 300 mg daily started 2 years ago Stopped motrin once she found out she had ulcers Was taking it as needed - around 2 times per week to a few time a month On omeprazole Spironolactone 150 mg daily Symptoms occur during the day Never occur overnight 1st meal :10 AM: yoghurt, mini muffins, granula bar Drinks drinks black coffee, regular water 12-12:30 PM: lunchable or sandwich, chips, drinks: sparkling seltzer Dinner: 6-6:30 PM: meat and vegetable Drinks unsweetened iced tea and monk fruit or seltzer Snack: mini ice cream cone Feels like there is something stuck in her throat Doing well Current weight 183 lbs On Mounjaro 7.5 mg weekly Prefers to stay on this dose Has not been able to get the refill but did start Mounjaro prior to the indication change in 06/2022 Current weight: 223-226 lbs (was down to 201 lbs) On topamax 25 mg daily Ran out of the Mounjaro around [place] time Was doing well with the mounjaro [place] when she first came off the Mounjaro Lost 15 lbs since starting the Mounajro Starting the 5 mg weekly soon Will be seeing her PCP for the back pain On Topamax 25 mg daily (cannot tolerate 50 mg dose) Not on metformin Taking spironolactone Prior weight 224 lbs On Topamax 25 mg daily, phentermine 37.5 mg EOD (since 03/07) Stopped the metformin - GI issues resolved (bloating) Was on regular metformin 1000 mg daily Has an IUD Was down to 248 lbs Lost 38 lbs since 09/2021 No hx of fractures or kidney stones No FHx of hip fracture MGM had osteoporosis Wegovy not covered Maternal aunt and PGM have Graves' disease TSI positive TSH and FT4 in 02/2022 and 09/2021 WNL Weight in teenage years around 160-180 lbs Has two children (1 still born and 1 living child) 2016 and 2017 Son almost 5 years old now Had pre-ecclampsia 1st son had polyhydramnios No GDM breastfed with no issues No FHx of DM Was on metfomrin during her for PCOS No issues getting Was on OCP - stopped it and got the next month Aldactone recently started for hydradenitis She has an IUD Hydradenitis more controlled when she was on OCP Started on OCP at age 15 No current plans for pregnancies Menarche at age 13 Cycles were regular in the past - started on OCP for heavy cycles Acne and mild hirsutism Spironolactone helped make the 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 card and finer Acne better controlled now Dx with PCOS by her OBGYN around 2014 Weight gain and acanthosis Maternal uncle had thyroidectomy for Graves' disease with ophthalmology Mother and 2 of her sister have hypothyroidism MGM had goiter and Graves' disease She was on LT4 therapy as a teenager Has tried Adipex in the past - did well with the first round (lost 40 lb) Second round not as well Was able to maintain her weight for 6 months after that Boyfriend waiting for a heart transplant Has also tried weight watchers at age 23 - 24 (lost 30-40 lbs) Tried it again and it did not work Breakfast: bagel with cream cheese (whatever she can grab and go). Drinks diet pop, black coffee, water with crystal light Lunch: leftover dinner or sandwich . Drinks water or diet pop Dinner: low sodium diet. Fresh meats and vegetables. Diet pop Snack: chocolate (2 times a week) Trying to exercise Past History, Medications, Allergies PAST MEDICAL HISTORY Diagnosis Date Acquired hypothyroidism Asthma Hidradenitis PCOS (polycystic ovarian syndrome) PAST SURGICAL HISTORY Procedure Laterality Date SECTION HX D&C, DIAG AND/OR THERAPEUTIC EGD DIAGNOSTIC 08/27/2023 EGD DIAGNOSTIC 06/30/2023 EGD DIAGNOSTIC 2016 Current Outpatient Medications Medication Sig Dispense Refill pantoprazole DR (PROTONIX) 40 mg tablet Take 1 tablet by mouth once daily. 30 tablet 5 omeprazole (PRILOSEC) 40 mg capsule Take 1 capsule by mouth twice daily 60 capsule 0 buPROPion XL (WELLBUTRIN XL) 300 mg 24 hr tablet Take 1 tablet by mouth once daily. 90 tablet 1 FLUoxetine (PROZAC) 20 mg capsule Take 20 mg by mouth once daily. cetirizine (ZYRTEC) 10 mg tablet Take 10 mg by mouth once daily. atorvastatin (LIPITOR) 20 mg tablet Take 0.5 tablets by mouth once daily. spironolactone (ALDACTONE) 50 mg tablet Take 1 tablet by mouth twice daily. busPIRone (BUSPAR) 15 mg tablet Take 15 mg by mouth three times daily. Cholecalciferol, Vitamin D3, 25 mcg (1,000 unit) cap diphenhydrAMINE (BENADRYL) 25 mg capsule Take 25 mg by mouth every 6 hours as needed. fluticasone (FLONASE) 50 mcg/actuation nasal spray fluticasone propionate 50 mcg/actuation nasal spray,suspension ibuprofen (MOTRIN) 800 mg tablet ibuprofen 800 mg tablet ketoconazole (NIZORAL) 2 % shampoo ketoconazole 2 % shampoo DAILY MULTI-VITAMIN ORAL No current facility-administered medications for this visit. ALLERGIES Allergen Reactions Seasonal Allergies Other: See Comments FAMILY HISTORY Problem Relation Age of Onset Hypothyroidism Mother Hypothyroidism Sister Hypothyroidism Sister Graves Disease Maternal Grandmother Graves Disease Maternal Uncle Colon Cancer No Family History Social History Tobacco Use Smoking status: Former Packs/day: .5 Types: Cigarettes Smokeless tobacco: Never Tobacco comments: ciggarrets Vaping Use Vaping Use: current everyday user Substances: Nicotine Devices: Disposable Substance Use Topics Alcohol use: Yes Comment: rarely Drug use: Never Review of Systems Answers submitted by the patient for this visit: Core Review of Systems (Submitted on 03/03/2024) Fever : No Night sweats: No Recent unintentional weight change: No Nasal Congestion: No Hearing Loss: No Vision Disturbance: No A cough: No Difficulty Breathing?: No Chest pain: No Irregular heartbeat: No Leg Swelling: No Nausea: No Diarrhea: No Black tarry stools: No Difficulty Urinating?: No Awaken at Night More Than Once to Urinate?: No Joint pain or stiffness: Yes Muscle aches: Yes A rash: No Dizziness: No Headaches: Yes Memory Loss: Yes Seizures: No Physical examination GENERAL: Well nourished, well hydrated, in no distress and oriented x 3 COMMUNICATION: Hearing: normal; VOICE: normal EYES: no thyroid eye signs, Fundi normal, cornea normal and EOMI NECK: no visible nodules or goiter LUNGS: no audible wheezing or respiratory distress NEURO: normal strength and no tremor SKIN: No rash or visible wound. ENDOCRINE: No cushingoid or acromegalic features Previous Laboratory Results Component Latest Ref Rng & Units 09/25/2021 TSH 0.270 - 4.200 uU/mL 1.220 Free T4 0.9 - 1.7 ng/dL 1.1 Cortisol,ON DEX,Post <1.8 ug/dL 0.7 ACTH 7.2 - 63.3 pg/mL 2.2 (L) Dexamethasone ng/dL 271.2 Microsomal Antibody <5.6 IU/mL <1.0 Component Latest Ref Rng & Units 12/02/2021 Protein, Total 6.3 - 8.0 g/dL 7.2 Albumin 3.9 - 4.9 g/dL 4.6 Calcium 8.5 - 10.2 mg/dL 10.1 Bilirubin, Total 0.2 - 1.3 mg/dL 0.3 Alkaline Phosphatase 34 - 123 U/L 65 AST 13 - 35 U/L 20 ALT 7 - 38 U/L 17 Glucose 74 - 99 mg/dL 88 BUN 7 - 21 mg/dL 12 Creatinine 0.58 - 0.96 mg/dL 0.89 Sodium 136 - 144 mmol/L 138 Potassium 3.7 - 5.1 mmol/L 4.7 Chloride 97 - 105 mmol/L 101 CO2 22 - 30 mmol/L 26 Anion Gap 9 - 18 mmol/L 11 eGFR >=60 mL/min/1.73m 87 Cholesterol, Total <200 mg/dL 168 Triglyceride <150 mg/dL 222 (H) HDL Cholesterol >39 mg/dL 34 (L) Non HDL Cholesterol <130 mg/dL 134 (H) Fasting Time hrs 12 LDL Cholesterol <100 mg/dL 90 Sex Hormone Bind GLB 25 - 122 nmol/L 18 (L) Testosterone Total 9 - 55 ng/dL 16 Testosterone Free 1.3 - 9.2 pg/mL 3.5 Testo Bioavailable 4.1 - 25.5 ng/dL 9.8 TSI Qualitative Negative Negative TSI <0.55 IU/L 0.26 TSH Receptor AutoAntibody, Qualitative Negative Positive (A) TBI <=1.00 IU/L 1.59 (H) Hemoglobin A1C 4.3 - 5.6 % 5.2 Testosterone <40 ng/dL 15 DHEA-S 60.9 - 337.0 ug/dL 96.0 Androstenedione 0.3 - 3.3 ng/mL 0.9 07/2021: H.2 HCT: 43 % CMP WNL Chol: 223 LDL: 138 HDL: 40 T Non-HDL: 183 04/2021: HbA1c: 5.5 % Chol: 230 LDL: 143 HDL: 35 T TSH: 1.9 02/2022: TSH: 1.85 FT4: 0.98 Component Latest Ref Rng & Units 01/11/2023 Hemoglobin A1C 4.3 - 5.6 % 4.5 TSH 0.270 - 4.200 mIU/L 2.790 Free T4 0.9 - 1.7 ng/dL 1.4 Free T3 2.3 - 4.1 pg/mL 3.0 Component Latest Ref Rng & Units 09/25/2021 12/02/2021 01/11/2023 02/17/2023 Protein, Total 6.3 - 8.0 g/dL 7.2 Albumin 3.9 - 4.9 g/dL 4.6 Calcium 8.5 - 10.2 mg/dL 10.1 Bilirubin, Total 0.2 - 1.3 mg/dL 0.3 Alkaline Phosphatase 34 - 123 U/L 65 AST 13 - 35 U/L 20 ALT 7 - 38 U/L 17 Glucose 74 - 99 mg/dL 88 BUN 7 - 21 mg/dL 12 Creatinine 0.58 - 0.96 mg/dL 0.89 Sodium 136 - 144 mmol/L 138 Potassium 3.7 - 5.1 mmol/L 4.7 Chloride 97 - 105 mmol/L 101 CO2 22 - 30 mmol/L 26 Anion Gap 9 - 18 mmol/L 11 eGFR >=60 mL/min/1.73m 87 Cholesterol, Total <200 mg/dL 168 Triglyceride <150 mg/dL 222 (H) HDL Cholesterol >39 mg/dL 34 (L) Non HDL Cholesterol <130 mg/dL 134 (H) Fasting Time hrs 12 VLDL Cholesterol <30 mg/dL 44 (H) TC:HDL Ratio <5.10 4.94 LDL Cholesterol <100 mg/dL 90 LDL:HDL Ratio <2.54 2.65 (H) Sex Hormone Bind GLB 25 - 122 nmol/L 18 (L) Testosterone Total 9 - 55 ng/dL 16 Testosterone Free 1.3 - 9.2 pg/mL 3.5 Testo Bioavailable 4.1 - 25.5 ng/dL 9.8 Hemoglobin A1C 4.3 - 5.6 % 5.2 4.5 Estimated Average Glucose mg/dL 103 82 TSH 0.270 - 4.200 mIU/L 1.220 2.790 Free T4 0.9 - 1.7 ng/dL 1.1 1.4 Cortisol,ON DEX,Post <1.8 ug/dL 0.7 ACTH 7.2 - 63.3 pg/mL 2.2 (L) Dexamethasone ng/dL 271.2 Microsomal Antibody <5.6 IU/mL <1.0 Testosterone <40 ng/dL 15 DHEA-S 60.9 - 337.0 ug/dL 96.0 Androstenedione 0.3 - 3.3 ng/mL 0.9 Free T3 2.3 - 4.1 pg/mL 3.0 Insulin 3.0 - 25.0 mU/L 12.3 Latest Ref Rng 12/02/2021 01/11/2023 02/17/2023 01/26/2024 02/01/2024 03/06/2024 Protein, Total 6.3 - 8.0 g/dL 7.2 Albumin 3.9 - 4.9 g/dL 4.6 4.6 Calcium 8.5 - 10.2 mg/dL 10.1 10.6 (H) 10.2 Bilirubin, Total 0.2 - 1.3 mg/dL 0.3 Alkaline Phosphatase 34 - 123 U/L 65 AST 13 - 35 U/L 20 ALT 7 - 38 U/L 17 Glucose 74 - 99 mg/dL 88 69 (L) BUN 7 - 21 mg/dL 12 17 Creatinine 0.58 - 0.96 mg/dL 0.89 0.92 Sodium 136 - 144 mmol/L 138 138 Potassium 3.7 - 5.1 mmol/L 4.7 4.7 Chloride 97 - 105 mmol/L 101 97 CO2 22 - 30 mmol/L 26 28 Anion Gap 9 - 18 mmol/L 11 13 eGFR >=60 mL/min/1.73m 87 82 Cholesterol, Total <200 mg/dL 169 Triglyceride <150 mg/dL 97 HDL Cholesterol >39 mg/dL 53 Non HDL Cholesterol <130 mg/dL 116 Fasting Time hrs 12 VLDL Cholesterol <30 mg/dL 19 TC:HDL Ratio <5.10 3.19 LDL Cholesterol <100 mg/dL 97 LDL:HDL Ratio <2.54 1.83 Hemoglobin A1C 4.3 - 5.6 % 4.5 4.5 Estimated Average Glucose mg/dL 82 82 Normalized Calcium 1.08 - 1.30 mmol/L 1.31 (H) 1.29 Ionized Calcium 1.08 - 1.30 mmol/L 1.32 (H) 1.31 (H) TSH 0.270 - 4.200 mIU/L 2.790 2.670 Free T4 0.9 - 1.7 ng/dL 1.4 1.2 Free T3 2.3 - 4.1 pg/mL 3.0 Insulin 3.0 - 25.0 mU/L 12.3 PTH, Intact 15 - 65 pg/mL 29 32 Vitamin D 25 Hydroxy 31.0 - 80.0 ng/mL 43.3 43.8 Vit D1,25 Dihydroxy 19.9 - 79.3 pg/mL 53.8 Impression/Recommendations Benny Guerrero is a 38 year old female with PMH of PCOS, Hydradenitis suppurative, DLP, Obesity and Hx of hypothyroidism, visit for follow up of weight management Obesity BMI 31.12: -- Following at weight management clinic Reactive hypoglycemia: -- Dietary changes reviewed -- Referral to the guide winder Dyslipidemia: -- Started in Lipitor 20 mg daily in 07/2021 -- Has muscle aches and pain despite decrease to 10 mg dose -- Advised to try OTC co-enzyme Q10 supplements -- Last lipid panel in 11/2021 improved -- Repeat in 01/2023 Hypercalcemia: -- Repeat WNL -- Hold biotin for 3 days prior and repeat in 3 months PCOS and HS: -- She is on spironolactone therapy (150 mg daily) -- Off metfomrin since 02/2022 due to bloating (was on regular metformin 500 mg BID) -- Has the Mirena IUD -- Acne and hirstusim improved with spironolactone -- HS not as well controlled as when she was on OCP -- She may consider OCP in the future if weight loss does not help Hx of Hypothyroidism: -- Was on LT4 therapy in her teenage years -- Off LT4 for several years now -- Last TSH and FT4 in 02/2022, 10/2021 and 04/2021 WNL -- TPO negative -- FHx of Graves' disease in her PGM and maternal aunt -- Mother and 2 sisters have hypothyroidism -- TSI mildly elevated -- Discussed Graves' disease and indications for therapy -- Repeat levels in 01/2024, 01/2023, 01/2022 and 08/2022 WNL -- Repeat in 01/2025 -- Thyroid US The patient will follow up in 3 months Sachi Armas MD documented in this encounter [facility] 02-15-[address] Gilberto Armas, please see My Chart [facility] [facility] 02-15-[address] Gilberto Armas, please see My Chart documented in this encounter [facility] 02-15-2024 Instructions Irma Ta APRN.PATRIC - 02/15/2024 7:48 AM EDT Continue bupropion XL 300 mg daily. - This will help with appetite suppression and weight loss. - Possible side effects include headache, insomnia, dry mouth, GI upset, irritability, elevated heart rate, and elevated blood pressure. - I advise you to monitor blood pressure and heart rate at home. - If you follow-up virtually, you will need to have an updated weight, blood pressure, and pulse. General recommendations: - Weight loss medications are more effective if combined with healthy diets and routine exercise - Recommend a daily probiotic (such as Culturelle or Align, or similar) for healthy gut biome - Weigh yourself at least once per week - Recommend diet/nutrition trackers (food log, MyFitnessPal) and activity trackers (smart watch, etc) - Adequate, good quality sleep is an important part of weight management. We recommend 7-8 hours of sleep nightly and routine sleep schedules when possible. - For females of child-bearing age: it is not recommended to become while taking medications for weight loss. Please contact our office if you become . Follow-up in 3 months documented in this encounter [facility] 02-15-2024 History of Presen t illness Narrative Images from the original note were not included. [facility] VIRTUAL [facility]--FOLLOW-UP This is a virtual visit using [employer] acquired by [employer] Video Visit. It required patient-provider interaction for the medical decision making as documented below. I have communicated my name and active licensure. The patient's identity and physical location were verified at the time of this visit. 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 HISTORY OF PRESENT ILLNESS: Benny Guerrero is a 37 year old female with a history of obesity class 2, insulin resistance, PCOS, HLD, hypothyroidism, hidradenitis suppurativa who presents today for follow-up on weight management. Last saw Endocrinology Call PATRIC Purvis on 12/07/23. Stopped naltrexone, continued bupropion. Today reports appetite reduced but weight loss slowed. Taking compounded semaglutide, which she started about 2 months ago. Current weight loss medication: bupropion XL 300 mg daily Side effects of treatment: none Weight trend: increasing Goal weight: 160 lbs Weight History: 05/21/2023: 191 lbs (phentermine start) 06/24/2023: 193 lbs 09/07/2023: 208 lbs (phentermine stop) 12/07/2023: 233 lbs 02/14/2024: 229 lbs Weight graph: Diet: IF 24-hour recall: B: none L at 1145: part of grilled chicken on high-fiber wrap, baked Cheetos D: 2 hamburger patties with cheese, tater tots Sn at 1500: Uncrustable sandwich Beverages: seltzer Appetite: reduced Portion control: improved Binge eating: none, previously struggled Emotional eating: no, but craves sweets Late night eating: no Exercise/activity level: No structured exercise Active lifestyle, works 10 hr days Walks a lot at work Sleep: Averages 6-7 hours per night Denies difficulty falling or staying asleep Never feels rested upon waking Denies snoring Mood, stress: Always stressed Previous experience with weight loss medications: Bupropion: taking XL 300 mg daily for mood Naltrexone: took 09/2023-12/2023 (ineffective) Topiramate: started 12/2021, taking 25 mg, did not tolerate 50 mg (has Mirena IUD) Phentermine: took 12/2021-02/2022, took 05/2023-09/2023 (ineffective) GLP-1: took Eliseo 05/2022-03/2023 (coupon discontinued), taking compounded semaglutide Metformin: took previously (bloating) Review Of Systems See HPI and/or patient questionnaire. MEDICAL, FAMILY, and SOCIAL history reviewed and updated in chart ACTIVE PROBLEM LIST Obesity, Class Iii, Bmi 40-49.9 (Morbid Obesity) (Hcc) Current Outpatient Medications on File Prior to Visit Medication Sig atorvastatin (LIPITOR) 20 mg tablet Take 0.5 tablets by mouth once daily. buPROPion XL (WELLBUTRIN XL) 150 mg 24 hr tablet bupropion HCl XL 150 mg 24 hr tablet, extended release busPIRone (BUSPAR) 15 mg tablet Take 15 mg by mouth three times daily. cetirizine (ZYRTEC) 10 mg tablet Take 10 mg by mouth once daily. Cholecalciferol, Vitamin D3, 25 mcg (1,000 unit) cap DAILY MULTI-VITAMIN ORAL diphenhydrAMINE (BENADRYL) 25 mg capsule Take 25 mg by mouth every 6 hours as needed. doxycycline hyclate (VIBRAMYCIN) 100 mg capsule Take 100 mg by mouth. fexofenadine (JOYA) 180 mg tablet Take 180 mg by mouth once daily. (Patient not taking: Reported on 02/17/2023) fluticasone (FLONASE) 50 mcg/actuation nasal spray fluticasone propionate 50 mcg/actuation nasal spray,suspension ibuprofen (MOTRIN) 800 mg tablet ibuprofen 800 mg tablet ketoconazole (NIZORAL) 2 % shampoo ketoconazole 2 % shampoo metFORMIN (GLUCOPHAGE) 500 mg tablet Take 1 tablet by mouth twice daily with meals. omeprazole (PRILOSEC) 40 mg capsule omeprazole 40 mg capsule,delayed release Phentermine HCl 37.5 mg tablet Take 1 tablet by mouth once daily for 90 days. BMI 31.78 spironolactone (ALDACTONE) 50 mg tablet Take 1 tablet by mouth twice daily. tirzepatide (MOUNJARO) 7.5 mg/0.5 mL pen injector Inject 7.5 mg subcutaneously one time a week. topiramate (TOPAMAX) 50 mg tablet 25 mg daily for one week, then increase to 50 mg daily (Patient taking differently: 25 mg daily for one week) No current facility-administered medications on file prior to visit. VIDEO EXAM: (if completed, performed via video enabled technology) GENERAL: alert and appropriate, in no distress, well-hydrated, well nourished, and happy, smiling, interactive PERTINENT LABORATORY AND IMAGING: All pertinent laboratory / test results were reviewed. ASSESSMENT/PLAN: (E88.819) Insulin resistance (primary encounter diagnosis) (E66.9) Obesity, Class II, BMI 35-39.9 (E28.2) PCOS (polycystic ovarian syndrome) (E78.5) Dyslipidemia (E03.9) Hypothyroidism, unspecified type (L73.2) Hidradenitis suppurativa (Z79.899) Medication management (Z71.3) Dietary counseling (Z71.82) Exercise counseling Patient comes today for weight management, obesity and its comorbidities treatment. Weight gradually decreasing, down 4 lbs over past 2 months. Main risk factors for overweight/obesity include: Appetite reduced but weight loss slowed. Taking compounded semaglutide, which she started about 2 months ago. Diet low in fiber. No structured exercise. Has tried other classes of AOM without effect. Will continue bupropion, advised balanced diet, increased activity. - Classification: Obesity Class 2 - Current Weight Loss: (294 lbs on 09/24/21) 65 lbs or 22.1% - Medication recommendations: Continue bupropion XL 300 mg daily - Dietary recommendations: IF, low-carb Mediterranean - Exercise recommendations: Aim for at least 8K steps per day - Recommend 7-8 hours sleep nightly, regular sleep pattern Orders placed: No orders of the defined types were placed in this encounter. Follow-up in 3 months Seeing primary care provider and other specialists regarding issues that are not explained by the condition(s) for which I am seeing the patient. I spent a total of 30 minutes on the date of the service which included preparing to see the patient, [id number] patient care, completing clinical documentation, obtaining and/or reviewing separately obtained history, performing a medically appropriate examination, counseling and educating the patient/family/caregiver, and ordering medications, tests, or procedures. Irma Ta APRN.PATRIC Obesity Medicine Endocrinology and Metabolism [place] [facility] documented in this encounter [facility] 02-15-2024 Note HNO ID: [id number] Author: IRMA TA APRN.CNP Service: ? Author Type: Nurse Practitioner Type: Progress Notes Filed: 02/15/2024 07:48 Note Text: [facility] VIRTUAL VIS[facility]--FOLLOW-UP This is a virtual visit using [email or web address] Video Visit. It required patient-provider interaction for the medical decision making as documented below. I have communicated my name and active licensure. The patient's identity and physical location were verified at the time of this visit. 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 HISTORY OF PRESENT ILLNESS: Benny Guerrero is a 37 year old female with a history of obesity class 2, insulin resistance, PCOS, HLD, hypothyroidism, hidradenitis suppurativa who presents today for follow-up on weight management. Last saw Endocrinology Call PATRIC Purvis on 12/07/23. Stopped naltrexone, continued bupropion. Today reports appetite reduced but weight loss slowed. Taking compounded semaglutide, which she started about 2 months ago. Current weight loss medication: bupropion XL 300 mg daily Side effects of treatment: none Weight trend: increasing Goal weight: 160 lbs Weight History: 05/21/2023: 191 lbs (phentermine start) 06/24/2023: 193 lbs 09/07/2023: 208 lbs (phentermine stop) 12/07/2023: 233 lbs 02/14/2024: 229 lbs Weight graph: Diet: IF 24-hour recall: B: none L at 1145: part of grilled chicken on high-fiber wrap, baked Cheetos D: 2 hamburger patties with cheese, tater tots Sn at 1500: Uncrustable sandwich Beverages: seltzer Appetite: reduced Portion control: improved Binge eating: none, previously struggled Emotional eating: no, but craves sweets Late night eating: no Exercise/activity level: No structured exercise Active lifestyle, works 10 hr days Walks a lot at work Sleep: Averages 6-7 hours per night Denies difficulty falling or staying asleep Never feels rested upon waking Denies snoring Mood, stress: Always stressed Previous experience with weight loss medications: Bupropion: taking XL 300 mg daily for mood Naltrexone: took 09/2023-12/2023 (ineffective) Topiramate: started 12/2021, taking 25 mg, did not tolerate 50 mg (has Mirena IUD) Phentermine: took 12/2021-02/2022, took 05/2023-09/2023 (ineffective) GLP-1: took Mounjaro 05/2022-03/2023 (coupon discontinued), taking compounded semaglutide Metformin: took previously (bloating) Review Of Systems See HPI and/or patient questionnaire. MEDICAL, FAMILY, and SOCIAL history reviewed and updated in chart ACTIVE PROBLEM LIST Obesity, Class Iii, Bmi 40-49.9 (Morbid Obesity) (Hcc) Current Outpatient Medications on File Prior to Visit Medication Sig atorvastatin (LIPITOR) 20 mg tablet Take 0.5 tablets by mouth once daily. buPROPion XL (WELLBUTRIN XL) 150 mg 24 hr tablet bupropion HCl XL 150 mg 24 hr tablet, extended release busPIRone (BUSPAR) 15 mg tablet Take 15 mg by mouth three times daily. cetirizine (ZYRTEC) 10 mg tablet Take 10 mg by mouth once daily. Cholecalciferol, Vitamin D3, 25 mcg (1,000 unit) cap DAILY MULTI-VITAMIN ORAL diphenhydrAMINE (BENADRYL) 25 mg capsule Take 25 mg by mouth every 6 hours as needed. doxycycline hyclate (VIBRAMYCIN) 100 mg capsule Take 100 mg by mouth. fexofenadine (JOYA) 180 mg tablet Take 180 mg by mouth once daily. (Patient not taking: Reported on 02/17/2023) fluticasone (FLONASE) 50 mcg/actuation nasal spray fluticasone propionate 50 mcg/actuation nasal spray,suspension ibuprofen (MOTRIN) 800 mg tablet ibuprofen 800 mg tablet ketoconazole (NIZORAL) 2 % shampoo ketoconazole 2 % shampoo metFORMIN (GLUCOPHAGE) 500 mg tablet Take 1 tablet by mouth twice daily with meals. omeprazole (PRILOSEC) 40 mg capsule omeprazole 40 mg capsule,delayed release Phentermine HCl 37.5 mg tablet Take 1 tablet by mouth once daily for 90 days. BMI 31.78 spironolactone (ALDACTONE) 50 mg tablet Take 1 tablet by mouth twice daily. tirzepatide (MOUNJARO) 7.5 mg/0.5 mL pen injector Inject 7.5 mg subcutaneously one time a week. topiramate (TOPAMAX) 50 mg tablet 25 mg daily for one week, then increase to 50 mg daily (Patient taking differently: 25 mg daily for one week) No current facility-administered medications on file prior to visit. VIDEO EXAM: (if completed, performed via video enabled technology) GENERAL: alert and appropriate, in no distress, well-hydrated, well nourished, and happy, smiling, interactive PERTINENT LABORATORY AND IMAGING: All pertinent laboratory / test results were reviewed. ASSESSMENT/PLAN: (E88.819) Insulin resistance (primary encounter diagnosis) (E66.9) Obesity, Class II, BMI 35-39.9 (E28.2) PCOS (polycystic ovarian syndrome) (E78.5) Dyslipidemia (E03.9) Hypothyroidism, unspecified type (L7 (more content not included)... [facility] 02-11-2024 Telephone encounter Note Images from the original note were not included. Lavelle Sutton MD You19 hours ago (2:47 PM) Patient has order in for PH impedance and manometry which I recommend she complete as soon as possible. We can switch her in the mean time to protonix 40 mg daily and make sure she has the PH impedance done while she is taking the protonix. Also patient will need to see endocrine for hypercalcemia work up . Thank you. MD Dr. Lesley Angulo, please review the order and sign Thank earnest, Konstantin Brennan RN [facility] 02-11-2024 Miscellaneous Notes Images from the original note were not included. Lavelle Sutton MD You19 hours ago (2:47 PM) Patient has order in for PH impedance and manometry which I recommend she complete as soon as possible. We can switch her in the mean time to protonix 40 mg daily and make sure she has the PH impedance done while she is taking the protonix. Also patient will need to see endocrine for hypercalcemia work up . Thank you. MD Dr. Lesley Angulo, please review the order and sign Thank you, Konstantin Brennan, [place] Dr. Sutton, please review the pts updates and advise. Thank you, Konstantin Brennan RN documented in this encounter [facility] 02-10-[address] Sutton, please review the pts updates and advise. Thank you, Konstantin Brennan RN [facility] 02-04-2024 Telephone encounter Note Pharmacy calls in requesting the following refill(s): Requested Prescriptions Pending Prescriptions Disp Refills omeprazole (PRILOSEC) 40 mg capsule [Pharmacy Med Name: Omeprazole 40 MG Oral Capsule Delayed Release] 60 capsule 0 Sig: Take 1 capsule by mouth twice daily [facility] 02-04-2024 Miscellaneous Notes Pharmacy calls in requesting the following refill(s): Requested Prescriptions Pending Prescriptions Disp Refills omeprazole (PRILOSEC) 40 mg capsule [Pharmacy Med Name: Omeprazole 40 MG Oral Capsule Delayed Release] 60 capsule 0 Sig: Take 1 capsule by mouth twice daily documented in this encounter [facility] 01-27-2024 Telephone encounter Note Patient seen by alternative provider and asking how soon to follow up and obtain labs with you. Last OV states 3 months from [employer] [facility] 01-27-2024 Miscellaneous Notes Patient seen by alternative provider and asking how soon to follow up and obtain labs with you. Last OV states 3 months from [employer] documented in this encounter [facility] 12-30-2023 Telephone encounter Note The following approved medication requests have been transmitted electronically. Requested Prescriptions Signed Prescriptions Disp Refills buPROPion XL (WELLBUTRIN XL) 300 mg 24 hr tablet 90 tablet 1 Sig: Take 1 tablet by mouth once daily. Authorizing Provider: IRMA TA APRN.CNP [facility] 12-30-2023 Miscellaneous Notes The following approved medication requests have been transmitted electronically. Requested Prescriptions Signed Prescriptions Disp Refills buPROPion XL (WELLBUTRIN XL) 300 mg 24 hr tablet 90 tablet 1 Sig: Take 1 tablet by mouth once daily. Authorizing Provider: IRMA TA APRN.CNP Requester: Pharmacy Last Visit in Endocrinology: Provider name: Imra Ta CNP , Date Visit date not found [facility]: 12/07/2023 Next Scheduled Appt in Endo: 02/15/2024 Last Refill: 11/24/23 Number of Refills given: 0 Requested Prescriptions Pending Prescriptions Disp Refills buPROPion XL (WELLBUTRIN XL) 300 mg 24 hr tablet [Pharmacy Med Name: buPROPion HCl ER (XL) 300 MG Oral Tablet Extended Release 24 Hour] 30 tablet 0 Sig: Take 1 tablet by mouth once daily Please review and advise. Jodi Carr MA documented in this encounter [facility] 12-30-2023 Telephone encounter Note Requester: Pharmacy Last Visit in Endocrinology: Provider name: Irma Ta CNP , Date Visit date not found [facility]: 12/07/2023 Next Scheduled Appt in Endo: 02/15/2024 Last Refill: 11/24/23 Number of Refills given: 0 Requested Prescriptions Pending Prescriptions Disp Refills buPROPion XL (WELLBUTRIN XL) 300 mg 24 hr tablet [Pharmacy Med Name: buPROPion HCl ER (XL) 300 MG Oral Tablet Extended Release 24 Hour] 30 tablet 0 Sig: Take 1 tablet by mouth once daily Please review and advise. Jodi Carr MA [facility] 12-07-2023 Instructions Rosa Maria Purvis APRN.CNP - 12/07/2023 7:46 AM EDT Decrease naltrexone to 1/2 tablet once daily this week, then 1/4 tablet once daily next week, then discontinue. Continue bupropion XL 300mg daily - This will help with appetite suppression and weight loss. - Possible side effects include headache, insomnia, dry mouth, GI upset, irritability, elevated heart rate, and elevated blood pressure. - I advise you to monitor blood pressure and heart rate at home. - If you follow-up virtually, you will need to have an updated weight, blood pressure, and pulse. -- Please send me your blood pressure reading today after you are able to check it at home, thank you! Follow up in 3 months Increase lean protein and fiber intake Increase resistance training to promote muscle building and improve metabolism General recommendations: - Healthy diet, routine exercise, good sleep hygiene and stress management are all important for weight loss, in addition to any medications that may be prescribed. - Recommend a daily probiotic (such as Culturelle or Align, or similar) for healthy gut biome - Weigh yourself at least once per week to keep track of progress - Recommend diet/nutrition trackers (food log, MyFitnessPal) and activity trackers (smart watch, etc) - Adequate, good quality sleep is an important part of weight management. We recommend 7-8 hours of sleep nightly and routine sleep schedules when possible. - For females of child-bearing age: it is not recommended to become while taking medications for weight loss. Please contact our office if you become . *If you are scheduled for a virtual appointment, please have current weight, blood pressure and heart rate available. Blood pressure cuffs can typically be obtained over the counter at any retail pharmacy ([facility], [facility] [employer] [facility], etc.). documented in this encounter [facility] 12-07-2023 History of Presen t illness Narrative Images from the original note were not included. [facility] VIRTUAL VISIT--FOLLOW-UP This is a virtual visit using [employer] Video Visit. It required patient-provider interaction for the medical decision making as documented below. I have communicated my name and active licensure. The patient's identity and physical location were verified at the time of this visit. 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 HISTORY OF PRESENT ILLNESS: Benny Guerrero is a 38 year old female with a history of obesity, PCOS, insulin resistance, HLD, hypothyroidism, and hidradenitis suppurativa who presents today for follow-up on weight management. Last saw Endocrinology on 09/07/23 with Irma Ta. At that time, patient had not met usp crieria to continued on phentermine so phentermine and topamax were discontinued. Increased bupropion XL (taking for mood) and added naltrexone. Appetite and portion sizes poorly controlled, and cravings increased. Patient started compounded semaglutide on Wednesday and is interested in continuing with this medication instead. Current weight loss medication: bupropion XL 300mg daily, naltrexone 25mg BID, and first dose of compounded semaglutide taken on Wednesday Side effects of treatment: none Weight trend: increasing Goal weight: 160 lbs Weight Readings: 05/21/2023: 191 lbs (phentermine start) 06/24/2023: 193 lbs 09/07/2023: 208 lbs (phentermine/topamax discontinued, wellbutrin increased, naltrexone started) 12/07/2023: 233 lbs Weight graph: Diet: 24-hour recall: (Wednesday) B: [place] [employer] L: can of soup, cheese and crackers D: stir melvin - beef, frozen vegetables, white rice Beverages: water, coffee Appetite: constant hunger prior to taking compounded semaglutide Portion control: uncontrolled, but started improving yesterday Binge eating: occasional episodes Emotional eating: yes d/t stress, occurring a few times a week Late night eating: yes, a few times a week before bed Exercise/activity level: Active lifestyle Walks a lot at work Sleep: Averages 6-7 hours per night Denies difficulty falling or staying asleep Never feels rested upon waking Denies snoring Mood, stress: Always stressed but manageable On Prozac and Wellbutrin XL Previous experience with weight loss medications: Bupropion: taking XL 150 mg daily for mood, increased XL to 300mg on 09/07/23 Naltrexone: yes, started 09/07/23 Topiramate: started 12/2021, taking 25 mg, did not tolerate 50 mg (has Mirena IUD); discontinued 09/07/23 Phentermine: started 03/2022, restarted 05/21/23, discontinued 09/07/23 after not meeting 5% weight loss goal GLP-1: started Mounjaro 05/2022, stopped 03/2023 due to coupon discontinued Metformin: took previously (bloating) Review Of Systems See HPI and/or patient questionnaire. Answers submitted by the patient for this visit: Core Review of Systems (Submitted on 12/06/2023) Fever : No Night sweats: No Recent unintentional weight change: No Nasal Congestion: No Hearing Loss: No Vision Disturbance: No A cough: No Difficulty Breathing?: No Chest pain: No Irregular heartbeat: No Leg Swelling: No Nausea: No Diarrhea: No Black tarry stools: No Difficulty Urinating?: No Awaken at Night More Than Once to Urinate?: No Joint pain or stiffness: No Muscle aches: No A rash: No Dizziness: No Headaches: No Memory Loss: No Seizures: No MEDICAL, FAMILY, and SOCIAL history reviewed and updated in chart ACTIVE PROBLEM LIST Obesity, Class Iii, Bmi 40-49.9 (Morbid Obesity) (Hcc) Current Outpatient Medications on File Prior to Visit Medication Sig atorvastatin (LIPITOR) 20 mg tablet Take 0.5 tablets by mouth once daily. buPROPion XL (WELLBUTRIN XL) 150 mg 24 hr tablet bupropion HCl XL 150 mg 24 hr tablet, extended release busPIRone (BUSPAR) 15 mg tablet Take 15 mg by mouth three times daily. cetirizine (ZYRTEC) 10 mg tablet Take 10 mg by mouth once daily. Cholecalciferol, Vitamin D3, 25 mcg (1,000 unit) cap DAILY MULTI-VITAMIN ORAL diphenhydrAMINE (BENADRYL) 25 mg capsule Take 25 mg by mouth every 6 hours as needed. doxycycline hyclate (VIBRAMYCIN) 100 mg capsule Take 100 mg by mouth. fexofenadine (JOYA) 180 mg tablet Take 180 mg by mouth once daily. (Patient not taking: Reported on 02/17/2023) fluticasone (FLONASE) 50 mcg/actuation nasal spray fluticasone propionate 50 mcg/actuation nasal spray,suspension ibuprofen (MOTRIN) 800 mg tablet ibuprofen 800 mg tablet ketoconazole (NIZORAL) 2 % shampoo ketoconazole 2 % shampoo metFORMIN (GLUCOPHAGE) 500 mg tablet Take 1 tablet by mouth twice daily with meals. omeprazole (PRILOSEC) 40 mg capsule omeprazole 40 mg capsule,delayed release Phentermine HCl 37.5 mg tablet Take 1 tablet by mouth once daily for 90 days. BMI 31.78 spironolactone (ALDACTONE) 50 mg tablet Take 1 tablet by mouth twice daily. tirzepatide (MOUNJARO) 7.5 mg/0.5 mL pen injector Inject 7.5 mg subcutaneously one time a week. topiramate (TOPAMAX) 50 mg tablet 25 mg daily for one week, then increase to 50 mg daily (Patient taking differently: 25 mg daily for one week) No current facility-administered medications on file prior to visit. VIDEO EXAM: (if completed, performed via video enabled technology) GENERAL: alert and appropriate, in no distress, well-hydrated, well nourished, and happy, smiling, interactive PERTINENT LABORATORY AND IMAGING: All pertinent laboratory / test results were reviewed. Component Latest Ref Rng & Units 09/25/2021 12/02/2021 01/11/2023 02/17/2023 Protein, Total 6.3 - 8.0 g/dL 7.2 Albumin 3.9 - 4.9 g/dL 4.6 Calcium 8.5 - 10.2 mg/dL 10.1 Bilirubin, Total 0.2 - 1.3 mg/dL 0.3 Alkaline Phosphatase 34 - 123 U/L 65 AST 13 - 35 U/L 20 ALT 7 - 38 U/L 17 Glucose 74 - 99 mg/dL 88 BUN 7 - 21 mg/dL 12 Creatinine 0.58 - 0.96 mg/dL 0.89 Sodium 136 - 144 mmol/L 138 Potassium 3.7 - 5.1 mmol/L 4.7 Chloride 97 - 105 mmol/L 101 CO2 22 - 30 mmol/L 26 Anion Gap 9 - 18 mmol/L 11 eGFR >=60 mL/min/1.73m 87 Cholesterol, Total <200 mg/dL 168 Triglyceride <150 mg/dL 222 (H) HDL Cholesterol >39 mg/dL 34 (L) Non HDL Cholesterol <130 mg/dL 134 (H) Fasting Time hrs 12 VLDL Cholesterol <30 mg/dL 44 (H) TC:HDL Ratio <5.10 4.94 LDL Cholesterol <100 mg/dL 90 LDL:HDL Ratio <2.54 2.65 (H) Hemoglobin A1C 4.3 - 5.6 % 4.5 Estimated Average Glucose mg/dL 82 TSH 0.270 - 4.200 mIU/L 1.220 2.790 Free T4 0.9 - 1.7 ng/dL 1.1 1.4 Cortisol,ON DEX,Post <1.8 ug/dL 0.7 Free T3 2.3 - 4.1 pg/mL 3.0 Insulin 3.0 - 25.0 mU/L 12.3 ASSESSMENT/PLAN: (E66.9) Obesity, Class II, BMI 35-39.9 (primary encounter diagnosis) (E28.2) PCOS (polycystic ovarian syndrome) (E88.819) Insulin resistance (E78.5) Dyslipidemia (E03.9) Hypothyroidism, unspecified type (Z79.899) Medication management (Z71.3) Dietary counseling (Z71.82) Exercise counseling Patient comes today for weight management, obesity and its comorbidities treatment. Overall, weight increased 25 lbs since previous visit. Appetite and portion sizes remained uncontrolled with increase of Wellbutrin and initiation of naltrexone. Patient is interested in pursuing compounded semaglutide at this time. Discussed that we do not recommend obtaining semaglutide compounded, since the salt forms of this medication are not FDA-approved or regulated, so there is no way to ensure safety or effectiveness. However, the patient is still interested in pursuing this route and plans to follow with non-[facility] pharmacy for medication management. Recommend continuing on Wellbutrin XL for mood and weaning off of naltrexone; patient agreeable. Patient prefers to continue on current dose of Wellbutrin XL for improved mood control. Main risk factors for overweight/obesity include: appetite and portion sizes not controlled, struggles with cravings, emotional eating, and late night eating at times. Discussed expectations, risks, benefits, and common side effects of the prescribed medications. - Classification: Obesity Class II - Current Weight Loss: none, +25 lbs (294 lbs on 09/24/21) - Recommend decreasing Naltrexone dose to 1/2 tablet in the evening for one week, then 1/4 tablet in the evening for one week, and then discontinue. - Continue Wellbutrin XL 300mg daily for mood and weight loss benefits. - Dietary recommendations: IF, low-carb Mediterranean. Increase lean protein + fiber intake. - Exercise recommendations: Aim for at least 8K steps per day. Recommend gradual increase in exercise. Goal is 150 minutes moderate-intensity exercise per week + strength training/resistance exercise 2 days per week. - Recommend 7-8 hours sleep nightly and regular sleep pattern Orders placed: No orders of the defined types were placed in this encounter. Follow-up in 3 months Seeing primary care provider and other specialists regarding issues that are not explained by the condition(s) for which I am seeing the patient. Medical Decision Making: Problems: Moderate: 1+ chronic illnesses with change Data: Unique source(s) for external note(s) reviewed: 3+ Unique test result(s) reviewed: 3+ Risk: Moderate: Drug management Medical Decision Making Level: 4 - Moderate Rosa Maria Purvis APRN.CNP Obesity Medicine Endocrinology and Metabolism [place] [facility] documented in this encounter [facility] 12-07-2023 Note HNO ID: [id number] Author: ROSA MARIA PURVIS APRN.PATRIC Service: ? Author Type: Nurse Practitioner Type: Progress Notes Filed: 12/07/2023 09:18 Note Text: [facility] VIRTUAL VIS[facility]--FOLLOW-UP This is a virtual visit using [employer] acquired by [employer] Video Visit. It required patient-provider interaction for the medical decision making as documented below. I have communicated my name and active licensure. The patient's identity and physical location were verified at the time of this visit. 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 HISTORY OF PRESENT ILLNESS: Benny Guerrero is a 38 year old female with a history of obesity, PCOS, insulin resistance, HLD, hypothyroidism, and hidradenitis suppurativa who presents today for follow-up on weight management. Last saw Endocrinology on 09/07/23 with Irma Ta. At that time, patient had not met exterminator helper termite crieria to continued on phentermine so phentermine and topamax were discontinued. Increased bupropion XL (taking for mood) and added naltrexone. Appetite and portion sizes poorly controlled, and cravings increased. Patient started compounded semaglutide on Wednesday and is interested in continuing with this medication instead. Current weight loss medication: bupropion XL 300mg daily, naltrexone 25mg BID, and first dose of compounded semaglutide taken on Wednesday Side effects of treatment: none Weight trend: increasing Goal weight: 160 lbs Weight Readings: 05/21/2023: 191 lbs (phentermine start) 06/24/2023: 193 lbs 09/07/2023: 208 lbs (phentermine/topamax discontinued, wellbutrin increased, naltrexone started) 12/07/2023: 233 lbs Weight graph: Diet: 24-hour recall: (Wednesday) B: [facility] L: can of soup, cheese and crackers D: stir melvin - beef, frozen vegetables, white rice Beverages: water, coffee Appetite: constant hunger prior to taking compounded semaglutide Portion control: uncontrolled, but started improving yesterday Binge eating: occasional episodes Emotional eating: yes d/t stress, occurring a few times a week Late night eating: yes, a few times a week before bed Exercise/activity level: Active lifestyle Walks a lot at work Sleep: Averages 6-7 hours per night Denies difficulty falling or staying asleep Never feels rested upon waking Denies snoring Mood, stress: Always stressed but manageable On Prozac and Wellbutrin XL Previous experience with weight loss medications: Bupropion: taking XL 150 mg daily for mood, increased XL to 300mg on 09/07/23 Naltrexone: yes, started 09/07/23 Topiramate: started 12/2021, taking 25 mg, did not tolerate 50 mg (has Mirena IUD); discontinued 09/07/23 Phentermine: started 03/2022, restarted 05/21/23, discontinued 09/07/23 after not meeting 5% weight loss goal GLP-1: started Mounjaro 05/2022, stopped 03/2023 due to coupon discontinued Metformin: took previously (bloating) Review Of Systems See HPI and/or patient questionnaire. Answers submitted by the patient for this visit: Core Review of Systems (Submitted on 12/06/2023) Fever : No Night sweats: No Recent unintentional weight change: No Nasal Congestion: No Hearing Loss: No Vision Disturbance: No A cough: No Difficulty Breathing?: No Chest pain: No Irregular heartbeat: No Leg Swelling: No Nausea: No Diarrhea: No Black tarry stools: No Difficulty Urinating?: No Awaken at Night More Than Once to Urinate?: No Joint pain or stiffness: No Muscle aches: No A rash: No Dizziness: No Headaches: No Memory Loss: No Seizures: No MEDICAL, FAMILY, and SOCIAL history reviewed and updated in chart ACTIVE PROBLEM LIST Obesity, Class Iii, Bmi 40-49.9 (Morbid Obesity) (Hcc) Current Outpatient Medications on File Prior to Visit Medication Sig atorvastatin (LIPITOR) 20 mg tablet Take 0.5 tablets by mouth once daily. buPROPion XL (WELLBUTRIN XL) 150 mg 24 hr tablet bupropion HCl XL 150 mg 24 hr tablet, extended release busPIRone (BUSPAR) 15 mg tablet Take 15 mg by mouth three times daily. cetirizine (ZYRTEC) 10 mg tablet Take 10 mg by mouth once daily. Cholecalciferol, Vitamin D3, 25 mcg (1,000 unit) cap DAILY MULTI-VITAMIN ORAL diphenhydrAMINE (BENADRYL) 25 mg capsule Take 25 mg by mouth every 6 hours as needed. doxycycline hyclate (VIBRAMYCIN) 100 mg capsule Take 100 mg by mouth. fexofenadine (JOYA) 180 mg tablet Take 180 mg by mouth once daily. (Patient not taking: Reported on 02/17/2023) fluticasone (FLONASE) 50 mcg/actuation nasal spray fluticasone propionate 50 mcg/actuation nasal spray,suspension ibuprofen (MOTRIN) 800 mg tablet ibuprofen 800 mg tablet ketoconazole (NIZORAL) 2 % shampoo ketoconazole 2 % shampoo metFORMIN (GLUCOPHAGE) 500 mg tablet Take 1 tablet by mouth twice daily (more content not included)... [facility] 11-29-2023 Miscellaneous Notes Patient is due for a follow-up appointment. mimoOn message sent to patient with available appointment times. documented in this encounter [facility] 11-24-2023 Miscellaneous Notes Scheduled VV and added patient to wait list Refilled for 30 days. Due for follow-up. Needs appt for continued refills. The following approved medication requests have been transmitted electronically. Requested Prescriptions Signed Prescriptions Disp Refills naltrexone 50 mg tablet 60 tablet 0 Sig: Take 0.5 tablets by mouth two times a day. Authorizing Provider: IRMA TA buPROPion XL (WELLBUTRIN XL) 300 mg 24 hr tablet 30 tablet 0 Sig: Take 1 tablet by mouth once daily. Authorizing Provider: IRMA TA APRN.PATRIC Requester: Patient Last Visit in Endocrinology: Provider name: Irma Ta CNP , Date Visit date not found [facility]: 09/07/2023 Next Scheduled Appt in Endo: Visit date not found Last Refill: 09/07/23 Number of Refills given: 2 PSS NOTE: Patient needs scheduled appointment is currently due for a follow up with Irma Ta CNP. Please assist in scheduling. Thank you! Requested Prescriptions Pending Prescriptions Disp Refills naltrexone 50 mg tablet 30 tablet 2 Sig: Take 1/4 tablet every night for 7 days, then increase to 1/2 tablet every night for 3 weeks, then increase to 1/2 tablet twice daily. buPROPion XL (WELLBUTRIN XL) 300 mg 24 hr tablet 30 tablet 2 Sig: Take 1 tablet by mouth once daily. Please review and advise. Jodi Carr MA documented in this encounter [facility] 09-07-2023 Note HNO ID: [id number] Author: Irma Ta APRN.NURSING OFFICER Service: ? Author Type: Nurse Practitioner Type: Progress Notes Filed: 09/07/2023 11:29 AM Note Text: [facility] VIRTUAL VISIT--FOLLOW-UP This is a virtual visit using [email or web address] Video Visit. It required patient-provider interaction for the medical decision making as documented below. I have communicated my name and active licensure. The patient's identity and physical location were verified at the time of this visit. 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 HISTORY OF PRESENT ILLNESS: Benny Guerrero is a 37 year old female with a history of obesity class 1, PCOS, insulin resistance, HLD, hypothyroidism, hidradenitis suppurativa who presents today for follow-up on weight management. Last saw Endocrinology me 06/24/23. Continued phentermine, topiramate. Reports appetite not controlled. Following with GI for GERD, reports constant hunger. Would like referral to establish with new GI. Current weight loss medication: phentermine 37.5 mg daily, topiramate 25 mg daily Side effects of treatment: none Weight trend: increasing Goal weight: 160 lbs Weight History: 05/21/2023: 191 lbs (phentermine start) 06/24/2023: 193 lbs 09/07/2023: 208 lbs Weight graph: Diet: IF 24-hour recall: B: none L at 1200: chicken quesadilla, Sun Chips, seltzer water D at 1800: white rice, shaved beef, peppers, onions, cheese Beverages: water, coffee Appetite: constant hunger Portion control: improved Binge eating: none, previously struggled Emotional eating: no, but craves sweets Late night eating: no Exercise/activity level: Active lifestyle Walks a lot at work Sleep: Averages 6-7 hours per night Denies difficulty falling or staying asleep Never feels rested upon waking Denies snoring Mood, stress: Always stressed Previous experience with weight loss medications: Bupropion: taking XL 150 mg daily for mood Naltrexone: no Topiramate: started 12/2021, taking 25 mg, did not tolerate 50 mg (has Mirena IUD) Phentermine: started 03/2022, restarted 05/21/23 GLP-1: started Mounjaro 05/2022, stopped 03/2023 due to coupon discontinued Metformin: took previously (bloating) Review Of Systems See HPI and/or patient questionnaire. Answers submitted by the patient for this visit: Core Review of Systems (Submitted on 09/06/2023) Fever : No Night sweats: No Recent unintentional weight change: No Nasal Congestion: No Hearing Loss: No Vision Disturbance: No A cough: No Chest pain: No Irregular heartbeat: No Leg Swelling: No Nausea: No Diarrhea: No Black tarry stools: No Difficulty Urinating?: No Awaken at Night More Than Once to Urinate?: No Joint pain or stiffness: No Muscle aches: No Leg or Foot Discomfort at Night?: No A rash: No Dizziness: No Headaches: No Memory Loss: No Seizures: No MEDICAL, FAMILY, and SOCIAL history reviewed and updated in chart ACTIVE PROBLEM LIST Obesity, Class Iii, Bmi 40-49.9 (Morbid Obesity) (Hcc) Current Outpatient Medications on File Prior to Visit Medication Sig atorvastatin (LIPITOR) 20 mg tablet Take 0.5 tablets by mouth once daily. buPROPion XL (WELLBUTRIN XL) 150 mg 24 hr tablet bupropion HCl XL 150 mg 24 hr tablet, extended release busPIRone (BUSPAR) 15 mg tablet Take 15 mg by mouth three times daily. cetirizine (ZYRTEC) 10 mg tablet Take 10 mg by mouth once daily. Cholecalciferol, Vitamin D3, 25 mcg (1,000 unit) cap DAILY MULTI-VITAMIN ORAL diphenhydrAMINE (BENADRYL) 25 mg capsule Take 25 mg by mouth every 6 hours as needed. doxycycline hyclate (VIBRAMYCIN) 100 mg capsule Take 100 mg by mouth. fexofenadine (JOYA) 180 mg tablet Take 180 mg by mouth once daily. (Patient not taking: Reported on 02/17/2023) fluticasone (FLONASE) 50 mcg/actuation nasal spray fluticasone propionate 50 mcg/actuation nasal spray,suspension ibuprofen (MOTRIN) 800 mg tablet ibuprofen 800 mg tablet ketoconazole (NIZORAL) 2 % shampoo ketoconazole 2 % shampoo metFORMIN (GLUCOPHAGE) 500 mg tablet Take 1 tablet by mouth twice daily with meals. omeprazole (PRILOSEC) 40 mg capsule omeprazole 40 mg capsule,delayed release Phentermine HCl 37.5 mg tablet Take 1 tablet by mouth once daily for 90 days. BMI 31.78 spironolactone (ALDACTONE) 50 mg tablet Take 1 tablet by mouth twice daily. tirzepatide (MOUNJARO) 7.5 mg/0.5 mL pen injector Inject 7.5 mg subcutaneously one time a week. topiramate (TOPAMAX) 50 mg tablet 25 mg daily for one week, then increase to 50 mg daily (Patient taking differently: 25 mg daily for one week) No current facility-administered medications on file prior to visit. VIDEO EXAM: (if completed, performed via video enabled technology) GENER (more content not included)... [facility] 08-27-2023 Note HNO ID: [id number] Author: Shanae Velasquez RN Service: ? Author Type: Registered Nurse Type: Nursing Progress Note Filed: 08/27/2023 2:14 PM Note Text: Dr. Cadet at bedside talking w/ patient and salesperson driver post procedure. [facility] 08-11-2023 Miscellaneous Notes Thank you Ifeoma. Please advise patient to reach out to her primary GI doctor with her concerns so they are aware. Ok for Prilosec 40mg once daily otherwise and if unable to get as prescription, she can get it OTC. Completed prior authorization for increase in omeprazole 40mg capsules medication CMM mathews: [id number] Submitted for 72 hr review. Notified patient as well. Ifeoma Rizzo RN documented in this encounter [facility] 08-04-2023 Miscellaneous Notes GI Pre-Procedure Spoke with patient: Yes Confirmed date scheduled and patient report time: Yes Procedure Planned:Esophagogastroduodenosco py(EGD) with or without biopies based on clinical findings, removal of polyps or lesions Is the patient on blood thinners?no Procedure Instructions given to patient: Yes, and they verbalized their understanding of instructions given Patient instructed to take prescribed preparation prior to procedure:Yes, and they verbalized their understanding of instructions given Patient instructed to have family/friend present for procedure transport home: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 and They verbalized their understanding and agree to have a responsible adult accompany the patient to their procedure and remain in the endoscopy area. Pt expressed salesperson driver should be in the building during procedure, went over salesperson driver policy with pt and pt expressed understanding. Any barriers to Patient learning: Patient/Patient Associate Manager Affiliate Marketing responded appropriately on phone. Type of instruction given: Verbal by telephone contact. David Maldonado RN documented in this encounter [facility] 06-30-2023 Nurse Note AMBULATORY PATIENT EDUCATION NOTE TOPIC: GI PROCEDURES: Esophagogastroduodenoscopy(EGD) with or without biopies based on clinical findings, removal of polyps or lesions READINESS TO LEARN INSTRUCTION PROVIDED TO: Patient and family member COGNITIVE ABILITY: Alert and oriented PTED MOTIVATION TO LEARN: Interested FAMILY SUPPORT: High - Very involved in pt care IPATIENT LEARNS BEST BY: Individual Instruction Written Instruction - Hand-outs Verbal Instruction FACTORS AFFECTING LEARNING: None PHYSICAL LIMITATIONS AFFECTING LEARNING: None LEARNING RESPONSE METHOD OF INSTRUCTION: Individual instruction PATIENT / FAMILY RESPONSE: Verbalizes understanding of: WORSENING CONDITION-Signs and symptoms of a worsening condition that warrant a call to the physician FOLLOW-UP PLAN: Recommend - Recommend continued instruction and follow up as directed SUPPLEMENTAL MATERIAL: Procedure Discharge Instructions REFERRAL (RECOMMENDATION): None PRE OP LEARNING ASSESSMENT PROCEDURE/SURGERY: GI PROCEDURES: EGD READINESS TO LEARN COGNITIVE ABILITY: Alert and oriented MOTIVATION TO LEARN: Eager FAMILY SUPPORT: High - Very involved in pt care PATIENT LEARNS BEST BY: Written Instruction - Hand-outs Verbal Instruction FACTORS AFFECTING LEARNING: None PHYSICAL LIMITATIONS AFFECTING LEARNING: None Electronically Signed By: Ruben Obregon LPN In Department: GASTROENTEROLOGY documented in this encounter [facility] 06-24-2023 Miscellaneous Notes Spoke to patient and message was given, no further questions at this time. She should take topiramate 50 mg 1/2 tablet daily. Irma Cobos APRN.PATRIC Images from the original note were not included. wants to know if she should take half a tab for the whole 90 days or just the first week Medication topiramate (TOPAMAX) 50 mg tablet Order Information Date and Time Department Ordering/Authorizing 06/24/2023 8:37 AM [facility] Irma Ta APRN.CNP Order Providers Prescribing Provider Encounter Provider Irma Ta APRN.CNP Lee, Christen, APRN.CNP Outpatient Medication Detail Disp Refills Start End topiramate (TOPAMAX) 50 mg tablet 90 tablet 1 06/24/2023 -- Sig: Take 0.5 tablets by mouth once daily. Sent to pharmacy as: topiramate (TOPAMAX) 50 mg tablet Class: Normal Route: ORAL Order: [id number] E-Prescribing Status: Receipt confirmed by pharmacy (06/24/2023 8:37 AM EDT) Administration Details suggestion The administrations shown are only for this specific order and not for other orders for the same medication that may be in this encounter. No Administrations Recorded Order History Outpatient Date/Time Action Taken User Additional Information 06/24/23 0837 Sign Irma Ta APRN.CNP Reorder from Order:[id number] Associated Diagnoses PCOS (polycystic ovarian syndrome) [E28.2] Dyslipidemia [E78.5] Obesity, Class III, BMI 40-49.9 (morbid obesity) (HCC) [E66.01] Pharmacy [facility] [address] [place], [place] [id number] [place] [address] Order [place]it [place]: topiramate (TOPAMAX) 50 mg tablet [[id number]] Order [place]it [place]: topiramate (TOPAMAX) 50 mg tablet [[id number]] Original entry by Irma Ta APRN.CNP 06/24/2023 8:37 AM Revision History Medication Order name: topiramate (TOPAMAX) 50 mg tablet Medication: TOPIRAMATE 50 MG TABLET [[id number]] Dispense as Written: No Clinical Dose: 25 mg Route: ORAL Frequency: DAILY Duration: -- Sig: Take 0.5 tablets by mouth once daily. Dispense Quantity: 90 tablets Refills: 1 Associated Diagnoses: PCOS (polycystic ovarian syndrome) [E28.2]; Dyslipidemia [E78.5]; Obesity, Class III, BMI 40-49.9 (morbid obesity) (HCC) [E66.01] Pharmacy Associated Diagnoses: -- Dates Written Date: 06/24/2023 Expiration Date: 06/23/2024 Start Date: 06/24/2023 End Date: -- Authorizing Provider Name: Irma Ta APRN.NURSING OFFICER Pharmacy Note to Pharmacy: -- Owned by: [place] [id number] Pharmacy Comments: -- Dispense History Audit [place] Date Type Status Number of changes Pharmacy 06/24/23 Ordered [facility] [address] [place], [place] [id number] - [id number] [place] [address] Changes to the order display in the following color: Red Note that there may be changes made to the order that are not shown in this report, such as changes to details about ingredients. Reference Links 1: Drug Info - Adult 2: Drug Info - Peds 3: Hazardous Potential Reproductive Risk Drug PPE Encounter View Encounter documented in this encounter [facility] 06-24-2023 Instructions Irma Ta APRN.PATRIC - 06/24/2023 8:41 AM EDT Continue topiramate 25 mg nightly -For women of child-bearing age: you must be on a reliable for of contraception, as topiramate can cause defects. Topiramate can decrease effectiveness of oral contraceptives. -Possible side effects include fatigue, mental clouding, tingling in extremities, change in taste (especially with carbonated beverages), kidney stones. Continue phentermine 37.5 mg every morning to help suppress appetite. - Possible side effects of phentermine include dry mouth, insomnia, rapid heart rate, elevated blood pressure, headache, GI upset. Please monitor heart rate and blood pressure while starting this medication and notify the office if blood pressure is > 150/100 or resting heart rate is > 110. - You should not take other stimulant medications while taking phentermine unless discussed with your doctor. - Phentermine is a controlled substance and stimulant medication. You must follow-up as scheduled in order to continue being prescribed the medication. Please follow-up in 4 weeks AND 12 weeks from now. Following this, routine follow-up at least every 3 months is required for continued use as long as you have achieved and maintain a 5% weight loss. General recommendations: - Weight loss medications are more effective if combined with healthy diets and routine exercise - Recommend a daily probiotic (such as Culturelle or Align, or similar) for healthy gut biome - Weigh yourself at least once per week - Recommend diet/nutrition trackers (food log, MyFitnessPal) and activity trackers (smart watch, etc) - Adequate, good quality sleep is an important part of weight management. We recommend 7-8 hours of sleep nightly and routine sleep schedules when possible. - For females of child-bearing age: it is not recommended to become while taking medications for weight loss. Please contact our office if you become . Follow-up in 4 weeks documented in this encounter [facility] 06-24-2023 History of Presen t illness Narrative Images from the original note were not included. [facility] VIRTUAL VISIT--FOLLOW-UP This is a virtual visit using [employer] acquired by [employer] Video Visit. It required patient-provider interaction for the medical decision making as documented below. I have communicated my name and active licensure. The patient's identity and physical location were verified at the time of this visit. 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 HISTORY OF PRESENT ILLNESS: Benny Guerrero is a 37 year old female with a history of obesity class 1, PCOS, insulin resistance, HLD, hypothyroidism, hidradenitis suppurativa who presents today for follow-up on weight management. Last saw Endocrinology Dr. Gilberto Armas on 05/21/23. Had been taking Mounjaro, but coupon . Restarted phentermine (previously took in 2021, lost 38 lbs). Notes some appetite suppression. Stopped metformin due to bloating. Continues taking bupropion for mood. Current weight loss medication: phentermine 37.5 mg daily, topiramate 25 mg daily Side effects of treatment: mild constipation Weight trend: stable Goal weight: 160 lbs Weight History: 05/21/2023: 191 lbs (phentermine start) 06/24/2023: 193 lbs Weight graph: Diet: IF 24 hour recall B: none L at 1200: chicken and tuna pack with yogurt and fruit D at 1830: pasta with shrimp, garlic bread Sn at 1930: Little Shona dessert Beverages: selzer water, black coffee Appetite: a little reduced Portion control: improved Binge eating: none Emotional eating: no, but craves sweets Late night eating: no Exercise/activity level: Active lifestyle Walks a lot at work Sleep: Averages 6-7 hours per night Denies difficulty falling or staying asleep Never feels rested upon waking Denies snoring Mood, stress: Always stressed Previous experience with weight loss medications: Bupropion: taking long-term Naltrexone: no Topiramate: started 12/2021, taking 25 mg, did not tolerate 50 mg (has Mirena IUD) Phentermine: started 03/2022, restarted 05/21/23 GLP-1: started Mounjaro 05/2022, stopped 03/2023 due to coupon discontinued Metformin: took until 09/2022 (felt bloated) Review Of Systems See HPI and/or patient questionnaire. Answers submitted by the patient for this visit: Endocrine Review of Systems (Submitted on 06/23/2023) Fatigue: No Night sweats: No Recent unintentional weight change: No Skin Color Changes: No Post-Nasal Drip: Yes Thyroid Pain (lower neck): No Trouble Swallowing: No Vision Disturbance: No Chest pain: No Leg Swelling: No Blood Clots?: No Leg Pain while walking?: No Difficulty Breathing?: No Heartburn: Yes Nausea: No Vomiting: No Diarrhea: No Constipation: No Abdominal pain: No Bone Pain?: No Muscle aches: No Muscle weakness: No Joint pain or stiffness: No Headaches: No Dizziness: No Urgency to Urinate?: No Increased Urination?: No Slow or Small Urine Stream?: No Are your menstrual cycles regular?: No Are your menstrual cycles irregular?: Yes Have your menstrual cycles stopped?: No Flushing?: Yes Hot Flashes?: Yes Increased Thirst: Yes Change in Body Hair?: No Cold Intolerance: Yes Heat Intolerance?: Yes MEDICAL, FAMILY, and SOCIAL history reviewed and updated in chart ACTIVE PROBLEM LIST Obesity, Class Iii, Bmi 40-49.9 (Morbid Obesity) (Hcc) Current Outpatient Medications on File Prior to Visit Medication Sig atorvastatin (LIPITOR) 20 mg tablet Take 0.5 tablets by mouth once daily. buPROPion XL (WELLBUTRIN XL) 150 mg 24 hr tablet bupropion HCl XL 150 mg 24 hr tablet, extended release busPIRone (BUSPAR) 15 mg tablet Take 15 mg by mouth three times daily. cetirizine (ZYRTEC) 10 mg tablet Take 10 mg by mouth once daily. Cholecalciferol, Vitamin D3, 25 mcg (1,000 unit) cap DAILY MULTI-VITAMIN ORAL diphenhydrAMINE (BENADRYL) 25 mg capsule Take 25 mg by mouth every 6 hours as needed. doxycycline hyclate (VIBRAMYCIN) 100 mg capsule Take 100 mg by mouth. fexofenadine (JOYA) 180 mg tablet Take 180 mg by mouth once daily. (Patient not taking: Reported on 02/17/2023) fluticasone (FLONASE) 50 mcg/actuation nasal spray fluticasone propionate 50 mcg/actuation nasal spray,suspension ibuprofen (MOTRIN) 800 mg tablet ibuprofen 800 mg tablet ketoconazole (NIZORAL) 2 % shampoo ketoconazole 2 % shampoo metFORMIN (GLUCOPHAGE) 500 mg tablet Take 1 tablet by mouth twice daily with meals. omeprazole (PRILOSEC) 40 mg capsule omeprazole 40 mg capsule,delayed release Phentermine HCl 37.5 mg tablet Take 1 tablet by mouth once daily for 90 days. BMI 31.78 spironolactone (ALDACTONE) 50 mg tablet Take 1 tablet by mouth twice daily. tirzepatide (MOUNJARO) 7.5 mg/0.5 mL pen injector Inject 7.5 mg subcutaneously one time a week. topiramate (TOPAMAX) 50 mg tablet 25 mg daily for one week, then increase to 50 mg daily (Patient taking differently: 25 mg daily for one week) No current facility-administered medications on file prior to visit. VIDEO EXAM: (if completed, performed via video enabled technology) GENERAL: alert and appropriate, in no distress, well-hydrated, well nourished, and happy, smiling, interactive PERTINENT LABORATORY AND IMAGING: All pertinent laboratory / test results were reviewed. Component Latest Ref Rng & Units 09/25/2021 12/02/2021 01/11/2023 02/17/2023 Protein, Total 6.3 - 8.0 g/dL 7.2 Albumin 3.9 - 4.9 g/dL 4.6 Calcium 8.5 - 10.2 mg/dL 10.1 Bilirubin, Total 0.2 - 1.3 mg/dL 0.3 Alkaline Phosphatase 34 - 123 U/L 65 AST 13 - 35 U/L 20 ALT 7 - 38 U/L 17 Glucose 74 - 99 mg/dL 88 BUN 7 - 21 mg/dL 12 Creatinine 0.58 - 0.96 mg/dL 0.89 Sodium 136 - 144 mmol/L 138 Potassium 3.7 - 5.1 mmol/L 4.7 Chloride 97 - 105 mmol/L 101 CO2 22 - 30 mmol/L 26 Anion Gap 9 - 18 mmol/L 11 eGFR >=60 mL/min/1.73m 87 Cholesterol, Total <200 mg/dL 168 Triglyceride <150 mg/dL 222 (H) HDL Cholesterol >39 mg/dL 34 (L) Non HDL Cholesterol <130 mg/dL 134 (H) Fasting Time hrs 12 VLDL Cholesterol <30 mg/dL 44 (H) TC:HDL Ratio <5.10 4.94 LDL Cholesterol <100 mg/dL 90 LDL:HDL Ratio <2.54 2.65 (H) Hemoglobin A1C 4.3 - 5.6 % 4.5 Estimated Average Glucose mg/dL 82 TSH 0.270 - 4.200 mIU/L 1.220 2.790 Free T4 0.9 - 1.7 ng/dL 1.1 1.4 Cortisol,ON DEX,Post <1.8 ug/dL 0.7 Free T3 2.3 - 4.1 pg/mL 3.0 Insulin 3.0 - 25.0 mU/L 12.3 ASSESSMENT/PLAN: (E66.9, Z68.31) Class 1 obesity with serious comorbidity and body mass index (BMI) of 31.0 to 31.9 in adult, unspecified obesity type (primary encounter diagnosis) (E28.2) PCOS (polycystic ovarian syndrome) (E88.819) Insulin resistance (E78.5) Dyslipidemia (E03.9) Hypothyroidism, unspecified type (L73.2) Hydradenitis (Z79.899) Medication management (Z71.3) Dietary counseling (Z71.82) Exercise counseling (E66.01) Obesity, Class III, BMI 40-49.9 (morbid obesity) (HCC) Patient comes today for weight management, obesity and its comorbidities treatment. Overall weight stable. Main risk factors for overweight/obesity include: diet low in fiber, no exercise routine. Optimized on phentermine. Unable to tolerate higher doses of topiramate. Taking bupropion for mood. - Classification: Obesity Class 1 - Current Weight Loss: (294 lbs on 09/24/21) 101 lbs or 34% - Medication recommendations: Continue phentermine 37.5 mg daily. Continue topiramate 25 mg nightly. - Dietary recommendations: IF, low-carb Mediterranean - Exercise recommendations: Aim for at least 8K steps per day - Recommend 7-8 hours sleep nightly, regular sleep pattern Phentermine Protocol Has been using phentermine consistently for past 4 weeks Weight prior to starting phentermine: 183 lbs Calculated weight after 5% loss: 173 lbs Current weight: 193 lbs *Must achieve a 5% weight loss within first 3 months of use and maintain this weight loss for ongoing use of medication. Orders placed: Orders Placed This Encounter DISCONTD: topiramate (TOPAMAX) 50 mg tablet Si mg daily for one week Dispense: 90 tablet Refill: 3 DISCONTD: topiramate (TOPAMAX) 50 mg tablet Sig: Take 0.5 tablets by mouth once daily. 25 mg daily for one week Dispense: 90 tablet Refill: 1 topiramate (TOPAMAX) 50 mg tablet Sig: Take 0.5 tablets by mouth once daily. Dispense: 90 tablet Refill: 1 Follow-up in 4 weeks Seeing primary care provider and other specialists regarding issues that are not explained by the condition(s) for which I am seeing the patient. I spent a total of 35 minutes on the date of the service which included preparing to see the patient, [id number] patient care, completing clinical documentation, obtaining and/or reviewing separately obtained history, performing a medically appropriate examination, counseling and educating the patient/family/caregiver, and ordering medications, tests, or procedures. Irma Ta APRN.PATRIC Obesity Medicine Endocrinology and Metabolism [place] [facility] documented in this encounter [facility] 06-23-2023 Miscellaneous Notes GI Pre-Procedure Spoke with patient: Yes Confirmed date scheduled and patient report time: Yes Procedure Planned:Esophagogastroduodenosco py(EGD) with or without biopies based on clinical findings, removal of polyps or lesions Is the patient on blood thinners?no Procedure Instructions given to patient: Yes, and they verbalized their understanding of instructions given Patient instructed to take prescribed preparation prior to procedure:Yes, and they verbalized their understanding of instructions given Patient instructed to have family/friend present for procedure transport home: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 and They verbalized their understanding and agree to have a responsible adult accompany the patient to their procedure and remain in the endoscopy area. Any barriers to Patient learning: Patient/Patient Associate Manager Affiliate Marketing responded appropriately on phone. Type of instruction given: Verbal by telephone contact. Jenn Lisa MA documented in this encounter [facility] 05-21-2023 History of Presen t illness Narrative Endocrinology Follow Up Benny Guerrero, virtual visit for follow up regarding: Weight management I have communicated my name and active licensure. The patient's identity and physical location were verified at the time of this visit. 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 Last visit: 01/2023 History of Present Illness Benny Guerrero is a 37 year old female with PMH of PCOS, Hydradenitis suppurative, DLP, Obesity and Hx of hypothyroidism, visit for follow up of weight management Doing well Current weight 183 lbs On Mounjaro 7.5 mg weekly Prefers to stay on this dose Has not been able to get the refill but did start Mounjaro prior to the indication change in 06/2022 Current weight: 223-226 lbs (was down to 201 lbs) On topamax 25 mg daily Ran out of the Mounjaro around [place] time Was doing well with the mounjaro [place] ramey when she first came off the Mounjaro Lost 15 lbs since starting the Mounajro Starting the 5 mg weekly soon Will be seeing her PCP for the back pain On Topamax 25 mg daily (cannot tolerate 50 mg dose) Not on metformin Taking spironolactone Prior weight 224 lbs On Topamax 25 mg daily, phentermine 37.5 mg EOD (since 03/07) Stopped the metformin - GI issues resolved (bloating) Was on regular metformin 1000 mg daily Has an IUD Was down to 248 lbs Lost 38 lbs since 09/2021 No hx of fractures or kidney stones No FHx of hip fracture MGM had osteoporosis Wegovy not covered Maternal aunt and PGM have Graves' disease TSI positive TSH and FT4 in 02/2022 and 09/2021 WNL Weight in teenage years around 160-180 lbs Has two children (1 still born and 1 living child) 2016 and 2017 Son almost 5 years old now Had pre-ecclampsia 1st son had polyhydramnios No GDM breastfed with no issues No FHx of DM Was on metfomrin during her for PCOS No issues getting Was on OCP - stopped it and got the next month Aldactone recently started for hydradenitis She has an IUD Hydradenitis more controlled when she was on OCP Started on OCP at age 15 No current plans for pregnancies Menarche at age 13 Cycles were regular in the past - started on OCP for heavy cycles Acne and mild hirsutism Spironolacotne helped make the 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 card and finer Acne better controlled now Dx with PCOS by her OBGYN around 2014 Weight gain and acanthosis Maternal uncle had thyroidectomy for Graves' disease with ophthalmology Mother and 2 of her sister have hypothyroidism MGM had goiter and Graves' disease She was on LT4 therapy as a teenager Has tried Adipex in the past - did well with the first round (lost 40 lb) Second round not as well Was able to maintain her weight for 6 months after that Boyfriend waiting for a heart transplant Has also tried weight watchers at age 23 - 24 (lost 30-40 lbs) Tried it again and it did not work Breakfast: bagel with cream cheese (whatever she can grab and go). Drinks diet pop, black coffee, water with crystal light Lunch: leftover dinner or sandwich . Drinks water or diet pop Dinner: low sodium diet. Fresh meats and vegetables. Diet pop Snack: chocolate (2 times a week) Trying to exercise Past History, Medications, Allergies PAST MEDICAL HISTORY Diagnosis Date Acquired hypothyroidism Hidradenitis PCOS (polycystic ovarian syndrome) PAST SURGICAL HISTORY Procedure Laterality Date SECTION HX Current Outpatient Medications Medication Sig Dispense Refill doxycycline hyclate (VIBRAMYCIN) 100 mg capsule Take 100 mg by mouth. cetirizine (ZYRTEC) 10 mg tablet Take 10 mg by mouth once daily. tirzepatide (MOUNJARO) 7.5 mg/0.5 mL pen injector Inject 7.5 mg subcutaneously one time a week. 6 mL 3 metFORMIN (GLUCOPHAGE) 500 mg tablet Take 1 tablet by mouth twice daily with meals. 180 tablet 3 topiramate (TOPAMAX) 50 mg tablet 25 mg daily for one week, then increase to 50 mg daily (Patient taking differently: 25 mg daily for one week) 90 tablet 3 atorvastatin (LIPITOR) 20 mg tablet Take 0.5 tablets by mouth once daily. spironolactone (ALDACTONE) 50 mg tablet Take 1 tablet by mouth twice daily. buPROPion XL (WELLBUTRIN XL) 150 mg 24 hr tablet bupropion HCl XL 150 mg 24 hr tablet, extended release busPIRone (BUSPAR) 15 mg tablet Take 15 mg by mouth three times daily. Cholecalciferol, Vitamin D3, 25 mcg (1,000 unit) cap diphenhydrAMINE (BENADRYL) 25 mg capsule Take 25 mg by mouth every 6 hours as needed. fexofenadine (JOYA) 180 mg tablet Take 180 mg by mouth once daily. (Patient not taking: Reported on 02/17/2023) fluticasone (FLONASE) 50 mcg/actuation nasal spray fluticasone propionate 50 mcg/actuation nasal spray,suspension ibuprofen (MOTRIN) 800 mg tablet ibuprofen 800 mg tablet ketoconazole (NIZORAL) 2 % shampoo ketoconazole 2 % shampoo DAILY MULTI-VITAMIN ORAL omeprazole (PRILOSEC) 40 mg capsule omeprazole 40 mg capsule,delayed release No current facility-administered medications for this visit. ALLERGIES Allergen Reactions Seasonal Allergies Other: See Comments FAMILY HISTORY Problem Relation Age of Onset Hypothyroidism Mother Hypothyroidism Sister Hypothyroidism Sister Graves Disease Maternal Grandmother Graves Disease Maternal Uncle Social History Tobacco Use Smoking status: Every Day Packs/day: .5 Types: Cigarettes Smokeless tobacco: Never Tobacco comments: ConteXtream Review of Systems Answers submitted by the patient for this visit: Core Review of Systems (Submitted on 05/19/2023) Fever : No Night Sweats: No Recent Unintentional Weight Change: No Nasal Congestion: No Hearing Loss: No Vision Disturbance: No A Cough: No Difficulty Breathing?: No Chest Pain: No Irregular Heart Beat: No Leg Swelling: No Nausea: No Diarrhea: No Black Tarry Stools: No Difficulty Urinating?: No Awaken at Night More Than Once to Urinate?: No Joint Pain or Stiffness: No Muscle Aches: No Leg or Foot Discomfort at Night?: No A Rash: No Dizziness: No Headaches: No Memory Loss: No Seizures: No Physical examination GENERAL: Well nourished, well hydrated, in no distress and oriented x 3 COMMUNICATION: Hearing: normal; VOICE: normal EYES: no thyroid eye signs, Fundi normal, cornea normal and EOMI NECK: no visible nodules or goiter LUNGS: no audible wheezing or respiratory distress NEURO: normal strength and no tremor SKIN: No rash or visible wound. ENDOCRINE: No cushingoid or acromegalic features Previous Laboratory Results Component Latest Ref Rng & Units 09/25/2021 TSH 0.270 - 4.200 uU/mL 1.220 Free T4 0.9 - 1.7 ng/dL 1.1 Cortisol,ON DEX,Post <1.8 ug/dL 0.7 ACTH 7.2 - 63.3 pg/mL 2.2 (L) Dexamethasone ng/dL 271.2 Microsomal Antibody <5.6 IU/mL <1.0 Component Latest Ref Rng & Units 12/02/2021 Protein, Total 6.3 - 8.0 g/dL 7.2 Albumin 3.9 - 4.9 g/dL 4.6 Calcium 8.5 - 10.2 mg/dL 10.1 Bilirubin, Total 0.2 - 1.3 mg/dL 0.3 Alkaline Phosphatase 34 - 123 U/L 65 AST 13 - 35 U/L 20 ALT 7 - 38 U/L 17 Glucose 74 - 99 mg/dL 88 BUN 7 - 21 mg/dL 12 Creatinine 0.58 - 0.96 mg/dL 0.89 Sodium 136 - 144 mmol/L 138 Potassium 3.7 - 5.1 mmol/L 4.7 Chloride 97 - 105 mmol/L 101 CO2 22 - 30 mmol/L 26 Anion Gap 9 - 18 mmol/L 11 eGFR >=60 mL/min/1.73m 87 Cholesterol, Total <200 mg/dL 168 Triglyceride <150 mg/dL 222 (H) HDL Cholesterol >39 mg/dL 34 (L) Non HDL Cholesterol <130 mg/dL 134 (H) Fasting Time hrs 12 LDL Cholesterol <100 mg/dL 90 Sex Hormone Bind GLB 25 - 122 nmol/L 18 (L) Testosterone Total 9 - 55 ng/dL 16 Testosterone Free 1.3 - 9.2 pg/mL 3.5 Testo Bioavailable 4.1 - 25.5 ng/dL 9.8 TSI Qualitative Negative Negative TSI <0.55 IU/L 0.26 TSH Receptor AutoAntibody, Qualitative Negative Positive (A) TBI <=1.00 IU/L 1.59 (H) Hemoglobin A1C 4.3 - 5.6 % 5.2 Testosterone <40 ng/dL 15 DHEA-S 60.9 - 337.0 ug/dL 96.0 Androstenedione 0.3 - 3.3 ng/mL 0.9 07/2021: H.2 HCT: 43 % CMP WNL Chol: 223 LDL: 138 HDL: 40 T Non-HDL: 183 04/2021: HbA1c: 5.5 % Chol: 230 LDL: 143 HDL: 35 T TSH: 1.9 02/2022: TSH: 1.85 FT4: 0.98 Component Latest Ref Rng & Units 01/11/2023 Hemoglobin A1C 4.3 - 5.6 % 4.5 TSH 0.270 - 4.200 mIU/L 2.790 Free T4 0.9 - 1.7 ng/dL 1.4 Free T3 2.3 - 4.1 pg/mL 3.0 Component Latest Ref Rng & Units 09/25/2021 12/02/2021 01/11/2023 02/17/2023 Protein, Total 6.3 - 8.0 g/dL 7.2 Albumin 3.9 - 4.9 g/dL 4.6 Calcium 8.5 - 10.2 mg/dL 10.1 Bilirubin, Total 0.2 - 1.3 mg/dL 0.3 Alkaline Phosphatase 34 - 123 U/L 65 AST 13 - 35 U/L 20 ALT 7 - 38 U/L 17 Glucose 74 - 99 mg/dL 88 BUN 7 - 21 mg/dL 12 Creatinine 0.58 - 0.96 mg/dL 0.89 Sodium 136 - 144 mmol/L 138 Potassium 3.7 - 5.1 mmol/L 4.7 Chloride 97 - 105 mmol/L 101 CO2 22 - 30 mmol/L 26 Anion Gap 9 - 18 mmol/L 11 eGFR >=60 mL/min/1.73m 87 Cholesterol, Total <200 mg/dL 168 Triglyceride <150 mg/dL 222 (H) HDL Cholesterol >39 mg/dL 34 (L) Non HDL Cholesterol <130 mg/dL 134 (H) Fasting Time hrs 12 VLDL Cholesterol <30 mg/dL 44 (H) TC:HDL Ratio <5.10 4.94 LDL Cholesterol <100 mg/dL 90 LDL:HDL Ratio <2.54 2.65 (H) Sex Hormone Bind GLB 25 - 122 nmol/L 18 (L) Testosterone Total 9 - 55 ng/dL 16 Testosterone Free 1.3 - 9.2 pg/mL 3.5 Testo Bioavailable 4.1 - 25.5 ng/dL 9.8 Hemoglobin A1C 4.3 - 5.6 % 5.2 4.5 Estimated Average Glucose mg/dL 103 82 TSH 0.270 - 4.200 mIU/L 1.220 2.790 Free T4 0.9 - 1.7 ng/dL 1.1 1.4 Cortisol,ON DEX,Post <1.8 ug/dL 0.7 ACTH 7.2 - 63.3 pg/mL 2.2 (L) Dexamethasone ng/dL 271.2 Microsomal Antibody <5.6 IU/mL <1.0 Testosterone <40 ng/dL 15 DHEA-S 60.9 - 337.0 ug/dL 96.0 Androstenedione 0.3 - 3.3 ng/mL 0.9 Free T3 2.3 - 4.1 pg/mL 3.0 Insulin 3.0 - 25.0 mU/L 12.3 Impression/Recommendations Benny Guerrero is a 37 year old female with PMH of PCOS, Hydradenitis suppurative, DLP, Obesity and Hx of hypothyroidism, visit for follow up of weight management Obesity BMI 31.12: -- Dietary changes and exercise reviewed -- No evidence of thyroid or isabel disease -- Last TSH and FT4 WNL in 02/2022 and 10/2021, TPO negative, TSI mildly positive -- She has tried weight watcher and Adipex in the past with good success the first round (30-40 lb weight loss) -- Wegovy not covered -- She has a Mirena IIUD -- Started on Topamax therapy 25 daily and phentermine 37.5 mg 1/2 tab daily in 12/2021 -- Currently on Topamax therapy 25 daily and Wellbutrin 150 mg daily -- Last phentermine use 2021 - Lost 38 lbs since 09/2021 -- Could not tolerate Topamax 50 mg dose - taking 25 mg daily -- Had bloating with regular metformin 1000 mg daily - resolved once she stopped it -- Also doing intermittent fasting -- Referred to the guide winder for mediterranean diet -- Referred to weight management fitness program -- Started on Mounjaro in 05/2022 - lost 15 lbs since -- Was on Mounjaro 7.5 mg weekly - ran out one month ago -- Weight today: 183 lbs in 01/2023, blu weight 191 lbs -- Will restart phentermine 37.5 mg 1/2 daily -- Referral to weight management progrsd Dyslipidemia: -- Started in Lipitor 20 mg daily in 07/2021 -- Has muscle aches and pain despite decrease to 10 mg dose -- Advised to try OTC co-enzyme Q10 supplements -- Last lipid panel in 11/2021 improved -- Repeat in 01/2023 PCOS and HS: -- She is on spironolactone therapy (50 mg BID) -- Off metfomrin since 02/2022 due to bloating (was on regular metformin 500 mg BID) -- Has the Mirena IUD -- Acne and hirstusim improved with spironolactone -- HS not as well controlled as when she was on OCP -- She may consider OCP in the future if weight loss does not help Hx of Hypothyroidism: -- Was on LT4 therapy in her teenage years -- Off LT4 for several years now -- Last TSH and FT4 in 02/2022, 10/2021 and 04/2021 WNL -- TPO negative -- FHx of Graves' disease in her PGM and maternal aunt -- Mother and 2 sisters have hypothyroidism -- TSI mildly elevated -- Discussed Graves' disease and indications for therapy -- Repeat levels in 01/2023, 01/2022 and 08/2022 WNL -- Repeat in 01/2024 The patient will follow up in 01/2024 Sachi Armas MD documented in this encounter [facility] 03-19-[address] - 03/19/2023 2:37 PM EDT 03/18/2023: - Read over Lifestyle Guidelines for Treatment of GERD to determine if there may be a certain food aggravating your GERD. - Consider keeping a food diary and note when your discomfort occurs. Perhaps it can be linked to something you ate. - Recommend trying Metamucil daily as directed on the label- start slowly. - Aim to drink 64 oz of water daily. Minimize caffeine and carbonated beverages as these can aggravate GERD. documented in this encounter [facility] 03-19-2023 History of Presen t illness Narrative [facility] Nutrition Therapy: Virtual Consult - Initial Assessment I have communicated my name and active licensure. The patient s identity and physical location were verified at the time of this visit. 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 Nutrition Diagnosis: Overweight/obesity, related to, food/nutrition - related knowledge deficit, as evidenced by BMI above normative standard for age and gender. RECOMMENDED MALNUTRITION DIAGNOSIS: NO MALNUTRITION IDENTIFIED NUTRITION CARE PLAN Nutrition Intervention 03/18/2023: - Read over Lifestyle Guidelines for Treatment of GERD to determine if there may be a certain food aggravating your GERD. - Consider keeping a food diary and note when your discomfort occurs. Perhaps it can be linked to something you ate. - Recommend trying Metamucil daily as directed on the label- start slowly. - Aim to drink 64 oz of water daily. Minimize caffeine and carbonated beverages as these can aggravate GERD. Nutrition Monitoring & Evaluation: PO, weight status, activity, adherence to the above recommendations. Need for Follow up: prn Patient presents for nutrition counseling for GI symptoms. Recently diagnosed with hematolomegaly. 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 Her BMI is down to 30 from 50. Recently, pt has begun to have GI discomfort. She denies constipation. However she sometimes just goes every other day which is less for her. Diet recall reveal pt is following a lower car, high protein diet pattern. Diet may be lacking in fiber but she does consume fruits and vegetables. Diet recall kati not reveal any specific foods that may trigger GERD. Provided pt with GERD diet educational material. Suggest she try increasing her soluble fiber with Metamucil daily as directed. Patient's symptoms are: GI: gastric reflux Diet History: IF Breakfast - skips Snack - skips Lunch - leftovers, pack of tuna or chicken, protein shake (40g) Fairlife, apple or SF fruit cup, side salad Snack - skips- SF applesauce or protein bar; 6 oreos, string cheese Dinner - steak or chicken or air fried, steamed vegetables, watches sodium intake, rice with butter - eats chicken strips with coleslaw Snack - stops eating at 8:00- cookies or drumstick; chips and salsa; gummie worms Beverages - water with lemon, vitamin water zero, sparkling water, tea and lemonade Alcohol- rarely Vitamins/Supplements - MVI, Vt D - lost 150lbs on Moujaro - Miralax - 1x/day Activity: Activities of Daily 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 Resting Metabolic Rate: 1527 Malnutrition Screening Significant unintentional weight loss? No Eating less than 75% of usual intake for more than 2 weeks? No Potential Signs of Inflammation: no identifiable sources Education Materials Provided: Lifestyle Guidelines for the Treatment of GERD READINESS TO LEARN Cognitive ability: Alert and oriented Motivation to learn: Interested Family support: Unable to assess - Family not present Instruction provided to: Patient Patient learns best by: Multiple Methods Factors affecting learning: None Physical limitations affecting learning: None Referred by: Dr. Dang MNT Billing Type: Initial Assess/15 min 1 unit SIGNATURE: Lizbeth More RD PATIENT NAME: Benny Guerrero DATE: 03/18/2023 TIME: 3:24 PM PAGER: ; documented in this encounter [facility] 03-01-2023 History of Presen t illness Narrative Patient fasting for 3 hours:Yes Fibroscan was performed on March 01, 2023, by Luana Mar LPN and results are interpreted by Swathi Coburn Diagnosis: Hepatomegaly Please refer to get images report for individual readings Number of readings: 10 IQR %: 14% E (kpa): 5.8 CAP: 198 Impression The reading was adequate. FS =5.8 kPA. The CAP score is 198 and corresponds to steatosis grade of S0. The fibrosis interpretation threshold for hepatomegaly diagnosis in Fibroscan is not well-established and the reading may serve as a reference point for follow up. This reading corresponds: A 94% chance of stage 0-2 fibrosis A 6% chance of stage 3-4 fibrosis (advanced fibrosis) A <1% chance of stage 4 fibrosis (cirrhosis). Swathi Coburn PA-C Others/All Fibroscan Fibrosis Risk <7 kPA = F0-F2 94%, F3+F4 6%, F4 <1% <10 kPA = F0-F2 88%, F3+F4 12%, F4 1.8% 10-15 kPA = F0-F2 47%, F3+F4 53%, F4 19% >15 kPA = F0-F2 17%, F3+F4 83%, F4 61% Grade CAP value up to 237 dB/M corresponds to S0 (< 10 % Fat) CAP value between (238 - 258 dB/M) corresponds to S1 (>/= 11 % Fat) CAP value between (259 - 289 dB/M) corresponds to S2 (>/= 33 % Fat) CAP value > 290dB/M corresponds to S3 (>/= 67 % Fat) stage 0 ( S0:< 10 % steatosis) stage 1 (>/= S1: 11%-33% steatosis) stage 2 (>/= S2: 34%-66% steatosis) stage 3 (>/= S3: > 66% steatosis) Reference Raheel Y, Wong Q, Raheel T, Vanita J, Rahele H, Harinder T. Controlled attenuation parameter for assessment of hepatic steatosis grades: a diagnostic meta-analysis. Int J Clin Exp Med. 2015 Jun 15;8(10):61272-70. PMID: 33993335; PMCID: [id number]. Lorena Alegria, Augustus FILIPE, Ai M, Jeremiah F, Luis J, Zen O, Angie F, Katerin M, Pablo G, Jomar A, Mila E, Silverio L, Corbin G, Bernadine A, Sujata U, Taran S, Khushboo P, Nena V, Waterman V, Kenny Alegria, Rell YOUNG. Refining the Baveno elastography criteria for the definition of compensated advanced chronic liver disease. J Hepatol. 2020;74(5):6307-2461. doi: 10.1016/j.jhep.2020.11.050. Epub 2019Aug 14. PMID: 20631800. documented in this encounter [facility] 02-17-2023 History of Presen t illness Narrative Images from the original note were not included. [facility] Shelby Zhu MD, FACG, FAASLD Director, [facility] Consult Requested By: Swathi De Paz CNP referring provider defined for this encounter for evaluation of hepatomegaly.. Thank you I will share my finding via In Basket HPI: 37 yo was foiund to have hepatomegaly gerd for years Last egd 2017 had a BMI >45, now BMI >30, she has been on mounjaro since 05/2022 she lost over 150 pounds also takes topiramate was on phentermine she has insulin resistance and was on metformin for years, she has PCOS she has dyslipidemia she reports no dx of VI At [facility], inr was normal viral hepatitis negative no vaccine against hep A/B she reports anxiety and depression and is on therapy as seen below she fasts long periods of time, modified her lifestyle, walks at work a lot or ride the bike has not seen a nutrtionist GENERAL REVIEW OF SYSTEMS: GENERAL: No unexplained weight changes or fevers. HEENT: Negative for severe headaches, negative for changes in hearing or vision. NECK: Negative for lumps, masses or pain. RESPIRATORY: Negative for coughing, wheezing or significant dyspnea. CARDIOVASCULAR: Negative for chest pain or heart palpitations. GASTROINTESTINAL: Negative for rectal bleeding or black tarry stools. GENITOURINARY: Negative for dysuria or urinary incontinence. MUSCULOSKELETAL: Negative for unexplained joint pains, dislocations or fractures. NEUROLOGIC: Negative for unexplained weakness or vertigo. SKIN: Negative for new lesions or rashes. ENDOCRINE: Negative for cold or heat intolerance . Metabolic Syndrome Risk factors: 3/5 FAMILY HISTORY Problem Relation Age of Onset Hypothyroidism Mother Hypothyroidism Sister Hypothyroidism Sister Graves Disease Maternal Grandmother Graves Disease Maternal Uncle PAST MEDICAL HISTORY Diagnosis Date Acquired hypothyroidism Hidradenitis PCOS (polycystic ovarian syndrome) PAST SURGICAL HISTORY Procedure Laterality Date SECTION HX Social History Tobacco Use Smoking status: Every Day Packs/day: 0.50 Types: Cigarettes Smokeless tobacco: Never Tobacco comments: david Current Outpatient Medications on File Prior to Visit Medication Sig doxycycline hyclate (VIBRAMYCIN) 100 mg capsule Take 100 mg by mouth. cetirizine (ZYRTEC) 10 mg tablet Take 10 mg by mouth once daily. tirzepatide (MOUNJARO) 7.5 mg/0.5 mL pen injector Inject 7.5 mg subcutaneously one time a week. topiramate (TOPAMAX) 50 mg tablet 25 mg daily for one week, then increase to 50 mg daily (Patient taking differently: 25 mg daily for one week) atorvastatin (LIPITOR) 20 mg tablet Take 0.5 tablets by mouth once daily. spironolactone (ALDACTONE) 50 mg tablet Take 1 tablet by mouth twice daily. buPROPion XL (WELLBUTRIN XL) 150 mg 24 hr tablet bupropion HCl XL 150 mg 24 hr tablet, extended release busPIRone (BUSPAR) 15 mg tablet Take 15 mg by mouth three times daily. Cholecalciferol, Vitamin D3, 25 mcg (1,000 unit) cap diphenhydrAMINE (BENADRYL) 25 mg capsule Take 25 mg by mouth every 6 hours as needed. fluticasone (FLONASE) 50 mcg/actuation nasal spray fluticasone propionate 50 mcg/actuation nasal spray,suspension ibuprofen (MOTRIN) 800 mg tablet ibuprofen 800 mg tablet ketoconazole (NIZORAL) 2 % shampoo ketoconazole 2 % shampoo DAILY MULTI-VITAMIN ORAL omeprazole (PRILOSEC) 40 mg capsule omeprazole 40 mg capsule,delayed release metFORMIN (GLUCOPHAGE) 500 mg tablet Take 1 tablet by mouth twice daily with meals. fexofenadine (JOYA) 180 mg tablet Take 180 mg by mouth once daily. (Patient not taking: Reported on 02/17/2023) No current facility-administered medications on file prior to visit. doxycycline hyclate (VIBRAMYCIN) 100 mg capsule Take 100 mg by mouth. cetirizine (ZYRTEC) 10 mg tablet Take 10 mg by mouth once daily. tirzepatide (MOUNJARO) 7.5 mg/0.5 mL pen injector Inject 7.5 mg subcutaneously one time a week. topiramate (TOPAMAX) 50 mg tablet 25 mg daily for one week, then increase to 50 mg daily (Patient taking differently: 25 mg daily for one week) atorvastatin (LIPITOR) 20 mg tablet Take 0.5 tablets by mouth once daily. spironolactone (ALDACTONE) 50 mg tablet Take 1 tablet by mouth twice daily. buPROPion XL (WELLBUTRIN XL) 150 mg 24 hr tablet bupropion HCl XL 150 mg 24 hr tablet, extended release busPIRone (BUSPAR) 15 mg tablet Take 15 mg by mouth three times daily. Cholecalciferol, Vitamin D3, 25 mcg (1,000 unit) cap diphenhydrAMINE (BENADRYL) 25 mg capsule Take 25 mg by mouth every 6 hours as needed. fluticasone (FLONASE) 50 mcg/actuation nasal spray fluticasone propionate 50 mcg/actuation nasal spray,suspension ibuprofen (MOTRIN) 800 mg tablet ibuprofen 800 mg tablet ketoconazole (NIZORAL) 2 % shampoo ketoconazole 2 % shampoo DAILY MULTI-VITAMIN ORAL omeprazole (PRILOSEC) 40 mg capsule omeprazole 40 mg capsule,delayed release metFORMIN (GLUCOPHAGE) 500 mg tablet Take 1 tablet by mouth twice daily with meals. fexofenadine (JOYA) 180 mg tablet Take 180 mg by mouth once daily. (Patient not taking: Reported on 02/17/2023) PHYSICAL EXAMINATION: Ht 5' 5 (1.65m) Wt 184 lb (83.5kg) BMI 30.62 kg/(m^2). 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 , a+0 X3 No results found for this basename: inr:1,ptsec:1 Glucose (mg/dL) Date Value 12/02/2021 88 Potassium (mmol/L) Date Value 12/02/2021 4.7 Sodium (mmol/L) Date Value 12/02/2021 138 Chloride (mmol/L) Date Value 12/02/2021 101 CO2 (mmol/L) Date Value 12/02/2021 26 Creatinine (mg/dL) Date Value 12/02/2021 0.89 BUN (mg/dL) Date Value 12/02/2021 12 Anion Gap (mmol/L) Date Value 12/02/2021 11 Calcium, Total (mg/dL) Date Value 12/02/2021 10.1 Protein, Total (g/dL) Date Value 12/02/2021 7.2 Albumin (g/dL) Date Value 12/02/2021 4.6 Bilirubin, Total (mg/dL) Date Value 12/02/2021 0.3 Alkaline Phosphatase (U/L) Date Value 12/02/2021 65 AST (U/L) Date Value 12/02/2021 20 ALT (U/L) Date Value 12/02/2021 17 Glucose Date Value Ref Range Status 12/02/2021 88 74 - 99 mg/dL Final Comment: The [place] [employer] (ADA) provides guidance for cutoff values for fasting glucose and random glucose. The ADA defines fasting as no caloric intake for at least 8 hours. Fasting plasma glucose results between 100 to 125 mg/dL indicate increased risk for diabetes (prediabetes). Fasting plasma glucose results greater than or equal to 126 mg/dL meet the criteria for diagnosis of diabetes. In the absence of unequivocal hyperglycemia, results should be confirmed by repeat testing. In a patient with classic symptoms of hyperglycemia or hyperglycemic crisis, random plasma glucose results greater than or equal to 200 mg/dL meet the criteria for diagnosis of diabetes. Reference: Standards of Medical Care in Diabetes 2016, [place] [employer]. Diabetes Care. 2016.39(Suppl 1). Cholesterol, Total Date Value Ref Range Status 12/02/2021 168 <200 mg/dL Final Comment: <200 mg/dL, Desirable 200-239 mg/dL, Borderline high >239 mg/dL, High HDL Cholesterol Date Value Ref Range Status 12/02/2021 34 (L) >39 mg/dL Final Comment: 40-59 mg/dL, Acceptable >59 mg/dL, High: Negative risk factor for coronary heart disease <40 mg/dL, Low: Positive risk factor for coronary heart disease LDL Cholesterol Date Value Ref Range Status 12/02/2021 90 <100 mg/dL Final Comment: <100 mg/dL, Optimal 100-129 mg/dL, Near optimal/above optimal 130-159 mg/dL, Borderline high 160-189 mg/dL, High >189 mg/dL, Very high Secondary prevention optimal LDL Cholesterol levels are recommended to be < 70 mg/dL Triglyceride Date Value Ref Range Status 12/02/2021 222 (H) <150 mg/dL Final Comment: <150 mg/dL, Normal 150-199 mg/dL, Borderline high 200-499 mg/dL, High >499 mg/dL, Very high Hemoglobin A1C (%) Date Value 01/11/2023 4.5 12/02/2021 5.2 LFT in CE normal A/p: Dear Swathi thank you for referring Benny she has been found to have hepatomegaly on a recent US 01/2023 she had normal liver US in 2020 and normal LFT in 2021 she is asymptomatic now except for GERD she had a BMI> 45 now, on Mounjaro 7.5 mg weekly and topiramate 50 mg daily follows with [facility] of depression/anxiety on therapy dyslipidemia on atorvastatin PCOS plan: nutrtion referrral imrprove exercise 300 min a week, strenuous 3 x weekly fibroscan now GERD egd with me next avaiulable continue PPI and gerd measures, pamphlet given later may consider a liver biopsy Haley Zhu MD Thank you again for your kind referral. Please feel free to contact me if I can be of further assistance to you {I spent 40 minutes in the visit, with more than 50% of the total [id number] time of the visit in counseling / coordination of care. documented in this encounter [facility] 01-12-2023 Miscellaneous Notes Patient requesting interpretation of lab results. Please see patient's message and advise. NAVA: 09/24/2022 Next visit: 01/20/2023 Component Latest Ref Rng & Units 01/11/2023 Hemoglobin A1C 4.3 - 5.6 % 4.5 Estimated Average Glucose mg/dL 82 TSH 0.270 - 4.200 mIU/L 2.790 Free T4 0.9 - 1.7 ng/dL 1.4 Free T3 2.3 - 4.1 pg/mL 3.0 Thank you! Kenzie Delgadillo RN documented in this encounter [facility] 10-22-2022 Miscellaneous Notes Patient would like to confirm it is okay to cancel 10/28 visit as she will not be starting phentermine as was able to obtain Mounjaro. Please advise when you would like next visit. NAVA: 09/24/2021 Thank you! Kenzie Delgadillo RN documented in this encounter [facility] 09-24-2022 History of Presen t illness Narrative Endocrinology Follow Up Benny Cesar, virtual visit for follow up regarding: Weight management Patient consented to the Visit Name and confirmed Last visit: 06/2022 History of Present Illness Benny Guerrero is a 37 year old female with PMH of PCOS, Hydradenitis suppurative, DLP, Obesity and Hx of hypothyroidism, visit for follow up of weight management Has not been able to get the refill but did start Mounjaro prior to the indication change in 06/2022 Current weight: 223-226 lbs (was down to 201 lbs) On topamax 25 mg daily Ran out of the Mounjaro around [place] time Was doing well with the mounjaro [place] ramey when she first came off the Mounjaro Lost 15 lbs since starting the Mounajro Starting the 5 mg weekly soon Will be seeing her PCP for the back pain On Topamax 25 mg daily (cannot tolerate 50 mg dose) Not on metformin Taking spironolactone Prior weight 224 lbs On Topamax 25 mg daily, phentermine 37.5 mg EOD (since 03/07) Stopped the metformin - GI issues resolved (bloating) Was on regular metformin 1000 mg daily Has an IUD Was down to 248 lbs Lost 38 lbs since 09/2021 No hx of fractures or kidney stones No FHx of hip fracture MGM had osteoporosis Wegovy not covered Maternal aunt and PGM have Graves' disease TSI positive TSH and FT4 in 02/2022 and 09/2021 WNL Weight in teenage years around 160-180 lbs Has two children (1 still born and 1 living child) 2016 and 2017 Son almost 5 years old now Had pre-ecclampsia 1st son had polyhydramnios No GDM breastfed with no issues No FHx of DM Was on metfomrin during her for PCOS No issues getting Was on OCP - stopped it and got the next month Aldactone recently started for hydradenitis She has an IUD Hydradenitis more controlled when she was on OCP Started on OCP at age 15 No current plans for pregnancies Menarche at age 13 Cycles were regular in the past - started on OCP for heavy cycles Acne and mild hirsutism Spironolacotne helped make the 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 card and finer Acne better controlled now Dx with PCOS by her OBGYN around 2014 Weight gain and acanthosis Maternal uncle had thyroidectomy for Graves' disease with ophthalmology Mother and 2 of her sister have hypothyroidism MGM had goiter and Graves' disease She was on LT4 therapy as a teenager Has tried Adipex in the past - did well with the first round (lost 40 lb) Second round not as well Was able to maintain her weight for 6 months after that Boyfriend waiting for a heart transplant Has also tried weight watchers at age 23 - 24 (lost 30-40 lbs) Tried it again and it did not work Breakfast: bagel with cream cheese (whatever she can grab and go). Drinks diet pop, black coffee, water with crystal light Lunch: leftover dinner or sandwich . Drinks water or diet pop Dinner: low sodium diet. Fresh meats and vegetables. Diet pop Snack: chocolate (2 times a week) Trying to exercise Past History, Medications, Allergies PAST MEDICAL HISTORY Diagnosis Date Acquired hypothyroidism Hidradenitis PCOS (polycystic ovarian syndrome) PAST SURGICAL HISTORY Procedure Laterality Date SECTION HX Current Outpatient Medications Medication Sig Dispense Refill tirzepatide (MOUNJARO) 5 mg/0.5 mL pen injector Inject 5 mg subcutaneously one time a week. 4 Each 3 metFORMIN (GLUCOPHAGE) 500 mg tablet Take 1 tablet by mouth twice daily with meals. 180 tablet 3 topiramate (TOPAMAX) 50 mg tablet 25 mg daily for one week, then increase to 50 mg daily (Patient taking differently: 25 mg daily for one week ) 90 tablet 3 atorvastatin (LIPITOR) 20 mg tablet Take 0.5 tablets by mouth once daily. spironolactone (ALDACTONE) 50 mg tablet Take 1 tablet by mouth twice daily. buPROPion XL (WELLBUTRIN XL) 150 mg 24 hr tablet bupropion HCl XL 150 mg 24 hr tablet, extended release busPIRone (BUSPAR) 15 mg tablet Take 15 mg by mouth three times daily. Cholecalciferol, Vitamin D3, (VITAMIN D) 25 mcg (1,000 unit) cap diphenhydrAMINE (BENADRYL) 25 mg capsule Take 25 mg by mouth every 6 hours as needed. fexofenadine (JOYA) 180 mg tablet Take 180 mg by mouth once daily. fluticasone (FLONASE) 50 mcg/actuation nasal spray fluticasone propionate 50 mcg/actuation nasal spray,suspension ibuprofen (MOTRIN) 800 mg tablet ibuprofen 800 mg tablet ketoconazole (NIZORAL) 2 % shampoo ketoconazole 2 % shampoo DAILY MULTI-VITAMIN ORAL omeprazole (PRILOSEC) 40 mg capsule omeprazole 40 mg capsule,delayed release No current facility-administered medications for this visit. ALLERGIES Allergen Reactions Seasonal Allergies Other: See Comments FAMILY HISTORY Problem Relation Age of Onset Hypothyroidism Mother Hypothyroidism Sister Hypothyroidism Sister Graves Disease Maternal Grandmother Graves Disease Maternal Uncle Social History Tobacco Use Smoking status: Every Day Packs/day: 0.50 Types: Cigarettes Smokeless tobacco: Never Tobacco comments: david Review of Systems Answers submitted by the patient for this visit: Endocrine Review of Systems (Submitted on 09/20/2022) Fatigue: No Night Sweats: No Recent Unintentional Weight Change: No Skin Color Changes: No Post-Nasal Drip: No Thyroid Pain (lower neck): No Trouble Swallowing: No Vision Disturbance: No Chest Pain: No Leg Swelling: No Blood Clots?: No Leg Pain while walking?: No Difficulty Breathing?: No Heartburn: No Nausea: No Vomiting?: No Diarrhea: No Constipation: Yes Abdominal Pain: No Bone Pain?: No Muscle Aches: No Muscle Weakness: No Joint Pain or Stiffness: No Headaches: No Dizziness: No Numbness?: No Urgency to Urinate?: No Increased Urination?: No Slow or Small Urine Stream?: No Are your menstrual cycles regular?: No Are your menstrual cycles irregular?: Yes Have your menstrual cycles stopped?: Yes Flushing?: No Hot Flashes?: No Increased Thirst: Yes Change in Body Hair?: No Cold Intolerance: Yes Heat Intolerance?: No Physical examination GENERAL: Well nourished, well hydrated, in no distress and oriented x 3 COMMUNICATION: Hearing: normal; VOICE: normal EYES: no thyroid eye signs, Fundi normal, cornea normal and EOMI NECK: no visible nodules or goiter LUNGS: no audible wheezing or respiratory distress NEURO: normal strength and no tremor SKIN: No rash or visible wound. ENDOCRINE: No cushingoid or acromegalic features Previous Laboratory Results Component Latest Ref Rng & Units 09/25/2021 TSH 0.270 - 4.200 uU/mL 1.220 Free T4 0.9 - 1.7 ng/dL 1.1 Cortisol,ON DEX,Post <1.8 ug/dL 0.7 ACTH 7.2 - 63.3 pg/mL 2.2 (L) Dexamethasone ng/dL 271.2 Microsomal Antibody <5.6 IU/mL <1.0 Component Latest Ref Rng & Units 12/02/2021 Protein, Total 6.3 - 8.0 g/dL 7.2 Albumin 3.9 - 4.9 g/dL 4.6 Calcium 8.5 - 10.2 mg/dL 10.1 Bilirubin, Total 0.2 - 1.3 mg/dL 0.3 Alkaline Phosphatase 34 - 123 U/L 65 AST 13 - 35 U/L 20 ALT 7 - 38 U/L 17 Glucose 74 - 99 mg/dL 88 BUN 7 - 21 mg/dL 12 Creatinine 0.58 - 0.96 mg/dL 0.89 Sodium 136 - 144 mmol/L 138 Potassium 3.7 - 5.1 mmol/L 4.7 Chloride 97 - 105 mmol/L 101 CO2 22 - 30 mmol/L 26 Anion Gap 9 - 18 mmol/L 11 eGFR >=60 mL/min/1.73m 87 Cholesterol, Total <200 mg/dL 168 Triglyceride <150 mg/dL 222 (H) HDL Cholesterol >39 mg/dL 34 (L) Non HDL Cholesterol <130 mg/dL 134 (H) Fasting Time hrs 12 LDL Cholesterol <100 mg/dL 90 Sex Hormone Bind GLB 25 - 122 nmol/L 18 (L) Testosterone Total 9 - 55 ng/dL 16 Testosterone Free 1.3 - 9.2 pg/mL 3.5 Testo Bioavailable 4.1 - 25.5 ng/dL 9.8 TSI Qualitative Negative Negative TSI <0.55 IU/L 0.26 TSH Receptor AutoAntibody, Qualitative Negative Positive (A) TBI <=1.00 IU/L 1.59 (H) Hemoglobin A1C 4.3 - 5.6 % 5.2 Testosterone <40 ng/dL 15 DHEA-S 60.9 - 337.0 ug/dL 96.0 Androstenedione 0.3 - 3.3 ng/mL 0.9 07/2021: H.2 HCT: 43 % CMP WNL Chol: 223 LDL: 138 HDL: 40 T Non-HDL: 183 04/2021: HbA1c: 5.5 % Chol: 230 LDL: 143 HDL: 35 T TSH: 1.9 02/2022: TSH: 1.85 FT4: 0.98 Impression/Recommendations Benny Guerrero is a 36 year old female with PMH of PCOS, Hydradenitis suppurative, DLP, Obesity and Hx of hypothyroidism, visit for follow up of weight management Obesity BMI 38.30: -- Dietary changes and exercise reviewed -- No evidence of thyroid or isabel disease -- Last TSH and FT4 WNL in 02/2022 and 10/2021, TPO negative, TSI mildly positive -- She has tried weight watcher and Adipex in the past with good success the first round (30-40 lb weight loss) -- Wegovy not covered -- She has a Mirena IIUD -- Started on Topamax therapy 25 daily and phentermine 37.5 mg 1/2 tab daily in 12/2021 -- Currently on Topamax therapy 25 daily and Wellbutrin 150 mg daily -- Ran out of phentermine 37.5 mg / EOD (was on it since 03/07/2022) -- Lost 38 lbs since 09/2021 -- Could not tolerate Topamax 50 mg dose -- Had bloating with regular metformin 1000 mg daily - resolved once she stopped it -- Also doing intermittent fasting -- Referred to the guide winder for mediterranean diet -- Referred to weight management fitness program -- Started on Mounjaro in 06/2022 - lost 15 lbs since -- Was not able to get the refill -- Will try to get Mounjaro again -- If the mounjaro is not covered, will start phentermine again -- Another option I XR metformin Dyslipidemia: -- Started in Lipitor 20 mg daily in 07/2021 -- Has muscle aches and pain despite decrease to 10 mg dose -- Advised to try OTC co-enzyme Q10 supplements -- Last lipid panel in 11/2021 improved PCOS and HS: -- She is on spironolactone therapy (50 mg BID) -- Off metfomrin since 02/2022 due to bloating (was on regular metformin 500 mg BID) -- Has the Mirena IUD -- Acne and hirstusim improved with spironolactone -- HS not as well controlled as when she was on OCP -- She may consider OCP in the future if weight loss does not help Hx of Hypothyroidism: -- Was on LT4 therapy in her teenage years -- Off LT4 for several years now -- Last TSH and FT4 in 02/2022, 10/2021 and 04/2021 WNL -- TPO negative -- FHx of Graves' disease in her PGM and maternal aunt -- Mother and 2 sisters have hypothyroidism -- TSI mildly elevated -- Discussed Graves' disease and indications for therapy -- Repeat levels in 08/2022 WNL -- Repeat in 6 months The patient will follow up in 1-4 months Sachi Armas MD documented in this encounter [facility] 08-25-2022 Miscellaneous Notes Sent patient [employer] message documented in this encounter [facility] 08-25-2022 Miscellaneous Notes Images from the original note were not included. Initiated PA for Mounjaro 5mg/0.5ml through [facility] via [employer] No response in Epic, processed through [employer] via natue Mathews: [id number] Waiting for next steps documented in this encounter [facility] 07-20-2022 Miscellaneous Notes Please see patient's [employer] message from 07/18/2022. Requester: Patient Last Endocrinology visit: 06/11/2022. Follow-up visit scheduled: Visit date not found. Requested Prescriptions Pending Prescriptions Disp Refills tirzepatide (MOUNJARO) 5 mg/0.5 mL pen injector 12 Each 0 Si.5 mg weekly for one month, then increase to 5 mg weekly PSS NOTE: Please schedule appointment: No Thank you! Kenzie Delgadillo RN documented in this encounter [facility] 06-11-2022 History of Presen t illness Narrative Endocrinology Follow Up Benny Guerrero, virtual visit for follow up regarding: Weight management Patient consented to the Visit Name and confirmed Last visit: 03/2022 Last office visit: 02/2022 History of Present Illness Benny Guerrero is a 36 year old female with PMH of PCOS, Hydradenitis suppurative, DLP, Obesity and Hx of hypothyroidism, visit for follow up of weight management Lost 15 lbs since starting the Mounajro Starting the 5 mg weekly soon Will be seeing her PCP for the back pain On Topamax 25 mg daily (cannot tolerate 50 mg dose) Not on metformin Taking spironolactone Current weight 224 lbs On Topamax 25 mg daily, phentermine 37.5 mg EOD (since 03/07) Stopped the metformin - GI issues resolved (bloating) Was on regular metformin 1000 mg daily Has an IUD Was down to 248 lbs Lost 38 lbs since 09/2021 No hx of fractures or kidney stones No FHx of hip fracture MGM had osteoporosis Wegovy not covered Maternal aunt and PGM have Graves' disease TSI positive TSH and FT4 in 02/2022 and 09/2021 WNL Weight in teenage years around 160-180 lbs Has two children (1 still born and 1 living child) 2016 and 2017 Son almost 5 years old now Had pre-ecclampsia 1st son had polyhydramnios No GDM breastfed with no issues No FHx of DM Was on metfomrin during her for PCOS No issues getting Was on OCP - stopped it and got the next month Aldactone recently started for hydradenitis She has an IUD Hydradenitis more controlled when she was on OCP Started on OCP at age 15 No current plans for pregnancies Menarche at age 13 Cycles were regular in the past - started on OCP for heavy cycles Acne and mild hirsutism Spironolacotne helped make the 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 card and finer Acne better controlled now Dx with PCOS by her OBGYN around 2014 Weight gain and acanthosis Maternal uncle had thyroidectomy for Graves' disease with ophthalmology Mother and 2 of her sister have hypothyroidism MGM had goiter and Graves' disease She was on LT4 therapy as a teenager Has tried Adipex in the past - did well with the first round (lost 40 lb) Second round not as well Was able to maintain her weight for 6 months after that Boyfriend waiting for a heart transplant Has also tried weight watchers at age 23 - 24 (lost 30-40 lbs) Tried it again and it did not work Breakfast: bagel with cream cheese (whatever she can grab and go). Drinks diet pop, black coffee, water with crystal light Lunch: leftover dinner or sandwich . Drinks water or diet pop Dinner: low sodium diet. Fresh meats and vegetables. Diet pop Snack: chocolate (2 times a week) Trying to exercise Past History, Medications, Allergies PAST MEDICAL HISTORY Diagnosis Date Acquired hypothyroidism Hidradenitis PCOS (polycystic ovarian syndrome) PAST SURGICAL HISTORY Procedure Laterality Date SECTION HX Current Outpatient Medications Medication Sig Dispense Refill tirzepatide (MOUNJARO) 2.5 mg/0.5 mL pen injector 2.5 mg weekly for one month, then increase to 5 mg weekly 4 Each 0 tirzepatide (MOUNJARO) 5 mg/0.5 mL pen injector 2.5 mg weekly for one month, then increase to 5 mg weekly 12 Each 0 metFORMIN (GLUCOPHAGE) 500 mg tablet Take 1 tablet by mouth twice daily with meals. 180 tablet 3 topiramate (TOPAMAX) 50 mg tablet 25 mg daily for one week, then increase to 50 mg daily (Patient taking differently: 25 mg daily for one week ) 90 tablet 3 atorvastatin (LIPITOR) 20 mg tablet Take 0.5 tablets by mouth once daily. spironolactone (ALDACTONE) 50 mg tablet Take 1 tablet by mouth twice daily. buPROPion XL (WELLBUTRIN XL) 150 mg 24 hr tablet bupropion HCl XL 150 mg 24 hr tablet, extended release busPIRone (BUSPAR) 15 mg tablet Take 15 mg by mouth three times daily. Cholecalciferol, Vitamin D3, (VITAMIN D) 25 mcg (1,000 unit) cap diphenhydrAMINE (BENADRYL) 25 mg capsule Take 25 mg by mouth every 6 hours as needed. fexofenadine (JOAY) 180 mg tablet Take 180 mg by mouth once daily. fluticasone (FLONASE) 50 mcg/actuation nasal spray fluticasone propionate 50 mcg/actuation nasal spray,suspension ibuprofen (MOTRIN) 800 mg tablet ibuprofen 800 mg tablet ketoconazole (NIZORAL) 2 % shampoo ketoconazole 2 % shampoo DAILY MULTI-VITAMIN ORAL omeprazole (PRILOSEC) 40 mg capsule omeprazole 40 mg capsule,delayed release No current facility-administered medications for this visit. ALLERGIES Allergen Reactions Seasonal Allergies Other: See Comments FAMILY HISTORY Problem Relation Age of Onset Hypothyroidism Mother Hypothyroidism Sister Hypothyroidism Sister Graves Disease Maternal Grandmother Graves Disease Maternal Uncle Social History Tobacco Use Smoking status: Every Day Packs/day: 0.50 Types: Cigarettes Smokeless tobacco: Never Tobacco comments: david Review of Systems Answers submitted by the patient for this visit: Core Review of Systems (Submitted on 06/08/2022) Fever : No Night Sweats: No Recent Unintentional Weight Change: No Nasal Congestion: No Hearing Loss: No Vision Disturbance: No A Cough: No Difficulty Breathing?: No Chest Pain: No Irregular Heart Beat: No Leg Swelling: No Nausea: No Diarrhea: No Black Tarry Stools: No Difficulty Urinating?: No Awaken at Night More Than Once to Urinate?: No Joint Pain or Stiffness: No Muscle Aches: No Leg or Foot Discomfort at Night?: No A Rash: No Dizziness: No Memory Loss: No Seizures: No Physical examination GENERAL: Well nourished, well hydrated, in no distress and oriented x 3 COMMUNICATION: Hearing: normal; VOICE: normal EYES: no thyroid eye signs, Fundi normal, cornea normal and EOMI NECK: no visible nodules or goiter LUNGS: no audible wheezing or respiratory distress NEURO: normal strength and no tremor SKIN: No rash or visible wound. ENDOCRINE: No cushingoid or acromegalic features Previous Laboratory Results Component Latest Ref Rng & Units 09/25/2021 TSH 0.270 - 4.200 uU/mL 1.220 Free T4 0.9 - 1.7 ng/dL 1.1 Cortisol,ON DEX,Post <1.8 ug/dL 0.7 ACTH 7.2 - 63.3 pg/mL 2.2 (L) Dexamethasone ng/dL 271.2 Microsomal Antibody <5.6 IU/mL <1.0 Component Latest Ref Rng & Units 12/02/2021 Protein, Total 6.3 - 8.0 g/dL 7.2 Albumin 3.9 - 4.9 g/dL 4.6 Calcium 8.5 - 10.2 mg/dL 10.1 Bilirubin, Total 0.2 - 1.3 mg/dL 0.3 Alkaline Phosphatase 34 - 123 U/L 65 AST 13 - 35 U/L 20 ALT 7 - 38 U/L 17 Glucose 74 - 99 mg/dL 88 BUN 7 - 21 mg/dL 12 Creatinine 0.58 - 0.96 mg/dL 0.89 Sodium 136 - 144 mmol/L 138 Potassium 3.7 - 5.1 mmol/L 4.7 Chloride 97 - 105 mmol/L 101 CO2 22 - 30 mmol/L 26 Anion Gap 9 - 18 mmol/L 11 eGFR >=60 mL/min/1.73m 87 Cholesterol, Total <200 mg/dL 168 Triglyceride <150 mg/dL 222 (H) HDL Cholesterol >39 mg/dL 34 (L) Non HDL Cholesterol <130 mg/dL 134 (H) Fasting Time hrs 12 LDL Cholesterol <100 mg/dL 90 Sex Hormone Bind GLB 25 - 122 nmol/L 18 (L) Testosterone Total 9 - 55 ng/dL 16 Testosterone Free 1.3 - 9.2 pg/mL 3.5 Testo Bioavailable 4.1 - 25.5 ng/dL 9.8 TSI Qualitative Negative Negative TSI <0.55 IU/L 0.26 TSH Receptor AutoAntibody, Qualitative Negative Positive (A) TBI <=1.00 IU/L 1.59 (H) Hemoglobin A1C 4.3 - 5.6 % 5.2 Testosterone <40 ng/dL 15 DHEA-S 60.9 - 337.0 ug/dL 96.0 Androstenedione 0.3 - 3.3 ng/mL 0.9 07/2021: H.2 HCT: 43 % CMP WNL Chol: 223 LDL: 138 HDL: 40 T Non-HDL: 183 04/2021: HbA1c: 5.5 % Chol: 230 LDL: 143 HDL: 35 T TSH: 1.9 02/2022: TSH: 1.85 FT4: 0.98 Impression/Recommendations Benny Guerrero is a 36 year old female with PMH of PCOS, Hydradenitis suppurative, DLP, Obesity and Hx of hypothyroidism, visit for follow up of weight management Obesity BMI 37.96: -- Dietary changes and exercise reviewed -- No evidence of thyroid or isabel disease -- Last TSH and FT4 WNL in 02/2022 and 10/2021, TPO negative, TSI mildly positive -- She has tried weight watcher and Adipex in the past with good success the first round (30-40 lb weight loss) -- Wegovy not covered -- She has a Mirena IIUD -- Started on Topamax therapy 25 daily and phentermine 37.5 mg 1/2 tab daily in 12/2021 -- Currently on Topamax therapy 25 daily and phentermine 37.5 mg 1/2 EOD since 03/07/2022 and Wellbutrin 150 mg daily -- Lost 38 lbs since 09/2021 -- Could not tolerate Topamax 50 mg dose -- Had bloating with regular metformin 1000 mg daily - resolved once she stopped it -- Also doing intermittent fasting -- Referred to the guide winder for mediterranean diet -- Referred to weight management fitness program -- Started on Mounjaro - lost 15 lbs since -- Doing well - will be starting the 5 mg weekly dose soon -- If the mounjaro is not covered, will start metformin 500 mg XR daily -- Referral to the guide winder for mediterranean diet -- Referral to weight management fitness program Dyslipidemia: -- Started in Lipitor 20 mg daily in 07/2021 -- Has muscle aches and pain despite decrease to 10 mg dose -- Advised to try OTC co-enzyme Q10 supplements -- Last lipid panel in 11/2021 improved PCOS and HS: -- She is on spironolactone therapy (50 mg BID) -- Off metfomrin since 02/2022 due to bloating (was on regular metformin 500 mg BID) -- Has the Mirena IUD -- Acne and hirstusim improved with spironolactone -- HS not as well controlled as when she was on OCP -- She may consider OCP in the future if weight loss does not help Hx of Hypothyroidism: -- Was on LT4 therapy in her teenage years -- Off LT4 for several years now -- Last TSH and FT4 in 02/2022, 10/2021 and 04/2021 WNL -- TPO negative -- FHx of Graves' disease in her PGM and maternal aunt -- Mother and 2 sisters have hypothyroidism -- TSI mildly elevated -- Discussed Graves' disease and indications for therapy -- Repeat levels in 08/2022 and again in 6 months The patient will follow up in 6 months Sachi Armas MD documented in this encounter [facility] 05-14-2022 Miscellaneous Notes Please see patient's message and advise. NAVA: 03/10/2022 Next visit: 06/11/2022 Thank you! Kenzie Delgadillo RN documented in this encounter [facility] 04-15-2022 Miscellaneous Notes Prescription sent Sachi Armas MD [facility] in [place] calling from [phone]. Question on sig for Mounjaro. Sig states 2.5 mg weekly for one month, then increase to 0.5 mg weekly - which is a decrease. Either call or e-scribe another prescription with clarified directions. documented in this encounter [facility] 03-16-2022 Evaluation note Encounter Date Diagnosis Assessment Notes Mar, Contact with and (suspected) exposure to covid-19 (ICD-10 - Z20.822) Mar, Other Additional time spent conducting pre-visit phone call, screening for symptoms, instructions on social distancing, application and removal of PPE, and cleaning of examination room, equipment and supplies was performed. Patient education given for testing methodology and results. Patient care instructions given in writing by [facility] document. [employer] Other [id number] Miscellaneous Notes* Telephone Encounter - Zully Cueto - 03/13/2022 6:59 AM EDT Initiated PA for Ozempic through [facility] via [employer] Questions completed Attached chart notes Waiting for determination [facility] History of Present illness Narrative* Sachi Armas MD - 03/10/2022 10:22 AM EDT Endocrinology Follow Up Benny Howardbroreina, office visit for follow up regarding: Weight management Last office visit: 02/2022 History of Present Illness Benny Guerrero is a 36 year old female with PMH of PCOS, Hydradenitis suppurative, DLP, Obesity and Hx of hypothyroidism, visit for follow up of weight management On Topamax 25 mg daily, phentermine 37.5 mg EOD (since 03/07) Stopped the metformin - GI issues resolved (bloating) Was on regular metformin 1000 mg daily On spirolactone Has an IUD Was down to 248 lbs Lost 38 lbs since 09/2021 No hx of fractures or kidney stones No FHx of hip fracture MGM had osteoporosis Wegovy not covered Maternal aunt and PGM have Graves' disease TSI positive TSH and FT4 in 02/2022 and 09/2021 WNL Weight in teenage years around 160-180 lbs Has two children (1 still born and 1 living child) 2016 and 2017 Son almost 5 years old now Had pre-ecclampsia 1st son had polyhydramnios No GDM breastfed with no issues No FHx of DM Was on metfomrin during her for PCOS No issues getting Was on OCP - stopped it and got the next month Aldactone recently started for hydradenitis She has an IUD Hydradenitis more controlled when she was on OCP Started on OCP at age 15 No current plans for pregnancies Menarche at age 13 Cycles were regular in the past - started on OCP for heavy cycles Acne and mild hirsutism Spironolacotne helped make the 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 card and finer Acne better controlled now Dx with PCOS by her OBGYN around 2014 Weight gain and acanthosis Maternal uncle had thyroidectomy for Graves' disease with ophthalmology Mother and 2 of her sister have hypothyroidism MGM had goiter and Graves' disease She was on LT4 therapy as a teenager Has tried Adipex in the past - did well with the first round (lost 40 lb) Second round not as well Was able to maintain her weight for 6 months after that Boyfriend waiting for a heart transplant Has also tried weight watchers at age 23 - 24 (lost 30-40 lbs) Tried it again and it did not work Breakfast: bagel with cream cheese (whatever she can grab and go). Drinks diet pop, black coffee, water with crystal light Lunch: leftover dinner or sandwich . Drinks water or diet pop Dinner: low sodium diet. Fresh meats and vegetables. Diet pop Snack: chocolate (2 times a week) Trying to exercise Past History, Medications, Allergies PAST MEDICAL HISTORY Diagnosis Date Acquired hypothyroidism Hidradenitis PCOS (polycystic ovarian syndrome) PAST SURGICAL HISTORY Procedure Laterality Date SECTION HX Current Outpatient Medications Medication Sig Dispense Refill topiramate (TOPAMAX) 50 mg tablet 25 mg daily for one week, then increase to 50 mg daily (Patient taking differently: 25 mg daily for one week ) 90 tablet 3 atorvastatin (LIPITOR) 20 mg tablet Take 0.5 tablets by mouth once daily. spironolactone (ALDACTONE) 50 mg tablet Take 1 tablet by mouth twice daily. buPROPion XL (WELLBUTRIN XL) 150 mg 24 hr tablet bupropion HCl XL 150 mg 24 hr tablet, extended release busPIRone (BUSPAR) 15 mg tablet Take 15 mg by mouth three times daily. Cholecalciferol, Vitamin D3, (VITAMIN D) 25 mcg (1,000 unit) cap fexofenadine (JOYA) 180 mg tablet Take 180 mg by mouth once daily. DAILY MULTI-VITAMIN ORAL omeprazole (PRILOSEC) 40 mg capsule omeprazole 40 mg capsule,delayed release metFORMIN (GLUCOPHAGE) 500 mg tablet Take 1 tablet by mouth twice daily with meals. 180 tablet 3 diphenhydrAMINE (BENADRYL) 25 mg capsule Take 25 mg by mouth every 6 hours as needed. fluticasone (FLONASE) 50 mcg/actuation nasal spray fluticasone propionate 50 mcg/actuation nasal spray,suspension ibuprofen (MOTRIN) 800 mg tablet ibuprofen 800 mg tablet ketoconazole (NIZORAL) 2 % shampoo ketoconazole 2 % shampoo No current facility-administered medications for this visit. ALLERGIES Allergen Reactions Seasonal Allergies Other: See Comments FAMILY HISTORY Problem Relation Age of Onset Hypothyroidism Mother Hypothyroidism Sister Hypothyroidism Sister Graves Disease Maternal Grandmother Graves Disease Maternal Uncle Social History Tobacco Use Smoking status: Current Every Day Smoker Packs/day: 0.50 Smokeless tobacco: Never Used Tobacco comment: [email or web address] Substance Use Topics Alcohol use: Not on file Drug use: Not on file Review of Systems GENERAL:No weight loss, malaise or fevers HEENT:Negative for frequent or significant headaches NECK:Negative for lumps, goiter, pain and significant neck swelling RESPIRATORY: Negative for cough, wheezing or shortness of breath CARDIOVASCULAR: Negative for chest pain, leg swelling or palpitations GASTROINTESTINAL: No nausea, vomiting, or diarrhea Physical examination BP 140/93 Pulse 100 Wt 114.7 kg (252 lb 14.4 oz) BMI 42.86 kg/m GENERAL: Well nourished, well hydrated, in no distress and oriented x 3 COMMUNICATION: Hearing: normal; VOICE: normal EYES: no thyroid eye signs, Fundi normal and cornea normal. EOMI NECK: no visible nodules or goiter, no bruit, no tenderness and no adenopathies THYROID: smooth, non-tender, 15-20 gram, firm and No palpable nodules EXTREMITIES: No clubbing, no edema, no cyanosis and normal nails NEURO: normal strength, no tremor and normal reflexes SKIN: No rash or lesion Previous Laboratory Results Component Latest Ref Rng & Units 09/25/2021 TSH 0.270 - 4.200 uU/mL 1.220 Free T4 0.9 - 1.7 ng/dL 1.1 Cortisol,ON DEX,Post <1.8 ug/dL 0.7 ACTH 7.2 - 63.3 pg/mL 2.2 (L) Dexamethasone ng/dL 271.2 Microsomal Antibody <5.6 IU/mL <1.0 Component Latest Ref Rng & Units 12/02/2021 Protein, Total 6.3 - 8.0 g/dL 7.2 Albumin 3.9 - 4.9 g/dL 4.6 Calcium 8.5 - 10.2 mg/dL 10.1 Bilirubin, Total 0.2 - 1.3 mg/dL 0.3 Alkaline Phosphatase 34 - 123 U/L 65 AST 13 - 35 U/L 20 ALT 7 - 38 U/L 17 Glucose 74 - 99 mg/dL 88 BUN 7 - 21 mg/dL 12 Creatinine 0.58 - 0.96 mg/dL 0.89 Sodium 136 - 144 mmol/L 138 Potassium 3.7 - 5.1 mmol/L 4.7 Chloride 97 - 105 mmol/L 101 CO2 22 - 30 mmol/L 26 Anion Gap 9 - 18 mmol/L 11 eGFR >=60 mL/min/1.73m 87 Cholesterol, Total <200 mg/dL 168 Triglyceride <150 mg/dL 222 (H) HDL Cholesterol >39 mg/dL 34 (L) Non HDL Cholesterol <130 mg/dL 134 (H) Fasting Time hrs 12 LDL Cholesterol <100 mg/dL 90 Sex Hormone Bind GLB 25 - 122 nmol/L 18 (L) Testosterone Total 9 - 55 ng/dL 16 Testosterone Free 1.3 - 9.2 pg/mL 3.5 Testo Bioavailable 4.1 - 25.5 ng/dL 9.8 TSI Qualitative Negative Negative TSI <0.55 IU/L 0.26 TSH Receptor AutoAntibody, Qualitative Negative Positive (A) TBI <=1.00 IU/L 1.59 (H) Hemoglobin A1C 4.3 - 5.6 % 5.2 Testosterone <40 ng/dL 15 DHEA-S 60.9 - 337.0 ug/dL 96.0 Androstenedione 0.3 - 3.3 ng/mL 0.9 07/2021: H.2 HCT: 43 % CMP WNL Chol: 223 LDL: 138 HDL: 40 T Non-HDL: 183 04/2021: HbA1c: 5.5 % Chol: 230 LDL: 143 HDL: 35 T TSH: 1.9 02/2022: TSH: 1.85 FT4: 0.98 Impression/Recommendations Benny Guerrero is a 36 year old female with PMH of PCOS, Hydradenitis suppurative, DLP, Obesity and Hx of hypothyroidism, visit for follow up of weight management Obesity BMI 42.86: -- Dietary changes and exercise reviewed -- No evidence of thyroid or isabel disease -- Last TSH and FT4 WNL in 02/2022 and 10/2021, TPO negative, TSI mildly positive -- She has tried weight watcher and Adipex in the past with good success the first round (30-40 lb weight loss) -- Wegovy not covered -- She has a Mirena IIUD -- Started on Topamax therapy 25 daily and phentermine 37.5 mg 1/2 tab daily in 12/2021 -- Currently on Topamax therapy 25 daily and phentermine 37.5 mg 1/2 EOD since 03/07/2022 and Wellbutrin 150 mg daily -- Lost 38 lbs since 09/2021 -- Could not tolerate Topamax 50 mg dose -- Had bloating with regular metformin 1000 mg daily - resolved once she stopped it -- Also doing intermittent fasting -- Referred to the guide winder for mediterranean diet -- Referred to weight management fitness program -- Will start Ozempic 0.25 mg weekly for the first two weeks, then increase to 0.5 mg weekly -- The side effects and benefits of Wegovy discussed in details including risk of pancreatis, medullary thyroid cancer and CI for -- If the Wegovy is not covered, will start metformin 500 mg XR daily -- Referral to the guide winder for mediterranean diet -- Referral to weight management fitness program Dyslipidemia: -- Started in Lipitor 20 mg daily in 07/2021 -- Has muscle aches and pain despite decrease to 10 mg dose -- Advised to try OTC co-enzyme Q10 supplements -- Last lipid panel in 11/2021 improved PCOS and HS: -- She is on spironolactone therapy (50 mg BID) -- Off metfomrin since 02/2022 due to bloating (was on regular metformin 500 mg BID) -- Has the Mirena IUD -- Acne and hirstusim improved with spironolactone -- HS not as well controlled as when she was on OCP -- She may consider OCP in the future if weight loss does not help Hx of Hypothyroidism: -- Was on LT4 therapy in her teenage years -- Off LT4 for several years now -- Last TSH and FT4 in 02/2022, 10/2021 and 04/2021 WNL -- TPO negative -- FHx of Graves' disease in her PGM and maternal aunt -- Mother and 2 sisters have hypothyroidism -- TSI mildly elevated -- Discussed Graves' disease and indications for therapy -- Repeat levels in 6 months The patient will follow up in 3 months Sachi Armas MD [facility] Instructions* Patient Instructions* Noris Julian Ma - 03/10/2022 10:08 AM EDT Thank you for choosing the [facility] Department of Endocrinology, Diabetes and Metabolism. Did you know that you need to call 48 hours in advance of your scheduled visit, if you are unable to make your appointment? The [facility] [place] thanks you for your commitment, because patients not showing to their appointment results in a lost opportunity for patients to receive world class health care at the [facility]. To Cancel an appointment, please choose one of the following: - Call the Appointment Call Center at [phone] - From [employer], Go to Appointments Cancel Appts If cancelling, consider your need to reschedule to prevent further delays in your care. To Schedule an appointment, please choose one of the following: - Call the Appointment Call Center at [phone] - From [employer], Go to Appointments Request an Appt Please start Ozempic 0.25 mg weekly for the first two weeks, then increase to 0.5 mg weekly (there should be a coupon for this) The needles come in the box You can see how to inject the Ozempic at: [email or web address]://www.ozempic.com/how-to-use/[email or web address]-vtr.[email or web address]#ifu-video If this is not covered, we will try the XR form of metformin (one tablet daily with a meal) Follow up in 3 months (ok for virtual) [facility] History of Present illness Narrative* Sachi Armas MD - 02/05/2022 11:46 AM EDT Endocrinology Follow Up Benny Cesar, virtual visit for follow up regarding: Weight management Patient consented to the Visit Name and confirmed Last office visit: 01/2022 History of Present Illness Benny Guerrero is a 36 year old female with PMH of PCOS, Hydradenitis suppurative, DLP, Obesity and Hx of hypothyroidism, visit for follow up of weight management Wegovy not covered Maternal aunt and PGM have Graves' disease TSI positive TSH and FT4 in 09/2021 WNL Lipid panel improved Notes bloating and trouble swallowing sometimes On Topamax 25 mg daily (could not tolerate 50 mg daily) On Adipex 1/2 tab daily Current weight: 263 lbs (lost 30 lbs) 263 lb Has been on metformin since 2013 and is wondering if she can stop it Weight in teenage years around 160-180 lbs Has two children (1 still born and 1 living child) 2016 and 2017 Son almost 5 years old now Had pre-ecclampsia 1st son had polyhydramnios No GDM breastfed with no issues No FHx of DM Was on metfomrin during her for PCOS No issues getting Was on OCP - stopped it and got the next month Aldactone recently started for hydradenitis She has an IUD Hydradenitis more controlled when she was on OCP Started on OCP at age 15 No current plans for pregnancies Menarche at age 13 Cycles were regular in the past - started on OCP for heavy cycles Acne and mild hirsutism Spironolacotne helped make the 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 card and finer Acne better controlled now Dx with PCOS by her OBGYN around 2015 Weight gain and acanthosis Maternal uncle had thyroidectomy for Graves' disease with ophthalmology Mother and 2 of her sister have hypothyroidism MGM had goiter and Graves' disease She was on LT4 therapy as a teenager Has tried Adipex in the past - did well with the first round (lost 40 lb) Second round not as well Was able to maintain her weight for 6 months after that Boyfriend waiting for a heart transplant Has also tried weight watchers at age 23 - 24 (lost 30-40 lbs) Tried it again and it did not work Breakfast: bagel with cream cheese (whatever she can grab and go). Drinks diet pop, black coffee, water with crystal light Lunch: leftover dinner or sandwich . Drinks water or diet pop Dinner: low sodium diet. Fresh meats and vegetables. Diet pop Snack: chocolate (2 times a week) Trying to exercise Past History, Medications, Allergies PAST MEDICAL HISTORY Diagnosis Date Acquired hypothyroidism Hidradenitis PCOS (polycystic ovarian syndrome) PAST SURGICAL HISTORY Procedure Laterality Date SECTION HX Current Outpatient Medications Medication Sig Dispense Refill Phentermine HCl 37.5 mg tablet Take 1 tablet by mouth once daily for 28 days. BMI 46.37 28 tablet 0 metFORMIN (GLUCOPHAGE) 500 mg tablet Take 1 tablet by mouth twice daily with meals. 180 tablet 3 topiramate (TOPAMAX) 50 mg tablet 25 mg daily for one week, then increase to 50 mg daily 90 tablet 3 atorvastatin (LIPITOR) 20 mg tablet Take 0.5 tablets by mouth once daily. spironolactone (ALDACTONE) 50 mg tablet Take 1 tablet by mouth twice daily. buPROPion XL (WELLBUTRIN XL) 150 mg 24 hr tablet bupropion HCl XL 150 mg 24 hr tablet, extended release busPIRone (BUSPAR) 15 mg tablet Take 15 mg by mouth three times daily. Cholecalciferol, Vitamin D3, (VITAMIN D) 25 mcg (1,000 unit) cap diphenhydrAMINE (BENADRYL) 25 mg capsule Take 25 mg by mouth every 6 hours as needed. fexofenadine (JOYA) 180 mg tablet Take 180 mg by mouth once daily. fluticasone (FLONASE) 50 mcg/actuation nasal spray fluticasone propionate 50 mcg/actuation nasal spray,suspension ibuprofen (MOTRIN) 800 mg tablet ibuprofen 800 mg tablet ketoconazole (NIZORAL) 2 % shampoo ketoconazole 2 % shampoo DAILY MULTI-VITAMIN ORAL omeprazole (PRILOSEC) 40 mg capsule omeprazole 40 mg capsule,delayed release No current facility-administered medications for this visit. ALLERGIES Allergen Reactions Seasonal Allergies Other: See Comments FAMILY HISTORY Problem Relation Age of Onset Hypothyroidism Mother Hypothyroidism Sister Hypothyroidism Sister Graves Disease Maternal Grandmother Graves Disease Maternal Uncle Social History Tobacco Use Smoking status: Current Every Day Smoker Packs/day: 0.50 Smokeless tobacco: Never Used Tobacco comment: [employer] Substance Use Topics Alcohol use: Not on file Drug use: Not on file Review of Systems GENERAL:No weight loss, malaise or fevers HEENT:Negative for frequent or significant headaches NECK:Negative for lumps, goiter, pain and significant neck swelling RESPIRATORY: Negative for cough, wheezing or shortness of breath CARDIOVASCULAR: Negative for chest pain, leg swelling or palpitations GASTROINTESTINAL: No nausea, vomiting, or diarrhea Physical examination GENERAL: Well nourished, well hydrated, in no distress and oriented x 3 COMMUNICATION: Hearing: normal; VOICE: normal EYES: no thyroid eye signs, Fundi normal, cornea normal and EOMI NECK: no visible nodules or goiter LUNGS: no audible wheezing or respiratory distress NEURO: normal strength and no tremor SKIN: No rash or visible wound. ENDOCRINE: No cushingoid or acromegalic features Previous Laboratory Results Component Latest Ref Rng & Units 09/25/2021 TSH 0.270 - 4.200 uU/mL 1.220 Free T4 0.9 - 1.7 ng/dL 1.1 Cortisol,ON DEX,Post <1.8 ug/dL 0.7 ACTH 7.2 - 63.3 pg/mL 2.2 (L) Dexamethasone ng/dL 271.2 Microsomal Antibody <5.6 IU/mL <1.0 Component Latest Ref Rng & Units 12/02/2021 Protein, Total 6.3 - 8.0 g/dL 7.2 Albumin 3.9 - 4.9 g/dL 4.6 Calcium 8.5 - 10.2 mg/dL 10.1 Bilirubin, Total 0.2 - 1.3 mg/dL 0.3 Alkaline Phosphatase 34 - 123 U/L 65 AST 13 - 35 U/L 20 ALT 7 - 38 U/L 17 Glucose 74 - 99 mg/dL 88 BUN 7 - 21 mg/dL 12 Creatinine 0.58 - 0.96 mg/dL 0.89 Sodium 136 - 144 mmol/L 138 Potassium 3.7 - 5.1 mmol/L 4.7 Chloride 97 - 105 mmol/L 101 CO2 22 - 30 mmol/L 26 Anion Gap 9 - 18 mmol/L 11 eGFR >=60 mL/min/1.73m 87 Cholesterol, Total <200 mg/dL 168 Triglyceride <150 mg/dL 222 (H) HDL Cholesterol >39 mg/dL 34 (L) Non HDL Cholesterol <130 mg/dL 134 (H) Fasting Time hrs 12 LDL Cholesterol <100 mg/dL 90 Sex Hormone Bind GLB 25 - 122 nmol/L 18 (L) Testosterone Total 9 - 55 ng/dL 16 Testosterone Free 1.3 - 9.2 pg/mL 3.5 Testo Bioavailable 4.1 - 25.5 ng/dL 9.8 TSI Qualitative Negative Negative TSI <0.55 IU/L 0.26 TSH Receptor AutoAntibody, Qualitative Negative Positive (A) TBI <=1.00 IU/L 1.59 (H) Hemoglobin A1C 4.3 - 5.6 % 5.2 Testosterone <40 ng/dL 15 DHEA-S 60.9 - 337.0 ug/dL 96.0 Androstenedione 0.3 - 3.3 ng/mL 0.9 07/2021: H.2 HCT: 43 % CMP WNL Chol: 223 LDL: 138 HDL: 40 T Non-HDL: 183 04/2021: HbA1c: 5.5 % Chol: 230 LDL: 143 HDL: 35 T TSH: 1.9 Impression/Recommendations Benny Guerrero is a 36 year old female with PMH of PCOS, Hydradenitis suppurative, DLP, Obesity and Hx of hypothyroidism, visit for follow up of weight management Obesity BMI 44.57: -- Dietary changes and exercise reviewed -- No evidence of thyroid or iasbel disease -- Last TSH and FT4 WNL in 10/2021, TPO negative -- Will check TRAb level -- She has tried weight watcher and Adipex in the past with good success the first round (30-40 lb weight loss) -- Wegovy not covered --- She has tried Phentermine in the past and had good results but prefers to avoid out of concern of possible cardiac side effects -- She has a Mirena IIUD -- Started on Topamax therapy 25 daily and phentermine 37.5 mg 1/2 tab daily in 12/2021 -- Lost 30 lbs -- Could not tolerate Topamax 50 mg dose -- Notes bloating - she will stop the metformin, if no difference in her symptoms she will stop thetopamax and Adipex sequentially to see if they are contributing -- Also doing intermittent fasting -- Referred to the guide winder for mediterranean diet -- Referred to weight management fitness program The patient has attempted to lose weight with diet, exercise and behavioral pattern changes withoutthe use of a controlled substance and the treatment has been ineffective. Discussed with the patient the different weight loss options and we decided that Phentermine was the best option. The patientwill be receiving the 3rd Phentermine prescription today. The patient expressed understanding of the risks and benefits of taking Phentermine, and has a desire to proceed with therapy. While taking this medication the patient was instructed to call the office if experiencing any side effects The patient is currently enrolled in a diet and exercise program The patient has no known history of contraindications The patient is free from drug or ETHO abuse The patient is not or and is aware not to become while using this medication The patient was informed that in [facility], only one month supply of medication is provided at a time, for 3 months, then a 6 month hiatus from the medication. The patient is also aware that timely refills required, with monthly [id number] office visits for monitoring of therapy and refills. The patient understands that lack of timely follow up, or not filling the medication on time every month would constitute an interruption of therapy, and the 6 month hiatus from medication would occuras per the [facility] pharmacy board rules. Dyslipidemia: -- Started in Lipitor 20 mg daily in 07/2021 -- Has muscle aches and pain despite decrease to 10 mg dose -- Advised to try OTC co-enzyme Q10 supplements -- Last lipid panel in 11/2021 improved PCOS and HS: -- She is on spironolactone therapy (50 mg BID) -- Also on metformin 500 mg BID -- Has the Mirena IUD -- Acne and hirstusim improved with spironolactone -- HS not as well controlled as when she was on OCP -- She may consider OCP in the future if weight loss does not help Hx of Hypothyroidism: -- Was on LT4 therapy in her teenage years -- Off LT4 for several years now -- Last TSH in 04/2021 and in 10/2021 WNL, FT4 WNL in 10/2021 -- TPO negative -- FHx of Graves' disease in her PGM and maternal aunt -- Mother and 2 sisters have hypothyroidism -- TSI mildly elevated -- Discussed Graves' disease and indications for therapy -- Repeat levels in 6 months The patient will follow up in 1 month Sachi Armas MD [facility] History of Present illness Narrative* Sachi Armas MD - 01/13/2022 2:20 PM EDT Endocrinology Follow Up Benny Howardmariah, anne marie visit for follow up regarding: Weight management Patient consented to the Visit Name and confirmed Last office visit: 11/2021 History of Present Illness Benny Guerrero is a 36 year old female with PMH of PCOS, Hydradenitis suppurative, DLP, Obesity and Hx of hypothyroidism, visit for follow up of weight management Wegovy not covered Maternal aunt and PGM have Graves' disease TSI positive TSH and FT4 in 09/2021 WNL Lipid panel improved Notes bloating and trouble swallowing sometimes On Topamax 25 mg daily (could not tolerate 50 mg daily) On Adipex 1/2 tab daily Current weight: 273 lbs (lost 19-20 lbs) Has been on metformin since 2014 and is wondering if she can stop it Weight in teenage years around 160-180 lbs Has two children (1 still born and 1 living child) 2016 and 2017 Son almost 5 years old now Had pre-ecclampsia 1st son had polyhydramnios No GDM breastfed with no issues No FHx of DM Was on metfomrin during her for PCOS No issues getting Was on OCP - stopped it and got the next month Aldactone recently started for hydradenitis She has an IUD Hydradenitis more controlled when she was on OCP Started on OCP at age 15 No current plans for pregnancies Menarche at age 13 Cycles were regular in the past - started on OCP for heavy cycles Acne and mild hirsutism Spironolacotne helped make the 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 card and finer Acne better controlled now Dx with PCOS by her OBGYN around 2015 Weight gain and acanthosis Maternal uncle had thyroidectomy for Graves' disease with ophthalmology Mother and 2 of her sister have hypothyroidism MGM had goiter and Graves' disease She was on LT4 therapy as a teenager Has tried Adipex in the past - did well with the first round (lost 40 lb) Second round not as well Was able to maintain her weight for 6 months after that Boyfriend waiting for a heart transplant Has also tried weight watchers at age 23 - 24 (lost 30-40 lbs) Tried it again and it did not work Breakfast: bagel with cream cheese (whatever she can grab and go). Drinks diet pop, black coffee, water with crystal light Lunch: leftover dinner or sandwich . Drinks water or diet pop Dinner: low sodium diet. Fresh meats and vegetables. Diet pop Snack: chocolate (2 times a week) Trying to exercise Past History, Medications, Allergies PAST MEDICAL HISTORY Diagnosis Date Acquired hypothyroidism Hidradenitis PCOS (polycystic ovarian syndrome) PAST SURGICAL HISTORY Procedure Laterality Date SECTION HX Current Outpatient Medications Medication Sig Dispense Refill metFORMIN (GLUCOPHAGE) 500 mg tablet Take 1 tablet by mouth twice daily with meals. 180 tablet 3 topiramate (TOPAMAX) 50 mg tablet 25 mg daily for one week, then increase to 50 mg daily 90 tablet 3 atorvastatin (LIPITOR) 20 mg tablet Take 0.5 tablets by mouth once daily. spironolactone (ALDACTONE) 50 mg tablet Take 1 tablet by mouth twice daily. buPROPion XL (WELLBUTRIN XL) 150 mg 24 hr tablet bupropion HCl XL 150 mg 24 hr tablet, extended release busPIRone (BUSPAR) 15 mg tablet Take 15 mg by mouth three times daily. Cholecalciferol, Vitamin D3, (VITAMIN D) 25 mcg (1,000 unit) cap diphenhydrAMINE (BENADRYL) 25 mg capsule Take 25 mg by mouth every 6 hours as needed. fexofenadine (JOYA) 180 mg tablet Take 180 mg by mouth once daily. fluticasone (FLONASE) 50 mcg/actuation nasal spray fluticasone propionate 50 mcg/actuation nasal spray,suspension ibuprofen (MOTRIN) 800 mg tablet ibuprofen 800 mg tablet ketoconazole (NIZORAL) 2 % shampoo ketoconazole 2 % shampoo DAILY MULTI-VITAMIN ORAL omeprazole (PRILOSEC) 40 mg capsule omeprazole 40 mg capsule,delayed release No current facility-administered medications for this visit. ALLERGIES Allergen Reactions Seasonal Allergies Other: See Comments FAMILY HISTORY Problem Relation Age of Onset Hypothyroidism Mother Hypothyroidism Sister Hypothyroidism Sister Graves Disease Maternal Grandmother Graves Disease Maternal Uncle Social History Tobacco Use Smoking status: Current Every Day Smoker Packs/day: 0.50 Smokeless tobacco: Never Used Tobacco comment: david Substance Use Topics Alcohol use: Not on file Drug use: Not on file Review of Systems Answers for HPI/ROS submitted by the patient on 12/13/2021 Fever : No Night Sweats: No Recent Unintentional Weight Change: No Nasal Congestion: No Hearing Loss: No Vision Disturbance: No A Cough: No Difficulty Breathing?: No Chest Pain: No Irregular Heart Beat: No Leg Swelling: No Nausea: No Diarrhea: No Black Tarry Stools: No Difficulty Urinating?: No Awaken at Night More Than Once to Urinate?: No Joint Pain or Stiffness: Yes Muscle Aches: Yes Leg or Foot Discomfort at Night?: No A Rash: No Dizziness: No Headaches: No Memory Loss: No Seizures: No Physical examination GENERAL: Well nourished, well hydrated, in no distress and oriented x 3 COMMUNICATION: Hearing: normal; VOICE: normal EYES: no thyroid eye signs, Fundi normal, cornea normal and EOMI NECK: no visible nodules or goiter LUNGS: no audible wheezing or respiratory distress NEURO: normal strength and no tremor SKIN: No rash or visible wound. ENDOCRINE: No cushingoid or acromegalic features Previous Laboratory Results Component Latest Ref Rng & Units 09/25/2021 TSH 0.270 - 4.200 uU/mL 1.220 Free T4 0.9 - 1.7 ng/dL 1.1 Cortisol,ON DEX,Post <1.8 ug/dL 0.7 ACTH 7.2 - 63.3 pg/mL 2.2 (L) Dexamethasone ng/dL 271.2 Microsomal Antibody <5.6 IU/mL <1.0 Component Latest Ref Rng & Units 12/02/2021 Protein, Total 6.3 - 8.0 g/dL 7.2 Albumin 3.9 - 4.9 g/dL 4.6 Calcium 8.5 - 10.2 mg/dL 10.1 Bilirubin, Total 0.2 - 1.3 mg/dL 0.3 Alkaline Phosphatase 34 - 123 U/L 65 AST 13 - 35 U/L 20 ALT 7 - 38 U/L 17 Glucose 74 - 99 mg/dL 88 BUN 7 - 21 mg/dL 12 Creatinine 0.58 - 0.96 mg/dL 0.89 Sodium 136 - 144 mmol/L 138 Potassium 3.7 - 5.1 mmol/L 4.7 Chloride 97 - 105 mmol/L 101 CO2 22 - 30 mmol/L 26 Anion Gap 9 - 18 mmol/L 11 eGFR >=60 mL/min/1.73m 87 Cholesterol, Total <200 mg/dL 168 Triglyceride <150 mg/dL 222 (H) HDL Cholesterol >39 mg/dL 34 (L) Non HDL Cholesterol <130 mg/dL 134 (H) Fasting Time hrs 12 LDL Cholesterol <100 mg/dL 90 Sex Hormone Bind GLB 25 - 122 nmol/L 18 (L) Testosterone Total 9 - 55 ng/dL 16 Testosterone Free 1.3 - 9.2 pg/mL 3.5 Testo Bioavailable 4.1 - 25.5 ng/dL 9.8 TSI Qualitative Negative Negative TSI <0.55 IU/L 0.26 TSH Receptor AutoAntibody, Qualitative Negative Positive (A) TBI <=1.00 IU/L 1.59 (H) Hemoglobin A1C 4.3 - 5.6 % 5.2 Testosterone <40 ng/dL 15 DHEA-S 60.9 - 337.0 ug/dL 96.0 Androstenedione 0.3 - 3.3 ng/mL 0.9 07/2021: H.2 HCT: 43 % CMP WNL Chol: 223 LDL: 138 HDL: 40 T Non-HDL: 183 04/2021: HbA1c: 5.5 % Chol: 230 LDL: 143 HDL: 35 T TSH: 1.9 Impression/Recommendations Benny Guerrero is a 36 year old female with PMH of PCOS, Hydradenitis suppurative, DLP, Obesity and Hx of hypothyroidism, visit for follow up of weight management Obesity BMI 46.37: -- Dietary changes and exercise reviewed -- No evidence of thyroid or isabel disease -- Last TSH and FT4 WNL in 10/2021, TPO negative -- Will check TRAb level -- She has tried weight watcher and Adipex in the past with good success the first round (30-40 lb weight loss) -- Wegovy not covered --- She has tried Phentermine in the past and had good results but prefers to avoid out of concern of possible cardiac side effects -- She has a Mirena IIUD -- Started on Topamax therapy 25 daily and phentermine 37.5 mg 1/2 tab daily in 12/2021 -- Lost 20 lbs -- Could not tolerate Topamax 50 mg dose -- Notes bloating - she will stop the metformin, if no difference in her symptoms she will stop thetopamax and Adipex sequentially to see if they are contributing -- Referred to the guide winder for mediterranean diet -- Referred to weight management fitness program The patient has attempted to lose weight with diet, exercise and behavioral pattern changes withoutthe use of a controlled substance and the treatment has been ineffective. Discussed with the patient the different weight loss options and we decided that Phentermine was the best option. The patientwill be receiving the 2nd Phentermine prescription today. The patient expressed understanding of the risks and benefits of taking Phentermine, and has a desire to proceed with therapy. While taking this medication the patient was instructed to call the office if experiencing any side effects The patient is currently enrolled in a diet and exercise program The patient has no known history of contraindications The patient is free from drug or ETHO abuse The patient is not or and is aware not to become while using this medication The patient was informed that in [facility], only one month supply of medication is provided at a time, for 3 months, then a 6 month hiatus from the medication. The patient is also aware that timely refills required, with monthly [id number] office visits for monitoring of therapy and refills. The patient understands that lack of timely follow up, or not filling the medication on time every month would constitute an interruption of therapy, and the 6 month hiatus from medication would occuras per the [facility] pharmacy board rules. Dyslipidemia: -- Started in Lipitor 20 mg daily in 07/2021 -- Has muscle aches and pain despite decrease to 10 mg dose -- Advised to try OTC co-enzyme Q10 supplements -- Last lipid panel in 11/2021 improved PCOS and HS: -- She is on spironolactone therapy (50 mg BID) -- Also on metformin 500 mg BID -- Has the Mirena IUD -- Acne and hirstusim improved with spironolactone -- HS not as well controlled as when she was on OCP -- She may consider OCP in the future if weight loss does not help Hx of Hypothyroidism: -- Was on LT4 therapy in her teenage years -- Off LT4 for several years now -- Last TSH in 04/2021 and in 10/2021 WNL, FT4 WNL in 10/2021 -- TPO negative -- FHx of Graves' disease in her PGM and maternal aunt -- Mother and 2 sisters have hypothyroidism -- TSI mildly elevated -- Discussed Graves' disease and indications for therapy -- Repeat levels in 6 months The patient will follow up in 1 month Sachi Armas MD documented in this encounterMer[facility]04-27-2022 Miscellaneous Notes* Telephone Encounter - Sophie Delgadillo RN - 12/31/2021 4:34 PM EDT Requester: Patient Last Endocrinology visit: 12/15/2021. Follow-up visit scheduled: 01/13/2022. Pending Prescriptions Disp Refills METFORMIN 500 MG TABLET 180 tablet 3 Sig: Take 1 tablet by mouth twice daily with meals. NASREEN: No Thank you! Kenzie Delgadillo RN documented in this encounterMer[facility]04-25-2022 Miscellaneous Notes* Telephone Encounter - Sophie Delgadillo RN - 12/29/2021 10:26 AM EDT Please see patient's update re: potential side effects and advise. Thank you! Kenzie Delgadillo RN documented in this encounterMercy [facility]04-11-2022 Nurse Note* Brooklyn Marroquin - 12/15/2021 12:40 PM EDT Spoke to Benny Guerrero, confirmed patient is registered on [employer]oOn and is prepared for their appointment. Confirmed the patient has updated medications, allergies, and questionnaires via [employer]On. Informed patient if there is an issue with the connection, provider will send the patient a secure link. If provider is running late, patient should remain connected to the visit. Patient verbalized understanding. documented in this encounterMer[facility]04-11-2022 History of Present illness Narrative* Sachi Armas MD - 12/15/2021 12:35 PM EDT Endocrinology Follow Up Benny Jamatashaerina, virtual visit for follow up regarding: Weight management Patient consented to the Visit Name and confirmed Last office visit: 11/2021 History of Present Illness Benny Guerrero is a 36 year old female with PMH of PCOS, Hydradenitis suppurative, DLP, Obesity and Hx of hypothyroidism who presents today for evaluation of weight management Wegovy not covered Maternal aunt and PGM have Graves' disease TSI positive TSH and FT4 in 09/2021 WNL Lipid panel improved Weight in teenage years around 160-180 lbs Has two children (1 still born and 1 living child) 2016 and 2017 Son almost 5 years old now Had pre-ecclampsia 1st son had polyhydramnios No GDM breastfed with no issues No FHx of DM Was on metfomrin during her for PCOS No issues getting Was on OCP - stopped it and got the next month Aldactone recently started for hydradenitis She has an IUD Hydradenitis more controlled when she was on OCP Started on OCP at age 15 No current plans for pregnancies Menarche at age 13 Cycles were regular in the past - started on OCP for heavy cycles Acne and mild hirsutism Spironolacotne helped make the 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 card and finer Acne better controlled now Dx with PCOS by her OBGYN around 2014 Weight gain and acanthosis Maternal uncle had thyroidectomy for Graves' disease with ophthalmology Mother and 2 of her sister have hypothyroidism MGM had goiter and Graves' disease She was on LT4 therapy as a teenager Has tried Adipex in the past - did well with the first round (lost 40 lb) Second round not as well Was able to maintain her weight for 6 months after that Boyfriend waiting for a heart transplant Has also tried weight watchers at age 23 - 24 (lost 30-40 lbs) Tried it again and it did not work Breakfast: bagel with cream cheese (whatever she can grab and go). Drinks diet pop, black coffee, water with crystal light Lunch: leftover dinner or sandwich . Drinks water or diet pop Dinner: low sodium diet. Fresh meats and vegetables. Diet pop Snack: chocolate (2 times a week) Trying to exercise Past History, Medications, Allergies PAST MEDICAL HISTORY Diagnosis Date Acquired hypothyroidism Hidradenitis PCOS (polycystic ovarian syndrome) PAST SURGICAL HISTORY Procedure Laterality Date SECTION HX Current Outpatient Medications Medication Sig Dispense Refill atorvastatin (LIPITOR) 20 mg tablet Take 0.5 tablets by mouth once daily. metFORMIN (GLUCOPHAGE) 500 mg tablet Take 1 tablet by mouth twice daily with meals. spironolactone (ALDACTONE) 50 mg tablet Take 1 tablet by mouth twice daily. semaglutide, weight loss, (WEGOVY) 0.25 mg/0.5 mL pen injector Inject 0.5 mL subcutaneously one time a week. BMI 49.55 4 Each 0 buPROPion XL (WELLBUTRIN XL) 150 mg 24 hr tablet bupropion HCl XL 150 mg 24 hr tablet, extended release busPIRone (BUSPAR) 15 mg tablet Take 15 mg by mouth three times daily. Cholecalciferol, Vitamin D3, (VITAMIN D) 25 mcg (1,000 unit) cap diphenhydrAMINE (BENADRYL) 25 mg capsule Take 25 mg by mouth every 6 hours as needed. fexofenadine (JOYA) 180 mg tablet Take 180 mg by mouth once daily. fluticasone (FLONASE) 50 mcg/actuation nasal spray fluticasone propionate 50 mcg/actuation nasal spray,suspension ibuprofen (MOTRIN) 800 mg tablet ibuprofen 800 mg tablet ketoconazole (NIZORAL) 2 % shampoo ketoconazole 2 % shampoo DAILY MULTI-VITAMIN ORAL omeprazole (PRILOSEC) 40 mg capsule omeprazole 40 mg capsule,delayed release No current facility-administered medications for this visit. ALLERGIES Allergen Reactions Seasonal Allergies Other: See Comments FAMILY HISTORY Problem Relation Age of Onset Hypothyroidism Mother Hypothyroidism Sister Hypothyroidism Sister Graves Disease Maternal Grandmother Graves Disease Maternal Uncle Social History Tobacco Use Smoking status: Current Every Day Smoker Packs/day: 0.50 Smokeless tobacco: Never Used Tobacco comment: [email or web address] Substance Use Topics Alcohol use: Not on file Drug use: Not on file Review of Systems Answers for HPI/ROS submitted by the patient on 12/13/2021 Fever : No Night Sweats: No Recent Unintentional Weight Change: No Nasal Congestion: No Hearing Loss: No Vision Disturbance: No A Cough: No Difficulty Breathing?: No Chest Pain: No Irregular Heart Beat: No Leg Swelling: No Nausea: No Diarrhea: No Black Tarry Stools: No Difficulty Urinating?: No Awaken at Night More Than Once to Urinate?: No Joint Pain or Stiffness: Yes Muscle Aches: Yes Leg or Foot Discomfort at Night?: No A Rash: No Dizziness: No Headaches: No Memory Loss: No Seizures: No Physical examination GENERAL: Well nourished, well hydrated, in no distress and oriented x 3 COMMUNICATION: Hearing: normal; VOICE: normal EYES: no thyroid eye signs, Fundi normal, cornea normal and EOMI NECK: no visible nodules or goiter LUNGS: no audible wheezing or respiratory distress NEURO: normal strength and no tremor SKIN: No rash or visible wound. ENDOCRINE: No cushingoid or acromegalic features Previous Laboratory Results Component Latest Ref Rng & Units 09/25/2021 TSH 0.270 - 4.200 uU/mL 1.220 Free T4 0.9 - 1.7 ng/dL 1.1 Cortisol,ON DEX,Post <1.8 ug/dL 0.7 ACTH 7.2 - 63.3 pg/mL 2.2 (L) Dexamethasone ng/dL 271.2 Microsomal Antibody <5.6 IU/mL <1.0 Component Latest Ref Rng & Units 12/02/2021 Protein, Total 6.3 - 8.0 g/dL 7.2 Albumin 3.9 - 4.9 g/dL 4.6 Calcium 8.5 - 10.2 mg/dL 10.1 Bilirubin, Total 0.2 - 1.3 mg/dL 0.3 Alkaline Phosphatase 34 - 123 U/L 65 AST 13 - 35 U/L 20 ALT 7 - 38 U/L 17 Glucose 74 - 99 mg/dL 88 BUN 7 - 21 mg/dL 12 Creatinine 0.58 - 0.96 mg/dL 0.89 Sodium 136 - 144 mmol/L 138 Potassium 3.7 - 5.1 mmol/L 4.7 Chloride 97 - 105 mmol/L 101 CO2 22 - 30 mmol/L 26 Anion Gap 9 - 18 mmol/L 11 eGFR >=60 mL/min/1.73m 87 Cholesterol, Total <200 mg/dL 168 Triglyceride <150 mg/dL 222 (H) HDL Cholesterol >39 mg/dL 34 (L) Non HDL Cholesterol <130 mg/dL 134 (H) Fasting Time hrs 12 LDL Cholesterol <100 mg/dL 90 Sex Hormone Bind GLB 25 - 122 nmol/L 18 (L) Testosterone Total 9 - 55 ng/dL 16 Testosterone Free 1.3 - 9.2 pg/mL 3.5 Testo Bioavailable 4.1 - 25.5 ng/dL 9.8 TSI Qualitative Negative Negative TSI <0.55 IU/L 0.26 TSH Receptor AutoAntibody, Qualitative Negative Positive (A) TBI <=1.00 IU/L 1.59 (H) Hemoglobin A1C 4.3 - 5.6 % 5.2 Testosterone <40 ng/dL 15 DHEA-S 60.9 - 337.0 ug/dL 96.0 Androstenedione 0.3 - 3.3 ng/mL 0.9 07/2021: H.2 HCT: 43 % CMP WNL Chol: 223 LDL: 138 HDL: 40 T Non-HDL: 183 04/2021: HbA1c: 5.5 % Chol: 230 LDL: 143 HDL: 35 T TSH: 1.9 Impression/Recommendations Benny Guerrero is a 36 year old female with PMH of PCOS, Hydradenitis suppurative, DLP, Obesity and Hx of hypothyroidism, visit for follow up of weight management Obesity BMI 49.55: -- Dietary changes and exercise reviewed -- No evidence of thyroid or isabel disease -- Last TSH and FT4 WNL in 10/2021, TPO negative -- Will check TRAb level -- She has tried weight watcher and Adipex in the past with good success the first round (30-40 lb weight loss) -- Target 150-200 minutes of moderate intensity exercise per week -- Advised to decrease carb intake and avoid artifical sweeteners -- Different options reviewed including medical therapy and diets -- Mediterranean and low carb diet discussed including risk and benefit -- Therapy with phentermine, GLP-1 agonist, Topamax, Qsymia, metformin, Wellbutrin, Plenity and contrave reviewed including side effects and benefits -- She has tried Phentermine in the past and had good results but prefers to avoid out of concern of possible cardiac side effects -- Wegovy not covered -- She has a Mirena IIUD -- Will start Topamax therapy 25 daily for one week, then increase to 50 mg daily -- Start phentermine 37.5 mg 1/2 tab daily - -- Side effects of phentermine and Topamax reviewed including teratogenicity -- Referral to the guide winder for mediterranean diet -- Referral to weight management fitness program The patient has attempted to lose weight with diet, exercise and behavioral pattern changes withoutthe use of a controlled substance and the treatment has been ineffective. Discussed with the patient the different weight loss options and we decided that Phentermine was the best option. The patientwill be receiving the 1st Phentermine prescription today. The patient expressed understanding of the risks and benefits of taking Phentermine, and has a desire to proceed with therapy. While taking this medication the patient was instructed to call the office if experiencing any side effects The patient is currently enrolled in a diet and exercise program The patient has no known history of contraindications The patient is free from drug or ETHO abuse The patient is not or and is aware not to become while using this medication The patient was informed that in [facility], only one month supply of medication is provided at a time, for 3 months, then a 6 month hiatus from the medication. The patient is also aware that timely refills required, with monthly [id number] office visits for monitoring of therapy and refills. The patient understands that lack of timely follow up, or not filling the medication on time every month would constitute an interruption of therapy, and the 6 month hiatus from medication would occuras per the [facility] pharmacy board rules. Dyslipidemia: -- Started in Lipitor 20 mg daily in 07/2021 -- Has muscle aches and pain despite decrease to 10 mg dose -- Advised to try OTC co-enzyme Q10 supplements -- Last lipid panel in 11/2021 improved PCOS and HS: -- She is on spironolactone therapy (50 mg BID) -- Also on metformin 500 mg BID -- Has the Mirena IUD -- Acne and hirstusim improved with spironolactone -- HS not as well controlled as when she was on OCP -- She may consider OCP in the future if weight loss does not help Hx of Hypothyroidism: -- Was on LT4 therapy in her teenage years -- Off LT4 for several years now -- Last TSH in 04/2021 and in 10/2021 WNL, FT4 WNL in 10/2021 -- TPO negative -- FHx of Graves' disease in her PGM and maternal aunt -- Mother and 2 sisters have hypothyroidism -- TSI mildly elevated -- Discussed Graves' disease and indications for therapy -- Repeat levels in 6 months The patient will follow up in 1 month Sachi Armas MD [facility] History of Present illness Narrative* Sachi Armas MD - 12/02/2021 9:01 AM EDT Endocrinology Initial Consult Benny Guerrero is here for a consultation by Dr. Damien Morales regarding: Weight management My final recommendations will be communicated back by way of shared medical record or by US mail. Last office visit: 09/2021 History of Present Illness Benny Guerrero is a 36 year old female with PMH of PCOS, Hydradenitis suppurative, DLP, Obesity and Hx of hypothyroidism who presents today for evaluation of weight management Weight in teenage years around 160-180 lbs Has two children (1 still born and 1 living child) 2016 and 2017 Son almost 5 years old now Had pre-ecclampsia 1st son had polyhydramnios No GDM breastfed with no issues No FHx of DM Was on metfomrin during her for PCOS No issues getting Was on OCP - stopped it and got the next month Aldactone recently started for hydradenitis She has an IUD Hydradenitis more controlled when she was on OCP Started on OCP at age 15 No current plans for pregnancies Menarche at age 13 Cycles were regular in the past - started on OCP for heavy cycles Acne and mild hirsutism Spironolacotne helped make the 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 card and finer Acne better controlled now Dx with PCOS by her OBGYN around 2015 Weight gain and acanthosis Maternal uncle had thyroidectomy for Graves' disease with ophthalmology Mother and 2 of her sister have hypothyroidism MGM had goiter and Graves' disease She was on LT4 therapy as a teenager Has tried Adipex in the past - did well with the first round (lost 40 lb) Second round not as well Was able to maintain her weight for 6 months after that Boyfriend waiting for a heart transplant Has also tried weight watchers at age 23 - 24 (lost 30-40 lbs) Tried it again and it did not work Breakfast: bagel with cream cheese (whatever she can grab and go). Drinks diet pop, black coffee, water with crystal light Lunch: leftover dinner or sandwich . Drinks water or diet pop Dinner: low sodium diet. Fresh meats and vegetables. Diet pop Snack: chocolate (2 times a week) Trying to exercise Past History, Medications, Allergies PAST MEDICAL HISTORY Diagnosis Date Acquired hypothyroidism Hidradenitis PCOS (polycystic ovarian syndrome) PAST SURGICAL HISTORY Procedure Laterality Date SECTION HX Current Outpatient Medications Medication Sig Dispense Refill atorvastatin (LIPITOR) 20 mg tablet buPROPion XL (WELLBUTRIN XL) 150 mg 24 hr tablet bupropion HCl XL 150 mg 24 hr tablet, extended release busPIRone (BUSPAR) 15 mg tablet Take 15 mg by mouth three times daily. Cholecalciferol, Vitamin D3, (VITAMIN D) 25 mcg (1,000 unit) cap fexofenadine (JOYA) 180 mg tablet Take 180 mg by mouth once daily. ibuprofen (MOTRIN) 800 mg tablet ibuprofen 800 mg tablet ketoconazole (NIZORAL) 2 % shampoo ketoconazole 2 % shampoo metFORMIN (GLUCOPHAGE) 500 mg tablet metformin 500 mg tablet DAILY MULTI-VITAMIN ORAL omeprazole (PRILOSEC) 40 mg capsule omeprazole 40 mg capsule,delayed release spironolactone (ALDACTONE) 50 mg tablet spironolactone 50 mg tablet diphenhydrAMINE (BENADRYL) 25 mg capsule Take 25 mg by mouth every 6 hours as needed. fluticasone (FLONASE) 50 mcg/actuation nasal spray fluticasone propionate 50 mcg/actuation nasal spray,suspension dexAMETHasone (DECADRON) 1 mg tablet Take one pill between 23:00 and 00:00 1 tablet 0 No current facility-administered medications for this visit. ALLERGIES Allergen Reactions Seasonal Allergies Other: See Comments FAMILY HISTORY Problem Relation Age of Onset Hypothyroidism Mother Hypothyroidism Sister Hypothyroidism Sister Graves Disease Maternal Grandmother Graves Disease Maternal Uncle Social History Tobacco Use Smoking status: Current Every Day Smoker Packs/day: 0.50 Smokeless tobacco: Never Used Tobacco comment: david Substance Use Topics Alcohol use: Not on file Drug use: Not on file Review of Systems Answers for HPI/ROS submitted by the patient on 11/30/2021 Fatigue: Yes Night Sweats: Yes Recent Unintentional Weight Change: No Skin Color Changes: Yes Post-Nasal Drip: Yes Thyroid Pain (lower neck): No Trouble Swallowing: No Vision Disturbance: No Chest Pain: No Leg Swelling: Yes Blood Clots?: No Leg Pain while walking?: Yes Difficulty Breathing?: No Heartburn: Yes Nausea: No Vomiting?: No Diarrhea: Yes Constipation: Yes Abdominal Pain: Yes Bone Pain?: Yes Muscle Aches: Yes Muscle Weakness: Yes Joint Pain or Stiffness: Yes Headaches: Yes Dizziness: No Numbness?: No Urgency to Urinate?: No Increased Urination?: No Slow or Small Urine Stream?: No Are your menstrual cycles regular?: No Are your menstrual cycles irregular?: No Have your menstrual cycles stopped?: Yes Flushing?: Yes Hot Flashes?: Yes Increased Thirst: Yes Change in Body Hair?: Yes Cold Intolerance: Yes Heat Intolerance?: Yes Physical examination BP 127/79 Pulse 95 Ht 163.6 cm (5' 4.41 ) Wt 132.6 kg (292 lb 6.4 oz) BMI 49.55 kg/m GENERAL: Well nourished, well hydrated, in no distress and oriented x 3 COMMUNICATION: Hearing: normal; VOICE: normal EYES: no thyroid eye signs, Fundi normal and cornea normal. EOMI NECK: no visible nodules or goiter, no bruit, no tenderness and no adenopathies THYROID: smooth, non-tender, 15-20 gram, firm and No palpable nodules EXTREMITIES: No clubbing, no edema, no cyanosis and normal nails NEURO: normal strength, no tremor and normal reflexes SKIN: No rash or lesion Previous Laboratory Results Component Latest Ref Rng & Units 09/25/2021 TSH 0.270 - 4.200 uU/mL 1.220 Free T4 0.9 - 1.7 ng/dL 1.1 Cortisol,ON DEX,Post <1.8 ug/dL 0.7 ACTH 7.2 - 63.3 pg/mL 2.2 (L) Dexamethasone ng/dL 271.2 Microsomal Antibody <5.6 IU/mL <1.0 07/2021: H.2 HCT: 43 % CMP WNL Chol: 223 LDL: 138 HDL: 40 T Non-HDL: 183 04/2021: HbA1c: 5.5 % Chol: 230 LDL: 143 HDL: 35 T TSH: 1.9 Impression/Recommendations Benny Guerrero is a 36 year old female with PMH of PCOS, Hydradenitis suppurative, DLP, Obesity and Hx of hypothyroidism who presents today for evaluation of weight management Obesity BMI 49.55: -- Dietary changes and exercise reviewed -- No evidence of thyroid or isabel disease -- Last TSH and FT4 WNL in 10/2021, TPO negative -- Will check TRAb level -- She has tried weight watcher and Adipex in the past with good success the first round (30-40 lb weight loss) -- Target 150-200 minutes of moderate intensity exercise per week -- Advised to decrease carb intake and avoid artifical sweeteners -- Different options reviewed including medical therapy and diets -- Mediterranean and low carb diet discussed including risk and benefit -- Therapy with phentermine, GLP-1 agonist, Topamax, Qsymia, metformin, Wellbutrin, Plenity and contrave reviewed including side effects and benefits -- She has tried Phentermine in the past and had good results but prefers to avoid out of concern of possible cardiac se -- She is interested in Wegovy therapy -- Start you on Wegovy 0.25 mg weekly for one month, then increase to 0.5 mg weekly for one month and then to 1 mg weekly -- The side effects and benefits of Wegovy discussed in details including risk of pancreatis, medullary thyroid cancer and CI for -- She has a Mirena IIUD -- If the Wegovy is not covered, will start Topamax therapy -- Referral to the guide winder for mediterranean diet -- Referral to weight management fitness program Dyslipidemia: -- Started in Lipitor 20 mg daily in 07/2021 -- Has muscle aches and pain despite decrease to 10 mg dose -- Advised to try OTC co-enzyme Q10 supplements -- If no improvement, may consider switching to crestor 5 mg weekly PCOS and HS: -- She is on spironolactone therapy (50 mg BID) -- Also on metformin 500 mg BID -- Has the Mirena IUD -- Acne and hirstusim improved with spironolactone -- HS not as well controlled as when she was on OCP -- She may consider OCP in the future if weight loss does not help Hx of Hypothyroidism: -- Was on LT4 therapy in her teenage years -- Off LT4 for several years now -- Last TSH in 04/2021 and in 10/2021 WNL, FT4 WNL in 10/2021 -- TPO negative -- FHx of Graves' disease in her MGM and maternal uncle -- Mother and 2 sisters have hypothyroidism -- Will check TRAb levels -- Discussed Graves' disease and indications for therapy The patient will follow up in 3 months. I spent a total of 80 minutes on the date of the service which included preparing to see the patient, [id number] patient care, completing clinical documentation, obtaining and/or reviewing separately obtained history, performing a medically appropriate examination, counseling and educating the pat ient/family/caregiver and ordering medications, tests, or procedures. Sachi Armas MD documented [facility] Instructions* Patient Instructions* Noris Julian Ma - 12/02/2021 8:58 AM EDT Thank you for choosing the [facility] Department of Endocrinology, Diabetes and Metabolism. Did you know that you need to call 48 hours in advance of your scheduled visit, if you are unable to make your appointment? The Endocrinology and Metabolism [place] thanks you for your commitment, because patients not showing to their appointment results in a lost opportunity for patients to receive [facility] care at the [facility]. To Cancel an appointment, please choose one of the following: - Call the Appointment Call Center at [phone] - From [employer], Go to Appointments Cancel Appts If cancelling, consider your need to reschedule to prevent further delays in your care. To Schedule an appointment, please choose one of the following: - Call the Appointment Call Center at [phone] - From [employer], Go to Appointments Request an Appt I will start you on Wegovy 0.25 mg weekly for one month, then increase to 0.5 mg weekly Once you are on your third week of Wegovy, please send me a [employer] message to let me know to send in the higher dose of Wegovy (0.5 mg) for you You can see how to inject Wegovy at: [email or web address] I will see you for follow up in 3 months if we are able to start the Wegovy (ok for virtual) Please schedule an appointment with the guide winder and weight management exercise program at the front desk representative Follow up in 3 months [facility]* Diagnosis PCOS (polycystic ovarian syndrome)- Primary Polycystic ovaries Obesity, Class III, BMI 40-49.9 (morbid obesity) (HCC) Morbid obesity Dyslipidemia Other and unspecified hyperlipidemia Insulin resistance Dysmetabolic Syndrome X Hydradenitis Hidradenitis documented [facility] this encounter [facility]* Diagnosis Obesity, Class III, BMI 40-49.9 (morbid obesity) (HCC)- Primary Morbid obesity PCOS (polycystic ovarian syndrome) Polycystic ovaries Dyslipidemia Other and unspecified hyperlipidemia Graves' disease Toxic diffuse goiter without mention of thyrotoxic crisis or storm documented in this encounter [facility] [place] [facility]* Diagnosis Obesity, Class III, BMI 40-49.9 (morbid obesity) (HCC) Morbid obesity PCOS (polycystic ovarian syndrome) Polycystic ovaries Dyslipidemia Other and unspecified hyperlipidemia [facility] this encounter [facility] [place] [facility]* Diagnosis Obesity, Class III, BMI 40-49.9 (morbid obesity) (HCC) Morbid obesity PCOS (polycystic ovarian syndrome) Polycystic ovaries Dyslipidemia Other and unspecified hyperlipidemia [facility]* Diagnosis Obesity, Class III, BMI 40-49.9 (morbid obesity) (HCC)- Primary Morbid obesity PCOS (polycystic ovarian syndrome) Polycystic ovaries Dyslipidemia Other and unspecified hyperlipidemia Hydradenitis Hidradenitis Malaise and fatigue Other malaise and fatigue Insulin resistance Dysmetabolic Syndrome X documented in this encounter [facility]* Diagnosis Obesity, Class III, BMI 40-49.9 (morbid obesity) (HCC) Morbid obesity PCOS (polycystic ovarian syndrome) Polycystic ovaries Dyslipidemia Other and unspecified hyperlipidemia documented in this encounter [facility]* Diagnosis Obesity, Class III, BMI 40-49.9 (morbid obesity) (HCC)- Primary Morbid obesity PCOS (polycystic ovarian syndrome) Polycystic ovaries Insulin resistance Dysmetabolic Syndrome X Graves' disease Toxic diffuse goiter without mention of thyrotoxic crisis or storm [facility] [place] [facility]* Diagnosis Insulin resistance- Primary Dysmetabolic Syndrome X Obesity, Class III, BMI 40-49.9 (morbid obesity) (HCC) Morbid obesity PCOS (polycystic ovarian syndrome) Polycystic ovaries Dyslipidemia Other and unspecified hyperlipidemia documented in this [facility]* Diagnosis Obesity, Class III, BMI 40-49.9 (morbid obesity) (HCC) Morbid obesity PCOS (polycystic ovarian syndrome) Polycystic ovaries Dyslipidemia Other and unspecified hyperlipidemia Insulin resistance Dysmetabolic Syndrome X documented in [facility]* Diagnosis Hepatomegaly- Primary Gastroesophageal reflux disease, unspecified whether esophagitis present [facility] [place] [facility]* Diagnosis Hepatomegaly- Primary [facility] [place] [facility]* Diagnosis Hepatomegaly documented in this [facility]* Diagnosis Class 1 obesity due to excess calories without serious comorbidity with body mass index (BMI) of 31.0 to 31.9 in adult- Primary PCOS (polycystic ovarian syndrome) Polycystic ovaries Hypothyroidism, unspecified type documented in this [facility]* Diagnosis Hepatomegaly- Primary Gastroesophageal reflux disease, unspecified whether esophagitis present [facility] [place] [facility]* Diagnosis Class 1 obesity with serious comorbidity and body mass index (BMI) of 31.0 to 31.9 in adult, unspecified obesity type- Primary PCOS (polycystic ovarian syndrome) Polycystic ovaries Insulin resistance Dysmetabolic Syndrome X Dyslipidemia Other and unspecified hyperlipidemia Hypothyroidism, unspecified type Hydradenitis Hidradenitis Medication management Encounter for long-term (current) use of other medications Dietary counseling Dietary surveillance and counseling Exercise counseling Obesity, Class III, BMI 40-49.9 (morbid obesity) (HCC) Morbid obesity documented in this [facility]* Diagnosis Hepatomegaly Gastroesophageal reflux disease, unspecified whether esophagitis present documented in this [facility]* Diagnosis Gastric ulcer without hemorrhage or perforation, unspecified chronicity- Primary documented in this [facility]* Diagnosis Gastric ulcer without hemorrhage or perforation, unspecified chronicity- Primary documented in this [facility]* Diagnosis Obesity, Class I, BMI 30-34.9 Obesity, unspecified PCOS (polycystic ovarian syndrome) Polycystic ovaries Insulin resistance Dysmetabolic Syndrome X documented in this encounter [facility]* Diagnosis Obesity, Class II, BMI 35-39.9- Primary Obesity, unspecified PCOS (polycystic ovarian syndrome) Polycystic ovaries Insulin resistance Dysmetabolic Syndrome X Dyslipidemia Other and unspecified hyperlipidemia Hypothyroidism, unspecified type Medication management Encounter for long-term (current) use of other medications Dietary counseling Dietary surveillance and counseling Exercise counseling documented in [facility]* Diagnosis Obesity, Class I, BMI 30-34.9- Primary Obesity, unspecified PCOS (polycystic ovarian syndrome) Polycystic ovaries Insulin resistance Dysmetabolic Syndrome X documented in [facility]* Diagnosis Hypercalcemia- Primary Vitamin D deficiency Unspecified [facility] D [facility] Diagnosis Gastroesophageal reflux disease without esophagitis Esophageal reflux [facility]* Diagnosis Insulin resistance- Primary Dysmetabolic Syndrome X Obesity, Class II, BMI 35-39.9 Obesity, unspecified PCOS (polycystic ovarian syndrome) Polycystic ovaries Dyslipidemia Other and unspecified hyperlipidemia Hypothyroidism, unspecified type Hidradenitis suppurativa Hidradenitis Medication management Encounter for long-term (current) use of other medications Dietary counseling Dietary surveillance and counseling Exercise counseling [facility]* Diagnosis Reactive hypoglycemia- Primary Hypoglycemia, unspecified Insulin resistance Dysmetabolic Syndrome X Hypothyroidism, unspecified type Hypercalcemia [facility]* Diagnosis Obesity, Class II, BMI 35-39.9- Primary Obesity, unspecified Reactive hypoglycemia Hypoglycemia, unspecified Insulin resistance Dysmetabolic Syndrome X PCOS (polycystic ovarian syndrome) Polycystic ovaries [facility]* Diagnosis Obesity, Class II, BMI 35-39.9- Primary Obesity, unspecified [facility]* Diagnosis Gastroesophageal reflux disease without esophagitis Esophageal reflux [facility]* Diagnosis Gastroesophageal reflux disease without esophagitis Esophageal reflux documented [facility]* Diagnosis Reactive hypoglycemia Hypoglycemia, unspecified Insulin resistance Dysmetabolic Syndrome X Hypothyroidism, unspecified type [facility]* Diagnosis Obesity, Class III, BMI 40-49.9 (morbid obesity) (HCC)- Primary Morbid obesity PCOS (polycystic ovarian syndrome) Polycystic ovaries [facility]* Diagnosis Obesity, Class II, BMI 35-39.9 Obesity, unspecified [facility]* Diagnosis PCOS (polycystic ovarian syndrome)- Primary Polycystic ovaries Insulin resistance Dysmetabolic Syndrome X Reactive hypoglycemia Hypoglycemia, unspecified Hypercalcemia Dyslipidemia Other and unspecified hyperlipidemia [facility]* Diagnosis PCOS (polycystic ovarian syndrome)- Primary Polycystic ovaries [facility]* Diagnosis Obesity, Class I, BMI 30-34.9 Obesity, unspecified PCOS (polycystic ovarian syndrome) Polycystic ovaries Insulin resistance Dysmetabolic Syndrome X documented [facility]* Diagnosis Obesity, Class III, BMI 40-49.9 (morbid obesity) (HCC)- Primary Morbid obesity PCOS (polycystic ovarian syndrome) Polycystic ovaries Dyslipidemia Other and unspecified hyperlipidemia Hypothyroidism, unspecified type Psoriatic arthritis of multiple joints ([facility]) [facility]* Diagnosis Mild intermittent asthma without complication ([facility]/HCC)- Primary [facility] - [facility]orted* Type Description Date Medical History anxiety Medical History chronic depression Medical History acid reflux Medical History PCOS Medical History hydranitis Medical History hydro Surgical History C section Surgical History D&C Hospitalization History see above [employer] Other Reason for referral (narrative)* Outpatient Procedure (Routine) - Pending Review Specialty Diagnoses / Procedures Referred By Katerin t Referred To Contact [facility] Diagnoses Hepatomegaly Gastroesophageal reflux disease, unspecified whether esophagitis present Procedures EGD DIAGNOSTIC ESOPHAGOGASTRODUODENOSC OPY TRANSORAL DIAGNOSTIC Haley Livingston MD [address] [place] [id number] [place] [address] Referral ID Status Reason Start Date Expiration Date Visits Requested Visits Authorized [id number] Pending Review Auto-Generat ed Referral 02/17/2023 02/18/2024 1 1 * Consult, Test, Treat (Routine) - Authorized Specialty Diagnoses / Procedures Referred By Katerin t Referred To Contact Nutrition Diagnoses Hepatomegaly Procedures CONSULT TO NUTRITION THERAPY MEDICAL NUTRITION ASSMT&IVNTJ INDIV EACH 15 [place] MEDICAL NUTRITION ASSMT&IVNTJ INDIV EACH 15 [place] MEDICAL NUTRITION ASSMT&IVNTJ INDIV EACH 15 [place] MEDICAL NUTRITION ASSMT&IVNTJ INDIV EACH 15 [place] Haley Livingston MD [address] [address] Referral ID Status Reason Start Date Expiration Date Visits Requested Visits Authorized [id number] Authorized PCP Requested Referral 02/17/2023 05/18/2023 1 1 * Outpatient Procedure (Routine) - Authorized Specialty Diagnoses / Procedures [facility] Diagnoses Hepatomegaly Procedures DDI VIBRATION CONTROLLED TRANSIENT ELASTOGRAPHY (VCTE) LIVER ELASTOGRAPHY W/O IMAG W/I&R Haley Livingston MD [address] [address] [place] [address] [place] [address] Referral ID Status Reason Start Date Expiration Date Visits Requested Visits Authorized [id number] Authorized Auto-Generat ed Referral 02/17/2023 02/18/2024 1 1 [facility] for referral (narrative)* Outpatient Procedure (Routine) - Pending Review Specialty Diagnoses / Procedures Referred By Katerin gallagher Referred To [facility] Diagnoses Hepatomegaly Gastroesophageal reflux disease, unspecified whether esophagitis present Procedures EGD DIAGNOSTIC ESOPHAGOGASTRODUODENOSC OPY TRANSORAL DIAGNOSTIC Haley Livingston MD [phone] [place] [id number] [place] [address] Referral ID Status Reason Start Date Expiration Date Visits Requested Visits Authorized [id number] Pending Review Auto-Generat ed Referral 05/24/2023 05/24/2024 1 1 [facility] for referral (narrative)* Outpatient Procedure (Urgent) - Closed Specialty Diagnoses / Procedures Referred By Katerin gallagher Referred To [facility] Diagnoses Hepatomegaly Gastroesophageal reflux disease, unspecified whether esophagitis present Procedures EGD DIAGNOSTIC ESOPHAGOGASTRODUODENOSC OPY TRANSORAL DIAGNOSTIC Haley Livingston MD [address] [facility] [address] [address] Dasha Weber MD [address] [facility] [place] [address] Referral ID Status Reason Start Date Expiration Date V isits Requested Visits Authorized [id number] Closed Auto-Generat ed Referral Patient Cleared - Admin/Chairm an/Director advise to proceed or did not respond 05/24/2023 05/24/2024 1 1 [facility] for referral (narrative)* Outpatient Procedure (Routine) - Pending Review Specialty Diagnoses / Procedures Referred By Katerin gallagher Referred To [facility] Diagnoses Gastric ulcer without hemorrhage or perforation, unspecified chronicity Procedures EGD DIAGNOSTIC ESOPHAGOGASTRODUODENOSC OPY TRANSORAL DIAGNOSTIC Rouphael, Dasha, MD [phone] [place] [phone] Referral ID Status Reason Start Date Expiration Date Visits Requested Visits Authorized [id number] Pending Review Auto-Generat ed Referral 07/06/2024 1 1 [facility] for referral (narrative)* Outpatient Procedure (Routine) - Authorized Specialty Diagnoses / Procedures Referred By Contac t Referred To Contact [facility] Diagnoses Gastric ulcer without hemorrhage or perforation, unspecified chronicity Procedures EGD DIAGNOSTIC ESOPHAGOGASTRODUODENOSC OPY TRANSORAL DIAGNOSTIC Haley Livingston MD [phone] [place] [id number] Referral ID Status Reason Start Date Expiration Date Visits Requested Visits Authorized [id number] Authorized Auto-Generat ed Referral 08/11/2023 07/12/2024 1 1 [facility] for referral (narrative)* Diagnostic Procedure Only (Routine) - Pending Review Specialty Diagnoses / Procedures Referred By Contac t Referred To Contact [facility] Diagnoses Reactive hypoglycemia Insulin resistance Hypothyroidism, unspecified type Procedures US THYROID/PARATHYROID US SOFT TISSUE HEAD & NECK REAL TIME IMGE Sachi Lockhart MD [address] [place] [address] [id number] Referral ID Status Reason Start Date Expiration Date Visits Requested Visits Authorized [id number] Pending Review Auto-Generat ed Referral 03/07/2024 04/06/2025 1 1 * Consult, Test, Treat (Routine) - Closed Specialty Diagnoses / Procedures Referred By Contluis t Referred To Contact Diagnoses Reactive hypoglycemia Insulin resistance Procedures ENDOCRINOLOGY DIETITIAN VISIT (MNT) MEDICAL NUTRITION ASSMT&IVNTJ INDIV EACH 15 [place] MEDICAL NUTRITION ASSMT&IVNTJ INDIV EACH 15 [place] MEDICAL NUTRITION ASSMT&IVNTJ INDIV EACH 15 [place] MEDICAL NUTRITION ASSMT&IVNTJ INDIV EACH 15 [place] Sachi Pedro MD [address] [place] [address] Referral ID Status Reason Start Date Expiration Date V isits Requested Visits Authorized [id number] Closed PCP Requested Referral 03/07/2024 03/07/2025 1 1 [facility] for visit Narrative* Outpatient Procedure (Urgent) - Closed Specialty Diagnoses / Procedures Referred By Katerin gallagher Referred To Contact [facility] Diagnoses Hepatomegaly Gastroesophageal reflux disease, unspecified whether esophagitis present Procedures EGD DIAGNOSTIC ESOPHAGOGASTRODUODENOSC OPY TRANSORAL DIAGNOSTIC Haley Livingston MD [address] [address] Dasha Weebr MD [address] [place] [address] Referral ID Status Reason Start Date Expiration Date V isits Requested Visits Authorized [id number] Closed Auto-Generat ed Referral Patient Cleared - Admin/Chairm an/Director advise to proceed or did not respond 05/24/2023 05/24/2024 1 1 [facility] for visit Narrative* Diagnostic Procedure Only (Routine) - Closed Specialty Diagnoses / Procedures Referred By Katerin gallagher Referred To Contact [facility] Diagnoses Reactive hypoglycemia Insulin resistance Hypothyroidism, unspecified type Procedures US THYROID/PARATHYROID US SOFT TISSUE HEAD & NECK REAL TIME IMGE DOCM Sachi Pedro MD [address] [place] [address] [id number] Referral ID Status Reason Start Date Expiration Date V isits Requested Visits Authorized [id number] Closed Auto-Generate d Referral 03/07/2024 04/06/2025 1 1 [facility] Summary Purpose Family History No Family History Records FoundNo Family History Records FoundNo Family History Records FoundNo Family History Records FoundNo Family History Records FoundNo Family History Records FoundNo Family History Records Found Advance Directives No Advanced Directives Records FoundNo Advanced Directives Records FoundNo Advanced Directives Records FoundNo Advanced Directives Records FoundNo Advanced Directives Records FoundNo Advanced Directives Records FoundNo Advanced Directives Records Found Reason for Referral Specialty Diagnoses / Procedures Referred By Contac t Referred To Contact Diagnoses Obesity, Class III, BMI 40-49.9 (morbid obesity) (HCC) PCOS (polycystic ovarian syndrome) Dyslipidemia Insulin resistance Procedures CONSULT WEIGHT MANAGEMENT FITNESS PROGRAM OFFICE/OUTPATIENT [facility] 60-[place] [address] [place] [address] Referral ID Status Reason Start Date Expiration Date Visits Requested Visits Authorized [id number] Pending Review PCP Requested Referral 12/02/2021 12/02/2022 1 1 Specialty Diagnoses / Procedures Referred By Contac t Referred To Contact Diagnoses Obesity, Class III, BMI 40-49.9 (morbid obesity) (HCC) PCOS (polycystic ovarian syndrome) Dyslipidemia Insulin resistance Procedures ENDOCRINOLOGY DIETITIAN VISIT OFFICE/OUTPATIENT [facility] 60-[place] [address] [place] [address] Referral ID Status Reason Start Date Expiration Date Visits Requested Visits Authorized [id number] Authorized PCP Requested Referral 12/02/2021 12/02/2022 1 1 Specialty Diagnoses / Procedures Referred By Contac t Referred To Contact Diagnoses Obesity, Class III, BMI 40-49.9 (morbid obesity) (HCC) Procedures ENDOCRINOLOGY DIETITIAN VISIT (MNT) MEDICAL NUTRITION ASSMT&IVNTJ INDIV EACH 15 [place] MEDICAL NUTRITION ASSMT&IVNTJ INDIV EACH 15 [place] MEDICAL NUTRITION ASSMT&IVNTJ INDIV EACH 15 [place] MEDICAL NUTRITION ASSMT&IVNTJ INDIV EACH 15 [place] Maranda Retana, [facility] [address] [place] [address] Referral ID Status Reason Start Date Expiration Date Visits Requested Visits Authorized [id number] Authorized PCP Requested Referral 08/08/2024 08/08/2025 1 1 Medications Administered Section Inactive Administered Medications - up to 3 most recent administrations Medication Order MAR Action Action Date Dose Rate Site benzocaine 20% (TOPEX) TOPICAL, X (OR/PROCEDURE) PRN, Starting on Wed06/30/23 at 0947, Until Wed06/30/23 at 0947, Intraprocedure Given 06/30/2023 9:47 AM EDT 1 [place] fentaNYL 50 mcg/mL injection (SUBLIMAZE) INTRAVENOUS, X (OR/PROCEDURE) PRN, Starting on Wed06/30/23 at 0950, Until Wed06/30/23 at 1001, Intraprocedure Given 06/30/2023 10:01 AM EDT 25 mcg Given 06/30/2023 9:53 AM EDT 25 mcg Given 06/30/2023 9:50 AM EDT 50 mcg midazolam (PF) injection (VERSED) INTRAVENOUS, X (OR/PROCEDURE) PRN, Starting on Wed06/30/23 at 0950, Until Wed06/30/23 at 1001, Intraprocedure Given 06/30/2023 10:01 AM EDT 1 mg Given 06/30/2023 9:55 AM EDT 1 mg Given 06/30/2023 9:53 AM EDT 1 mg NaCl 0.9% iv infusion INTRAVENOUS, X (OR/PROCEDURE) CONTINUOUS, Starting on Wed06/30/23 at 0954, Until Wed06/30/23 at 0954, Intraprocedure New Bag/Syringe/Bottle 06/30/2023 9:54 AM EDT 1,000 mL Additional Source Comments INFORMATION SOURCE (unrecogn ized section and content) DATE CREATED AUTHOR 08/06/2021 [facility] DATE CREATED AUTHOR AUTHOR'S ORGANIZ ATION 06/28/2022 [facility] DATE CREATED AUTHOR AUTHOR'S ORGANIZ ATION 07/02/2022 [facility] DATE CREATED AUTHOR AUTHOR'S ORGANIZ ATION 02/18/2023 [facility] DATE CREATED AUTHOR AUTHOR'S ORGANIZ ATION 05/24/2024 [facility] DATE CREATED AUTHOR AUTHOR'S ORGANIZ ATION 06/06/2024 [facility] DATE CREATED AUTHOR AUTHOR'S ORGANIZ ATION 08/09/2024 [facility] Source Comments (unrecognize d section and content) In the event this informatio n is protected by the Federal Confidentiality of Alcohol and Drug Abuse Patient Records regulations: The Federal rules restrict any use of the information to criminally investigate or prosecute any alcohol or drug abuse patient.[facility] the event this information is protected by the Federal Confidentiality of Alcohol and Drug Abuse Patient Records regulations: The Federal rules restrict any use of the information to criminally investigate or prosecute any alcohol or drug abuse patient.[facility] CenterIn the event this information is protected by the Federal Confidentiality of Alcohol and Drug Abuse Patient Records regulations: The Federal rules restrict any use of the information to criminally investigate or prosecute any alcohol or drug abuse patient.[facility] CenterIn the event this information is protected by the Federal Confidentiality of Alcohol and Drug Abuse Patient Records regulations: The Federal rules restrict any use of the information to criminally investigate or prosecute any alcohol or drug abuse patient.[facility] CenterIn the event this information is protected by the Federal Confidentiality of Alcohol and Drug Abuse Patient Records regulations: The Federal rules restrict any use of the information to criminally investigate or prosecute any alcohol or drug abuse patient.[facility] CenterIn the event this information is protected by the Federal Confidentiality of Alcohol and Drug Abuse Patient Records regulations: The Federal rules restrict any use of the information to criminally investigate or prosecute any alcohol or drug abuse patient.[facility] CenterIn the event this information is protected by the Federal Confidentiality of Alcohol and Drug Abuse Patient Records regulations: The Federal rules restrict any use of the information to criminally investigate or prosecute any alcohol or drug abuse patient.[facility] CenterIn the event this information is protected by the Federal Confidentiality of Alcohol and Drug Abuse Patient Records regulations: The Federal rules restrict any use of the information to criminally investigate or prosecute any alcohol or drug abuse patient.[facility] CenterIn the event this information is protected by the Federal Confidentiality of Alcohol and Drug Abuse Patient Records regulations: The Federal rules restrict any use of the information to criminally investigate or prosecute any alcohol or drug abuse patient.[facility] CenterIn the event this information is protected by the Federal Confidentiality of Alcohol and Drug Abuse Patient Records regulations: The Federal rules restrict any use of the information to criminally investigate or prosecute any alcohol or drug abuse patient.[facility] CenterIn the event this information is protected by the Federal Confidentiality of Alcohol and Drug Abuse Patient Records regulations: The Federal rules restrict any use of the information to criminally investigate or prosecute any alcohol or drug abuse patient.[facility] CenterIn the event this information is protected by the Federal Confidentiality of Alcohol and Drug Abuse Patient Records regulations: The Federal rules restrict any use of the information to criminally investigate or prosecute any alcohol or drug abuse patient.[facility] CenterIn the event this information is protected by the Federal Confidentiality of Alcohol and Drug Abuse Patient Records regulations: The Federal rules restrict any use of the information to criminally investigate or prosecute any alcohol or drug abuse patient.[facility] CenterIn the event this information is protected by the Federal Confidentiality of Alcohol and Drug Abuse Patient Records regulations: The Federal rules restrict any use of the information to criminally investigate or prosecute any alcohol or drug abuse patient.[facility] CenterIn the event this information is protected by the Federal Confidentiality of Alcohol and Drug Abuse Patient Records regulations: The Federal rules restrict any use of the information to criminally investigate or prosecute any alcohol or drug abuse patient.[facility] CenterIn the event this information is protected by the Federal Confidentiality of Alcohol and Drug Abuse Patient Records regulations: The Federal rules restrict any use of the information to criminally investigate or prosecute any alcohol or drug abuse patient.[facility] CenterIn the event this information is protected by the Federal Confidentiality of Alcohol and Drug Abuse Patient Records regulations: The Federal rules restrict any use of the information to criminally investigate or prosecute any alcohol or drug abuse patient.[facility] CenterIn the event this information is protected by the Federal Confidentiality of Alcohol and Drug Abuse Patient Records regulations: The Federal rules restrict any use of the information to criminally investigate or prosecute any alcohol or drug abuse patient.[facility] CenterIn the event this information is protected by the Federal Confidentiality of Alcohol and Drug Abuse Patient Records regulations: The Federal rules restrict any use of the information to criminally investigate or prosecute any alcohol or drug abuse patient.[facility] CenterIn the event this information is protected by the Federal Confidentiality of Alcohol and Drug Abuse Patient Records regulations: The Federal rules restrict any use of the information to criminally investigate or prosecute any alcohol or drug abuse patient.[facility] CenterIn the event this information is protected by the Federal Confidentiality of Alcohol and Drug Abuse Patient Records regulations: The Federal rules restrict any use of the information to criminally investigate or prosecute any alcohol or drug abuse patient.[facility] CenterIn the event this information is protected by the Federal Confidentiality of Alcohol and Drug Abuse Patient Records regulations: The Federal rules restrict any use of the information to criminally investigate or prosecute any alcohol or drug abuse patient.[facility] CenterIn the event this information is protected by the Federal Confidentiality of Alcohol and Drug Abuse Patient Records regulations: The Federal rules restrict any use of the information to criminally investigate or prosecute any alcohol or drug abuse patient.[facility] CenterIn the event this information is protected by the Federal Confidentiality of Alcohol and Drug Abuse Patient Records regulations: The Federal rules restrict any use of the information to criminally investigate or prosecute any alcohol or drug abuse patient.[facility] CenterIn the event this information is protected by the Federal Confidentiality of Alcohol and Drug Abuse Patient Records regulations: The Federal rules restrict any use of the information to criminally investigate or prosecute any alcohol or drug abuse patient.[facility] CenterIn the event this information is protected by the Federal Confidentiality of Alcohol and Drug Abuse Patient Records regulations: The Federal rules restrict any use of the information to criminally investigate or prosecute any alcohol or drug abuse patient.[facility] CenterIn the event this information is protected by the Federal Confidentiality of Alcohol and Drug Abuse Patient Records regulations: The Federal rules restrict any use of the information to criminally investigate or prosecute any alcohol or drug abuse patient.[facility] CenterIn the event this information is protected by the Federal Confidentiality of Alcohol and Drug Abuse Patient Records regulations: The Federal rules restrict any use of the information to criminally investigate or prosecute any alcohol or drug abuse patient.[facility] CenterIn the event this information is protected by the Federal Confidentiality of Alcohol and Drug Abuse Patient Records regulations: The Federal rules restrict any use of the information to criminally investigate or prosecute any alcohol or drug abuse patient.[facility] CenterIn the event this information is protected by the Federal Confidentiality of Alcohol and Drug Abuse Patient Records regulations: The Federal rules restrict any use of the information to criminally investigate or prosecute any alcohol or drug abuse patient.[facility] CenterIn the event this information is protected by the Federal Confidentiality of Alcohol and Drug Abuse Patient Records regulations: The Federal rules restrict any use of the information to criminally investigate or prosecute any alcohol or drug abuse patient.[facility] CenterIn the event this information is protected by the Federal Confidentiality of Alcohol and Drug Abuse Patient Records regulations: The Federal rules restrict any use of the information to criminally investigate or prosecute any alcohol or drug abuse patient.[facility] CenterIn the event this information is protected by the Federal Confidentiality of Alcohol and Drug Abuse Patient Records regulations: The Federal rules restrict any use of the information to criminally investigate or prosecute any alcohol or drug abuse patient.[facility] CenterIn the event this information is protected by the Federal Confidentiality of Alcohol and Drug Abuse Patient Records regulations: The Federal rules restrict any use of the information to criminally investigate or prosecute any alcohol or drug abuse patient.[facility] CenterIn the event this information is protected by the Federal Confidentiality of Alcohol and Drug Abuse Patient Records regulations: The Federal rules restrict any use of the information to criminally investigate or prosecute any alcohol or drug abuse patient.[facility] CenterIn the event this information is protected by the Federal Confidentiality of Alcohol and Drug Abuse Patient Records regulations: The Federal rules restrict any use of the information to criminally investigate or prosecute any alcohol or drug abuse patient.[facility] CenterIn the event this information is protected by the Federal Confidentiality of Alcohol and Drug Abuse Patient Records regulations: The Federal rules restrict any use of the information to criminally investigate or prosecute any alcohol or drug abuse patient.[facility] CenterIn the event this information is protected by the Federal Confidentiality of Alcohol and Drug Abuse Patient Records regulations: The Federal rules restrict any use of the information to criminally investigate or prosecute any alcohol or drug abuse patient.[facility] CenterIn the event this information is protected by the Federal Confidentiality of Alcohol and Drug Abuse Patient Records regulations: The Federal rules restrict any use of the information to criminally investigate or prosecute any alcohol or drug abuse patient.[facility] the event this information is protected by the Federal Confidentiality of Alcohol and Drug Abuse Patient Records regulations: The Federal rules restrict any use of the information to criminally investigate or prosecute any alcohol or drug abuse patient.[facility] CenterIn the event this information is protected by the Federal Confidentiality of Alcohol and Drug Abuse Patient Records regulations: The Federal rules restrict any use of the information to criminally investigate or prosecute any alcohol or drug abuse patient.[facility] CenterIn the event this information is protected by the Federal Confidentiality of Alcohol and Drug Abuse Patient Records regulations: The Federal rules restrict any use of the information to criminally investigate or prosecute any alcohol or drug abuse patient.[facility] CenterIn the event this information is protected by the Federal Confidentiality of Alcohol and Drug Abuse Patient Records regulations: The Federal rules restrict any use of the information to criminally investigate or prosecute any alcohol or drug abuse patient.[facility] CenterIn the event this information is protected by the Federal Confidentiality of Alcohol and Drug Abuse Patient Records regulations: The Federal rules restrict any use of the information to criminally investigate or prosecute any alcohol or drug abuse patient.[facility] CenterIn the event this information is protected by the Federal Confidentiality of Alcohol and Drug Abuse Patient Records regulations: The Federal rules restrict any use of the information to criminally investigate or prosecute any alcohol or drug abuse patient.[facility] CenterIn the event this information is protected by the Federal Confidentiality of Alcohol and Drug Abuse Patient Records regulations: The Federal rules restrict any use of the information to criminally investigate or prosecute any alcohol or drug abuse patient.[facility] CenterIn the event this information is protected by the Federal Confidentiality of Alcohol and Drug Abuse Patient Records regulations: The Federal rules restrict any use of the information to criminally investigate or prosecute any alcohol or drug abuse patient.[facility] CenterIn the event this information is protected by the Federal Confidentiality of Alcohol and Drug Abuse Patient Records regulations: The Federal rules restrict any use of the information to criminally investigate or prosecute any alcohol or drug abuse patient.[facility] CenterIn the event this information is protected by the Federal Confidentiality of Alcohol and Drug Abuse Patient Records regulations: The Federal rules restrict any use of the information to criminally investigate or prosecute any alcohol or drug abuse patient.[facility] CenterIn the event this information is protected by the Federal Confidentiality of Alcohol and Drug Abuse Patient Records regulations: The Federal rules restrict any use of the information to criminally investigate or prosecute any alcohol or drug abuse patient.[facility] CenterIn the event this information is protected by the Federal Confidentiality of Alcohol and Drug Abuse Patient Records regulations: The Federal rules restrict any use of the information to criminally investigate or prosecute any alcohol or drug abuse patient.[facility] CenterIn the event this information is protected by the Federal Confidentiality of Alcohol and Drug Abuse Patient Records regulations: The Federal rules restrict any use of the information to criminally investigate or prosecute any alcohol or drug abuse patient.[facility] CenterIn the event this information is protected by the Federal Confidentiality of Alcohol and Drug Abuse Patient Records regulations: The Federal rules restrict any use of the information to criminally investigate or prosecute any alcohol or drug abuse patient.[facility] CenterIn the event this information is protected by the Federal Confidentiality of Alcohol and Drug Abuse Patient Records regulations: The Federal rules restrict any use of the information to criminally investigate or prosecute any alcohol or drug abuse patient.[facility] CenterIn the event this information is protected by the Federal Confidentiality of Alcohol and Drug Abuse Patient Records regulations: The Federal rules restrict any use of the information to criminally investigate or prosecute any alcohol or drug abuse patient.[facility] CenterIn the event this information is protected by the Federal Confidentiality of Alcohol and Drug Abuse Patient Records regulations: The Federal rules restrict any use of the information to criminally investigate or prosecute any alcohol or drug abuse patient.[facility] CenterIn the event this information is protected by the Federal Confidentiality of Alcohol and Drug Abuse Patient Records regulations: The Federal rules restrict any use of the information to criminally investigate or prosecute any alcohol or drug abuse patient.[facility] CenterIn the event this information is protected by the Federal Confidentiality of Alcohol and Drug Abuse Patient Records regulations: The Federal rules restrict any use of the information to criminally investigate or prosecute any alcohol or drug abuse patient.[facility] CenterIn the event this information is protected by the Federal Confidentiality of Alcohol and Drug Abuse Patient Records regulations: The Federal rules restrict any use of the information to criminally investigate or prosecute any alcohol or drug abuse patient.[facility] CenterIn the event this information is protected by the Federal Confidentiality of Alcohol and Drug Abuse Patient Records regulations: The Federal rules restrict any use of the information to criminally investigate or prosecute any alcohol or drug abuse patient.[facility] CenterIn the event this information is protected by the Federal Confidentiality of Alcohol and Drug Abuse Patient Records regulations: The Federal rules restrict any use of the information to criminally investigate or prosecute any alcohol or drug abuse patient.[facility] CenterIn the event this information is protected by the Federal Confidentiality of Alcohol and Drug Abuse Patient Records regulations: The Federal rules restrict any use of the information to criminally investigate or prosecute any alcohol or drug abuse patient.[facility] CenterIn the event this information is protected by the Federal Confidentiality of Alcohol and Drug Abuse Patient Records regulations: The Federal rules restrict any use of the information to criminally investigate or prosecute any alcohol or drug abuse patient.[facility] CenterIn the event this information is protected by the Federal Confidentiality of Alcohol and Drug Abuse Patient Records regulations: The Federal rules restrict any use of the information to criminally investigate or prosecute any alcohol or drug abuse patient.[facility] CenterIn the event this information is protected by the Federal Confidentiality of Alcohol and Drug Abuse Patient Records regulations: The Federal rules restrict any use of the information to criminally investigate or prosecute any alcohol or drug abuse patient.[facility] CenterIn the event this information is protected by the Federal Confidentiality of Alcohol and Drug Abuse Patient Records regulations: The Federal rules restrict any use of the information to criminally investigate or prosecute any alcohol or drug abuse patient.[facility] Reason for Visit (unrecogniz ed section and content) Reason Comments Medical Weight Management Specialty Diagnoses / Procedures Referred By Contac t Referred To Contact Diagnoses Obesity, Class III, BMI 40-49.9 (morbid obesity) (HCC) Procedures ENDOCRINE MEDICAL WEIGHT MANAGEMENT OFFICE/OUTPATIENT NEW HIGH MDM 60-74 MINUTES Valencia Smiley MD [address], [address] [place] [phone] Referral ID Status Reason Start Date Expiration Date V isits Requested Visits Authorized [id number] Closed PCP Requested Referral 10/02/2021 10/02/2022 1 1 Reason Comments Thyroid Problem Obesity Reason Onset Date Comments Refill Request 12/30/2021 Reason Comments Obesity Reason Comments Obesity Polycystic Ovarian Syndrome Reason Comments Medical Weight Management Reason Comments Insurance Authorization Ozempic Reason Comments Medication Problem Reason Onset Date Comments Refill Request 07/18/2022 Reason Comments Insurance Authorization Mounjaro 5mg/0.5 ml Reason Comments Obesity Thyroid Problem Reason Comments New Patient Consult Reason Comments Scans Specialty Diagnoses / Procedures Referred By Contac t Referred To Contact [facility] Diagnoses Hepatomegaly Procedures DDI VIBRATION CONTROLLED TRANSIENT ELASTOGRAPHY (VCTE) LIVER ELASTOGRAPHY W/O IMAG W/I&R Haley Livingston MD [address] [place] [id number] [facility] [place] [facility] [place] [address] [place] [address] Referral ID Status Reason Start Date Expiration Date V isits Requested Visits Authorized [id number] Closed Auto-Generate d Referral 02/17/2023 02/18/2024 1 1 Reason Comments Patient Education Nutrition Assessment Specialty Diagnoses / Procedures Referred By Contac t Referred To Contact Nutrition Diagnoses Hepatomegaly Procedures CONSULT TO NUTRITION THERAPY MEDICAL NUTRITION ASSMT&IVNTJ INDIV EACH 15 [place] MEDICAL NUTRITION ASSMT&IVNTJ INDIV EACH 15 [place] MEDICAL NUTRITION ASSMT&IVNTJ INDIV EACH 15 [place] MEDICAL NUTRITION ASSMT&IVNTJ INDIV EACH 15 [place] Haley Livingston MD [address] [place] [address] Referral ID Status Reason Start Date Expiration Date V isits Requested Visits Authorized [id number] Closed PCP Requested Referral 02/17/2023 05/18/2023 1 1 Reason Comments Obesity Thyroid Problem Polycystic Ovarian Syndrome Reason Comments Education Of Patient/family Appointment Appointment confirme d for 06/30/2023. Reason Comments Appointment Reason Comments Prior Auth Reason Onset Date Comments Refill Request 11/23/2023 Reason Comments Refill Request Reason Comments Refill Request Omeprazole 40 mg Reason Comments Calcium Problem Thyroid Problem Low Blood Sugar Reason Comments Medical Nutrition Therapy PCOS and Weigh t Management Specialty Diagnoses / Procedures Referred By Contac t Referred To Contact Diagnoses Reactive hypoglycemia Insulin resistance Procedures ENDOCRINOLOGY DIETITIAN VISIT (MNT) MEDICAL NUTRITION ASSMT&IVNTJ INDIV EACH 15 [place] MEDICAL NUTRITION ASSMT&IVNTJ INDIV EACH 15 [place] MEDICAL NUTRITION ASSMT&IVNTJ INDIV EACH 15 [place] MEDICAL NUTRITION ASSMT&IVNTJ INDIV EACH 15 [place] Sachi Pedro MD [address] [place] [address] Referral ID Status Reason Start Date Expiration Date V isits Requested Visits Authorized [id number] Closed PCP Requested Referral 03/07/2024 03/07/2025 1 1 Reason Onset Date Comments Refill Request 03/22/2024 Omeprazole 40 mg Reason Comments Radiology US Reason Onset Date Comments Refill Request 04/25/2024 Omeprazole 40 mg Specialty Diagnoses / Procedures Referred By Contac t Referred To Contact Endocrinology / ENDOCRINOLOGY Diagnoses Follow up Procedures VIDEO SPEC EST Sachi Pedro MD [address] [place] [address] [place] [address] [place] [address] Referral ID Status Reason Start Date Expiration Date V isits Requested Visits Authorized [id number] New Request 05/23/2024 08/21/2024 1 1 Reason Onset Date Comments Refill Request 05/23/2024 Omeprazole refil l Reason Comments Polycystic Ovarian Syndrome Thyroid Problem Reason Comments Medical Weight Management Care Teams (unrecognized sec tion and content) Turnaround Planner Relationship Specialty Start Date End Date Tara De Paz APRN [address] [place] [address] PCP - General Family Medicine 11/09/23 Turnaround Planner Relationship Specialty Start Date End Date Tara De Paz APRN [address] [place] [address] PCP - General Family Medicine 11/09/23 Turnaround Planner Relationship Specialty Start Date End Date Tara De Paz APRN [address] [place] [address] PCP - General Family Medicine 11/09/23 Turnaround Planner Relationship Specialty Start Date End Date Tara De Paz APRN [address] [place] [address] PCP - General Family Medicine 11/09/23 Turnaround Planner Relationship Specialty Start Date End Date Tara De Paz APRN [address] [place] [address] PCP - General Family Medicine 11/09/23 Turnaround Planner Relationship Specialty Start Date End Date Tara De Paz APRN [address] [place] [address] PCP - General Family Medicine 11/09/23 Turnaround Planner Relationship Specialty Start Date End Date Tara De Paz APRN [address] [place] [address] PCP - General Family Medicine 11/09/23 Turnaround Planner Relationship Specialty Start Date End Date Tara De Paz MANUFACTURING INTERN [address] [place] [address] PCP - General Family Medicine 11/09/23 Turnaround Planner Relationship Specialty Start Date End Date Tara De Paz JOSE Alegria [address] [place] [address] PCP - General Family Medicine 11/09/23 Turnaround Planner Relationship Specialty Start Date End Date Tara De Paz Airam [employer] [address] [place] [address] PCP - General Family Medicine 11/09/23 Turnaround Planner Relationship Specialty Start Date End Date Baldev Tara JOSE Alegria [address] [place] [address] PCP - General Family Medicine 11/09/23 Turnaround Planner Relationship Specialty Start Date End Date Tara De Paz MANU[employer]URING INTERN [address] [place] [address] PCP - General Family Medicine 11/09/23 Turnaround Planner Relationship Specialty Start Date End Date Tara De Paz JOES Alegria [address] [place] [address] PCP - General Family Medicine 11/09/23 Turnaround Planner Relationship Specialty Start Date End Date Baldev Tara Airam [employer]ING [employer]N [address] [place] [address] PCP - General Family Medicine 11/09/23 Turnaround Planner Relationship Specialty Start Date End Date Tara De Paz APRN [address] [place] [address] PCP - General Family Medicine 11/09/23 Turnaround Planner Relationship Specialty Start Date End Date Kary Duran MD [address] [place] [address] PCP - General Family Medicine 01/12/23 Tara De Paz NP [address] [place] [address] Nurse Practitioner Family Medicine 01/12/23 Effie Gutierrez DO [address] [place] [address] Referring Physician Neurology 11/03/23 Turnaround Planner Relationship Specialty Start Date End Date Tara De Paz APRN [address] [facility] [place] [address] PCP - General Family Medicine 11/09/23 Turnaround Planner Relationship Specialty Start Date End Date Tara De Paz APRN [address] [facility] [place] [address] PCP - General Family Medicine 11/09/23 Turnaround Planner Relationship Specialty Start Date End Date Tara De Paz APRN [address] [place] [address] PCP - General Family Medicine 11/09/23 Turnaround Planner Relationship Specialty Start Date End Date Tara De Paz APRN [address] [facility] [place] [address] PCP - General Family Medicine 11/09/23 FOR RECORDS PERTAINING TO PATIENTS WHO ARE OR HAVE BEEN ENROLLED IN A CHEMICAL DEPENDENCY/SUBSTANCEABUSE PROGRAM, SOME INFORMATION MAY BE OMITTED. This clinical summary was aggregated from multiple sources. Caution should be exercised in using it in the provision of clinical care. This summary normalizes information from multiple sources, and as a consequence, information in this document may materially change the coding, format and clinical context of patient data. In addition, data may be omitted in some cases. CLINICAL DECISIONS SHOULD BE BASED ON THE PRIMARY CLINICAL RECORDS. [facility] provides no warranty or guarantee of the accuracy or completeness of information in this document.
[2024-09-01 19:06] LABS: Age Gdln ACOG Testing Note (.); HPV Aptima Positive (Negative); HPV Genotype 16 Negative (Negative); HPV Genotype 18,45 Negative (Negative); IGP, Aptima HPV, rfx 16/18,45 Note (.)
== END 2024-08-23 19:47 | disposition home or self-care (01) ==
LOC: LAB 19:46
PROVIDERS: Visit Provider Physician Assistant
DX: Z01.419 Encounter for gynecological examination (general) (routine) without abnormal findings (principal)
CPT/HCPCS: 87624; 88175